=== PATIENT | male | born 1985 | race Caucasian/White ===

== ENCOUNTER 2016-04-27 14:27 | Emergency (ER) | payer OTHER ==
[~2016-04-27] VITALS: Ht 167.6 cm; Wt 75.7 kg
[2016-04-27 14:34] VITALS: Ht 167.6 cm; Wt 75.7 kg
[2016-04-27] MEDS ORDERED: OXYCODONE HCL IR 5 MG TAB (IMMEDIATE RELEASE) PO STA (16:20)
[2016-04-27] MEDS ORDERED: LISI-461 PO (16:21)
--- NOTE | 2016-04-27 16:23 | EMERGENCY ROOM VISIT NOTE ---
History Report prepared by Fareed: Kvng Menon Under the Supervision of: Dr. Lucian Zhao M.D. First contact with patient: 16:11 Chief Complaint: HAND PAIN/INJURY Stated Complaint: PAIN AND FEVER BLISTERS BOTH HANDS History of Present Illness The patient is a 30 year old male who presents to the Emergency Room with complaints of worsening hand pain for the past week. The patient additionally states that he has been having pain all over. 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 He states that is started out looking like a psoriasis, and now it is swollen. The patient states that he has not injured them or worked with any chemicals recently. He additionally denies being a diabetic. The patient states that he has some blisters on his lips, leg pain, back pain, and generalized pain. The patient states that he has been taking Tylenol to treat the pain. He denies abdominal pain or vomiting Source of History: patient, family Onset: week ago Position: hand (bilateral) Quality: other (swelling) Timing: worsening Associated Symptoms: + back pain, No cough, No rash, No sorethroat, No urinary symptoms Note: Associated symptoms: Leg pain, blisters on his lips Review of Systems See HPI for pertinent positives & negatives. A total of 10 systems reviewed and were otherwise negative. Past Medical & Surgical Medical Problems: (1) Chronic back pain (2) History of - hypertension (3) Lumbar MRI revealing L5 abnormality Old medical records were reviewed. Nurse's notes were reviewed and I agree with. Family History Hypertension Social History Smoking Status: Current Every Day Smoker Alcohol Use: occasionally Occupation Status: employed, unemployed Current/Historical Medications Scheduled Lisinopril (Lisinopril), 10 MG PO DAILY Scheduled PRN Oxycodone Ir (Roxicodone Ir), 1-2 TAB PO Q4H PRN for Severe Pain Allergies Coded Allergies: No Known Allergies (Unverified , 04/27/16) Physical Exam Vital Signs Date Time Temp Pulse Resp B/P Pulse Ox O2 Delivery O2 Flow Rate FiO2 04/27/16 18:38 37.1 101 18 138/91 98 04/27/16 18:28 101 18 138/91 98 Room Air 04/27/16 17:30 101 18 141/92 98 Room Air 04/27/16 14:34 37.1 101 18 152/98 99 Room Air Physical Exam General: Non-ill appearing young male in no acute distress. HEENT: Normal cephalic atraumatic. Pupils are equal round and reactive to light. Extraocular movements are intact. Oropharynx is pink with moist mucous membranes. No swelling of the mouth lips or tongue. Neck: Supple with a midline trachea. No meningeal signs or stiffness, no JVD or bruits. No Stridor. Chest: Clear to auscultation bilaterally. No wheezes or rhonchi. No increased work of breathing. Heart: regular rate and rhythm. Abdomen: Soft nontender, nondistended without rebound guarding or rigidity. Extremities: Pain along both hands more on the dorsal aspect. Minimal swelling. Has scaling on the palm on the right which appears to be healing. Full range of motion. Normal motor and sensation. No evidence of vascular compromise. Good pulses. Good capillary refill. No blisters. No evidence of cellulitis. No crepitus. No cyanosis clubbing or edema. No calf tenderness or assymetry Spine/Back. Non tender to palpation. No CVA tenderness Skin: Good turgor without rashes. Neurologic exam: Cranial nerves two through 12 are intact. Motor and sensation are intact and symmetrical throughout. Medical Decision & Procedures Laboratory Results 04/27/16 16:35 Red Blood Count 4.01, Mean Corpuscular Volume 89.0, Mean Corpuscular Hemoglobin 31.2, Mean Corpuscular Hemoglobin Concent 35.0, Mean Platelet Volume 10.0, Neutrophils (%) (Auto) 45.7, Lymphocytes (%) (Auto) 39.6, Monocytes (%) (Auto) 10.9, Eosinophils (%) (Auto) 2.8, Basophils (%) (Auto) 0.7, Neutrophils # (Auto ) 2.75, Lymphocytes # (Auto) 2.39, Monocytes # (Auto) 0.66, Eosinophils # (Auto ) 0.17, Basophils # (Auto) 0.04 04/27/16 16:35 Test 04/27/16 16:35 White Blood Count 6.03 K/uL (4.8-10.8) Red Blood Count 4.01 M/uL (4.7-6.1) Hemoglobin 12.5 g/dL (14.0-18.0) Hematocrit 35.7 % (42-52) Mean Corpuscular Volume 89.0 fL (80-100) Mean Corpuscular Hemoglobin 31.2 pg (25-34) Mean Corpuscular Hemoglobin Concent 35.0 g/dl (32-36) Platelet Count 218 K/uL (130-400) Mean Platelet Volume 10.0 fL (7.4-10.4) Neutrophils (%) (Auto) 45.7 % Lymphocytes (%) (Auto) 39.6 % Monocytes (%) (Auto) 10.9 % Eosinophils (%) (Auto) 2.8 % Basophils (%) (Auto) 0.7 % Neutrophils # (Auto) 2.75 K/uL (1.4-6.5) Lymphocytes # (Auto) 2.39 K/uL (1.2-3.4) Monocytes # (Auto) 0.66 K/uL (0.11-0.59) Eosinophils # (Auto) 0.17 K/uL (0-0.5) Basophils # (Auto) 0.04 K/uL (0-0.2) RDW Standard Deviation 43.7 fL (36.4-46.3) RDW Coefficient of Variation 13.4 % (11.5-14.5) Immature Granulocyte % (Auto) 0.3 % Immature Granulocyte # (Auto) 0.02 K/uL (0.00-0.02) Anion Gap 10.0 mmol/L (3-11) Est Creatinine Clear Calc Drug Dose 138.6 ml/min Estimated GFR () 145.6 Estimated GFR (Non- 125.6 BUN/Creatinine Ratio 28.6 (10-20) Uric Acid 4.0 mg/dl (2.6-7.2) Calcium Level 8.8 mg/dl (8.5-10.1) Total Bilirubin 0.4 mg/dl (0.2-1) Direct Bilirubin 0.1 mg/dl (0-0.2) Aspartate Amino Transf (AST/SGOT) 353 U/L (15-37) Alanine Aminotransferase (ALT/SGPT) 484 U/L (12-78) Alkaline Phosphatase 60 U/L (45-117) Total Protein 7.1 gm/dl (6.4-8.2) Albumin 3.6 gm/dl (3.4-5.0) Lipase 562 U/L (73-393) Las results as reviewed by me. Medications Administered Medications (Trade) Dose Ordered Sig/Bebe Route Start Time Stop Time Status Last Admin Dose Admin Oxycodone HCl (Roxicodone Immediate Rel Tab) 5 mg NOW STAT PO 04/27/16 16:20 04/27/16 16:21 DC 04/27/16 16:33 5 MG ED Course 161: Past medical records reviewed. The patient was evaluated in room B12, and a complete history and physical examination were performed. 162: Oxycodone HCl 5mg PO 6: Upon reevaluation, the patient is feeling better, though he is still having some hand pain. I discussed the results and treatment plan with him. He verbalized agreement of the treatment plan. The patient was discharged home. Medical Decision Differentials include, but are not limited to; infection, dry skin, toxicological issue, viral illness, gout, electrolyte or metabolic abnormalities This patient comes in with bilateral hand pain .on exam they are only minimally swelling. He has a small amount scaling on the palm which appears to be some sort of healing lesion. He does not appear to have anything suggest cellulitis. He has bounding pulses and good vascular flow and no evidence of neurovascular compromise. He has normal tendon function. He has no other discrete rashes and there is no blistering. He has had some blisters in his mouth and this could be a viral illness. I'm concerned it could be some sort of chemical or environmental exposure as it is bilateral. I talked to him at length there is nothing he can recall that he got on them or exposure. there is no sloughing of skin. i did blood work and he has no white count elevation. he has no significant electrolyte or metabolic maladies. His liver functions are moderately elevated and i had talked about this. He has had no abdominal pain or vomiting when i palpate his right upper quadrant it is not tender. his uric acid is normal and therefore unlikely gout. i did treat him with oxyir while he was here. I will encourage him to use ibuprofen for pain. For breakthrough pain, he can use OxyIR 5 mg, one or 2 pills every 4-6 hours as needed. He was warned that this can make him drowsy and do not take for drinking, driving, working. I encouraged him follow-up with his regular doctor for recheck and return to the ER if: increasing pain, redness or warmth , numbness weakness, any new problems or concerns. The patient and his family member anai happy with plan and he was discharged to home. Impression Primary Impression: Bilateral hand pain Scribe Attestation The scribe's documentation has been prepared under my direction and personally reviewed by me in its entirety. I confirm that the note above accurately reflects all work, treatment, procedures, and medical decision making performed by me. Departure Information Dispostion Home / Self-Care Prescriptions Oxycodone Ir (Roxicodone Ir) 5 Mg Tab 1-2 TAB PO Q4H Y for Severe Pain, #24 TAB Prov: Lucian Zhao M.D. 04/27/16 Referrals No Doctor, Assigned (PCP) Forms HOME CARE DOCUMENTATION FORM, IMPORTANT VISIT INFORMATION Patient Instructions My [facility] Additional Instructions Rest. Drink plenty of fluids. Use ibuprofen 400 mg every 6 hours as needed for pain. Take with food For more severe pain, use OxyIR 5 mg, one or 2 pills every 4-6 hours as needed OxyIR may make you drowsy and do not take before drinking, driving, working Follow-up with your doctor in 1-2 days for recheck. Your liver functions are mildly elevated and you need to have this rechecked. Return to the ER if: increasing pain, numbness or vweakness, fever or chills, abdominal pain, any new problems or concerns.
[2016-04-27 16:51] LABS: HEMATOCRIT 35.7 % (42-52); MEAN CORPUSCULAR HEMOGLOBIN 31.2 pg (25-34); PLATELET COUNT 218 K/uL (130-400); RED BLOOD COUNT 4.01 M/uL (4.7-6.1); WHITE BLOOD COUNT 6.03 K/uL (4.8-10.8)
[2016-04-27 17:13] LABS: BUN/CREATININE RATIO 28.6 (10-20); CALCIUM 8.8 mg/dl (8.5-10.1); CREATININE 0.69 mg/dl (0.60-1.40); POTASSIUM 3.8 mmol/L (3.5-5.1)
[2016-04-27 17:48] LABS: BASO % 0.7 %; BASO ABS # 0.04 K/uL (0-0.2); COMPLETE YES; EOS % 2.8 %; IG% 0.3 %; LYMPH % 39.6 %; LYMPH ABS # 2.39 K/uL (1.2-3.4); MONO % 10.9 %; NEUT % 45.7 %
[2016-04-27] MEDS ORDERED: OXYC1TAB3 PO (18:02)
[2016-04-27 18:38] VITALS: BP 138/91; PULSE 101; TEMP 37.1; O2SAT 98
== END 2016-04-27 18:41 | disposition home or self-care (01) ==
LOC: C.EDB 14:28
DX: M79.641 Pain in right hand (principal); M79.642 Pain in left hand; M54.9 Dorsalgia, unspecified; G89.29 Other chronic pain; I10 Essential (primary) hypertension; F17.210 Nicotine dependence, cigarettes, uncomplicated; Z79.899 Other long term (current) drug therapy

== ENCOUNTER → 2017-02-26 | Outpatient (CLI) | payer OTHER ==
[~2017-02-26] MED LIST: ACET-1256 PO; HYDR-5688 PO; IBUP-1050 PO
--- NOTE | 2017-02-26 11:33 | DIAGNOSTIC IMAGING REPORT ---
L HAND MIN 3 VIEWS ROUTINE HISTORY: 31 years-old Male HAND PAIN acute left hand pain status post punching injury COMPARISON: None available TECHNIQUE: 4 views of the left hand FINDINGS: There is an acute slightly impacted nondisplaced fracture involving the distal metaphyseal portion of the fourth metacarpal with mild apex dorsal angulation of 10 degrees. Mild associated dorsal hand soft tissue swelling. Fifth metacarpal appears intact. IMPRESSION: Acute slightly impacted and mildly angulated nondisplaced fracture of the fourth metacarpal. The above report was generated using voice recognition software. It may contain grammatical, syntax or spelling errors. Electronically signed by: Clay Marroquin M.D. 02/26/2017 11:32 AM Dictated Date/Time: 02/26/2017 11:30 AM
== END | disposition home or self-care (01) ==
LOC: C.RAD 10:51
PROVIDERS: ATTEND Family Medicine
DX: M79.642 Pain in left hand (principal); S62.395A Other fracture of fourth metacarpal bone, left hand, initial encounter for closed fracture; X58.XXXA Exposure to other specified factors, initial encounter

== ENCOUNTER 2017-05-15 14:47 | Emergency (ER) | payer OTHER ==
[~2017-05-15] VITALS: Ht 167.6 cm; Wt 79.0 kg
[2017-05-15 14:52] VITALS: TEMP 36.8; Ht 167.6 cm; Wt 79.0 kg
[2017-05-15] MEDS ORDERED: HYDR-5688 PO (16:14)
[2017-05-15] MEDS ORDERED: ERYTHROMYCIN OP OINT 5 MG/GM 3.5 GM TUBE OP ONE (16:15)
--- NOTE | 2017-05-15 16:15 | EMERGENCY ROOM VISIT NOTE ---
History First contact with patient: 15:10 Chief Complaint: EYE PAIN Stated Complaint: SWOLLEN EYE History of Present Illness The patient is a 31 year old male who presents to the Emergency Room via private vehicle with complaints of "swollen ankle. The patient states that 3 days ago he began with mild swelling on the superior right eyelid. He states that it is painful, and hurts with movements of the right eye. There is no pain of the eye itself, and no redness of the eye noted. He states that it is worsening as each day goes by. He denies any trauma or injury. 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 He states that it happened rather overnight. He notes a history of previous foreign body but notes this feels much different. He notes that the pain is worse with blinking. This is strictly on the right side. He denies any contact lens use or glasses. He states that at times it will make his vision blurry. He denies any fevers, or chills. He notes a minimal headache. He rates the overall pain as an 8/10. Review of Systems A complete 6-point Review of Systems was discussed with the patient, with pertinent positives and negatives listed in the History of Present Illness. All remaining Review of Systems questions can be considered negative unless otherwise specified. Past Medical/Surgical History Medical Problems: (1) Chronic back pain (2) History of - hypertension (3) Lumbar MRI revealing L5 abnormality Family History Hypertension Social History Smoking Status: Current Some Day Smoker Alcohol Use: occasionally Occupation Status: employed, unemployed Current/Historical Medications Scheduled PRN Hydrocodone/Acetaminophen 5MG/325MG ([place] 5MG/325MG), 1-2 TABLET PO Q6 PRN for Pain Physical Exam Vital Signs Date Time Temp Pulse Resp B/P (MAP) Pulse Ox O2 Delivery O2 Flow Rate FiO2 05/15/17 16:27 93 18 146/86 96 Room Air 05/15/17 14:52 36.8 111 16 145/91 94 Right Eye Acuity: 20/50 Left Eye Acuity: 20/25 Physical Exam VITAL SIGNS - Vital signs and nursing notes were reviewed. Stable. Afebrile. GENERAL -31-year-old male appearing his stated age. Communicates well with provider and answers questions appropriately. HEAD - Normocephalic, Atraumatic. No Montelongo's Sign or Raccoon's Eyes. No depressed skull fractures palpable. EYES - PERRL with EOMI bilaterally. Sclera without noticeable foreign body or excoriations. No injection noted in the right eye. Without subconjunctival hemorrhage. Palpebral conjunctiva pink and moist with no injection or discharge noted. The superior right eyelid does reveal a erythematous and slightly raised region. No drainage. No foreign body appreciated. The right eyeball itself is unremarkable. The abnormality is localized to that of the right upper central eyelid. EARS - No deformities of external structures noted on gross examination bilaterally. Handle of malleus, umbo, cone of light, pars tensa/flaccid all easily visualized. NOSE - Midline and without cyanosis. Without discharge. MOUTH/OROPHARYNX - Without perioral cyanosis. Tongue midline with equal elevation of palate bilaterally. No tonsillar hypertrophy, erythema, or exudates noted. fair dentition noted. NECK - FROM assessed. No cervical lymphadenopathy noted. Medical Decision & Procedures Medications Administered Medications (Trade) Dose Ordered Sig/Bebe Route Start Time Stop Time Status Last Admin Dose Admin Erythromycin (Erythromycin Oph Oint) 1 appln NOW ONCE OP 05/15/17 16:15 05/15/17 16:16 DC 05/15/17 16:27 1 APPLN Medical Decision Patient was seen and evaluated as above in room D5. Review was performed of nursing notes and vital signs. After obtaining a thorough history and physical examination it was evident he was experiencing a stye/hordeolum. At this time I do not believe that oral antibiotics are indicated. There is no evidence of periorbital or orbital cellulitis. This is localized to the superior right eyelid. Minimal pain with EOMs which does not elicit pain at the eyeball rather it is all localized to the eyelid itself. I will provide him with erythromycin ointment to help lubricate the eye as he notes it feels dry. He is also to utilize warm compresses. He will be given a short prescription for [place] secondary to his pain. He notes that he is using [id number] medicine with minimal relief. No red flags in the [employer] drug monitoring system. The erythromycin is also to help with any potential small infection. He is to follow with the family doctor for reevaluation or return with worsening. The patient was educated upon management, had questions answered prior to discharge, was educated upon worrisome symptoms in which to return, and was discharged home in good condition. In the evaluation and treatment of this patient, the following differential diagnoses were considered: Corneal Abrasion, Conjunctivitis, Eye Contusion, Globe Injury, Orbital Floor Injury (Blowout Fracture), Corneal Ulcer, Keratitis , Herpes Zoster Opthalmic, Blepharitis, Orbital Cellulitis, Iritis, Scleritis/ Episcleritis, Uveitis, Temporal Arteritis, Subconjunctival Hemorrhage. Impression Primary Impression: Hordeolum internum of right upper eyelid Departure Information Dispostion Home / Self-Care Condition GOOD Prescriptions Hydrocodone/Acetaminophen 5MG/325MG ([place] 5MG/325MG) Tab 1-2 TABLET PO Q6 Y for Pain, #15 TAB For Initial Treatment Prov: Satya Staples PA-C 05/15/17 Referrals Jose Chowdhury M.D. (PCP) Patient Instructions My [facility] Additional Instructions You have been treated in the Emergency Department for a sty on your right upper eyelid. You have been prescribed NORCO to be used for pain control. This is a narcotic medication. You cannot drive or consume alcohol while on this medicine. This medicine should only be used for pain that cannot be controlled with over-the- counter pain medicines. Please no Tylenol with this. You were prescribed erythromycin to be used every 6 hours. This is an antibiotic. Stop this medication and contact a medical provider if you were to develop any significant adverse side effects including: wheezing, shortness of breath, passing out, vomiting, or a diffuse rash. Always take antibiotics as directed and COMPLETE the ENTIRE course regardless of the improvement of your symptoms. For pain control, you can use the following [id number]-[id number] medicines (if >12 yo): - Regular strength (325mg/tab) Tylenol (acetaminophen) 2 tabs every 4-6 hours as needed. Do not exceed 12 tablets in a 24 hour period. Avoid taking more than 3 grams (3000 mg) of Tylenol per day. This includes any other sources of acetaminophen you may take on a regular basis. Please do not take this with [place]. - Regular strength (200 mg/tab) Advil (ibuprofen) 1-2 tabs every 4-6 hours as needed. Do not exceed a dose of 3200 mg per day. Avoid rubbing your eyes for the next few days as this can cause irritation. Wear sunglasses when outside to help minimize your pain. You should relax in a quiet, dark room to help minimize your symptoms. Please call your family doctor to schedule follow-up. Return to the emergency department if you develop the following symptoms despite treatment course outlined above: blurry vision, loss of vision, fever, intractable pain, increased redness, swelling, or purulent discharge.
[2017-05-15 16:27] VITALS: BP 146/86; PULSE 93; O2SAT 96
== END 2017-05-15 16:36 | disposition home or self-care (01) ==
LOC: C.EDB 14:49 → C.EDD 16:36
DX: H00.021 Hordeolum internum right upper eyelid (principal); M54.9 Dorsalgia, unspecified; G89.29 Other chronic pain; Z86.79 Personal history of other diseases of the circulatory system; Z82.49 Family history of ischemic heart disease and other diseases of the circulatory system; F17.210 Nicotine dependence, cigarettes, uncomplicated

== ENCOUNTER 2022-06-14 12:01 | Inpatient (IN) ==
[2022-06-14] MEDS ORDERED: ONDANSETRON INJ 2 MG/ML 2 ML VIAL IV STA (12:50)
[2022-06-14] MEDS ORDERED: PIPERACILLIN/TAZOBACTAM 4.5 GM/120 ML BAG IV ONE (12:50)
[2022-06-14] MEDS ORDERED: DAPTOmycin 375 MG in SYRINGE 0 ML IV SCH (13:00)
[2022-06-14] MEDS: HYDROmorphone INJ 0.5 MG/0.5 ML SYR IV PRN ×4 (13:01→19:45)
--- NOTE | 2022-06-14 13:13 | Emergency Department Note ---
Impression & Plan Cellulitis and abscess of left lower extremity ED Provider Note INFORMANT: Patient ED PROVIDER(S): Jose Kincaid MD CHIEF COMPLAINT: Left ankle infection PLAN: Disposition: Admitted Condition: Good Outpatient prescription management: none Referral: None MEDICAL DECISION MAKING: Patient presented because of concerns for left lower leg infection. Physical examination was concerning for cellulitis and abscess given the purulent drainage. There was fluctuance present as well. He had an IV established. Blood work was obtained. Wound drainage was cultured. Blood cultures performed. Patient was treated with IV Dilaudid and Zofran for symptom control. He was started empirically on IV Zosyn and daptomycin. Patient had an elevated white blood cell count and inflammatory markers concerning for infection. He underwent CT imaging of the left ankle and this was concerning for abscess and developing osteomyelitis/tenosynovitis. I did discuss the case with Dr. Nava butt of orthopedics. He noted he does not specialize in the foot and ankle. I did discuss the case with Dr. Bautista of podiatry. He evaluated the patient in the ER for consultation and will help manage the patient. I did consult the [facility]. The patient will be admitted by internal medicine for further treatment and consultation. Discussed with the telehealth case manager. After review of the information above and other included data, I feel the patient requires admission. Triage Nursing notes reviewed and agree them. Vital Signs: reviewed and remarkable for no significant abnormalities Prior /Outside records reviewed: none Differential diagnosis: Cellulitis, abscess, MRSA infection, DVT, necrotizing fasciitis, dermatitis, drug eruption, allergic reaction, as well as other pathologies. Diagnostics, as interpreted by me: ECG: none Cardiac Monitoring: Cardiac monitoring ordered by me: The patient was placed on continuous cardiac monitoring and observed. It revealed a normal sinus rhythm at 82 beats per minute without ectopy or evidence of dysrhythmia. Medical decision rules: None Imaging studies: CT imaging as above. I refer you to the EMR for further details. HPI: The patient is a 36year old male who presents to the Emergency Room with complaints of left leg infection. This started about 2 weeks ago and is worsening. The patient also notes the following associated symptoms, swelling, leg redness, drainage from the lateral aspect of the left ankle. The patient has found no relieving factors. Current pain is rated as 10/10. Patient states that his ankle was swollen and uncomfortable. 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 Patient was seen at the [facility] and started on prednisone for suspected gout. Patient was seen again today and was referred to the ER due to concerns for infection. Pt denies LOC, headache, fevers, chills, diaphoresis, visual changes, neck pain, chest pain, breathing difficulties, nausea, vomiting, abdominal pain, back pain, melena, hematochezia, urinary symptoms, numbness, weakness, lymphadenopathy, rash, or other complaints. PAST MEDICAL HISTORY: See Below, tests nonalcoholic cirrhosis PAST SURGICAL HISTORY: See Below, SOCIAL HISTORY: See Below, employed, smoker HOME MEDICATIONS: See Below ALLERGIES: See Below VITALS: See Below PHYSICAL EXAMINATION: GENERAL: Awake, alert, very uncomfortable-appearing, in no distress HENT: Normocephalic, atraumatic. Oropharynx unremarkable. EYES: Normal conjunctiva. Sclera non-icteric. NECK: Inspection normal. Non-tender. Supple. No nuchal rigidity. FROM. No ma sses. RESPIRATORY: Clear to auscultation. No wheezes. No rales. Normal respiratory effort. CARDIAC: Normal rate. Normal rhythm. No murmurs. No rubs. Extremities warm and well perfused. Pulses equal. No JVD. GI: Soft, non-distended. No tenderness to palpation. No rebound or guarding. No masses. RECTAL: Deferred. MUSCULOSKELETAL: Atraumatic. Chest examination reveals no tenderness. The back is symmetrical on inspection without obvious abnormality. There is no CVA tenderness to palpation. No joint edema. LOWER EXTREMITIES: The left lower leg is larger than the right. There is tenderness distally and around the ankle joint and foot. Surrounding cellulitis present. There is an open wound actively draining purulent material laterally over the malleolus. No obvious crepitus. NEURO: Normal sensorium. No sensory or motor deficits noted. SKIN: No rash or jaundice noted. Past Med/Surg History Medical History Hepatitis C Mood disorder No pertinent past medical history Surgical History H/O hand surgery Family History Other Diabetes Social History (Updated 06/14/22 @ 15:51 by Dorcas Desouza PA-C) Smoking Status: Current every day smoker Tobacco Type: E-cigarettes / Vaping Hx Alcohol Use: Yes (h/o heavy remote use. does not drink now ) Hx Substance Use: Yes (remove IVDU but has not used in 10 years) Preferred Language: Thai Feels Safe at Home: Yes Allergies Allergies Allergy/AdvReac Type Severity Reaction Status Date / Time No Known Allergies Allergy Mild Unverified 10/03/21 16:11 Home Meds Home Medications Medication Instructions Recorded Confirmed buspirone 10 mg tablet 10 mg PO BID 06/14/22 06/14/22 indomethacin 50 mg capsule 50 mg PO TID PRN gout flares 06/14/22 06/14/22 prednisone 10 mg tablet 10 mg PO UD 06/14/22 06/14/22 Results & Data (ED) Vital Signs Vital Signs - 24 hr 06/14/22 12:04 06/14/22 14:30 06/14/22 13:00 Temperature 36.8 C Temperature Source Temporal Artery Scan Pulse Rate 85 Pulse Rate [Finger] 78 83 Respiratory Rate 20 18 16 Respiratory Effort / Characteristics Non-Labored Spontaneous Non-Labored Spontaneous Non-Labored Spontaneous Respiratory Depth Normal Normal Normal Respiratory Pattern Regular Regular Blood Pressure 135/80 Blood Pressure [Right Arm] 130/76 122/75 Blood Pressure Mean 98 Blood Pressure Mean [Right Arm] 94 90 Blood Pressure Position [Right Arm] Sitting Sitting Pulse Oximetry 98 96 98 Oxygen Delivery Method Room Air Room Air Room Air Sepsis New/Unexplained Change in Mental Status N/A Sepsis Action Taken by Nursing No Action Required 06/14/22 13:30 06/14/22 16:03 Temperature Temperature Source Pulse Rate Pulse Rate [Finger] 82 82 Respiratory Rate 18 20 Respiratory Effort / Characteristics Non-Labored Spontaneous Non-Labored Respiratory Depth Normal Normal Respiratory Pattern Regular Blood Pressure Blood Pressure [Right Arm] 128/82 130/84 Blood Pressure Mean Blood Pressure Mean [Right Arm] 97 99 Blood Pressure Position [Right Arm] Sitting Pulse Oximetry 97 97 Oxygen Delivery Method Room Air Room Air Sepsis New/Unexplained Change in Mental Status Sepsis Action Taken by Nursing Laboratory Data 06/14/22 12:46 06/14/22 12:46 Lab Results 06/14/22 06/14/22 06/14/22 Range/Units 12:46 12:46 12:46 WBC 11.54 H (4.8-10.8) K/ul RBC 3.93 L (4.70-6.10) M/uL Hgb 12.6 L (14.0-18.0) g/dl Hct 35.6 L (42.0-52.0) % MCV 90.6 (80.0-100.0) fL MCH 32.1 (25.0-34.0) pg MCHC 35.4 (32.0-36.0) g/dL RDW Std Deviation 52.7 H (36.4-46.3) fL RDW Coeff of Tim 15.9 H (11.5-14.5) % Plt Count 92 L (130-400) K/uL MPV 11.1 (9.4-12.4) fL Immature Gran % (Auto) 0.4 % Neut % (Auto) 92.8 % Lymph % (Auto) 3.2 % Dukes % (Auto) 3.0 % Eos % (Auto) 0.3 % Baso % (Auto) 0.3 % Neut # (Auto) 10.71 H (1.40-6.50) K/uL Lymph # (Auto) 0.37 L (1.2-3.4) K/uL Dukes # (Auto) 0.35 (0.11-0.59) K/uL Eos # (Auto) 0.03 (0-0.50) K/uL Baso # (Auto) 0.03 (0-0.2) K/uL Immature Gran # (Auto) 0.05 (0.01-0.20) K/uL ESR 65 H (0-15) mm/hr Sodium 133 L (136-145) mmol/L Potassium 4.5 (3.5-5.1) mmol/L Chloride 101 (98-107) mmol/L Carbon Dioxide 25 (21-32) mmol/L Anion Gap 7 (3-11) BUN 27 H (6-23) mg/dl Creatinine 0.66 (0.6-1.4) mg/dl Est Cr Clr Drug Dosing 156.3 ml/min Est GFR ( Amer) 142.1 ml/min Est GFR (Non-Af Amer) 122.6 ml/min BUN/Creatinine Ratio 40.9 H (10-20) Glucose 166 H (70-99(Fasting)) mg/dl Lactate (0.4-2.0) mmol/L Uric Acid 3.2 (2.6-7.2) mg/dl Calcium 8.3 L (8.6-10.3) mg/dl C-Reactive Protein 12.85 H (0-0.5) mg/dl 06/14/22 Range/Units 12:56 WBC (4.8-10.8) K/ul RBC (4.70-6.10) M/uL Hgb (14.0-18.0) g/dl Hct (42.0-52.0) % MCV (80.0-100.0) fL MCH (25.0-34.0) pg MCHC (32.0-36.0) g/dL RDW Std Deviation (36.4-46.3) fL RDW Coeff of Tim (11.5-14.5) % Plt Count (130-400) K/uL MPV (9.4-12.4) fL Immature Gran % (Auto) % Neut % (Auto) % Lymph % (Auto) % Dukes % (Auto) % Eos % (Auto) % Baso % (Auto) % Neut # (Auto) (1.40-6.50) K/uL Lymph # (Auto) (1.2-3.4) K/uL Dukes # (Auto) (0.11-0.59) K/uL Eos # (Auto) (0-0.50) K/uL Baso # (Auto) (0-0.2) K/uL Immature Gran # (Auto) (0.01-0.20) K/uL ESR (0-15) mm/hr Sodium (136-145) mmol/L Potassium (3.5-5.1) mmol/L Chloride (98-107) mmol/L Carbon Dioxide (21-32) mmol/L Anion Gap (3-11) BUN (6-23) mg/dl Creatinine (0.6-1.4) mg/dl Est Cr Clr Drug Dosing ml/min Est GFR ( Amer) ml/min Est GFR (Non-Af Amer) ml/min BUN/Creatinine Ratio (10-20) Glucose (70-99(Fasting)) mg/dl Lactate 2.0 (0.4-2.0) mmol/L Uric Acid (2.6-7.2) mg/dl Calcium (8.6-10.3) mg/dl C-Reactive Protein (0-0.5) mg/dl Administered Medications Hydromorphone HCl (Hydromorphone Inj 0.5 Mg/0.5 Ml Syr) 0.5 mg IV Q15M PRN PRN Reason: Pain Stop: 06/28/22 12:49 Last Admin: 06/14/22 15:22 Dose: 0.5 mg Documented By: Admin: 06/14/22 14:39 Dose: 0.5 mg Documented By: Admin: 06/14/22 13:01 Dose: 0.5 mg Documented By: ELIZ Daptomycin 375 mg/ Syringe 7.5 mls @ 3.75 mls/min IV Q24H [facility]; Protocol Stop: 06/16/22 12:59 Last Admin: 06/14/22 14:39 Dose: 3.75 mls/min Documented By: ELIZ Discontinued Medications Piperacillin Sod/Tazobactam Sod (Zosyn) 4.5 gm in 120 mls @ 240 mls/hr IV NOW ONE Stop: 06/14/22 13:19 Last Infusion: 06/14/22 13:29 Dose: 0 mls/hr Documented By: Admin: 06/14/22 13:01 Dose: 240 mls/hr Documented By: ELIZ Ioversol (Optiray 320 100ml) 95 ml IV ONCE ONE Stop: 06/14/22 14:17 Last Admin: 06/14/22 14:17 Dose: 95 ml Documented By: MARTHA Ondansetron HCl (Ondansetron Inj 2 Mg/Ml 2 Ml Vial) 4 mg IV NOW STA Stop: 06/14/22 12:51 Last Admin: 06/14/22 13:01 Dose: 4 mg Documented By: ELIZ Imaging Data Radiologist's Impression: Ankle CT 06/14/22 12:[address] ankle LT w con CT DOSE: 154.69 mGy.cm CLINICAL HISTORY: eval abscess, laterally . Left ankle swelling. TECHNIQUE: Multiaxial CT images of the left ankle were performed following the intravenous administration of 95 cc of Optiray 320 and reformatted in the sagittal and coronal plane. A dose lowering technique was utilized adhering to the principles of ALARA. COMPARISON STUDY: None. FINDINGS: There is extensive subcutaneous trace edema seen throughout the left ankle most pronounced laterally. There is associated skin thickening and mild enhancement along the lateral side of the ankle/hindfoot. Consistent with a cellulitis. There is a peripherally enhancing subcutaneous fluid collection seen within the left lateral ankle/hindfoot which measures approximately 4.3 x 3.2 x 1.4 cm. This consistent with a subcutaneous abscess. This abuts the distal fibula. Small focal area of cortical erosion within the distal fibula posteriorly consistent with a site of osteomyelitis. This is best seen on axial image 143. There is also fluid and peripheral enhancement within the tendon sheaths of the left peroneal tendons. This also abuts the subcutaneous abscess. Therefore, this favors an infectious tenosynovitis. This is best seen on axial image 171 and coronal image 59. There is an additional subcutaneous fluid collection within the left lateral hindfoot/midfoot on image 212 which measures 2.3 x 1.4 cm. This consistent with an additional abscess. This likely contacts to the dominant subcutaneous trace fluid collection within the left lateral ankle. No fracture or dislocation within the left ankle. No radiopaque foreign bodies. IMPRESSION: 1. Left lateral ankle/hindfoot subcutaneous abscesses as described above. 2. There is also fluid and peripheral enhancement surrounding the left peroneal tendons consistent with an infectious tenosynovitis. 3. Small focal cortical erosion at the distal fibula posteriorly consistent with a site of osteomyelitis. ACT 112: Negative or not required by law. Electronically signed by: Chiki Mercado M.D. 06/14/2022 2:35 PM Discharge Plan Visit Data Chief Complaint: Infection Stated Complaint: LEFT FOOT INFECTION, REFERRED HAS XRAY ON DISC ED Provider: Jose Kincaid Discharge Problem: Cellulitis and abscess of left lower extremity Forms Stand Alone Forms: [employer] Prescriptions Prescriptions: No Action prednisone 10 mg tablet 10 mg PO UD Rx Instructions: take 50 mg for 2 days,then 40 mg for 2 days,30 mg for 2 days,20 mg for 2 days and 10 mg for 2 days...ordered 06/11/22 indomethacin 50 mg capsule 50 mg PO TID PRN (Reason: gout flares) buspirone 10 mg tablet 10 mg PO BID Referrals Referrals: Jose Chowdhury MD [Primary Care Provider] -
[2022-06-14 13:34] LABS: Hematocrit (blood only) 35.6 % (42.0-52.0); Hemoglobin 12.6 g/dl (14.0-18.0); Mean Corpuscular Hemoglobin 32.1 pg (25.0-34.0); Mean Corpuscular Hgb Conc 35.4 g/dL (32.0-36.0); Mean Corpuscular Volume 90.6 fL (80.0-100.0); Mean Platelet Volume 11.1 fL (9.4-12.4); Platelet Count 92 K/uL (130-400); RDW Coefficient of Variation 15.9 % (11.5-14.5); RDW Standard Deviation 52.7 fL (36.4-46.3); Red Blood Count 3.93 M/uL (4.70-6.10); White Blood Count 11.54 K/ul (4.8-10.8)
[2022-06-14 13:43] LABS: BUN Creatinine Ratio 40.9 (10-20); C Reactive Protein 12.85 mg/dl (0-0.5); Calcium 8.3 mg/dl (8.6-10.3); Creatinine Clr Calc Pharmacy 156.3 ml/min; Est GFR (African American) 142.1 ml/min; Est GFR (Non-African American) 122.6 ml/min; Potassium 4.5 mmol/L (3.5-5.1); Uric Acid 3.2 mg/dl (2.6-7.2)
[2022-06-14 13:48] LABS: Basophils # (auto) 0.03 K/uL (0-0.2); Basophils % (auto) 0.3 %; Eosinophils # (auto) 0.03 K/uL (0-0.50); Eosinophils % (auto) 0.3 %; Immature Granulocytes # (auto) 0.05 K/uL (0.01-0.20); Immature Granulocytes % (auto) 0.4 %; Lymphocytes # (auto) 0.37 K/uL (1.2-3.4); Lymphocytes % (auto) 3.2 %; Monocytes # (auto) 0.35 K/uL (0.11-0.59); Neutrophils # (auto) 10.71 K/uL (1.40-6.50); Neutrophils % (auto) 92.8 %
[2022-06-14] MEDS ORDERED: OPTIRAY 320 100ml IV ONE (14:16)
--- NOTE | 2022-06-14 14:38 | CT Scan Report ---
CT CT ankle LT w con CT DOSE: 154.69 mGy.cm CLINICAL HISTORY: eval abscess, laterally . Left ankle swelling. TECHNIQUE: Multiaxial CT images of the left ankle were performed following the intravenous administra tion of 95 cc of Optiray 320 and reformatted in the sagittal and coronal plane. A dose lowering tech nique was utilized adhering to the principles of ALARA. COMPARISON STUDY: None. FINDINGS: There is extensive subcutaneous trace edema seen throughout the left ankle most pronounced laterally. There is associated skin thickening and mild enhancement along the lateral side of the ank le/hindfoot. Consistent with a cellulitis. There is a peripherally enhancing subcutaneous fluid colle ction seen within the left lateral ankle/hindfoot which measures approximately 4.3 x 3.2 x 1.4 cm. Th is consistent with a subcutaneous abscess. This abuts the distal fibula. Small focal area of cortical erosion within the distal fibula posteriorly consistent with a site of osteomyelitis. This is best s een on axial image 143. There is also fluid and peripheral enhancement within the tendon sheaths of t he left peroneal tendons. This also abuts the subcutaneous abscess. Therefore, this favors an infecti ous tenosynovitis. This is best seen on axial image 171 and coronal image 59. There is an additional subcutaneous fluid collection within the left lateral hindfoot/midfoot on image 212 which measures 2. 3 x 1.4 cm. This consistent with an additional abscess. This likely contacts to the dominant subcutan eous trace fluid collection within the left lateral ankle. No fracture or dislocation within the left ankle. No radiopaque foreign bodies. IMPRESSION: 1. Left lateral ankle/hindfoot subcutaneous abscesses as described above. 2. There is also fluid and peripheral enhancement surrounding the left peroneal tendons consistent wi th an infectious tenosynovitis. 3. Small focal cortical erosion at the distal fibula posteriorly consistent with a site of osteomyeli tis. ACT 112: Negative or not required by law. Electronically signed by: Chiki Mercado M.D. 06/14/2022 2:35 PM
--- NOTE | 2022-06-14 15:34 | History & Physical Report ---
Date of Service June 14, 2022 Assessment & Plan (1) Cellulitis and abscess of left lower extremity: Plan: This is a 36yo M with a PMH of hepatitic C, cirrhosis with history of esophageal varices, mood disorder and other medical problems who presents with worsening wo und on left ankle and was found to have cellulitis and abscess of left lateral ankle. Worsening x two weeks and initially diagnosed as gout and treated with a prednisone course Pain and swelling continued to worsen and lateral aspect of ankle burst open with pus and drainage, sent today from urgent care Afebrile, WBC 11.54k, CRP 12.85, ESR [address] with left lateral ankle/hindfoot subcutaneous abscesses as well as findings consistent with an infectious tenosynovitis and small focal erosion at distal fibula posteriorly consistent with a site of osteomyelitis ED provider discussed case with ortho and podiatry. Dr Bautista will evaluate patient in ED Continue IV Dapto, Zosyn, follow cultures Keep NPO, pain control (2) Hepatitis C: (3) Cirrhosis of liver: Plan: Follows with [id number], recent MELD score low at 9. Seeing hematology to proceed with HCV therapy Platelets at baseline ~90, INR pending (4) Mood disorder: Plan: Continue Buspar BID DVT Ppx: SCDs for now, planning for procedure Code status: FULL PCP: Luciana Dispo: Admit to med/surg Patient seen in collaboration with Dr. Villa. Please see addendum. I spent a total of 75 minutes coordinating, documenting, and providing care for this patient excluding time spent in the performance of separately billed services. History of Present Illness Chief Complaint: lower leg infection Primary Care Provider: Jose Chowdhury MD This is a 36yo M with a PMH of hepatitic C, cirrhosis with history of esophageal varices, mood disorder and other medical problems who presents with worsening wound on left ankle. Has been ongoing for past two weeks and was initially diagnosed with gout by PCP and treated with a prednisone course. Pain and swelling continued to worsen and lateral aspect of ankle burst open with pus and drainage. Went to urgent care and was directed to come to ED for further evaluation. Denies any fever or chills. No lightheadedness, CP, SOB, nausea, vomiting, abdominal pain, dysuria, diarrhea constipation. Denies any recent bleeding of gums or in stool. Remote history of IV drug use but has not used for 10 years. Also remote alcohol history but has not used in years. Vapes/uses e-cigarettes. Allergies Allergy/AdvReac Type Severity Reaction Status Date / Time No Known Allergies Allergy Mild Unverified 10/03/21 16:11 Home Medications Medication Instructions Recorded Confirmed Type buspirone 10 mg tablet 10 mg PO BID 06/14/22 06/14/22 History indomethacin 50 mg capsule 50 mg PO TID PRN gout flares 06/14/22 06/14/22 History prednisone 10 mg tablet 10 mg PO UD 06/14/22 06/14/22 History Past Med/Surg History Medical History (Updated 06/14/22 @ 16:43 by Dorcas Desouza PA-C) Chronic back pain Cirrhosis of liver Hepatitis C Mood disorder Surgical History H/O hand surgery Family History Other Diabetes Social History Smoking Status: Current every day smoker Tobacco Type: E-cigarettes / Vaping Hx Alcohol Use: Yes (h/o heavy remote use. does not drink now ) Hx Substance Use: Yes (remove IVDU but has not used in 10 years) Preferred Language: Mosotho Feels Safe at Home: Yes Review of Systems Review of Systems: At least ten systems reviewed and negative except as noted in the HPI. Physical Exam Physical Exam: Please see Dr. Villa's addendum for physical exam. Results & Data Results & Data Vital Signs (Past 12 Hours) Vital Signs Temp Pulse Pulse Resp BP BP Pulse Ox 06/14/22 13:30 82 18 128/82 97 06/14/22 13:00 83 16 122/75 98 06/14/22 14:30 78 18 130/76 96 06/14/22 12:04 36.8 C 85 20 135/80 98 O2 Del Method 06/14/22 13:30 Room Air 06/14/22 13:00 Room Air 06/14/22 14:30 Room Air 06/14/22 12:04 Room Air Laboratory Results Short CBC 06/14/22 Range/Units 12:46 WBC 11.54 H (4.8-10.8) K/ul Hgb 12.6 L (14.0-18.0) g/dl Hct 35.6 L (42.0-52.0) % Plt Count 92 L (130-400) K/uL BMP 06/14/22 12:46 Sodium 133 L Potassium 4.5 Chloride 101 Carbon Dioxide 25 BUN 27 H Creatinine 0.66 Glucose 166 H Calcium 8.3 L Diagnostic Findings Ankle CT 06/14/22 12:[address] ankle LT w con CT DOSE: 154.69 mGy.cm CLINICAL HISTORY: eval abscess, laterally . Left ankle swelling. TECHNIQUE: Multiaxial CT images of the left ankle were performed following the intravenous administration of 95 cc of Optiray 320 and reformatted in the sagittal and coronal plane. A dose lowering technique was utilized adhering to the principles of ALARA. COMPARISON STUDY: None. FINDINGS: There is extensive subcutaneous trace edema seen throughout the left ankle most pronounced laterally. There is associated skin thickening and mild enhancement along the lateral side of the ankle/hindfoot. Consistent with a cellulitis. There is a peripherally enhancing subcutaneous fluid collection seen within the left lateral ankle/hindfoot which measures approximately 4.3 x 3.2 x 1.4 cm. This consistent with a subcutaneous abscess. This abuts the distal fibula. Small focal area of cortical erosion within the distal fibula posteriorly consistent with a site of osteomyelitis. This is best seen on axial image 143. There is also fluid and peripheral enhancement within the tendon sheaths of the left peroneal tendons. This also abuts the subcutaneous abscess. Therefore, this favors an infectious tenosynovitis. This is best seen on axial image 171 and coronal image 59. There is an additional subcutaneous fluid collection within the left lateral hindfoot/midfoot on image 212 which measures 2.3 x 1.4 cm. This consistent with an additional abscess. This likely contacts to the dominant subcutaneous trace fluid collection within the left lateral ankle. No fracture or dislocation within the left ankle. No radiopaque foreign bodies. IMPRESSION: 1. Left lateral ankle/hindfoot subcutaneous abscesses as described above. 2. There is also fluid and peripheral enhancement surrounding the left peroneal tendons consistent with an infectious tenosynovitis. 3. Small focal cortical erosion at the distal fibula posteriorly consistent with a site of osteomyelitis. ACT 112: Negative or not required by law. Electronically signed by: Chiki Mercado M.D. 06/14/2022 2:35 PM Supervising Physician Co-Signing Physician Notes Pt is a 36 y/o M with hx of IVDU (sober for 10 years), Alcohol abuse (sober for few years), Hep C (untreated), Liver cirrhosis, chronic thrombocytopenia (bl: 70-90) admitted for L ankle abscess with distal fibular osteo. PE: NAD, well developed Appeared mildly jaundice (but per pt its chronic) Lungs: CTA, no wheezing or crackles Cardiac: Normal S1/S2, no murmur Abd: ND, soft, NT MSK: L leg swelling with L lateral ankle open wound with serosanginous drainage Psych: AAOX3, normal affect A/P: L ankle abscess with distal fibula osteo: -surgery is consulted -VSS -per pt he has tolerated gen anesthesia in the past --- EKG: NSR --- no hx of [place] or CVA - pts plt stable and other chronic conditions are stable -pt is acceptable risk for surgery -will get an A1C -will continue dapto with zosyn (for anaerobes coverage) -will keep pt NPO -will get LLE doppler Liver cirrhosis with thrombocytopenia: -will continue to monitor cbc and CMP -currently symptoms and conditions are stable Agree with A/P by Dorcas Desouza PA-C
[2022-06-14] MEDS ORDERED: XYLOCAINE 1%/SOD BICARB 20 ML VIAL INFIL ONE (16:36)
[2022-06-14] MEDS ORDERED: KETOROLAC TROMETHAMINE 15 MG/ML VIAL IV ONE (16:50)
[2022-06-14] MEDS ORDERED: LIDOCAINE 1%/EPINEPHRINE 1:100,000 20 ML VIAL ONE ×2 (17:03→17:16)
--- NOTE | 2022-06-14 17:34 | Surgery Consultation ---
Date of Consultation June 14, 2022 Assessment & Plan (1) Cellulitis and abscess of left lower extremity: Patient seen, evaluated and treated. Reviewed CT and physical exam with abscess needing immediate release. Wound cultures obtained. Patient has recently eaten a full meal for lunch. It was determined he would be best served with bedside incision and drainage. Verbal consent obtained. Abscess released with out incident. Patient tolerated procedure and anesthesia well. See procedure noted below. Patient will be admitted to floor. Reviewed case with hospitalist. Patient may benifit from MRI or further exploration of wound in OR if symptoms fail to decrease. Incision and Drainage: Date: 06/14/22 Time: 17:35 Anatomic location: Left foot and ankle Indications for the procedure as well as its risks and benefits were explained to the patient who provided informed consent to proceed. Patient, procedure, and site were verified immediately before the procedure. The left ankle was prepped and draped for sterile technique. Local anesthesia provided with lidocaine infiltration with epinephrine. Abscess was incised with #15 blade at level of both the distal fibula and slightly distal to the sinus tarsi. Approximately 15 cc of purulent material was expressed. The cavities were explored for loculations. 500ml of normal saline were used to irrigate the wounds under low flow. The cavities were packed with 1/2 inch packing and covered with a dressing. Patient tolerated the procedure w ell and there were no complications. History of Present Illness History of Present Illness Patient is a 36 year old Male seen at [facility] emergency depart for left ankle abscess. Patient has a past medical history of hepatitic C, cirrhosis with history of esophageal varices, mood disorder and other medical problems. Patient presented by private vehicle with worsening wound on left ankle and was found to have cellulitis and abscess of left lateral ankle. Patient notes symptoms started two weeks ago. He was seen at PCP office who initially diagnosed as gout and treated with a prednisone course. Pain and swelling continued to worsen and lateral aspect of ankle burst open with pus and drainage, sent today from urgent care Afebrile, WBC 11.54k, CRP 12.85, ESR [address] with left lateral ankle/hindfoot subcutaneous abscesses as well as findings consistent with an infectious tenosynovitis and small focal erosion at distal fibula posteriorly consistent with a site of osteomyelitis. Patient last ate at 4pm. Allergies Allergy/AdvReac Type Severity Reaction Status Date / Time No Known Allergies Allergy Mild Unverified 10/03/21 16:11 Home Medications Medication Instructions Recorded Confirmed Type buspirone 10 mg tablet 10 mg PO BID 06/14/22 06/14/22 History indomethacin 50 mg capsule 50 mg PO TID PRN gout flares 06/14/22 06/14/22 History prednisone 10 mg tablet 10 mg PO UD 06/14/22 06/14/22 History Patient History Medical History Chronic back pain Cirrhosis of liver Hepatitis C Mood disorder Surgical History H/O hand surgery Family History Other Diabetes Social History Smoking Status: Current every day smoker Tobacco Type: E-cigarettes / Vaping Second Hand Exposure: Yes; Do You Dip or Chew Tobacco: Yes; Hx Alcohol Use: No Hx Substance Use: Yes Last Used Substance: Unknown Preferred Language: Croatian Communication Ability: Effective Electric Cell Tender Required: No Beliefs That Will Affect Care: None Current Living Situation: Parent Feels Safe at Home: Yes Review of Systems Review of Systems: All systems reviewed & are unremarkable except as noted in HPI & below Physical Exam Constitutional: cooperative and comfortable Neck: normal visual inspection and trachea midline Respiratory: normal respiratory effort Cardiovascular: Rate/Rhythm: regular rate (Pedal pulses palpable) and regular rhythm Musculoskeletal: Extremities: + joint enlargement (Edematous left ankle) Skin: + induration and + wound (purulence erupting from left ankle) Neurologic: moves all extremities Psychiatric: Orientation: alert and oriented x 3 Results & Data Vital Signs (Past 12 Hours) Vital Signs Temp Pulse Pulse Resp BP BP Pulse Ox 06/14/22 16:03 82 20 130/84 97 06/14/22 13:30 82 18 128/82 97 06/14/22 13:00 83 16 122/75 98 06/14/22 14:30 78 18 130/76 96 06/14/22 12:04 36.8 C 85 20 135/80 98 O2 Del Method 06/14/22 16:03 Room Air 06/14/22 13:30 Room Air 06/14/22 13:00 Room Air 06/14/22 14:30 Room Air 06/14/22 12:04 Room Air Diagnostic Findings CT CT ankle LT w con CT DOSE: 154.69 mGy.cm CLINICAL HISTORY: eval abscess, laterally . Left ankle swelling. TECHNIQUE: Multiaxial CT images of the left ankle were performed following the intravenous administration of 95 cc of Optiray 320 and reformatted in the sagittal and coronal plane. A dose lowering technique was utilized adhering to the principles of ALARA. COMPARISON STUDY: None. FINDINGS: There is extensive subcutaneous trace edema seen throughout the left ankle most pronounced laterally. There is associated skin thickening and mild enhancement along the lateral side of the ankle/hindfoot. Consistent with a cellulitis. There is a peripherally enhancing subcutaneous fluid collection seen within the left lateral ankle/hindfoot which measures approximately 4.3 x 3.2 x 1.4 cm. This consistent with a subcutaneous abscess. This abuts the distal fibula. Small focal area of cortical erosion within the distal fibula posteriorly consistent with a site of osteomyelitis. This is best seen on axial image 143. There is also fluid and peripheral enhancement within the tendon sheaths of the left peroneal tendons. This also abuts the subcutaneous abscess. Therefore, this favors an infectious tenosynovitis. This is best seen on axial image 171 and coronal image 59. There is an additional subcutaneous fluid col lection within the left lateral hindfoot/midfoot on image 212 which measures 2.3 x 1.4 cm. This consistent with an additional abscess. This likely contacts to the dominant subcutaneous trace fluid collection within the left lateral ankle. No fracture or dislocation within the left ankle. No radiopaque foreign bodies. IMPRESSION: 1. Left lateral ankle/hindfoot subcutaneous abscesses as described above. 2. There is also fluid and peripheral enhancement surrounding the left peroneal tendons consistent with an infectious tenosynovitis. 3. Small focal cortical erosion at the distal fibula posteriorly consistent with a site of osteomyelitis. ACT 112: Negative or not required by law. Electronically signed by: Chiki Mercado M.D. 06/14/2022 2:35 PM
--- NOTE | 2022-06-14 18:02 | XRay Report ---
XR foot LT min 3V routine CLINICAL HISTORY: Left foot infection with swelling. COMPARISON STUDY: Left first toe radiograph 08/21/2021. FINDINGS: There is diffuse soft tissue swelling within the left foot. No areas of cortical destructio n to suggest an osteomyelitis. No radiopaque foreign bodies. No soft tissue gas identified. No fractu re or dislocation within the left foot. The Lisfranc joint is intact. IMPRESSION: Diffuse soft tissue swelling within the left foot. No evidence for osteomyelitis. ACT 112: Negative or not required by law. Electronically signed by: Chiki Mercado M.D. 06/14/2022 6:00 PM
--- NOTE | 2022-06-14 19:05 | Ultrasound Report ---
LEFT LOWER EXTREMITY VENOUS DOPPLER HISTORY: Left leg swollen, painful LLE COMPARISON STUDY: None. FINDINGS: There is normal compressibility, flow, and augmentation within the left lower extremity beatriz p venous system. IMPRESSION: No DVT within the left lower extremity. ACT 112: Negative or not required by law. Electronically signed by: Chiki Mercado M.D. 06/14/2022 7:04 PM
[2022-06-14] MEDS ORDERED: ONDANSETRON INJ 2 MG/ML 2 ML VIAL IV PRN (19:21)
[2022-06-14] MEDS ORDERED: ACETAMINOPHEN 325 MG TAB PO PRN (19:21)
[2022-06-14] MEDS ORDERED: POLYETHYLENE (MIRALAX) 17 GM PACK PO PRN (19:21)
[2022-06-14] MEDS: busPIRone 5 MG TAB PO SCH (21:00)
[2022-06-14] MEDS: PIPERACILLIN/TAZOBACTAM 4.5 GM in DEXTROSE 5% 100 ML IV SCH (21:00)
[2022-06-15] MEDS: HYDROmorphone INJ 0.5 MG/0.5 ML SYR IV PRN ×4 (00:42→20:01)
[2022-06-15 01:53] LABS: A calco-baum cmplx NotReported Not Detected (NotDetected); Bact fragilis Not Reported Not Detected (NotDetected); C auris Not Reported Not Detected (NotDetected); Calbicans Not Reported Not Detected (NotDetected); Candida glabrata Not Reported Not Detected (NotDetected); Candida krusei Not Reported Not Detected (NotDetected); Cneoformans/gatti Not Reported Not Detected (NotDetected); Cparapsilosis Not Reported Not Detected (NotDetected); Ctropicalis Not Reported Not Detected (NotDetected); E cloacae compx Not Reported Not Detected (NotDetected); Efaecalis Not Reported Not Detected (NotDetected); Efaecium Not Reported Not Detected (NotDetected); Enterobacterales Not Reported Not Detected (NotDetected); Escherichia coli Not Reported Not Detected (NotDetected); H influenzae Not Reported Not Detected (NotDetected); K aerogenes Not Reported Not Detected (NotDetected); Koxytoca Not Reported Not Detected (NotDetected); Kpneumoniae grp Not Reported Not Detected (NotDetected); Lmonocyt Not Reported Not Detected (NotDetected); N meningitidis Not Reported Not Detected (NotDetected); P aeruginosa Not Reported Not Detected (NotDetected); Proteus spp Not Reported Not Detected (NotDetected); Salmonella spp Not Reported Not Detected (NotDetected); Smarcescens Not Reported Not Detected (NotDetected); Staph lugdunensis Not Reported Not Detected (NotDetected); Staph spp. Not Reported DETECTED (NotDetected); Staphaureus Not Reported DETECTED (NotDetected); Staphepi Not Reported Not Detected (NotDetected); Stenmaltophilia Not Reported Not Detected (NotDetected); Strep agal(GrpB) Not Reported Not Detected (NotDetected); Strep pneum Not Reported Not Detected (NotDetected); Strep pyog (GrpA) Not Reported Not Detected (NotDetected); Strep spp Not Reported Not Detected (NotDetected); mecAC+MREJ Resistant Gene MRSA Not Detected (NotDetected)
[2022-06-15 01:56] LABS: Staphylococcus spp. DETECTED (NotDetected)
[2022-06-15] MEDS: PIPERACILLIN/TAZOBACTAM 4.5 GM in DEXTROSE 5% 100 ML IV SCH ×2 (04:05→12:52)
[2022-06-15] MEDS: oxyCODONE HCL IR 5 MG TAB (IMMEDIATE RELEASE) PO PRN ×3 (05:32→18:03)
[2022-06-15] MEDS ORDERED: HYDROmorphone INJ 1 MG/ML SYRINGE IV STA (06:25)
[2022-06-15] MEDS ORDERED: HYDROmorphone INJ 1 MG/ML SYRINGE IV PRN ×2 (06:25→12:50)
[2022-06-15] MEDS: busPIRone 5 MG TAB PO SCH ×2 (08:06→20:02)
[2022-06-15 08:15] LABS: Hematocrit (blood only) 30.4 % (42.0-52.0); Hemoglobin 10.9 g/dl (14.0-18.0); Mean Corpuscular Hemoglobin 31.2 pg (25.0-34.0); Mean Corpuscular Hgb Conc 35.9 g/dL (32.0-36.0); Mean Corpuscular Volume 87.1 fL (80.0-100.0); Mean Platelet Volume 10.2 fL (9.4-12.4); Platelet Count 82 K/uL (130-400); RDW Standard Deviation 50.6 fL (36.4-46.3); Red Blood Count 3.49 M/uL (4.70-6.10); White Blood Count 11.24 K/ul (4.8-10.8)
[2022-06-15 08:27] LABS: Alanine Aminotransferase 173 U/L (7-52); Albumin Globulin Ratio 0.7 (0.9-2); Albumin Level 2.6 gm/dl (3.4-5.0); Alkaline Phosphatase 223 U/L (34-104); Anion Gap 4 (3-11); Aspartate Aminotransferase 187 U/L (13-39); Bilirubin,Total 1.6 mg/dl (0.2-1.0); Blood Urea Nitrogen 18 mg/dl (6-23); Calcium 7.7 mg/dl (8.6-10.3); Carbon Dioxide 27 mmol/L (21-32); Chloride 106 mmol/L (98-107); Creatinine Clr Calc Pharmacy 206.2 ml/min; Est GFR (African American) > 150.0 ml/min; Est GFR (Non-African American) 137.5 ml/min; Globulin 3.5 gm/dl (2.5-4.0); Glucose 95 mg/dl (70-99(Fasting)); Potassium 4.2 mmol/L (3.5-5.1); Sodium 137 mmol/L (136-145); Total Protein 6.1 gm/dl (6.0-8.3)
--- NOTE | 2022-06-15 09:42 | Hospitalist Progress Note ---
Date of Service June 15, 2022 Assessment & Plan (1) Cellulitis and abscess of left lower extremity: Plan: Worsening x two weeks and initially diagnosed as gout and treated with a prednisone course Pain and swelling continued to worsen and lateral aspect of ankle burst open with pus and drainage, sent today from urgent care inflammatory markers elevated. Ankle CT with left lateral ankle/hindfoot subcutaneous abscesses as well as findings consistent with an infectious tenosynovitis and small focal erosion at distal fibula posteriorly consistent with a site of osteomyelitis I&D performed by Dr. Bautista on 06/14 Continue IV Dapto, Zosyn changed to cefepime to treat nausea, follow cultures cont pain control efforts as he heals may need to consider additional imaging with MRI but would defer to Dr. Bautista (2) Hepatitis C: (3) Cirrhosis of liver: Plan: Follows with Anju MOCTEZUMA, recent MELD score low at 9. Seeing hematology to proceed with HCV therapy Platelets at baseline ~90, INR pending (4) Thrombocytopenia: Plan: No bleeding, platelets are stable and low 2/2 cirrhosis. Will give Lovenox in setting of increased risk for VTE given cirrhosis and infection. (5) Mood disorder: Plan: Continue Buspar BID DVT Ppx: Lovenox Code status: FULL PCP: Luciana Dispo: Admit to med/surg DO Anju Garcia Hospitalist Admission and Anticipated Discharge Date Admission Date: June 14, 2022 Subjective 36 yo M presented with left lower extremity infection He reports taking prednisone for presumed gout Shortly after this he saw redness escalating up his leg and states the lateral ankle opened up and drained He underwent a bedside I&D yesterday with Dr. Bautista Purulent fluid was expressed Ankle CT reviewed and concerning for infectious tenosynovitis along with a small focal erosion of distal fibula that is possibly a site os osteomyelitis Today his pain is moderate to severe. He reports severe pain in his back and can't get comfortable He was given oxycodone He then reported the antibiotic was making him nauseous Nausea was treated and the Zosyn was switched to cefepime. Review of Systems Review of Systems: All systems were reviewed and negative except as indicated above. Physical Exam Physical Exam: CONSTITUTIONAL: WNWD, vitals as above, generally well-appearing, NAD EYES: normal conjunctivae, no scleral icterus ENT: external ear and nose normal, MMM NECK: trachea midline RESPIRATORY: clear to auscultation bilaterally, no crackles, rales or wheezes, normal respiratory effort CARDIOVASCULAR: regular rate and rhythm, S1 and 2 heard without murmurs, gallops or rubs, no JVD, no peripheral edema CHEST: inspection of chest was normal GASTROINTESTINAL: soft, nontender, ND, no guarding MUSCULOSKELETAL: strength 5/5 throughout, head is normocephalic and atraumatic SKIN: warm and dry, left ankle was not assessed as this was painful to touch and there was a surgical dressing in place. Left leg was in a pant and he was too sensitive to touch to allow any visualization of skin under this pant at the moment. NEUROLOGIC: CN 2-12 grossly intact, no sensory deficit, normal cognition, normal speech, no tremor PSYCHIATRIC: alert cooperative and oriented to person, place and time. Results & Data Results & Data Vital Signs (Past 12 Hours) Vital Signs Temp Pulse Resp BP Pulse Ox O2 Del Method 06/15/22 07:10 37.1 C 88 16 133/80 96 Room Air Laboratory Results Short CBC 06/14/22 06/15/22 Range/Units 12:46 07:42 WBC 11.54 H 11.24 H (4.8-10.8) K/ul Hgb 12.6 L 10.9 L (14.0-18.0) g/dl Hct 35.6 L 30.4 L (42.0-52.0) % Plt Count 92 L 82 L (130-400) K/uL BMP 06/14/22 06/15/22 12:46 07:42 Sodium 133 L 137 Potassium 4.5 4.2 Chloride 101 106 Carbon Dioxide 25 27 BUN 27 H 18 Creatinine 0.66 0.50 L Glucose 166 H 95 Calcium 8.3 L 7.7 L Liver Function 06/15/22 Range/Units 07:42 Total Bilirubin 1.6 H (0.2-1.0) mg/dl AST 187 H (13-39) U/L ALT 173 H (7-52) U/L Alkaline Phosphatase 223 H (34-104) U/L Albumin 2.6 L (3.4-5.0) gm/dl Medications Administered Current Inpatient Medications Acetaminophen (Acetaminophen 325 Mg Tab) 650 mg PO Q8H PRN PRN Reason: pain or fever Stop: 07/14/22 19:20 Buspirone HCl (Buspirone 5 Mg Tab) 10 mg PO BID TRENA Stop: 07/14/22 20:59 Last Admin: 06/15/22 08:06 Dose: 10 mg Hydromorphone HCl (Hydromorphone Inj 1 Mg/Ml Syringe) 1 mg IV Q4H PRN PRN Reason: Severe Pain (Scale 7, 8, 9,10) Stop: 06/28/22 19:20 Daptomycin 300 mg/ Syringe 6 mls @ 3 mls/min IV Q24H TRENA; Protocol Stop: 06/22/22 13:59 Piperacillin Sod/Tazobactam (Sod 4.5 gm/ Dextrose) 120 mls @ 30 mls/hr IV Q8H TRENA; Protocol Stop: 06/21/22 19:59 Last Infusion: 06/15/22 08:06 Dose: Infused Ondansetron HCl (Ondansetron Inj 2 Mg/Ml 2 Ml Vial) 4 mg IV Q6H PRN PRN Reason: Nausea Stop: 07/14/22 19:20 Last Admin: 06/15/22 06:35 Dose: 4 mg Oxycodone HCl (Oxycodone Hcl Ir 5 Mg Tab (Immediate Release)) 5 - 10 mg PO QID PRN PRN Reason: Pain Stop: 06/29/22 04:12 Last Admin: 06/15/22 05:32 Dose: 10 mg Polyethylene Glycol (Polyethylene (Miralax) 17 Gm Pack) 17 gm PO DAILY PRN PRN Reason: Constipation Stop: 07/14/22 19:20
[2022-06-15] MEDS ORDERED: ONDANSETRON INJ 2 MG/ML 2 ML VIAL IV STA (12:50)
[2022-06-15] MEDS: CEFEPIME 2,000 MG in SYRINGE 0 ML IV SCH ×2 (13:47→20:02)
[2022-06-15 14:53] LABS: INR 1.4 (0.9-1.1); Prothrombin Time 14.6 Seconds (9.0-12.0)
[2022-06-15] MEDS: DAPTOmycin 300 MG in SYRINGE 0 ML IV SCH (15:59)
[2022-06-15] MEDS: ENOXAPARIN INJ 40 MG/0.4 ML SYR SQ SCH (16:00)
[2022-06-15] MEDS ORDERED: DAKIN'S SOLN 0.125% QUARTER STRENGTH 473 ML BTL EXT SCH (18:00)
--- NOTE | 2022-06-15 18:24 | Orthopedic Progress Note ---
Date of Service June 15, 2022 Assessment & Plan (1) Cellulitis and abscess of left lower extremity: Plan: Patient seen, evaluated and treated. Wound was examined and dressing changed. There is some demarcation of nonviable tissue. At this time Patient would benefit from wound debridement and application of wound vac. We discussed completing in OR. Patient is appreciative of this and remains anxious and reluctant towards bedside procedures. Patient scheduled for 06/16/22 after 3pm, wound debridement and application of Wound Vac. Admission and Anticipated Discharge Date Admission Date: June 14, 2022 Subjective Patient seen at bedside resting. He does note that his wound is painful and has difficulty getting comfortable. Patient was seen in ED yesterday where and I&D was performed under local anesthesia. He is sensate and is anxious when I entered to examine wound. Review of Systems Review of Systems: All systems reviewed & are unremarkable except as noted in Subjective Physical Exam Constitutional: cooperative and comfortable Neck: normal visual inspection and trachea midline Respiratory: normal respiratory effort Cardiovascular: Rate/Rhythm: regular rate (Pedal pulses palpable) and regular rhythm Musculoskeletal: Extremities: + joint enlargement (Edematous left ankle) Skin: + wound (wound bed shows necrosis) Neurologic: moves all extremities Psychiatric: Orientation: alert and oriented x 3 Results & Data Vital Signs (Past 12 Hours) Vital Signs Temp Pulse Resp BP BP Pulse Ox O2 Del Method 06/15/22 14:57 37.0 C 77 18 150/82 H 99 Room Air 06/15/22 07:10 37.1 C 88 16 133/80 96 Room Air
[2022-06-16] MEDS: HYDROmorphone INJ 0.5 MG/0.5 ML SYR IV PRN ×3 (04:09→14:10)
[2022-06-16] MEDS: CEFEPIME 2,000 MG in SYRINGE 0 ML IV SCH ×3 (04:09→21:43)
--- NOTE | 2022-06-16 08:08 | Anesthesiology Consultation ---
Date of Service June 16, 2022 Assessment & Plan (1) Encounter for pre-operative examination: Chart Review Chart Review: Acceptable Risk for Surgery History Surgery Operation Date: 06/16/22 11:20 Proposed Procedures p Left Abi Incision and Drainage with Wound Vac Placement - Jose Bautista, RADHA, MS Height/Weight Height: 5 ft 6 in Weight: 86.2 kg Allergies Allergy/AdvReac Type Severity Reaction Status Date / Time No Known Allergies Allergy Mild Unverified 10/03/21 16:11 Medications Home Medications Medication Instructions Recorded Confirmed Last Taken buspirone 10 mg tablet 10 mg PO BID 06/14/22 06/14/22 Unknown indomethacin 50 mg capsule 50 mg PO TID PRN gout flares 06/14/22 06/14/22 Unknown prednisone 10 mg tablet 10 mg PO UD 06/14/22 06/14/22 Unknown Active Medications Generic Name Dose Route Start Last Admin Trade Name Freq PRN Reason Stop Dose Admin Acetaminophen 650 mg 06/14/22 19:21 06/15/22 18:04 Acetaminophen 325 Mg Tab PO 07/14/22 19:20 650 mg Q8H PRN Administration pain or fever Buspirone HCl 10 mg 06/14/22 21:00 06/15/22 20:02 Buspirone 5 Mg Tab PO 07/14/22 20:59 10 mg BID TRENA Administration Enoxaparin Sodium 40 mg 06/15/22 14:00 06/15/22 16:00 Enoxaparin Inj 40 Mg/0.4 Ml Syr SQ 07/15/22 13:59 40 mg QAM TRENA Administration Hydromorphone HCl 0.5 mg 06/15/22 15:54 06/16/22 04:09 Hydromorphone Inj 0.5 Mg/0.5 Ml Syr IV 06/29/22 15:53 0.5 mg Q4H PRN Administration Severe Pain (Scale 7, 8, 9,10) Daptomycin 300 mg/ Syringe 6 mls @ 3 mls/min 06/15/22 14:00 06/15/22 15:59 IV 07/27/22 13:59 3 mls/min Q24H TRENA Administration Cefepime HCl 2,000 mg/ Syringe 20 mls @ 5 mls/min 06/15/22 13:00 06/16/22 04:09 IV 07/27/22 12:59 5 mls/min Q8H TRENA Administration Protocol Ondansetron HCl 4 mg 06/14/22 19:21 06/15/22 06:35 Ondansetron Inj 2 Mg/Ml 2 Ml Vial IV 07/14/22 19:20 4 mg Q6H PRN Administration Nausea Oxycodone HCl 5 - 10 mg 06/15/22 04:13 06/15/22 18:03 Oxycodone Hcl Ir 5 Mg Tab (Immediate Release) PO 06/29/22 04:12 10 mg QID PRN Administration Pain Past Medical History Medical History (Updated 06/16/22 @ 08:08 by Jordan Win MD) Anemia Chronic back pain Cirrhosis of liver Esophageal varices Hepatitis C Mood disorder Thrombocytopenia Past Family History Family History Other Diabetes Past Surgical History Surgical History H/O hand surgery Social History Smoking Status: Current every day smoker tobacco type: smokeless tobacco Do You Dip or Chew Tobacco: Yes Hx Alcohol Use: No Hx Substance Use: Yes substance use type: former substance user Last Used Substance: Unknown Physical Exam Vital Signs Last Vital Signs Temp 36.7 C 06/16/22 07:40 Pulse 84 06/16/22 07:40 Resp 16 06/16/22 07:40 BP 126/73 06/16/22 07:40 Pulse Ox 96 06/16/22 07:40 O2 Del Method Room Air 06/16/22 07:40 Testing Laboratory Results 06/15/22 07:42 06/15/22 07:42 PT 14.6 Seconds (9.0-12.0) H 06/15/22 14:13 INR 1.4 (0.9-1.1) H 06/15/22 14:13 06/14/22 12:40 Gram Stain - Final Ankle Aerobic and Anaerobic Culture - Preliminary Staphylococcus aureus 06/15/22 07:42 Aerobic Blood Culture - Preliminary Blood Gram positive cocci clusters 06/15/22 07:53 Aerobic Blood Culture - Preliminary Blood Gram positive cocci clusters 06/14/22 12:46 Aerobic Blood Culture - Preliminary Blood Staphylococcus species Anaerobic Blood Culture - Preliminary Staphylococcus species 06/14/22 12:50 Aerobic Blood Culture - Preliminary Blood Staphylococcus species Anaerobic Blood Culture - Preliminary Staphylococcus species Electrocardiogram Date: 10/03/21 Findings: + ST @ (106) Echocardiogram Date: 06/15/22 EF: 60% Valvular Disease: + no significant valvular disease
[2022-06-16 08:26] LABS: Basophils # (auto) 0.02 K/uL (0-0.2); Basophils % (auto) 0.2 %; Eosinophils # (auto) 0.07 K/uL (0-0.50); Eosinophils % (auto) 0.6 %; Hematocrit (blood only) 30.9 % (42.0-52.0); Hemoglobin 10.9 g/dl (14.0-18.0); Immature Granulocytes # (auto) 0.04 K/uL (0.01-0.20); Immature Granulocytes % (auto) 0.4 %; Lymphocytes # (auto) 0.92 K/uL (1.2-3.4); Lymphocytes % (auto) 8.1 %; Mean Corpuscular Hemoglobin 31.5 pg (25.0-34.0); Mean Corpuscular Hgb Conc 35.3 g/dL (32.0-36.0); Mean Corpuscular Volume 89.3 fL (80.0-100.0); Mean Platelet Volume 9.6 fL (9.4-12.4); Monocytes # (auto) 1.14 K/uL (0.11-0.59); Neutrophils % (auto) 80.7 %; Platelet Count 82 K/uL (130-400); RDW Coefficient of Variation 15.9 % (11.5-14.5); RDW Standard Deviation 51.8 fL (36.4-46.3); Red Blood Count 3.46 M/uL (4.70-6.10); White Blood Count 11.39 K/ul (4.8-10.8)
[2022-06-16] MEDS: oxyCODONE HCL IR 5 MG TAB (IMMEDIATE RELEASE) PO PRN ×2 (08:26→16:17)
[2022-06-16] MEDS: busPIRone 5 MG TAB PO SCH ×2 (08:27→21:36)
[2022-06-16] MEDS: ENOXAPARIN INJ 40 MG/0.4 ML SYR SQ SCH (08:27)
[2022-06-16 08:34] LABS: Alanine Aminotransferase 153 U/L (7-52); Albumin Globulin Ratio 0.7 (0.9-2); Albumin Level 2.5 gm/dl (3.4-5.0); Alkaline Phosphatase 229 U/L (34-104); Anion Gap 4 (3-11); Aspartate Aminotransferase 157 U/L (13-39); Bilirubin,Total 2.2 mg/dl (0.2-1.0); Blood Urea Nitrogen 16 mg/dl (6-23); Calcium 7.7 mg/dl (8.6-10.3); Carbon Dioxide 26 mmol/L (21-32); Chloride 105 mmol/L (98-107); Creatinine Clr Calc Pharmacy 219.3 ml/min; Est GFR (African American) > 150.0 ml/min; Globulin 3.6 gm/dl (2.5-4.0); Glucose 93 mg/dl (70-99(Fasting)); Potassium 4.1 mmol/L (3.5-5.1); Sodium 135 mmol/L (136-145); Total Protein 6.1 gm/dl (6.0-8.3)
[2022-06-16] MEDS: DAPTOmycin 300 MG in SYRINGE 0 ML IV SCH (13:18)
--- NOTE | 2022-06-16 14:36 | Hospitalist Progress Note ---
Date of Service June 16, 2022 Assessment & Plan (1) Cellulitis and abscess of left lower extremity: Plan: Worsening x two weeks and initially diagnosed as gout and treated with a prednisone course Pain and swelling continued to worsen and lateral aspect of ankle burst open with pus and drainage, sent today from urgent care inflammatory markers elevated. Ankle CT with left lateral ankle/hindfoot subcutaneous abscesses as well as findings consistent with an infectious tenosynovitis and small focal erosion at distal fibula posteriorly consistent with a site of osteomyelitis I&D performed by Dr. Bautista on 06/14 Further I&D with wound vac placement on 06/16 Continue IV Dapto, Zosyn changed to cefepime, follow cultures cont pain control efforts as he heals may need to consider additional imaging with MRI but would defer to Dr. Bautista (2) Bacteremia: Plan: Gram positive cocci in clusters Positive 06/14, 06/15 and 06/16, repeat blood cultures drawn this am. infectious disease consulted, await their input continue IV dapto and cefepime echo completed 06/15 EF 60-65%, no visualized vegetation noted on imaging Pt had 2nd I and D yesterday with vac placement so hoping for optimal source control (3) Hepatitis C: (4) Cirrhosis of liver: Plan: Follows with Anju MOCTEZUMA, recent MELD score low at 9. Seeing hematology to proceed with HCV therapy Platelets at baseline ~90, INR 1.4 LFTS bili 2.2, ast 157, alt 153, alp phos 229 no abd pain (5) Thrombocytopenia: Plan: No bleeding, platelets are stable and low 2/2 cirrhosis. Will give Lovenox in setting of increased risk for VTE given cirrhosis and infection (6) Mood disorder: Plan: Continue Buspar BID DVT Ppx: Lovenox, monitor plt level Code status: FULL PCP: Luciana Dispo: Admit to med/surg Pt was seen and collaborated with Dr. Vasquez, please see addenum A total of 40 was spent coordinating, documenting, and providing care for this patient excluding time spent in the performance of separately billed services. This included personally viewing all current laboratories and imaging studies, medication reconciliation, outpatient chart review, and discussion with specialists. Admission and Anticipated Discharge Date Admission Date: June 14, 2022 Supervising Physician Co-Signing Physician Notes I have seen and examined the patient and have discussed the case with the provider above. I agree with the assessment and plan as stated. Pain is present preoperatively. Gave more oxy, cnanot visualize wound very well with surgical dressing in place. Physical otherwise unremakable but patient appears uncomfortable. Reviewed meds, labs and other data on chart. cont with plan as outlined above. DO Tank Vasquez Patient was seen and evaluated in room 381-1. Follow-up left foot wound. He continues to complain of pain, currently 8 out of 10. Recently took analgesia. Currently he is n.p.o. and is to undergo surgical debridement today with wound VAC placement. Denies fever, chills, sweats, lightheadedness, dizziness, chest pain, shortness breath, nausea, vomiting, abdominal pain. Review of Systems Review of Systems: All systems reviewed & are unremarkable except as noted in HPI & below Physical Exam Physical Exam: Gen: WD/WN, NAD, A&O x3 HEENT: Normocephalic, atraumatic, conjunctivae moist, sclerae anicteric, mucous membranes moist. Lung: Clear to Auscultation bilaterally, no wheezes/rales/rhonchi Heart: Regular rate, regular rhythm, no murmurs, rubs, or gallops Abdomen: Soft, NT, ND +BS x 4 Extremities: L leg in dressing, nvi distally, + significant pain with touch Skin: Warm, no rash, negative turgor. Results & Data Results & Data Vital Signs (Past 12 Hours) Vital Signs Temp Pulse Resp BP Pulse Ox O2 Del Method 06/16/22 07:40 36.7 C 84 16 126/73 96 Room Air Medications Administered Current Inpatient Medications Acetaminophen (Acetaminophen 325 Mg Tab) 650 mg PO Q8H PRN PRN Reason: pain or fever Stop: 07/14/22 19:20 Last Admin: 06/15/22 18:04 Dose: 650 mg Buspirone HCl (Buspirone 5 Mg Tab) 10 mg PO BID [facility] Stop: 07/14/22 20:59 Last Admin: 06/16/22 08:27 Dose: 10 mg Enoxaparin Sodium (Enoxaparin Inj 40 Mg/0.4 Ml Syr) 40 mg SQ QAM [facility] Stop: 07/15/22 13:59 Last Admin: 06/16/22 08:27 Dose: 40 mg Hydromorphone HCl (Hydromorphone Inj 0.5 Mg/0.5 Ml Syr) 0.5 mg IV Q4H PRN PRN Reason: Severe Pain (Scale 7, 8, 9,10) Stop: 06/29/22 15:53 Last Admin: 06/16/22 14:10 Dose: 0.5 mg Daptomycin 300 mg/ Syringe 6 mls @ 3 mls/min IV Q24H TRENA Stop: 07/27/22 13:59 Last Admin: 06/16/22 13:18 Dose: 3 mls/min Cefepime HCl 2,000 mg/ Syringe 20 mls @ 5 mls/min IV Q8H TRENA; Protocol Stop: 07/27/22 12:59 Last Admin: 06/16/22 13:18 Dose: 5 mls/min Ondansetron HCl (Ondansetron Inj 2 Mg/Ml 2 Ml Vial) 4 mg IV Q6H PRN PRN Reason: Nausea Stop: 07/14/22 19:20 Last Admin: 06/15/22 06:35 Dose: 4 mg Oxycodone HCl (Oxycodone Hcl Ir 5 Mg Tab (Immediate Release)) 5 - 10 mg PO QID PRN PRN Reason: Pain Stop: 06/29/22 04:12 Last Admin: 06/16/22 08:26 Dose: 10 mg Polyethylene Glycol (Polyethylene (Miralax) 17 Gm Pack) 17 gm PO DAILY PRN PRN Reason: Constipation Stop: 07/14/22 19:20
[2022-06-16] MEDS ORDERED: MIDAZOLAM HCL 1 MG/ML 2ML VIAL ONE (16:28)
[2022-06-16] MEDS ORDERED: fentaNYL citrate PF 100 MCG/2 ML VIAL ONE (16:28)
[2022-06-16] MEDS ORDERED: PROPOFOL IV EMULSION 10 MG/ML 20 ML VIAL IV ONE (16:28)
[2022-06-16] MEDS ORDERED: LIDOCAINE 2% 2 ML VIAL/AMP(20MG/ML) INFIL ONE (16:28)
[2022-06-16] MEDS ORDERED: ONDANSETRON INJ 2 MG/ML 2 ML VIAL ONE (16:28)
[2022-06-16] MEDS ORDERED: DEXAMETHASONE SOD INJ 4 MG/ML VIAL ONE (16:28)
[2022-06-16] MEDS ORDERED: PROMETHAZINE HCL 6.25 MG in SODIUM CHLORIDE 0.9% 50 ML IV PRN (16:57)
[2022-06-16] MEDS ORDERED: ePHEDrine sulfate 50 MG/ML AMP IV PRN (16:57)
[2022-06-16] MEDS ORDERED: ATROPINE SULFATE 0.1 MG/ML 10ML SYR IV PRN (16:57)
[2022-06-16] MEDS ORDERED: ONDANSETRON INJ 2 MG/ML 2 ML VIAL IV PRN (16:57)
--- NOTE | 2022-06-16 17:29 | History & Physical Bridge Note ---
Date of Service June 16, 2022 History & Physical Bridge Note I have examined the patient, reviewed the History & Physical and in the interval since the performance of the History & Physical I have noted the following changes of clinical significance: no changes noted
[2022-06-16] MEDS ORDERED: BUPIVACAINE 0.5 % 5 MG/1 ML MPF 30ML VIAL ONE (18:16)
[2022-06-16] MEDS ORDERED: HYDROmorphone INJ 1 MG/ML SYRINGE ONE (19:41)
--- NOTE | 2022-06-16 20:10 | Post Operative Brief Note ---
Immediate Post Op Note v1 Date of Surgery June 16, 2022 Pre & Post Diagnosis Operation Date: 06/16/22 11:20 Pre-Op Diagnosis: Cellulitis and abscess of left lower extremity Post-Op Diagnosis: Cellulitis and abscess of left lower extremity I identified the patient and participated in the time-out.: Yes Procedure Operation Date: 06/16/22 11:20 Actual Procedures p Left Ankle Incision and Drainage with Wound Vac Placement(Left) - Jose Bautista DPM, MS Surgeon Jose Bautista DPM, MS Learning And Development Director [employer] Estimated Blood Loss 5 Findings Consistent with Post-Op Diagnosis None
[2022-06-16] MEDS ORDERED: LORazepam 2 MG/1 ML VIAL IV STA ×2 (20:22)
[2022-06-16] MEDS: fentaNYL citrate PF 100 MCG/2 ML VIAL IV PRN ×4 (20:25→20:40)
--- NOTE | 2022-06-16 20:28 | Anesthesiology Progress Note ---
Date of Service June 16, 2022 Anesthesia Post Procedure Vital Signs Vital Signs: Temp Pulse Resp BP Pulse Ox O2 Del Method 06/16/22 17:10 37.7 C H 94 H 18 137/81 97 Room Air 06/16/22 15:12 37.6 C H 70 16 124/73 95 Room Air 06/16/22 07:40 36.7 C 84 16 126/73 96 Room Air Pain Intensity Left Foot: Pain Intensity: 9 Transfer of Care Handoff Completed per policy Notes Mental Status: alert / awake / arousable and participated in evaluation Patient Amnestic to Procedure: Yes Nausea / Vomiting: adequately controlled Pain: improving with treatment Airway Patency, RR, SpO2: stable & adequate BP & HR: stable & adequate Hydration State: stable & adequate Anesthetic Complications: no major complications apparent and Pt Satisfied with anesthetic care
[2022-06-16] MEDS: HYDROmorphone INJ 1 MG/ML SYRINGE IV PRN ×4 (20:45→21:00)
--- NOTE | 2022-06-16 21:43 | Operative Report ---
Post Operative Report Pre & Post Diagnosis Operation Date: 06/16/22 11:20 Pre-Op Diagnosis: Cellulitis and abscess of left lower extremity Post-Op Diagnosis: Cellulitis and abscess of left lower extremity I identified the patient and participated in the time-out.: Yes Procedure Operation Date: 06/16/22 11:20 Actual Procedures p Left Ankle Incision and Drainage with Wound Vac Placement(Left) - Jose Bautista DPM, MS Surgeon Jose Bautista DPM, MS Cargo Station Worker [employer] Estimated Blood Loss 5 Findings Consistent with Post-Op Diagnosis none Specimens none Description of Procedure History of present illness: Patient is a 36 year old male who is seen for treatment of left ankle wound. Patient notes wound present for two weeks prior to being seen at [facility] on 06/14/22 when he underwent a bedside I&D. We reviewed wound debridement and exploration followed by application of wound vac. All questions answered. Discussed procedure in detail and postoperative recovery. All potential risks, benefits, complications, alternatives, rehab, potential for incomplete relief of symptoms, need for further surgery, DVT, PE, , persistent pain, swelling, scarring, weakness, neurovascular, wound complications and potential for amputations were discussed with patient. Unwanted outcomes such as, but not limited to were reviewed including under correction, overcorrection, return of deformity, infection. All questions were answered. Patient has decided to proceed with procedure as indicated. Preoperative diagnosis: 1.) Left ankle infection 2.) Left ankle wound Postoperative diagnosis: same Name of operation: 1.) Left ankle wound exploration 2.) Left ankle wound debridement 3.) Application of wound vac left ankle Surgeon Dr. Bautista Cargo Station Worker: None Anesthesia: local with monitored anesthesia care Hemostasis: pneumatic calf tourniquet Estimated blood loss: minimal Procedure in detail: Under mild sedation the patient was brought in the operating room placed on the operating table in supine position. A pneumatic calf tourniquet was then placed about the patient's left ankle. The foot and ankle were then prepped scrubbed and draped in usual aseptic manner. An Esmarch bandage was utilized to exsanguinate the patient's left foot and the pneumatic ankle tourniquet was then inflated. Attention was then directed to a large ulcer on the lateral left ankle. Wound measures approximately 5 x 5 x 4 cm. Utilizing a sharp, sterile, #15 blade the wound bed is debrided of nonviable tissue. A large portion of the both the Peroneal tendons are absent at the wound base upon visualized. A large portion of the peroneal sheath is absent. The base of the wound invades the tibiotalar joint capsule. The wound was sharply debrided with out incident down to muscle and tendon. A versajet was also utilized. 1 L of lactated Ringer was then used to irrigate with low flow into the wounds.At this time negative pressure therapy was applied with wound vac to wound. The vac was placed on 125mmHg continuous. The wounds were dressed with dressing consisting of 4 x 4's Levon, Kerlix, ABD, and Tuan. The pneumatic calf tourniquet was deflated and a prompt hyperemic response was noted to digits of the left foot. The Patient tolerated the procedure and anesthesia well. He was transferred to recovery room vital signs stable. Following a period of postoperative monitoring the patient will be readmitted to floor with the continuation of all preoperative orders. I attest to the content of the Intraoperative Record and any orders documented therein. Any exceptions are noted below.
[2022-06-17] MEDS: oxyCODONE HCL IR 5 MG TAB (IMMEDIATE RELEASE) PO PRN ×3 (03:38→18:00)
[2022-06-17] MEDS: CEFEPIME 2,000 MG in SYRINGE 0 ML IV SCH ×3 (05:39→21:55)
[2022-06-17] MEDS: busPIRone 5 MG TAB PO SCH ×2 (08:04→20:06)
[2022-06-17] MEDS: KETOROLAC TROMETHAMINE 15 MG/ML VIAL IV PRN ×2 (08:04→14:19)
[2022-06-17] MEDS: ENOXAPARIN INJ 40 MG/0.4 ML SYR SQ SCH (08:04)
[2022-06-17] MEDS: DAPTOmycin 300 MG in SYRINGE 0 ML IV SCH (13:23)
--- NOTE | 2022-06-17 13:52 | Hospitalist Progress Note ---
Date of Service June 17, 2022 Assessment & Plan (1) Cellulitis and abscess of left lower extremity: Plan: Worsening x two weeks and initially diagnosed as gout and treated with a prednisone course Pain and swelling continued to worsen and lateral aspect of ankle burst open with pus and drainage, sent today from urgent care inflammatory markers elevated. Ankle CT with left lateral ankle/hindfoot subcutaneous abscesses as well as findings consistent with an infectious tenosynovitis and small focal erosion at distal fibula posteriorly consistent with a site of osteomyelitis I&D performed by Dr. Bautista on 06/14 Further I&D with wound vac placement on 06/16 Continue IV Dapto, Zosyn changed to cefepime, follow cultures cont pain control efforts as he heals may need to consider additional imaging with MRI but would defer to Dr. Bautista (2) Bacteremia: Plan: Gram positive cocci in clusters Positive 06/14, 06/15 and 06/16, repeat blood cultures drawn this am. infectious disease consulted, await their input continue IV dapto and cefepime echo completed 06/15 EF 60-65%, no visualized vegetation noted on imaging Pt had 2nd I and D yesterday with vac placement so hoping for optimal source control (3) Hepatitis C: (4) Cirrhosis of liver: Plan: Follows with Anju MOCTEZUMA, recent MELD score low at 9. Seeing hematology to proceed with HCV therapy Platelets at baseline ~90, INR 1.4 LFTS bili 2.2, ast 157, alt 153, alp phos 229 no abd pain (5) Thrombocytopenia: Plan: No bleeding, platelets are stable and low 2/2 cirrhosis. Will give Lovenox in setting of increased risk for VTE given cirrhosis and infection (6) Mood disorder: Plan: Continue Buspar BID DVT Ppx: Lovenox, monitor plt level Code status: FULL PCP: Luciana Dispo: Admit to med/surg Pt was seen and collaborated with Dr. Vasquez, please see addenum A total of 40 was spent coordinating, documenting, and providing care for this patient excluding time spent in the performance of separately billed services. This included personally viewing all current laboratories and imaging studies, medication reconciliation, outpatient chart review, and discussion with specialists. Admission and Anticipated Discharge Date Admission Date: June 14, 2022 Supervising Physician Co-Signing Physician Notes I have seen and examined the patient and have discussed the case with the provider above. I agree with the assessment and plan as stated. 36 yo M s/p wound debridement overnight. Although his blood culture from yesterday was persistently positive, I don't think we had adequate source control until the debridement yesterday. His infection is extensive and is causing him significant pain. He reports pain is sharp and with a burning quality. Started Dilaudid IV , gabapentin and scheduled Toradol and APAP. Physical otherwise unremarkable but he does look uncomfortable. Tolerating PO. Feels less nauseous today. Cont broad spectrum IV abx pending ID recommendations. DO Tank Vasquez Patient was seen and evaluated in room 381-1. Follow-up left foot wound. Continues to complain of left foot pain. Currently has wound VAC in place. Appetite slightly improved for breakfast this morning. Denies fever, chills, sweats, chest pain, shortness of breath, nausea, vomiting or abdominal pain. Denies any history of IV drug use or drug use in the past. Feels toradol doesn't help. Review of Systems Review of Systems: All systems reviewed & are unremarkable except as noted in HPI & below Physical Exam Physical Exam: Gen: WD/WN, NAD, A&O x3 HEENT: Normocephalic, atraumatic, conjunctivae moist, sclerae anicteric, mucous membranes moist. Lung: Clear to Auscultation bilaterally, no wheezes/rales/rhonchi Heart: Regular rate, regular rhythm, no murmurs, rubs, or gallops Abdomen: Soft, NT, ND +BS x 4 Extremities: Left lower extremity wound VAC in place Skin: Warm, no rash, negative turgor., Results & Data Results & Data Vital Signs (Past 12 Hours) Vital Signs Temp Pulse Resp BP Pulse Ox O2 Del Method 06/17/22 08:07 37.0 C 81 16 133/77 95 Room Air 06/17/22 03:43 37.1 C 83 16 128/82 96 Room Air Medications Administered Current Inpatient Medications Acetaminophen (Acetaminophen 325 Mg Tab) 650 mg PO Q8H PRN PRN Reason: pain or fever Stop: 07/14/22 19:20 Last Admin: 06/15/22 18:04 Dose: 650 mg Buspirone HCl (Buspirone 5 Mg Tab) 10 mg PO BID TRENA Stop: 07/14/22 20:59 Last Admin: 06/17/22 08:04 Dose: 10 mg Enoxaparin Sodium (Enoxaparin Inj 40 Mg/0.4 Ml Syr) 40 mg SQ QAM TRENA Stop: 07/15/22 13:59 Last Admin: 06/17/22 08:04 Dose: 40 mg Daptomycin 300 mg/ Syringe 6 mls @ 3 mls/min IV Q24H TRENA Stop: 07/27/22 13:59 Last Admin: 06/17/22 13:23 Dose: 3 mls/min Cefepime HCl 2,000 mg/ Syringe 20 mls @ 5 mls/min IV Q8H TRENA; Protocol Stop: 07/27/22 12:59 Last Admin: 06/17/22 13:23 Dose: 5 mls/min Ketorolac Tromethamine (Ketorolac Tromethamine 15 Mg/Ml Vial) 15 mg IV Q6H PRN PRN Reason: Pain Stop: 06/22/22 07:30 Last Admin: 06/17/22 08:04 Dose: 15 mg Ondansetron HCl (Ondansetron Inj 2 Mg/Ml 2 Ml Vial) 4 mg IV Q6H PRN PRN Reason: Nausea Stop: 07/14/22 19:20 Last Admin: 06/15/22 06:35 Dose: 4 mg Oxycodone HCl (Oxycodone Hcl Ir 5 Mg Tab (Immediate Release)) 5 - 10 mg PO QID PRN PRN Reason: Pain Stop: 06/29/22 04:12 Last Admin: 06/17/22 11:51 Dose: 10 mg Polyethylene Glycol (Polyethylene (Miralax) 17 Gm Pack) 17 gm PO DAILY PRN PRN Reason: Constipation Stop: 07/14/22 19:20
[2022-06-17] MEDS ORDERED: HYDROmorphone INJ 0.5 MG/0.5 ML SYR IV STA (15:23)
[2022-06-17] MEDS ORDERED: GABAPENTIN 300 MG CAP PO STA (15:25)
[2022-06-17] MEDS: GABAPENTIN 300 MG CAP PO SCH (20:06)
[2022-06-17] MEDS: HYDROmorphone INJ 0.5 MG/0.5 ML SYR IV PRN (20:07)
[2022-06-17] MEDS: KETOROLAC TROMETHAMINE 15 MG/ML VIAL IV SCH (21:59)
[2022-06-18] MEDS: oxyCODONE HCL IR 5 MG TAB (IMMEDIATE RELEASE) PO PRN ×4 (02:13→20:34)
[2022-06-18] MEDS: HYDROmorphone INJ 0.5 MG/0.5 ML SYR IV PRN ×4 (03:14→19:54)
[2022-06-18] MEDS: KETOROLAC TROMETHAMINE 15 MG/ML VIAL IV SCH ×3 (05:43→22:39)
[2022-06-18] MEDS: CEFEPIME 2,000 MG in SYRINGE 0 ML IV SCH ×3 (05:43→21:18)
[2022-06-18] MEDS: ENOXAPARIN INJ 40 MG/0.4 ML SYR SQ SCH (08:26)
[2022-06-18 08:27] LABS: Basophils # (auto) 0.04 K/uL (0-0.2); Basophils % (auto) 0.2 %; Eosinophils # (auto) 0.05 K/uL (0-0.50); Eosinophils % (auto) 0.3 %; Hematocrit (blood only) 32.4 % (42.0-52.0); Hemoglobin 11.2 g/dl (14.0-18.0); Immature Granulocytes # (auto) 0.45 K/uL (0.01-0.20); Immature Granulocytes % (auto) 2.8 %; Lymphocytes # (auto) 1.48 K/uL (1.2-3.4); Lymphocytes % (auto) 9.2 %; Mean Corpuscular Hemoglobin 31.2 pg (25.0-34.0); Mean Corpuscular Hgb Conc 34.6 g/dL (32.0-36.0); Mean Corpuscular Volume 90.3 fL (80.0-100.0); Mean Platelet Volume 9.9 fL (9.4-12.4); Monocytes # (auto) 0.89 K/uL (0.11-0.59); Monocytes % (auto) 5.6 %; Neutrophils # (auto) 13.12 K/uL (1.40-6.50); Neutrophils % (auto) 81.9 %; Platelet Count 132 K/uL (130-400); RDW Coefficient of Variation 15.7 % (11.5-14.5); RDW Standard Deviation 51.6 fL (36.4-46.3); Red Blood Count 3.59 M/uL (4.70-6.10); White Blood Count 16.03 K/ul (4.8-10.8)
[2022-06-18] MEDS: GABAPENTIN 300 MG CAP PO SCH ×3 (08:27→20:36)
[2022-06-18] MEDS: busPIRone 5 MG TAB PO SCH ×2 (08:27→20:35)
[2022-06-18 08:40] LABS: Albumin Globulin Ratio 0.6 (0.9-2); Albumin Level 2.6 gm/dl (3.4-5.0); BUN Creatinine Ratio 37.7 (10-20); Bilirubin,Total 1.5 mg/dl (0.2-1.0); Calcium 7.7 mg/dl (8.6-10.3); Est GFR (African American) 146.8 ml/min; Est GFR (Non-African American) 126.7 ml/min; Globulin 4.1 gm/dl (2.5-4.0); Magnesium 1.8 mg/dl (1.7-2.4); Total Protein 6.7 gm/dl (6.0-8.3)
[2022-06-18] MEDS: ACETAMINOPHEN 500 MG TAB PO PRN (13:10)
[2022-06-18] MEDS: DAPTOmycin 300 MG in SYRINGE 0 ML IV SCH (13:11)
--- NOTE | 2022-06-18 13:54 | Hospitalist Progress Note ---
Date of Service June 18, 2022 Assessment & Plan (1) Osteomyelitis: (2) Cellulitis and abscess of left lower extremity: Plan: Osteomyelitis of Left ankle LLE ankle wound Worsening x two weeks and initially diagnosed as gout and treated with a prednisone course Pain and swelling continued to worsen and lateral aspect of ankle burst open with pus and drainage, sent today from urgent care inflammatory markers elevated. Ankle CT with left lateral ankle/hindfoot subcutaneous abscesses as well as findings consistent with an infectious tenosynovitis and small focal erosion at distal fibula posteriorly consistent with a site of osteomyelitis I&D performed by Dr. Bautista on 06/14 Further I&D with wound vac placement on 06/16 Continue IV Dapto, Zosyn changed to cefepime, follow cultures cont pain control efforts as he heals will consult pain management as pt still in great deal of pain despite efforts to control wound vac per Dr. Bautista and wound team (3) Bacteremia: Plan: Gram positive cocci in clusters Positive 06/14, 06/15 and 06/16 Currently 06/17 shows NGTD, likely optimal source control obtained with I&D on 06/16 infectious disease consulted, await their input continue IV dapto and cefepime echo completed 06/15 EF 60-65%, no visualized vegetation noted on imaging Pt had 2nd I and D 06/16 with vac placement ID to see patient today (4) Hepatitis C: (5) Cirrhosis of liver: Plan: Follows with Anju MOCTEZUMA, Seeing hematology to proceed with HCV therapy Platelets at baseline ~90, INR 1.4 LFTS bili 1.5, ast 168, alt 160, alp phos 241 no abd pain (6) Thrombocytopenia: Plan: No bleeding, platelets are stable and low 2/2 cirrhosis. Will give Lovenox in setting of increased risk for VTE given cirrhosis and infection (7) Mood disorder: Plan: Continue Buspar BID DVT Ppx: Lovenox, monitor plt level Code status: FULL PCP: Luciana Dispo: Admit to med/surg Pt was seen and collaborated with Dr. Aguirre, please see addendum A total of 40 was spent coordinating, documenting, and providing care for this patient excluding time spent in the performance of separately billed services. This included personally viewing all current laboratories and imaging studies, medication reconciliation, outpatient chart review, and discussion with specialists. Admission and Anticipated Discharge Date Admission Date: June 14, 2022 Supervising Physician Co-Signing Physician Notes Patient seen and examined pharmacy scheduler changing wound dressing Patient reports severe pain with wound dressing. Denied other complaints Reviewed labs MSSA bacteremia with positive serial blood cultures up to one on 06/16/22. Blood culture from 06/17/22 remain negative so far S/p I & D on06/14/22 and 06/16/22 Leukocytosis of 16K TTE did not show any visualized vegetations. Ankle CT on admission noted left lateral ankle/hindfoot subcut abscessess, infectious tenosynovitis and small focal cortical erosion at distal fibula consistent with site of Osteomyelitis Will continue IV Daptomycin Awaiting ID evaluation and recs Monitor serial BCx until clearance Will follow up surgeon. May require more procedure if persistent bacteremia Other plans as detailed by Denice Lomas PA-C Subjective Patient was seen and evaluated in room 381-1. Follow-up left foot wound. Continues to have pain despite regimen. Wound vac in place. Denies f/c/s, chest pain, sob, n/v/d, abd pain. Overall starting to feel better. Review of Systems Review of Systems: All systems reviewed & are unremarkable except as noted in HPI & below Physical Exam Physical Exam: Gen: WD/WN, NAD, A&O x3 HEENT: Normocephalic, atraumatic, conjunctivae moist, sclerae anicteric, mucous membranes moist. Lung: Clear to Auscultation bilaterally, no wheezes/rales/rhonchi Heart: Regular rate, regular rhythm, no murmurs, rubs, or gallops Abdomen: Soft, NT, ND +BS x 4 Extremities: Left lower extremity wound VAC in place Skin: Warm, no rash, negative turgor., Results & Data Results & Data Vital Signs (Past 12 Hours) Vital Signs Temp Pulse Resp BP Pulse Ox O2 Del Method 06/18/22 07:36 36.6 C 88 16 142/92 H 95 Room Air Laboratory Results Short CBC 06/18/22 Range/Units 07:55 WBC 16.03 H (4.8-10.8) K/ul Hgb 11.2 L (14.0-18.0) g/dl Hct 32.4 L (42.0-52.0) % Plt Count 132 (130-400) K/uL BMP 06/18/22 07:55 Sodium 134 L Potassium 4.0 Chloride 105 Carbon Dioxide 24 BUN 23 Creatinine 0.61 Glucose 108 H Calcium 7.7 L Liver Function 06/18/22 Range/Units 07:55 Total Bilirubin 1.5 H (0.2-1.0) mg/dl AST 168 H (13-39) U/L ALT 160 H (7-52) U/L Alkaline Phosphatase 241 H (34-104) U/L Albumin 2.6 L (3.4-5.0) gm/dl Medications Administered Current Inpatient Medications Acetaminophen (Acetaminophen 500 Mg Tab) 1,000 mg PO Q8H PRN PRN Reason: pain or fever Stop: 07/14/22 19:20 Last Admin: 06/18/22 13:10 Dose: 1,000 mg Buspirone HCl (Buspirone 5 Mg Tab) 10 mg PO BID [facility] Stop: 07/14/22 20:59 Last Admin: 06/18/22 08:27 Dose: 10 mg Enoxaparin Sodium (Enoxaparin Inj 40 Mg/0.4 Ml Syr) 40 mg SQ QAM [facility] Stop: 07/15/22 13:59 Last Admin: 06/18/22 08:26 Dose: 40 mg Gabapentin (Gabapentin 300 Mg Cap) 300 mg PO TID TRENA Stop: 07/17/22 20:59 Last Admin: 06/18/22 08:27 Dose: 300 mg Hydromorphone HCl (Hydromorphone Inj 0.5 Mg/0.5 Ml Syr) 0.5 mg IV Q4H PRN PRN Reason: Pain Stop: 07/01/22 15:22 Last Admin: 06/18/22 09:43 Dose: 0.5 mg Daptomycin 300 mg/ Syringe 6 mls @ 3 mls/min IV Q24H [facility] Stop: 07/27/22 13:59 Last Admin: 06/18/22 13:11 Dose: 3 mls/min Cefepime HCl 2,000 mg/ Syringe 20 mls @ 5 mls/min IV Q8H [facility]; Protocol Stop: 07/27/22 12:59 Last Admin: 06/18/22 13:11 Dose: 5 mls/min Ketorolac Tromethamine (Ketorolac Tromethamine 15 Mg/Ml Vial) 15 mg IV Q8H [facility] Stop: 06/22/22 21:59 Last Admin: 06/18/22 05:43 Dose: 15 mg Ondansetron HCl (Ondansetron Inj 2 Mg/Ml 2 Ml Vial) 4 mg IV Q6H PRN PRN Reason: Nausea Stop: 07/14/22 19:20 Last Admin: 06/15/22 06:35 Dose: 4 mg Oxycodone HCl (Oxycodone Hcl Ir 5 Mg Tab (Immediate Release)) 5 - 10 mg PO QID PRN PRN Reason: Pain Stop: 06/29/22 04:12 Last Admin: 06/18/22 07:53 Dose: 10 mg Polyethylene Glycol (Polyethylene (Miralax) 17 Gm Pack) 17 gm PO DAILY PRN PRN Reason: Constipation Stop: 07/14/22 19:20
[2022-06-19] MEDS: KETOROLAC TROMETHAMINE 15 MG/ML VIAL IV SCH ×3 (06:11→23:10)
[2022-06-19] MEDS: CEFEPIME 2,000 MG in SYRINGE 0 ML IV SCH (06:11)
[2022-06-19] MEDS: oxyCODONE HCL IR 5 MG TAB (IMMEDIATE RELEASE) PO PRN (06:30)
[2022-06-19 07:50] LABS: Basophils # (auto) 0.03 K/uL (0-0.2); Basophils % (auto) 0.3 %; Eosinophils # (auto) 0.22 K/uL (0-0.50); Eosinophils % (auto) 2.1 %; Hematocrit (blood only) 27.7 % (42.0-52.0); Hemoglobin 9.5 g/dl (14.0-18.0); Immature Granulocytes % (auto) 3.7 %; Lymphocytes # (auto) 1.91 K/uL (1.2-3.4); Lymphocytes % (auto) 17.9 %; Mean Corpuscular Hemoglobin 30.5 pg (25.0-34.0); Mean Corpuscular Hgb Conc 34.3 g/dL (32.0-36.0); Mean Corpuscular Volume 89.1 fL (80.0-100.0); Mean Platelet Volume 9.6 fL (9.4-12.4); Monocytes % (auto) 9.4 %; Neutrophils # (auto) 7.11 K/uL (1.40-6.50); Neutrophils % (auto) 66.6 %; Platelet Count 114 K/uL (130-400); RDW Coefficient of Variation 16.1 % (11.5-14.5); RDW Standard Deviation 51.9 fL (36.4-46.3); Red Blood Count 3.11 M/uL (4.70-6.10); White Blood Count 10.67 K/ul (4.8-10.8)
--- NOTE | 2022-06-19 08:09 | Orthopedic Progress Note ---
Date of Service June 19, 2022 Assessment & Plan (1) Cellulitis and abscess of left lower extremity: Plan: Patient seen, evaluated and treated. Wound vac intact and running 125mmHg as directed. Continue to change M, W, F. Elevated WBC noted and MRI rx'd rule out septic joint/remaining abscess. Will continue to follow while in house. Admission and Anticipated Discharge Date Admission Date: June 14, 2022 Subjective Patient was seen resting comfortably Patient is status post I&D, debridement and negative pressure application.. He notes Wound Vac was changed as directed yesterday. He has no complaints. Review of Systems Review of Systems: All systems reviewed & are unremarkable except as noted in HPI & below Physical Exam Constitutional: cooperative and comfortable Neck: normal visual inspection and trachea midline Respiratory: normal respiratory effort Cardiovascular: Rate/Rhythm: regular rate (Pedal pulses palpable) and regular rhythm Musculoskeletal: Extremities: + joint enlargement (Edematous left ankle) Skin: + wound Neurologic: moves all extremities Psychiatric: Orientation: alert and oriented x 3 Results & Data Vital Signs (Past 12 Hours) Vital Signs Temp Pulse Resp BP BP Pulse Ox O2 Del Method 06/19/22 07:20 37.0 C 79 16 111/71 95 Room Air 06/18/22 20:45 36.9 C 79 16 121/74 99 Room Air
[2022-06-19] MEDS: HYDROmorphone INJ 0.5 MG/0.5 ML SYR IV PRN ×4 (08:13→21:13)
[2022-06-19 08:14] LABS: Albumin Level 2.2 gm/dl (3.4-5.0); Bilirubin,Total 1.2 mg/dl (0.2-1.0); Calcium 7.5 mg/dl (8.6-10.3); Potassium 4.1 mmol/L (3.5-5.1)
[2022-06-19] MEDS: busPIRone 5 MG TAB PO SCH ×2 (08:14→21:04)
[2022-06-19] MEDS: GABAPENTIN 300 MG CAP PO SCH ×3 (08:14→21:04)
[2022-06-19] MEDS: ENOXAPARIN INJ 40 MG/0.4 ML SYR SQ SCH (08:15)
[2022-06-19 08:21] LABS: Albumin Globulin Ratio 0.6 (0.9-2); BUN Creatinine Ratio 42.6 (10-20); Est GFR (African American) 146.8 ml/min; Est GFR (Non-African American) 126.7 ml/min; Globulin 3.6 gm/dl (2.5-4.0); Total Protein 5.8 gm/dl (6.0-8.3)
--- NOTE | 2022-06-19 08:48 | Pain Management Consultation ---
Date of Consultation June 19, 2022 Assessment & Plan (1) Osteomyelitis: (2) Bacteremia: (3) Cellulitis and abscess of left lower extremity: Plan 1. As Oxycodone is not providing any pain relief I will switch the medication to Nucynta 50mg x 4 hours for pain. 2. Continue Gabapentin 300mg three times daily. May need titrated further. 3. IV Toradol and Dilaudid remain ordered. 4. If Nucynta is not effective or not covered by insurance then could consider switching to Hydrocodone 10/325mg x 4 hours or Tramadol 100mg x 6 hours. 5. Will follow up on the patient tomorrow. History of Present Illness Attending Physician: Lilia Aguirre MD History of Present Illness Mr. Ulloa is a 36 year old male with a significant history of hepatitis C, cirrhosis of the liver, and mood disorder that has been admitted to [facility] for osteomyelitis of the left lower extremity that is required I&D by Dr. Bautista with wound vac placement. He is reporting 9/10 pain in the left ankle/foot and described as a constant aching pain. He is currently receiving gabapentin 300 mg 3 times daily, Toradol 15 mg 3 times daily, oxycodone 10 mg 4 times daily, and IV Dilaudid 0.5 mg IV if needed for breakthrough pain. He states that the current medication regimen is not providing any significant pain relief. He denies any side effects to the medication including constipation, dizziness, drowsiness. Case discussed with Dr. Ese Franz Allergies Allergy/AdvReac Type Severity Reaction Status Date / Time No Known Allergies Allergy Mild Unverified 10/03/21 16:11 Home Medications Medication Instructions Recorded Confirmed Type buspirone 10 mg tablet 10 mg PO BID 06/14/22 06/14/22 History indomethacin 50 mg capsule 50 mg PO TID PRN gout flares 06/14/22 06/14/22 History prednisone 10 mg tablet 10 mg PO UD 06/14/22 06/14/22 History Patient History Medical History Anemia Chronic back pain Cirrhosis of liver Esophageal varices Hepatitis C Mood disorder Thrombocytopenia Surgical History (Updated 06/19/22 @ 08:54 by Allie Bartlett PA-C) H/O hand surgery History of ankle surgery I&D for osteomyelitis Family History Other Diabetes Social History Smoking Status: Current every day smoker Tobacco Type: E-cigarettes / Vaping Second Hand Exposure: Yes; Do You Dip or Chew Tobacco: Yes; Tobacco Cessation Education Requested by Patient: No Hx Alcohol Use: No Hx Substance Use: Yes Last Used Substance: Unknown Preferred Language: Vietnamese Communication Ability: Effective Demo Coordinator Required: No Beliefs That Will Affect Care: None Current Living Situation: Parent Other Information That Helps Us Care for You: No Feels Safe at Home: Yes Safety Concerns: Feels Safe At This Time Assistive Devices: Crutches Physical Exam Physical Exam: GENERAL: This is a 36 year old male that appears in mild pain sitting in the hospital bed with wound vac on the left lateral ankle. HEAD/FACE: Normocephalic and atraumatic. EYES: No drainage or conjunctival injection. ENT: Nose without bleeding or discharge. Oral mucosa moist. NECK: Full ROM without apparent pain. No swelling or masses noted. RESPIRATORY: Patient with unlabored breathing. No signs of respiratory distress. CHEST/AXILLA: Chest movement symmetrical. No deformities noted. ABDOMEN/GI: No distension SKIN: [place], warm and dry. No rash noted. MS/EXTREMITY: No swelling, no deformities. + wound vac on the left lateral ankle. Distal pulses intact. NEURO: Alert and appears oriented. Speech is fluent. Cranial Nerves are grossly intact. PSYCH: Alert, pleasant, affect is calm Results (Pain Clinic) Diagnostic Review CT Findings: CT CT ankle LT w con 06/14/22 CT DOSE: 154.69 mGy.cm CLINICAL HISTORY: eval abscess, laterally . Left ankle swelling. TECHNIQUE: Multiaxial CT images of the left ankle were performed following the intravenous administration of 95 cc of Optiray 320 and reformatted in the sagitt al and coronal plane. A dose lowering technique was utilized adhering to the principles of ALARA. COMPARISON STUDY: None. FINDINGS: There is extensive subcutaneous trace edema seen throughout the left ankle most pronounced laterally. There is associated skin thickening and mild enhancement along the lateral side of the ankle/hindfoot. Consistent with a cellulitis. There is a peripherally enhancing subcutaneous fluid collection seen within the left lateral ankle/hindfoot which measures approximately 4.3 x 3.2 x 1.4 cm. This consistent with a subcutaneous abscess. This abuts the distal fibul a. Small focal area of cortical erosion within the distal fibula posteriorly consistent with a site of osteomyelitis. This is best seen on axial image 143. There is also fluid and peripheral enhancement within the tendon sheaths of the left peroneal tendons. This also abuts the subcutaneous abscess. Therefore, this favors an infectious tenosynovitis. This is best seen on axial image 171 and coronal image 59. There is an additional subcutaneous fluid collection within the left lateral hindfoot/midfoot on image 212 which measures 2.3 x 1.4 cm. This consistent with an additional abscess. This likely contacts to the dominant subcutaneous trace fluid collection within the left lateral ankle. No fracture or dislocation within the left ankle. No radiopaque foreign bodies. IMPRESSION: 1. Left lateral ankle/hindfoot subcutaneous abscesses as described above. 2. There is also fluid and peripheral enhancement surrounding the left peroneal tendons consistent with an infectious tenosynovitis. 3. Small focal cortical erosion at the distal fibula posteriorly consistent with a site of osteomyelitis. Radiology Findings: XR foot LT min 3V routine 06/14/22 CLINICAL HISTORY: Left foot infection with swelling. COMPARISON STUDY: Left first toe radiograph 08/21/2021. FINDINGS: There is diffuse soft tissue swelling within the left foot. No areas of cortical destruction to suggest an osteomyelitis. No radiopaque foreign bodies. No soft tissue gas identified. No fracture or dislocation within the left foot. The Lisfranc joint is intact. IMPRESSION: Diffuse soft tissue swelling within the left foot. No evidence for osteomyelitis.
[2022-06-19] MEDS: TAPENTADOL HCL 50 MG TAB PO PRN ×3 (11:50→20:58)
--- NOTE | 2022-06-19 12:41 | Hospitalist Progress Note ---
Date of Service June 19, 2022 Assessment & Plan (1) Osteomyelitis: (2) Bacteremia: (3) Cellulitis and abscess of left lower extremity: Plan: Osteomyelitis of Left ankle LLE ankle wound Worsening over two weeks and initially diagnosed as gout and treated with a pr ednisone course Pain and swelling continued to worsen and lateral aspect of ankle burst open with pus and drainage Inflammatory markers elevated. Ankle CT with left lateral ankle/hindfoot subcutaneous abscesses as well as findings consistent with an infectious tenosynovitis and small focal erosion at distal fibula posteriorly consistent with a site of osteomyelitis Serial blood cultures from 06/14/22 positive for MSSA. Blood culture from 06/17/22 still negative so far I&D performed by Dr. Bautista on 06/14 Further I&D with wound vac placement on 06/16 Pain control Pain mgt changed oxycodone to nucynta. Monitor ID recs noted. ID recommend ANA CRISTINA. TTE does not suggest endocarditis. Discussed with Content Development Manager. Considering h/o esophageal varices, ANA CRISTINA is contraindicated Will need 6 weeks of IV antibiotics Changed antibiotics from dapto + cefepime to IV ancef per ID recs Surgeon eval noted. MRI ordered for further eval (4) Hepatitis C: (5) Cirrhosis of liver: Plan: Follows with [facility], Seeing hematology to proceed with HCV therapy Ordered HCV ab and viral load per ID (6) Thrombocytopenia: Plan: No bleeding, platelets are stable and low 2/2 cirrhosis. W (7) Mood disorder: Plan: Continue Buspar BID DVT Ppx: Lovenox, monitor plt level Code status: FULL PCP: Luciana I spent a total of 40 minutes coordinating, documenting and providing care for this patient excluding time spent in performance of separately billed services Admission and Anticipated Discharge Date Admission Date: June 14, 2022 Subjective Patient seen and examined Reports moderate left foot pain Denied any other complaints on ROS Physical Exam Constitutional: + well hydrated; no acute distress Eyes: PERRL, conjunctivae normal, anicteric sclerae ENMT: external ear and nose normal, oropharynx normal Respiratory: normal respiratory effort, lungs clear to auscultation Cardiovascular: Rate/Rhythm: regular rate and regular rhythm S1 S2 Gastrointestinal (Abdomen): normal bowel sounds, soft, nontender, no hepatosplenomegaly Musculoskeletal: Wound vac over left ankle wound Neurologic: PERRL, EOMI, accommodation nl, no face palsy, no dysarthria Psychiatric: A+Ox3, euthymic affect Results & Data Results & Data Vital Signs (Past 12 Hours) Vital Signs Temp Pulse Resp BP Pulse Ox O2 Del Method 06/19/22 07:20 37.0 C 79 16 111/71 95 Room Air Laboratory Results Abnormal lab results 06/19/22 06/19/22 Range/Units 07:03 07:03 RBC 3.11 L (4.70-6.10) M/uL Hgb 9.5 L (14.0-18.0) g/dl Hct 27.7 L (42.0-52.0) % RDW Std Deviation 51.9 H (36.4-46.3) fL RDW Coeff of Tim 16.1 H (11.5-14.5) % Plt Count 114 L (130-400) K/uL Neut # (Auto) 7.11 H (1.40-6.50) K/uL [place] # (Auto) 1.00 H (0.11-0.59) K/uL Immature Gran # (Auto) 0.40 H (0.01-0.20) K/uL Sodium 134 L (136-145) mmol/L BUN 26 H (6-23) mg/dl BUN/Creatinine Ratio 42.6 H (10-20) Glucose 104 H (70-99(Fasting)) mg/dl Calcium 7.5 L (8.6-10.3) mg/dl Total Bilirubin 1.2 H (0.2-1.0) mg/dl AST 153 H (13-39) U/L ALT 138 H (7-52) U/L Alkaline Phosphatase 196 H (34-104) U/L Total Creatine Kinase 22 L (30-223) U/L Total Protein 5.8 L (6.0-8.3) gm/dl Albumin 2.2 L (3.4-5.0) gm/dl Albumin/Globulin Ratio 0.6 L (0.9-2)
[2022-06-19] MEDS: ceFAZolin 2000MG 2,000 MG/15 ML SYR IV SCH ×2 (13:50→21:07)
--- NOTE | 2022-06-19 16:41 | XRay Report ---
XR orbits for MRI HISTORY: 36 years-old Male Screening for foreign body for MRI COMPARISON: Head CT 01/02/2013 TECHNIQUE: 3 views of the orbits FINDINGS: No opaque foreign body of the orbits identified. No acute facial bone fracture. Rightward bowing and spurring of the nasal septum again noted. IMPRESSION: No opaque foreign body of the orbits identified. ACT 112: Negative or not required by law. The above report was generated using voice recognition software. It may contain grammatical, syntax o r spelling errors. Electronically signed by: Vernon Marroquin M.D. 06/19/2022 4:40 PM
[2022-06-19] MEDS ORDERED: GADOBUTROL 65ML VIAL IV ONE (18:36)
[2022-06-19] MEDS: ACETAMINOPHEN 500 MG TAB PO PRN (19:00)
--- NOTE | 2022-06-19 19:23 | Magnetic Resonance Report ---
MR ankle LT wo/w con CLINICAL HISTORY: infection TECHNIQUE: Multisequence, multiplanar MR images of the left ankle were obtained without contrast COMPARISON: None available at the time of this dictation. FINDINGS: There is a soft tissue ulcer in the lateral ankle with associated soft tissue swelling. There is leslie a in the posterolateral distal tibia. No drainable fluid collections are seen. IMPRESSION: Findings are compatible with osteomyelitis of the distal tibia likely due to cellulitis with a latera l ankle ulcer. No drainable fluid collections are seen. ACT 112: Negative or not required by law. Electronically signed by: Angel Duarte M.D. 06/19/2022 7:21 PM
[2022-06-19] MEDS ORDERED: KETOROLAC TROMETHAMINE 15 MG/ML VIAL IV ONE (20:21)
[2022-06-19] MEDS ORDERED: HYDROmorphone HCL 2 MG TAB PO STA (22:51)
[2022-06-20] MEDS: TAPENTADOL HCL 50 MG TAB PO PRN ×6 (01:51→22:11)
[2022-06-20] MEDS: HYDROmorphone INJ 0.5 MG/0.5 ML SYR IV PRN ×5 (01:51→20:54)
--- NOTE | 2022-06-20 01:54 | CT Scan Report ---
Exam(s): CT ABDOMEN + PELVIS Without Contrast EXAM: CT Abdomen and Pelvis Without Intravenous Contrast CLINICAL HISTORY: Reason for exam: flank pain. TECHNIQUE: Axial computed tomography images of the abdomen and pelvis without intravenous contrast. CTDI is 20.53 mGy and DLP is 1104.41 mGy-cm. Automated exposure control was utilized for the study. A dose lowering technique was utilized adhering to the principles of ALARA. COMPARISON: CT Abdomen Pelvis dated 10/03/2021 FINDINGS: Lung bases: Unremarkable. No mass. No consolidation. ABDOMEN: Liver: Cirrhotic nodular liver, similar to the prior. Gallbladder and bile ducts: Gallstones in the fundus of the distended gallbladder, similar to the prior. No gallbladder wall thickening. No ductal dilation. Pancreas: Mild fluid/fat stranding in the right abdomen and around the pancreas. No ductal dilation. Spleen: Stable splenomegaly. Adrenals: Unremarkable. No mass. Kidneys and ureters: Unremarkable. No obstructing stones. No hydronephrosis. Stomach and bowel: Some dilated small bowel loops with air-fluid levels in the left abdomen. Collapsed distal loops. Possible bowel obstruction although discrete transition point not visualized. No mucosal thickening. PELVIS: Appendix: Normal appendix. Bladder: Unremarkable. No stones. Reproductive: Unremarkable as visualized. ABDOMEN and PELVIS: Intraperitoneal space: Small amount of free fluid in the pelvis. No free air. Bones/joints: No acute fracture. No dislocation. Soft tissues: Mild body wall edema. Vasculature: Varices better depicted on the prior postcontrast study. No abdominal aortic aneurysm. Lymph nodes: Multiple small periportal and retroperitoneal nodes similar to the prior. IMPRESSION: 1. Cirrhosis and portal hypertension. 2. Mild fluid/fat stranding in the right abdomen and around the pancreas. May relate to cirrhosis and/or pancreatitis. 3. Some dilated small bowel loops with air-fluid levels in the left abdomen. Collapsed distal loops. Possible bowel obstruction although discrete transition point not visualized. Also consider enteritis. 4. Gallstones in the fundus of the distended gallbladder, similar to the prior. No gallbladder wall thickening. 5. Small amount of free fluid in the pelvis. Electronically signed by: Jeremy Cruz M.D. 06/20/22 01:53 AM
[2022-06-20] MEDS: ACETAMINOPHEN 500 MG TAB PO PRN ×2 (05:39→23:54)
[2022-06-20] MEDS: KETOROLAC TROMETHAMINE 15 MG/ML VIAL IV SCH ×3 (05:40→21:03)
[2022-06-20] MEDS: ceFAZolin 2000MG 2,000 MG/15 ML SYR IV SCH ×3 (05:40→20:53)
[2022-06-20] MEDS: GABAPENTIN 300 MG CAP PO SCH ×3 (08:06→20:52)
[2022-06-20] MEDS: busPIRone 5 MG TAB PO SCH ×2 (08:06→20:50)
[2022-06-20 08:58] LABS: Basophils # (auto) 0.05 K/uL (0-0.2); Basophils % (auto) 0.4 %; Eosinophils # (auto) 0.21 K/uL (0-0.50); Eosinophils % (auto) 1.7 %; Hematocrit (blood only) 27.9 % (42.0-52.0); Hemoglobin 9.8 g/dl (14.0-18.0); Immature Granulocytes % (auto) 4.8 %; Lymphocytes # (auto) 1.79 K/uL (1.2-3.4); Lymphocytes % (auto) 14.4 %; Mean Corpuscular Hemoglobin 31.1 pg (25.0-34.0); Mean Corpuscular Hgb Conc 35.1 g/dL (32.0-36.0); Mean Corpuscular Volume 88.6 fL (80.0-100.0); Monocytes # (auto) 1.05 K/uL (0.11-0.59); Monocytes % (auto) 8.4 %; Neutrophils # (auto) 8.73 K/uL (1.40-6.50); Neutrophils % (auto) 70.3 %; Platelet Count 120 K/uL (130-400); RDW Coefficient of Variation 15.9 % (11.5-14.5); RDW Standard Deviation 50.8 fL (36.4-46.3); Red Blood Count 3.15 M/uL (4.70-6.10); White Blood Count 12.43 K/ul (4.8-10.8)
[2022-06-20 09:12] LABS: Alanine Aminotransferase 130 U/L (7-52); Albumin Globulin Ratio 0.6 (0.9-2); Albumin Level 2.4 gm/dl (3.4-5.0); Alkaline Phosphatase 205 U/L (34-104); Anion Gap 4 (3-11); Aspartate Aminotransferase 147 U/L (13-39); BUN Creatinine Ratio 41.2 (10-20); Bilirubin,Total 1.7 mg/dl (0.2-1.0); Blood Urea Nitrogen 21 mg/dl (6-23); Calcium 7.8 mg/dl (8.6-10.3); Carbon Dioxide 24 mmol/L (21-32); Chloride 105 mmol/L (98-107); Creatinine Clr Calc Pharmacy 202.1 ml/min; Est GFR (African American) > 150.0 ml/min; Est GFR (Non-African American) 136.4 ml/min; Globulin 3.9 gm/dl (2.5-4.0); Glucose 86 mg/dl (70-99(Fasting)); Potassium 4.1 mmol/L (3.5-5.1); Sodium 133 mmol/L (136-145); Total Protein 6.3 gm/dl (6.0-8.3)
--- NOTE | 2022-06-20 13:22 | Pain Management Progress Note ---
Date of Service June 20, 2022 Assessment & Plan (1) Osteomyelitis: (2) Bacteremia: (3) Cellulitis and abscess of left lower extremity: Plan 1. Nucynta 50mg was increased to 75mg x 4 hours for pain. 2. Continue Gabapentin 300mg three times daily. May need titrated further. 3. IV Toradol and Dilaudid remain ordered. 4. If Nucynta is not effective or not covered by insurance then could consider switching to Hydrocodone 10/325mg x 4 hours or Tramadol 100mg x 6 hours. 5. Will sign off on the patient. Please contact with any questions or concerns. Admission and Anticipated Discharge Date Admission Date: June 14, 2022 Subjective s/p I&D of left ankle continues to report moderate to significant pain. He describes a constant deep aching bone pain. He has not noticed any significant pain relief from switching Oxycodone 10mg x 6 hours to Nucynta IR 50mg x 4 hours. He continues to report 8/10 pain. No side effects to the medication - constipation, drowsiness, dizziness. He has used IV Dilaudid 3mg over the past 24 hours which has not provided any relief. Case discussed with Dr. Ese Franz Physical Exam Physical Exam: GENERAL: This is a 36 year old male that appears in mild pain sitting in the hospital bed with wound vac on the left lateral ankle. HEAD/FACE: Normocephalic and atraumatic. EYES: No drainage or conjunctival injection. ENT: Nose without bleeding or discharge. Oral mucosa moist. NECK: Full ROM without apparent pain. No swelling or masses noted. RESPIRATORY: Patient with unlabored breathing. No signs of respiratory distress. CHEST/AXILLA: Chest movement symmetrical. No deformities noted. ABDOMEN/GI: No distension SKIN: [place], warm and dry. No rash noted. MS/EXTREMITY: No swelling, no deformities. + wound vac on the left lateral ankle. Distal pulses intact. NEURO: Alert and appears oriented. Speech is fluent. Cranial Nerves are grossly intact. PSYCH: Alert, pleasant, affect is calm
--- NOTE | 2022-06-20 15:30 | Hospitalist Progress Note ---
Date of Service June 20, 2022 Assessment & Plan (1) Osteomyelitis: (2) Bacteremia: (3) Cellulitis and abscess of left lower extremity: Plan: Osteomyelitis of Left ankle LLE ankle wound Worsening over two weeks and initially diagnosed as gout and treated with a pr ednisone course Pain and swelling continued to worsen and lateral aspect of ankle burst open with pus and drainage Inflammatory markers elevated. Ankle CT with left lateral ankle/hindfoot subcutaneous abscesses as well as findings consistent with an infectious tenosynovitis and small focal erosion at distal fibula posteriorly consistent with a site of osteomyelitis Serial blood cultures from 06/14/22 positive for MSSA. Blood culture from 06/17/22 still negative so far I&D performed by Dr. Bautista on 06/14 Further I&D with wound vac placement on 06/16 Pain control Continue current pain regimen ID recs noted. ID recommend ANA CRISTINA. TTE does not suggest endocarditis. Discussed with Benefit Authorizer. Considering h/o esophageal varices, ANA CRISTINA is contraindicated Notified ID Dr [email or web address] [email or web address] Will need 6 weeks of IV antibiotics MRI left ankle showed OM of distal tibia. No drainable fluid collection Abdominopelvic CT noted cirrhosis, mild fluid in abd and round pancreas. No acute fracture/dislocation Discussed with Dr Bautista. Recommends [facility] LLE, patient needs to be discharged on wound vac to follow up with them in the office Currently on IV cefazolin 2g q8h till 07/28/22 to complete 6 weeks from 1st negat miguel culture CM working on this Will defer PICC line placement to tomorrow or closer to dc to ensure blood cultures remain negative (4) Hepatitis C: (5) Cirrhosis of liver: Plan: Follows with [id number], Seeing hematology to proceed with HCV therapy HCV ab and viral load per ID still pending (6) Thrombocytopenia: Plan: No bleeding, platelets are stable and low 2/2 cirrhosis. (7) Mood disorder: Plan: Continue Buspar BID DVT Ppx: Lovenox, monitor plt level Code status: FULL PCP: Luciana Cline spent a total of 45 minutes coordinating, documenting and providing care for this patient excluding time spent in performance of separately billed services (8) MSSA bacteremia: Admission and Anticipated Discharge Date Admission Date: June 14, 2022 Subjective Patient seen and examined Reports foot pain is better controlled Reports left sided back pain which is improved today Denied any other complaints on ROS Physical Exam Constitutional: + well hydrated; no acute distress Eyes: PERRL, conjunctivae normal, anicteric sclerae ENMT: external ear and nose normal, oropharynx normal Respiratory: normal respiratory effort, lungs clear to auscultation Cardiovascular: Rate/Rhythm: regular rate and regular rhythm S1 S2 Gastrointestinal (Abdomen): normal bowel sounds, soft, nontender, no hepatosplenomegaly Musculoskeletal: No spine tenderness noted Left foot wound dressing with wound vac in place Neurologic: PERRL, EOMI, accommodation nl, no face palsy, no dysarthria Psychiatric: A+Ox3, euthymic affect Results & Data Results & Data Vital Signs (Past 12 Hours) Vital Signs Temp Pulse Pulse Resp BP BP Pulse Ox 06/20/22 15:15 36.6 C 74 18 98/57 L 97 06/20/22 08:06 06/20/22 07:05 36.6 C 76 76 18 121/76 98 O2 Del Method 06/20/22 15:15 Room Air 06/20/22 08:06 Room Air 06/20/22 07:05 Room Air Laboratory Results Abnormal lab results 06/20/22 06/20/22 Range/Units 07:59 07:59 WBC 12.43 H (4.8-10.8) K/ul RBC 3.15 L (4.70-6.10) M/uL Hgb 9.8 L (14.0-18.0) g/dl Hct 27.9 L (42.0-52.0) % RDW Std Deviation 50.8 H (36.4-46.3) fL RDW Coeff of Tim 15.9 H (11.5-14.5) % Plt Count 120 L (130-400) K/uL Neut # (Auto) 8.73 H (1.40-6.50) K/uL [place] # (Auto) 1.05 H (0.11-0.59) K/uL Immature Gran # (Auto) 0.60 H (0.01-0.20) K/uL Sodium 133 L (136-145) mmol/L Creatinine 0.51 L (0.6-1.4) mg/dl BUN/Creatinine Ratio 41.2 H (10-20) Calcium 7.8 L (8.6-10.3) mg/dl Total Bilirubin 1.7 H (0.2-1.0) mg/dl AST 147 H (13-39) U/L ALT 130 H (7-52) U/L Alkaline Phosphatase 205 H (34-104) U/L Albumin 2.4 L (3.4-5.0) gm/dl Albumin/Globulin Ratio 0.6 L (0.9-2)
[2022-06-21] MEDS: ceFAZolin 2000MG 2,000 MG/15 ML SYR IV SCH ×3 (05:17→20:31)
[2022-06-21] MEDS: KETOROLAC TROMETHAMINE 15 MG/ML VIAL IV SCH ×3 (05:24→22:46)
--- NOTE | 2022-06-21 05:38 | Communication Note ---
Date of Service: June 21, 2022 Patient noted to have sudden change in behavior as per RN. This morning, patient falling asleep during conversations, becoming very jumpy and twitchy. Vitals within normal limits as per RN. BSG 100s. AP Encephalopathy with possible myoclonic jerks possible opiate toxicity Hold narcotic medications for now.
[2022-06-21] MEDS ORDERED: SODIUM CHLORIDE 0.9% 1000ML 1,000 ML IV ONE (06:42)
[2022-06-21 07:49] LABS: Basophils # (auto) 0.04 K/uL (0-0.2); Basophils % (auto) 0.5 %; Eosinophils # (auto) 0.27 K/uL (0-0.50); Eosinophils % (auto) 3.2 %; Hematocrit (blood only) 27.4 % (42.0-52.0); Hemoglobin 9.2 g/dl (14.0-18.0); Immature Granulocytes # (auto) 0.24 K/uL (0.01-0.20); Immature Granulocytes % (auto) 2.9 %; Lymphocytes # (auto) 1.52 K/uL (1.2-3.4); Lymphocytes % (auto) 18.2 %; Mean Corpuscular Hemoglobin 31.2 pg (25.0-34.0); Mean Corpuscular Hgb Conc 33.6 g/dL (32.0-36.0); Mean Corpuscular Volume 92.9 fL (80.0-100.0); Mean Platelet Volume 10.6 fL (9.4-12.4); Monocytes # (auto) 0.85 K/uL (0.11-0.59); Monocytes % (auto) 10.2 %; Neutrophils # (auto) 5.41 K/uL (1.40-6.50); Platelet Count 102 K/uL (130-400); RDW Coefficient of Variation 16.3 % (11.5-14.5); RDW Standard Deviation 54.1 fL (36.4-46.3); Red Blood Count 2.95 M/uL (4.70-6.10); White Blood Count 8.33 K/ul (4.8-10.8)
[2022-06-21 07:51] LABS: Albumin Globulin Ratio 0.6 (0.9-2); Albumin Level 2.4 gm/dl (3.4-5.0); BUN Creatinine Ratio 32.3 (10-20); Calcium 8.1 mg/dl (8.6-10.3); Creatinine Clr Calc Pharmacy 166.3 ml/min; Est GFR (African American) 145.9 ml/min; Est GFR (Non-African American) 125.8 ml/min; Globulin 4.1 gm/dl (2.5-4.0); Magnesium 1.8 mg/dl (1.7-2.4); Potassium 4.3 mmol/L (3.5-5.1); Total Protein 6.5 gm/dl (6.0-8.3)
[2022-06-21] MEDS: GABAPENTIN 300 MG CAP PO SCH ×3 (07:51→20:32)
[2022-06-21] MEDS: busPIRone 5 MG TAB PO SCH ×2 (07:52→20:31)
--- NOTE | 2022-06-21 09:08 | XRay Report ---
XR chest 1V portable CLINICAL HISTORY: hyponatremia TECHNIQUE: Single frontal radiograph of the chest was obtained. Comparison: None available at the time of this dictation. FINDINGS: No lines and tubes are seen. The cardiomediastinal silhouette is normal. Lungs are underinflated but clear. No evidence of pleural effusion or pneumothorax. IMPRESSION: No acute chest disease. ACT 112: Negative or not required by law. Electronically signed by: Angel Duarte M.D. 06/21/2022 9:06 AM
[2022-06-21] MEDS ORDERED: HYDROcodone/ACETAMINOPHEN 10/325 TAB PO PRN ×2 (11:26→11:38)
[2022-06-21] MEDS ORDERED: ACETAMINOPHEN 325 MG TAB PO PRN (11:29)
[2022-06-21 12:06] LABS: Appearance Urine Clear (Clear); Bilirubin Urine Negative (Negative); Blood Urine Negative (Negative); Color Urine Dark Yellow; Glucose Urine UA Negative (Negative); Ketones Urine Negative (Negative); Leukocyte Esterase Urine Negative (Negative); Nitrite Urine Negative (Negative); Protein Urine Negative (Negative); Specific Gravity Urine 1.015 (1.000-1.030); Urobilinogen Urine Negative (Negative)
--- NOTE | 2022-06-21 12:14 | Hospitalist Progress Note ---
Date of Service June 21, 2022 Assessment & Plan (1) Osteomyelitis: (2) Bacteremia: (3) Cellulitis and abscess of left lower extremity: Plan: Osteomyelitis of Left ankle LLE ankle wound Worsening over two weeks and initially diagnosed as gout and treated with a pr ednisone course Pain and swelling continued to worsen and lateral aspect of ankle burst open with pus and drainage Inflammatory markers elevated. Ankle CT with left lateral ankle/hindfoot subcutaneous abscesses as well as findings consistent with an infectious tenosynovitis and small focal erosion at distal fibula posteriorly consistent with a site of osteomyelitis Serial blood cultures from 06/14/22 positive for MSSA. Blood culture from 06/17/22 still negative so far I&D performed by Dr. Bautista on 06/14 Further I&D with wound vac placement on 06/16 Lethargy noted overnight likely due to opioids Pain meds were held Nucynta stopped. Will manage pain with hydrocodone prn TID severe pain Stop iv opioids UDS showing opioids which is expected as well as marijuana. Will follow up the rest ID recs noted. ID recommend ANA CRISTINA. TTE does not suggest endocarditis. Discussed with Plant Taxonomy Teacher. Considering h/o esophageal varices, ANA CRISTINA is contraindicated Notified ID Dr myra [email or web address] Will need 6 weeks of IV antibiotics MRI left ankle showed OM of distal tibia. No drainable fluid collection Abdominopelvic CT noted cirrhosis, mild fluid in abd and round pancreas. No acute fracture/dislocation Dr Bautista recommends NWB LLE, patient needs to be discharged on wound vac to follow up with them in the office Currently on IV cefazolin 2g q8h till 07/28/22 to complete 6 weeks from 1st negative culture SHANIA working on this Awaiting PT/OT eval Patient has h/o IVDU many years ago. Reported he has not used drugs for many years (up to 8-10 per patient) Counselled patient that CM is working on infusion company and that his h/o IVDU may require special eval by infusion company Place PICC (4) Hepatitis C: (5) Cirrhosis of liver: Plan: Follows with [facility], Seeing hematology to proceed with HCV therapy HCV Ab and viral load noted (6) Thrombocytopenia: Plan: No bleeding, platelets are stable and low 2/2 cirrhosis. (7) Mood disorder: Plan: Continue Buspar BID DVT Ppx: Lovenox, monitor plt level Code status: FULL PCP: Luciana Cline spent a total of 40 minutes coordinating, documenting and providing care for this patient excluding time spent in performance of separately billed services (8) MSSA bacteremia: Admission and Anticipated Discharge Date Admission Date: June 14, 2022 Subjective Patient seen and examined Patient was reported to be altered overnight, very drowsy with possible myoclonic jerks He is currently awake, alert, oriented to person, place, time, situation Reports severe pain in left foot Denied no back pain today Denied any other complaints on ROS Physical Exam Constitutional: + well hydrated; no acute distress Eyes: PERRL, conjunctivae normal, anicteric sclerae ENMT: external ear and nose normal, oropharynx normal Respiratory: normal respiratory effort, lungs clear to auscultation Cardiovascular: Rate/Rhythm: regular rate and regular rhythm S1 S2 Gastrointestinal (Abdomen): normal bowel sounds, soft, nontender, no hepatosplenomegaly Musculoskeletal: Left wound dressing with wound vac in situ Neurologic: PERRL, EOMI, accommodation nl, no face palsy, no dysarthria Psychiatric: A+Ox3, euthymic affect Results & Data Results & Data Vital Signs (Past 12 Hours) Vital Signs Temp Pulse Resp BP Pulse Ox O2 Del Method 06/21/22 07:31 36.7 C 67 14 99/61 L 99 Room Air 06/21/22 03:32 36.5 C 72 16 95/58 L 96 Room Air Laboratory Results Abnormal lab results 06/21/22 06/21/22 06/21/22 Range/Units 05:42 07:14 07:14 RBC 2.95 L (4.70-6.10) M/uL Hgb 9.2 L (14.0-18.0) g/dl Hct 27.4 L (42.0-52.0) % RDW Std Deviation 54.1 H (36.4-46.3) fL RDW Coeff of Tim 16.3 H (11.5-14.5) % Plt Count 102 L (130-400) K/uL [place] # (Auto) 0.85 H (0.11-0.59) K/uL Immature Gran # (Auto) 0.24 H (0.01-0.20) K/uL Sodium 134 L (136-145) mmol/L BUN/Creatinine Ratio 32.3 H (10-20) POC Glucose 105 H (70-99) mg/dl Calcium 8.1 L (8.6-10.3) mg/dl AST 142 H (13-39) U/L ALT 104 H (7-52) U/L Alkaline Phosphatase 205 H (34-104) U/L Albumin 2.4 L (3.4-5.0) gm/dl Globulin 4.1 H (2.5-4.0) gm/dl Albumin/Globulin Ratio 0.6 L (0.9-2) Urine Opiates Screen (Neg) U Marijuana (THC) Screen (Neg) 06/21/22 Range/Units 11:44 RBC (4.70-6.10) M/uL Hgb (14.0-18.0) g/dl Hct (42.0-52.0) % RDW Std Deviation (36.4-46.3) fL RDW Coeff of Tim (11.5-14.5) % Plt Count (130-400) K/uL [place] # (Auto) (0.11-0.59) K/uL Immature Gran # (Auto) (0.01-0.20) K/uL Sodium (136-145) mmol/L BUN/Creatinine Ratio (10-20) POC Glucose (70-99) mg/dl Calcium (8.6-10.3) mg/dl AST (13-39) U/L ALT (7-52) U/L Alkaline Phosphatase (34-104) U/L Albumin (3.4-5.0) gm/dl Globulin (2.5-4.0) gm/dl Albumin/Globulin Ratio (0.9-2) Urine Opiates Screen Pos H (Neg) U Marijuana (THC) Screen Pos H (Neg)
[2022-06-21 13:07] LABS: Amphetamines+Metham, Urine Neg (Neg); Barbiturates, Urine Neg (Neg); Benzodiazepine, Urine Neg (Neg); Cocaine, Urine Neg (Neg); MDMA (Ecstacy), Urine Neg (Neg); Methadone, Urine Neg (Neg); Opiate, Urine Pos (Neg); Phencyclidine, Urine Neg (Neg)
--- NOTE | 2022-06-21 15:00 | XRay Report ---
XR chest 1V portable CLINICAL HISTORY: PICC Placement TECHNIQUE: Single frontal radiograph of the chest was obtained. Comparison: Comparison is made to chest radiograph 06/21/2022 FINDINGS: Right PICC terminates in the mid SVC. The cardiomediastinal silhouette is normal. The lungs are clear . No evidence of pleural effusion or pneumothorax. IMPRESSION: Satisfactory placement of right PICC. ACT 112: Negative or not required by law. Electronically signed by: Angel Duarte M.D. 06/21/2022 2:58 PM
[2022-06-21 15:57] LABS: Hepatitis C Vira RNA (Log) PCR 6.06 Log IU/mL (NOT DETECTED); Hepatitis C Viral RNA by PCR 1150000 IU/mL (NOT DETECTED)
[2022-06-21] MEDS: LIDOCAINE 5% 1 PATCH TD SCH (18:17)
[2022-06-21] MEDS: HYDROcodone/ACETAMINOPHEN 10/325 TAB PO PRN (19:40)
[2022-06-21] MEDS: LACTOBACILLUS ACIDOPHILUS 1 GM PACK PO SCH (22:46)
[2022-06-22] MEDS: HYDROcodone/ACETAMINOPHEN 10/325 TAB PO PRN ×3 (04:36→17:49)
[2022-06-22] MEDS: KETOROLAC TROMETHAMINE 15 MG/ML VIAL IV SCH ×2 (05:01→14:22)
[2022-06-22] MEDS: ceFAZolin 2000MG 2,000 MG/15 ML SYR IV SCH ×3 (05:02→19:42)
[2022-06-22 06:21] LABS: Hematocrit (blood only) 25.5 % (42.0-52.0); Hemoglobin 8.8 g/dl (14.0-18.0); Mean Corpuscular Hemoglobin 31.2 pg (25.0-34.0); Mean Corpuscular Hgb Conc 34.5 g/dL (32.0-36.0); Mean Corpuscular Volume 90.4 fL (80.0-100.0); Platelet Count 113 K/uL (130-400); RDW Coefficient of Variation 16.6 % (11.5-14.5); RDW Standard Deviation 53.9 fL (36.4-46.3); Red Blood Count 2.82 M/uL (4.70-6.10); White Blood Count 8.67 K/ul (4.8-10.8)
[2022-06-22 06:36] LABS: Anion Gap 3 (3-11); BUN Creatinine Ratio 34.7 (10-20); Blood Urea Nitrogen 17 mg/dl (6-23); Carbon Dioxide 25 mmol/L (21-32); Chloride 107 mmol/L (98-107); Creatinine Clr Calc Pharmacy 210.4 ml/min; Est GFR (African American) > 150.0 ml/min; Est GFR (Non-African American) 138.6 ml/min; Glucose 92 mg/dl (70-99(Fasting)); Potassium 4.2 mmol/L (3.5-5.1); Sodium 135 mmol/L (136-145)
[2022-06-22] MEDS: ENOXAPARIN INJ 40 MG/0.4 ML SYR SQ SCH (08:18)
[2022-06-22] MEDS: LIDOCAINE 5% 1 PATCH TD SCH (08:18)
[2022-06-22] MEDS: busPIRone 5 MG TAB PO SCH ×2 (08:19→19:42)
[2022-06-22] MEDS: LACTOBACILLUS ACIDOPHILUS 1 GM PACK PO SCH ×3 (08:19→16:52)
[2022-06-22] MEDS: GABAPENTIN 300 MG CAP PO SCH ×3 (08:19→19:42)
--- NOTE | 2022-06-22 12:23 | Hospitalist Progress Note ---
Date of Service June 22, 2022 Assessment & Plan (1) Osteomyelitis: (2) Bacteremia: (3) Cellulitis and abscess of left lower extremity: Plan: Osteomyelitis of Left ankle LLE ankle wound Worsening over two weeks and initially diagnosed as gout and treated with a pr ednisone course Pain and swelling continued to worsen and lateral aspect of ankle burst open with pus and drainage Inflammatory markers elevated. Ankle CT with left lateral ankle/hindfoot subcutaneous abscesses as well as findings consistent with an infectious tenosynovitis and small focal erosion at distal fibula posteriorly consistent with a site of osteomyelitis Serial blood cultures from 06/14/22 positive for MSSA. Blood culture from 06/17/22 still negative so far I&D performed by Dr. Bautista on 06/14 Further I&D with wound vac placement on 06/16 Continue po hydrocodone prn TID severe pain UDS showing opioids which is expected as well as marijuana. Reports he took some marijuana a few weeks ago ID recs noted. ID recommended ANA CRISTINA. TTE does not suggest endocarditis. Discussed with Grease And Tallow Pumper. Considering h/o esophageal varices, ANA CRISTINA is contraindicated MRI left ankle showed OM of distal tibia. No drainable fluid collection Abdominopelvic CT noted cirrhosis, mild fluid in abd and round pancreas. No acute fracture/dislocation Dr Bautista recommends NWB LLE, patient needs to be discharged on wound vac to follow up with them in the office Currently on IV cefazolin 2g q8h till 07/28/22 to complete 6 weeks from 1st negative culture CM working on this (4) Hepatitis C: (5) Cirrhosis of liver: Plan: Follows with [facility], Seeing hematology to proceed with HCV therapy HCV Ab and viral load noted (6) Thrombocytopenia: Plan: No bleeding, platelets are stable and low 2/2 cirrhosis. (7) Mood disorder: Plan: Continue Buspar BID DVT Ppx: Lovenox, monitor plt level Code status: FULL PCP: Luciana Cline spent a total of 35 minutes coordinating, documenting and providing care for this patient excluding time spent in performance of separately billed services (8) MSSA bacteremia: Admission and Anticipated Discharge Date Admission Date: June 14, 2022 Subjective Patient seen and examined Reports left foot pain is well controlled Reports mild back pain which he attributed to the bed Denied any other complaints on ROS Physical Exam Constitutional: + well hydrated; no acute distress Eyes: PERRL, conjunctivae normal, anicteric sclerae ENMT: external ear and nose normal, oropharynx normal Respiratory: normal respiratory effort, lungs clear to auscultation Cardiovascular: Rate/Rhythm: regular rate and regular rhythm S1 S2 Gastrointestinal (Abdomen): normal bowel sounds, soft, nontender, no hepatosplenomegaly Musculoskeletal: Left foot with wound dressing/wound vac Neurologic: PERRL, EOMI, accommodation nl, no face palsy, no dysarthria Psychiatric: A+Ox3, euthymic affect Results & Data Results & Data Vital Signs (Past 12 Hours) Vital Signs Temp Pulse Resp BP Pulse Ox O2 Del Method 06/22/22 07:40 36.8 C 88 18 142/82 H 97 Room Air Laboratory Results Abnormal lab results 06/19/22 06/22/22 06/22/22 Range/Units 09:15 05:39 05:39 RBC 2.82 L (4.70-6.10) M/uL Hgb 8.8 L (14.0-18.0) g/dl Hct 25.5 L (42.0-52.0) % RDW Std Deviation 53.9 H (36.4-46.3) fL RDW Coeff of Tim 16.6 H (11.5-14.5) % Plt Count 113 L (130-400) K/uL Sodium 135 L (136-145) mmol/L Creatinine 0.49 L (0.6-1.4) mg/dl BUN/Creatinine Ratio 34.7 H (10-20) Calcium 8.0 L (8.6-10.3) mg/dl Hepatitis C Ab (EIA) REACTIVE A (NON-REACTIVE) Hep C Ab Signal/Cutoff >11.00 H (<1.00) HCV RNA (PCR) IUs/ml [id number] H (NOT DETECTED) IU/mL HCV RNA PCR log IUs/ml 6.06 H (NOT DETECTED) Log IU/mL
[2022-06-23] MEDS: HYDROcodone/ACETAMINOPHEN 10/325 TAB PO PRN ×3 (02:38→19:15)
[2022-06-23] MEDS: ceFAZolin 2000MG 2,000 MG/15 ML SYR IV SCH ×3 (04:26→20:46)
[2022-06-23] MEDS: LACTOBACILLUS ACIDOPHILUS 1 GM PACK PO SCH ×3 (08:49→16:45)
[2022-06-23] MEDS: busPIRone 5 MG TAB PO SCH ×2 (08:49→20:04)
[2022-06-23] MEDS: ENOXAPARIN INJ 40 MG/0.4 ML SYR SQ SCH (08:50)
[2022-06-23] MEDS: GABAPENTIN 300 MG CAP PO SCH ×3 (08:50→20:04)
[2022-06-23] MEDS: LIDOCAINE 5% 1 PATCH TD SCH (08:50)
[2022-06-23] MEDS ORDERED: HYDROcodone/ACETAMINOPHEN 10/325 TAB PO ONE (11:24)
--- NOTE | 2022-06-23 14:42 | Hospitalist Progress Note ---
Date of Service June 23, 2022 Assessment & Plan (1) Osteomyelitis: (2) MSSA bacteremia: (3) Bacteremia: (4) Cellulitis and abscess of left lower extremity: Plan: Osteomyelitis of Left ankle LLE ankle wound Worsening over two weeks and initially diagnosed as gout and treated with a prednisone course Pain and swelling continued to worsen and lateral aspect of ankle burst open with pus and drainage Inflammatory markers elevated. Ankle CT with left lateral ankle/hindfoot subcutaneous abscesses as well as findings consistent with an infectious tenosynovitis and small focal erosion at distal fibula posteriorly consistent with a site of osteomyelitis Serial blood cultures from 06/14/22 positive for MSSA. Blood culture from 06/17/22 still negative so far I&D performed by Dr. Bautista on 06/14 Further I&D with wound vac placement on 06/16 Continue po hydrocodone prn pain UDS showed opioids which is expected as well as marijuana. Reports he took some marijuana a few weeks ago ID recs noted. ID recommended ANA CRISTINA. TTE does not suggest endocarditis. Discussed with C ardiologist. Considering h/o esophageal varices, ANA CRISTINA is contraindicated MRI left ankle showed OM of distal tibia. No drainable fluid collection Abdominopelvic CT noted cirrhosis, mild fluid in abd and round pancreas. No acute fracture/dislocation Dr Bautista recommends NWB LLE, patient needs to be discharged on wound vac to follow up with them in the office Currently on IV cefazolin 2g q8h till 07/28/22 to complete 6 weeks from 1st negative culture CM working on this (5) Hepatitis C: (6) Anemia: (7) Cirrhosis of liver: Plan: Follows with [facility], Seeing hematology to proceed with HCV therapy HCV Ab and viral load noted Patient's hemoglobin has been trending down From 12.8 on admission CBC this afternoon showed Hb of 7.5 With report of darker stool yesterday, petechiae, h/o cirrhosis with EV and Hb, will get GI c/s Lovenox stopped for now Anemia w/u labs ordered Recheck Hb tonight Transfuse prn to keep Hb>7 (8) Thrombocytopenia: Plan: No bleeding, platelets are stable and low 2/2 cirrhosis. (9) Mood disorder: Plan: Continue Buspar BID DVT Ppx: Ambulate Code status: FULL PCP: Luciana I spent a total of 50 minutes coordinating, documenting and providing care for this patient excluding time spent in performance of separately billed services Admission and Anticipated Discharge Date Admission Date: June 14, 2022 Subjective Patient seen and examined Reports left foot pain is well controlled Reports no back pain today Reports he had a large BM yesterday that was very dark brown, 'darker than usual' Denied any hemoptysis, hematemesis, hematuria Denied dizziness, SOB, HEMPHILL, cough Physical Exam Constitutional: + well hydrated; no acute distress Eyes: PERRL, conjunctivae normal, anicteric sclerae ENMT: external ear and nose normal, oropharynx normal Respiratory: normal respiratory effort, lungs clear to auscultation Cardiovascular: Rate/Rhythm: regular rate and regular rhythm S1 S2 Gastrointestinal (Abdomen): normal bowel sounds, soft, nontender, no hepatosplenomegaly Musculoskeletal: Left wound dressing with wound vac +petechiae in both legs Neurologic: PERRL, EOMI, accommodation nl, no face palsy, no dysarthria Psychiatric: A+Ox3, euthymic affect Results & Data Results & Data Vital Signs (Past 12 Hours) Vital Signs Temp Pulse Resp BP Pulse Ox O2 Del Method 06/23/22 08:01 37.0 C 93 H 18 105/57 L 94 Room Air Laboratory Results Abnormal lab results 06/23/22 Range/Units 14:14 RBC 2.40 L (4.70-6.10) M/uL Hgb 7.5 L (14.0-18.0) g/dl Hct 22.1 L (42.0-52.0) % RDW Std Deviation 55.8 H (36.4-46.3) fL RDW Coeff of Tim 16.7 H (11.5-14.5) % Plt Count 92 L (130-400) K/uL
[2022-06-23 15:13] LABS: Hematocrit (blood only) 22.1 % (42.0-52.0); Hemoglobin 7.5 g/dl (14.0-18.0); Mean Corpuscular Hemoglobin 31.3 pg (25.0-34.0); Mean Corpuscular Hgb Conc 33.9 g/dL (32.0-36.0); Mean Corpuscular Volume 92.1 fL (80.0-100.0); Mean Platelet Volume 10.7 fL (9.4-12.4); Platelet Count 92 K/uL (130-400); RDW Coefficient of Variation 16.7 % (11.5-14.5); RDW Standard Deviation 55.8 fL (36.4-46.3); White Blood Count 5.31 K/ul (4.8-10.8)
[2022-06-23 20:12] LABS: Hematocrit (blood only) 22.8 % (42.0-52.0); Hemoglobin 7.6 g/dl (14.0-18.0); Reticulocyte % 4.3 % (0.5-2.0); Reticulocytes # 0.1 10^6/uL (0.02-0.10)
[2022-06-23 20:49] LABS: Ferritin 245.2 ng/ml (8-388)
[2022-06-24] MEDS: HYDROcodone/ACETAMINOPHEN 10/325 TAB PO PRN ×3 (02:46→14:02)
[2022-06-24] MEDS: ceFAZolin 2000MG 2,000 MG/15 ML SYR IV SCH ×2 (05:40→13:00)
[2022-06-24] MEDS: LACTOBACILLUS ACIDOPHILUS 1 GM PACK PO SCH ×2 (07:28→11:22)
[2022-06-24] MEDS: busPIRone 5 MG TAB PO SCH (07:28)
[2022-06-24] MEDS: LIDOCAINE 5% 1 PATCH TD SCH (07:29)
[2022-06-24] MEDS: GABAPENTIN 300 MG CAP PO SCH ×2 (07:29→13:00)
[2022-06-24 08:37] LABS: Hematocrit (blood only) 23.9 % (42.0-52.0); Mean Corpuscular Hemoglobin 31.3 pg (25.0-34.0); Mean Corpuscular Hgb Conc 33.5 g/dL (32.0-36.0); Mean Corpuscular Volume 93.4 fL (80.0-100.0); Mean Platelet Volume 10.8 fL (9.4-12.4); Platelet Count 111 K/uL (130-400); RDW Coefficient of Variation 17.1 % (11.5-14.5); RDW Standard Deviation 57.3 fL (36.4-46.3); Red Blood Count 2.56 M/uL (4.70-6.10); White Blood Count 4.02 K/ul (4.8-10.8)
[2022-06-24 08:55] LABS: Alanine Aminotransferase 66 U/L (7-52); Albumin Globulin Ratio 0.6 (0.9-2); Albumin Level 2.1 gm/dl (3.4-5.0); Alkaline Phosphatase 212 U/L (34-104); Anion Gap 3 (3-11); Aspartate Aminotransferase 147 U/L (13-39); BUN Creatinine Ratio 19.6 (10-20); Bilirubin,Total 0.8 mg/dl (0.2-1.0); Blood Urea Nitrogen 11 mg/dl (6-23); Calcium 7.8 mg/dl (8.6-10.3); Carbon Dioxide 27 mmol/L (21-32); Chloride 106 mmol/L (98-107); Creatinine Clr Calc Pharmacy 184.1 ml/min; Est GFR (African American) > 150.0 ml/min; Est GFR (Non-African American) 131.2 ml/min; Globulin 3.8 gm/dl (2.5-4.0); Glucose 118 mg/dl (70-99(Fasting)); Sodium 136 mmol/L (136-145); Total Protein 5.9 gm/dl (6.0-8.3)
--- NOTE | 2022-06-24 09:37 | Gastrointestinal Consultation ---
Date of Consultation June 24, 2022 Assessment & Plan (1) Osteomyelitis: 36 year old male with cirrhosis on imaging, suspected HCV w/ HCV AB positive, Genotype 1A RNA + 2,680,000, tentative plan to treat after full evaluation by hematology (recent OP CT shows stability of lymph node and hematology notes "lymph node is reactive/congestive and at this point the best option is to continue to monitor the patient clinically") admitted with osteomyelitis - GI asked to evaluate for noromcytic anemia w/ normal iron and ferritin w/o evidence of GI bleeding Trend H&H Monitor and document GI output He reports dark brown stool Thursday with light brown stool this AM Transfuse per primary service PO PPI BID x 1 month then PO PPI 40 mg once daily Will need OP EGD w/ banding of varices Will need OP hepatology/ERIC appt for HCV treatment In the event he develops any black/bloody stools please update GI team MELD labs every 6 months ABD imaging w/ AFP every 6 months EGD every 1-2 years No ETOH No NSAIDs Avoid hepatotoxins Low NA diet, less than 2G daily Less than 2G acetaminophen containing products daily Needs Hep A/B series (2) MSSA bacteremia: (3) Anemia: Supervising Physician Co-Signing Physician Notes I personally saw and evaluated the patient on 06/24/2022 with VALDEZ Guerrero and agree with her findings and plan of care. He is a 36 y/o M with history of untreated HCV cirrhosis admitted with bacteremia and osteomyelitis s/p washout now on IV abx. GI was consulted for anemia. Hgb on admission was 12 and down to 7.6. He has been having brown stools without any melena, hematemesis, or hematochezia. He had an EGD with liver biopsy in 2021 with grade II EV that were not banded during that time. On physical exam patient AAOx3, sitting up in bed eating breakfast, abdomen soft and non-tender, LLE with foot wrapped in bandage. As patient has no overt signs of GI bleeding at this time I suspect his anemia is related to his acute infection/osteomyelitis. He does need outpatient endoscopy for variceal banding which we will arrange and will plan to discuss HCV treatment as outpatient in clinic as well. GI will sign off but please call us back with any questions or if patient develops any signs of overt GI bleeding. Margarita Rison, DO Gastroenterology and Hepatology History of Present Illness Reason for Consultation: anemia Requesting Physician: Judson Attending Physician: Lilia Aguirre MD History of Present Illness 36 year old male with cirrhosis on imaging, suspected HCV w/ HCV AB positive, Genotype 1A RNA + 2,680,000. Tentative plan to treat after full evaluation by hematology who was admitted through the ED with bactermia and osteomyelitis - GI was asked to evaluate for anemia. Pt was seen and chart was reviewed. Notes that from a GI standpoint he is feeling well. Suggest yesterday he moved his bowels, dark brown stool. This AM had a light brown stool. Has not had any report of black or bloody BMs. No abd pain. Tolerating PO. Hungry this AM. No nausea, vomiting. No CP, SOB. HGB 8 BUN 11 Screenings: MELD-Na score: 10 at 06/24/2022 HCC: due in Varices: due now Immunizations: need Hep A/B series CTAP 2022: Cirrhosis and portal hypertension. Mild fluid/fat stranding in the right abdomen and around the pancreas. May relate to cirrhosis and/or pancreatitis.Some dilated small bowel loops with air-fluid levels in the left abdomen. Collapsed distal loops. Possible bowel obstruction although discrete transition point not visualized. Also consider enteritis.Gallstones in the fundus of the distended gallbladder, similar to the prior. No gallbladder wall thickening. CT ChestABD/pelvis 2022: Mild prominence of periportal and cardiophrenic lymph nodes, unchanged, previously non FDG avid, an overall pattern commonly reactive to or congested by chronic liver disease, and in this case seemingly in proportion to the degree of advanced cirrhosis with portal hypertension. Accompanying esophageal varices, splenomegaly, and small volume ascites. Also suspect a component of congestive enteropathy. CTAP 2021:Cirrhotic liver with splenomegaly and multiple upper abdominal varices consistent with associated portal hypertension.Cholelithiasis. No gallbladder wall thickening.Mild periportal lymphadenopathy. This is nonspecific but likely due to the patient's cirrhosis.. Mild retroperitoneal fat stranding/infiltration. This is likely due to the patient's cirrhosis/edema. An acute pancreatitis is considered less likely given the normal enhancement of the pancreas. However, recommend correlate for pancreatic enzymes for confirmation. A 1.4 cm wedge-shaped hypodense focus within the left kidney. This may represent a cyst or old renal infarct. ABD US 2021:Cirrhosis liver.Cholelithiasis with small stone in gallbladder. No evidence of acute cholecystitis. Gallbladder distended. Small solid mass at head of pancreas measuring 2.0 x 1.9 x 1.2 cm and mildly enlarged lymph node favored. Mass in head of pancreas another possibility. Enhanced CT scan of abdomen recommended to further characterize it. Liver Bx 2021:Left liver lobe, needle core biopsy: Cirrhosis Chronic hepatitis Mild macrovesicular steatosis and rare ballooned hepatocytes EUS 2021:There was no sign of significant pathology in the ampulla. - There was no sign of significant pathology in the common bile duct. - Many stones were visualized endosonographically in the gallbladder. - There was abnormal echogenicity in the liver. Fine needle biopsy performed. - There was no sign of significant pathology in the entire pancreas. - Many enlarged lymph nodes were visualized in the peripancreatic region and dean hepatis region. Likely reactive due to liver disease. Fine needle aspiration performed. - Endosonographic images of the left adrenal gland were unremarkable. - The celiac trunk was endosonographically normal EGD 2021:Grade II esophageal varices. - Portal hypertensive gastropathy. - Normal duodenal bulb and second portion of the duodenum. Family history of GI malignancy:none Family history of liver disease:none Allergies Allergy/AdvReac Type Severity Reaction Status Date / Time No Known Allergies Allergy Mild Unverified 10/03/21 16:11 Home Medications Medication Instructions Recorded Confirmed Type buspirone 10 mg tablet 10 mg PO BID 06/14/22 06/14/22 History indomethacin 50 mg capsule 50 mg PO TID PRN gout flares 06/14/22 06/14/22 History prednisone 10 mg tablet 10 mg PO UD 06/14/22 06/14/22 History Patient History Medical History (Updated 06/20/22 @ 15:54 by Lilia Aguirre MD) Anemia Chronic back pain Cirrhosis of liver Esophageal varices Hepatitis C Mood disorder Thrombocytopenia Surgical History (Updated 06/19/22 @ 08:54 by Allie Bartlett PA-C) H/O hand surgery History of ankle surgery I&D for osteomyelitis Family History Other Diabetes Social History Smoking Status: Current every day smoker Tobacco Type: E-cigarettes / Vaping Second Hand Exposure: Yes; Do You Dip or Chew Tobacco: Yes; Tobacco Cessation Education Requested by Patient: No Hx Alcohol Use: No Hx Substance Use: Yes Last Used Substance: Unknown Preferred Language: Guyanese Communication Ability: Effective Flagsetter Required: No Beliefs That Will Affect Care: None Current Living Situation: Parent Other Information That Helps Us Care for You: No Feels Safe at Home: Yes Safety Concerns: Feels Safe At This Time Assistive Devices: Crutches Review of Systems Review of Systems: All systems reviewed & are unremarkable except as noted in HPI & below Physical Exam Constitutional: WD/WN, vitals as above Respiratory: normal respiratory effort, lungs clear to auscultation Cardiovascular: Rate/Rhythm: regular rate and regular rhythm Gastrointestinal (Abdomen): normal bowel sounds, soft, nontender, no hepatosplenomegaly Skin: no rashes, warm and dry Results & Data Vital Signs (Past 12 Hours) Vital Signs Temp Pulse Resp BP BP Pulse Ox O2 Del Method 06/24/22 07:23 36.8 C 80 16 95/57 L 96 Room Air 06/23/22 22:10 36.9 C 83 18 106/69 96 Room Air Laboratory Results 06/24/22 06/24/22 06/23/22 Range/Units 07:49 07:49 19:46 WBC 4.02 L (4.8-10.8) K/ul RBC 2.56 L (4.70-6.10) M/uL Hgb 8.0 L (14.0-18.0) g/dl Hct 23.9 L (42.0-52.0) % MCV 93.4 (80.0-100.0) fL MCH 31.3 (25.0-34.0) pg MCHC 33.5 (32.0-36.0) g/dL RDW Std Deviation 57.3 H (36.4-46.3) fL RDW Coeff of Tim 17.1 H (11.5-14.5) % Plt Count 111 L (130-400) K/uL MPV 10.8 (9.4-12.4) fL Reticulocyte % (Auto) (0.5-2.0) % Reticulocyte # (0.02-0.10) 10^6/uL Haptoglobin Sodium 136 (136-145) mmol/L Potassium 4.0 (3.5-5.1) mmol/L Chloride 106 (98-107) mmol/L Carbon Dioxide 27 (21-32) mmol/L Anion Gap 3 (3-11) BUN 11 (6-23) mg/dl Creatinine 0.56 L (0.6-1.4) mg/dl Est Cr Clr Drug Dosing 184.1 ml/min Est GFR ( Amer) > 150.0 ml/min Est GFR (Non-Af Amer) 131.2 ml/min BUN/Creatinine Ratio 19.6 (10-20) Glucose 118 H (70-99(Fasting)) mg/dl Calcium 7.8 L (8.6-10.3) mg/dl Iron (35-175) mcg/dl Unsaturated IBC (155-355) mcg/dl Transferrin (200-360) mg/dl Ferritin (8-388) ng/ml Total Bilirubin 0.8 (0.2-1.0) mg/dl AST 147 H (13-39) U/L ALT 66 H (7-52) U/L Alkaline Phosphatase 212 H (34-104) U/L Lactate Dehydrogenase (86-244) U/L Total Protein 5.9 L (6.0-8.3) gm/dl Albumin 2.1 L (3.4-5.0) gm/dl Globulin 3.8 (2.5-4.0) gm/dl Albumin/Globulin Ratio 0.6 L (0.9-2) Vitamin B12 (180-914) pg/ml Folate (>5.38) ng/ml Blood Type B Positive Antibody Screen NEGATIVE 06/23/22 06/23/22 06/23/22 Range/Units 19:46 19:46 19:46 WBC (4.8-10.8) K/ul RBC (4.70-6.10) M/uL Hgb (14.0-18.0) g/dl Hct (42.0-52.0) % MCV (80.0-100.0) fL MCH (25.0-34.0) pg MCHC (32.0-36.0) g/dL RDW Std Deviation (36.4-46.3) fL RDW Coeff of Tim (11.5-14.5) % Plt Count (130-400) K/uL MPV (9.4-12.4) fL Reticulocyte % (Auto) (0.5-2.0) % Reticulocyte # (0.02-0.10) 10^6/uL Haptoglobin Pending Sodium (136-145) mmol/L Potassium (3.5-5.1) mmol/L Chloride (98-107) mmol/L Carbon Dioxide (21-32) mmol/L Anion Gap (3-11) BUN (6-23) mg/dl Creatinine (0.6-1.4) mg/dl Est Cr Clr Drug Dosing ml/min Est GFR ( Amer) ml/min Est GFR (Non-Af Amer) ml/min BUN/Creatinine Ratio (10-20) Glucose (70-99(Fasting)) mg/dl Calcium (8.6-10.3) mg/dl Iron (35-175) mcg/dl Unsaturated IBC (155-355) mcg/dl Transferrin (200-360) mg/dl Ferritin (8-388) ng/ml Total Bilirubin (0.2-1.0) mg/dl AST (13-39) U/L ALT (7-52) U/L Alkaline Phosphatase (34-104) U/L Lactate Dehydrogenase 185 (86-244) U/L Total Protein (6.0-8.3) gm/dl Albumin (3.4-5.0) gm/dl Globulin (2.5-4.0) gm/dl Albumin/Globulin Ratio (0.9-2) Vitamin B12 1378 H (180-914) pg/ml Folate 12.34 (>5.38) ng/ml Blood Type Antibody Screen 06/23/22 06/23/22 06/23/22 Range/Units 19:46 19:46 14:14 WBC 5.31 (4.8-10.8) K/ul RBC 2.40 L (4.70-6.10) M/uL Hgb 7.6 L 7.5 L (14.0-18.0) g/dl Hct 22.8 L 22.1 L (42.0-52.0) % MCV 92.1 (80.0-100.0) fL MCH 31.3 (25.0-34.0) pg MCHC 33.9 (32.0-36.0) g/dL RDW Std Deviation 55.8 H (36.4-46.3) fL RDW Coeff of Tim 16.7 H (11.5-14.5) % Plt Count 92 L (130-400) K/uL MPV 10.7 (9.4-12.4) fL Reticulocyte % (Auto) 4.3 H (0.5-2.0) % Reticulocyte # 0.10 (0.02-0.10) 10^6/uL Haptoglobin Sodium (136-145) mmol/L Potassium (3.5-5.1) mmol/L Chloride (98-107) mmol/L Carbon Dioxide (21-32) mmol/L Anion Gap (3-11) BUN (6-23) mg/dl Creatinine (0.6-1.4) mg/dl Est Cr Clr Drug Dosing ml/min Est GFR ( Amer) ml/min Est GFR (Non-Af Amer) ml/min BUN/Creatinine Ratio (10-20) Glucose (70-99(Fasting)) mg/dl Calcium (8.6-10.3) mg/dl Iron 36 (35-175) mcg/dl Unsaturated IBC 140 L (155-355) mcg/dl Transferrin 136 L (200-360) mg/dl Ferritin 245.2 (8-388) ng/ml Total Bilirubin (0.2-1.0) mg/dl AST (13-39) U/L ALT (7-52) U/L Alkaline Phosphatase (34-104) U/L Lactate Dehydrogenase (86-244) U/L Total Protein (6.0-8.3) gm/dl Albumin (3.4-5.0) gm/dl Globulin (2.5-4.0) gm/dl Albumin/Globulin Ratio (0.9-2) Vitamin B12 (180-914) pg/ml Folate (>5.38) ng/ml Blood Type Antibody Screen
--- NOTE | 2022-06-24 15:02 | Discharge Summary ---
Discharge Summary Date of Service June 24, 2022 Notes For Next Care Provider Patient will require IV cefazolin 2 g every 8 hours until 07/28/2022. Recommend follow-up CBC, CMP, ESR and CRP as outpatient. Recommend weekly while on antibiotics. Patient elevated LFTs while in-house likely in setting of hepatitis C. Patient need to follow-up with Dr. Bautista in [address] Bautista will manage patient's wound. He also requires wound VAC change 3 times weekly which be managed by home health. He was seen and evaluated by gastroenterology on day of discharge due to anemia. Anemia panel was ordered which revealed anemia of chronic disease, no iron or vitamin deficiencies. Hemoglobin on day of discharge was 8.0. He does have history of esophageal varices and gastroenterology recommended follow-up EGD as an outpatient for variceal banding and this appointment has been arranged. He also needs to establish with hepatology clinic for hepatitis C treatment. Medication Changes From Visit Cefazolin 2g every 8 hours IV til 07/28/22. This will complete 6 weeks of antibiotics. * Gabapentin 300mg three times daily for pain. * Hydrocodone 10mg/Acetaminophen 325mg every 4 hours as needed for severe pain * Pantoprazole 40mg twice daily for 1 month; and then once daily thereafter for GI protection. * Recommend daily probiotic while on antibiotics. Admission HPI Per Admitting Provider This is a 36yo M with a PMH of hepatitic C, cirrhosis with history of esophageal varices, mood disorder and other medical problems who presents with worsening wound on left ankle. Has been ongoing for past two weeks and was initially diagnosed with gout by PCP and treated with a prednisone course. Pain and swelling continued to worsen and lateral aspect of ankle burst open with pus and drainage. Went to urgent care and was directed to come to ED for further evaluation. Denies any fever or chills. No lightheadedness, CP, SOB, nausea, vomiting, abdominal pain, dysuria, diarrhea constipation. Denies any recent bleeding of gums or in stool. Remote history of IV drug use but has not used for 10 years. Also remote alcohol history but has not used in years. Vapes/use s e-cigarettes. Admission Exam Per Admitting Provider PE: NAD, well developed Appeared mildly jaundice (but per pt its chronic) Lungs: CTA, no wheezing or crackles Cardiac: Normal S1/S2, no murmur Abd: ND, soft, NT MSK: L leg swelling with L lateral ankle open wound with serosanginous drainage Psych: AAOX3, normal affect Principal Dx & Hospital Course #1 = Principal Diagnosis (1) Osteomyelitis: (2) MSSA bacteremia: (3) Bacteremia: (4) Cellulitis and abscess of left lower extremity: Osteomyelitis of Left ankle LLE ankle wound Worsening over two weeks and initially diagnosed as gout and treated with a prednisone course Pain and swelling continued to worsen and lateral aspect of ankle burst open with pus and drainage Inflammatory markers elevated. Ankle CT with left lateral ankle/hindfoot subcutaneous abscesses as well as findings consistent with an infectious tenosynovitis and small focal erosion at distal fibula posteriorly consistent with a site of osteomyelitis Serial blood cultures from 06/14/22 positive for MSSA. Blood culture from 06/17/22 still negative so far I&D performed by Dr. Bautista on 06/14 Further I&D with wound vac placement on 06/16 Continue po hydrocodone prn pain UDS showed opioids which is expected as well as marijuana. Reports he took some marijuana a few weeks ago ID recs noted. ID recommended ANA CRISTINA. TTE does not suggest endocarditis. Discussed with Overnight Caregiver. Considering h/o esophageal varices, ANA CRISTINA is contraindicated MRI left ankle showed OM of distal tibia. No drainable fluid collection Abdominopelvic CT noted cirrhosis, mild fluid in abd and round pancreas. No acute fracture/dislocation Dr Bautista recommends NWB LLE, patient needs to be discharged on wound vac to follow up with them in the office in 1 week. Wound vac dressing change 3x/wk via HH Currently on IV cefazolin 2g q8h till 07/28/22 to complete 6 weeks from 1st negative culture (5) Hepatitis C: (6) Anemia: (7) Cirrhosis of liver: [facility] Seeing hepatology to proceed with HCV therapy HCV Ab and viral load noted Patient's hemoglobin has been trending down From 12.8 on admission CBC this afternoon showed Hb of 7.5 With report of darker stool yesterday, petechiae, h/o cirrhosis with EV and Hb, will get GI consult GI consult appreciated - recommend PPI BID x 1 month and then daily thereafter Anemia w/u labs ordered - no iron or vitamin def hgb stable at 8.0, no more reported melena will f/u with GI as OP for EGD with variceal banding and hep C treatment (8) Thrombocytopenia: No bleeding, platelets are stable and low 2/2 cirrhosis. (9) Mood disorder: Continue Buspar BID DVT Ppx: Ambulate Code status: FULL PCP: Luciana Pt seen and examined in collaboration with Dr. Aguirre, please see addendum Discharge Exam Gen: WD/WN, NAD, A&O x3 HEENT: Normocephalic, atraumatic, conjunctivae moist, sclerae anicteric, mucous membranes moist. Lung: Clear to Auscultation bilaterally, no wheezes/rales/rhonchi Heart: Regular rate, regular rhythm, no murmurs, rubs, or gallops Abdomen: Soft, NT, ND +BS x 4 Extremities: Left lower extremity wound VAC in place Skin: Warm, no rash, negative turgor., Updated Medication List Medication Instructions Recorded Confirmed Type buspirone 10 mg tablet 10 mg PO BID 06/14/22 06/14/22 History cefazolin 2 gram/100 mL in 0.9 % 100 ml IV Q8 #1,200 mL 06/24/22 Rx sodium chloride intravenous solution gabapentin 300 mg capsule 300 mg PO TID #30 caps 06/24/22 Rx hydrocodone 10 mg-acetaminophen 1 tab PO QID PRN pain #28 tabs 06/24/22 Rx 325 mg tablet pantoprazole 40 mg tablet,delayed 40 mg PO BID #60 tabs 06/24/22 Rx release Hospital Stay Data Consultations 06/14/22 15:21 Consult Podiatry Stat 06/14/22 15:24 ED Decision to Admit Stat 06/15/22 09:42 Consult Infectious Diseases Routine 06/18/22 09:38 Consult Pain Management Routine 06/23/22 16:24 Consult Gastroenterology Routine Procedures Performed Operation Date: 06/19/22 12:45 <No data on this case meets the specified criteria> Diagnostic Imagining Performed \ Ankle CT 06/14/22 12:[address] ankle LT w con CT DOSE: 154.69 mGy.cm CLINICAL HISTORY: eval abscess, laterally . Left ankle swelling. TECHNIQUE: Multiaxial CT images of the left ankle were performed following the intravenous administration of 95 cc of Optiray 320 and reformatted in the sagittal and coronal plane. A dose lowering technique was utilized adhering to the principles of ALARA. COMPARISON STUDY: None. FINDINGS: There is extensive subcutaneous trace edema seen throughout the left ankle most pronounced laterally. There is associated skin thickening and mild enhancement along the lateral side of the ankle/hindfoot. Consistent with a cellulitis. There is a peripherally enhancing subcutaneous fluid collection seen within the left lateral ankle/hindfoot which measures approximately 4.3 x 3.2 x 1.4 cm. This consistent with a subcutaneous abscess. This abuts the distal fibula. Small focal area of cortical erosion within the distal fibula posteriorly consistent with a site of osteomyelitis. This is best seen on axial image 143. There is also fluid and peripheral enhancement within the tendon sheaths of the left peroneal tendons. This also abuts the subcutaneous abscess. Therefore, this favors an infectious tenosynovitis. This is best seen on axial image 171 and coronal image 59. There is an additional subcutaneous fluid collection within the left lateral hindfoot/midfoot on image 212 which measures 2.3 x 1.4 cm. This consistent with an additional abscess. This likely contacts to the dominant subcutaneous trace fluid collection within the left lateral ankle. No fracture or dislocation within the left ankle. No radiopaque foreign bodies. IMPRESSION: 1. Left lateral ankle/hindfoot subcutaneous abscesses as described above. 2. There is also fluid and peripheral enhancement surrounding the left peroneal tendons consistent with an infectious tenosynovitis. 3. Small focal cortical erosion at the distal fibula posteriorly consistent with a site of osteomyelitis. ACT 112: Negative or not required by law. Electronically signed by: Chiki Mercado M.D. 06/14/2022 2:35 PM Venous Doppler Study 06/14/22 15:53 LEFT LOWER EXTREMITY VENOUS DOPPLER HISTORY: Left leg swollen, painful LLE COMPARISON STUDY: None. FINDINGS: There is normal compressibility, flow, and augmentation within the left lower extremity deep venous system. IMPRESSION: No DVT within the left lower extremity. ACT 112: Negative or not required by law. Electronically signed by: Chiki Mercado M.D. 06/14/2022 7:04 PM Foot X-Ray 06/14/22 17:09 XR foot LT min 3V routine CLINICAL HISTORY: Left foot infection with swelling. COMPARISON STUDY: Left first toe radiograph 08/21/2021. FINDINGS: There is diffuse soft tissue swelling within the left foot. No areas of cortical destruction to suggest an osteomyelitis. No radiopaque foreign bodies. No soft tissue gas identified. No fracture or dislocation within the left foot. The Lisfranc joint is intact. IMPRESSION: Diffuse soft tissue swelling within the left foot. No evidence for osteomyelitis. ACT 112: Negative or not required by law. Electronically signed by: Chiki Mercado M.D. 06/14/2022 6:00 PM Ankle MRI 06/19/22 08:02 MR ankle LT wo/w con CLINICAL HISTORY: infection TECHNIQUE: Multisequence, multiplanar MR images of the left ankle were obtained without contrast COMPARISON: None available at the time of this dictation. FINDINGS: There is a soft tissue ulcer in the lateral ankle with associated soft tissue swelling. There is edema in the posterolateral distal tibia. No drainable fluid collections are seen. IMPRESSION: Findings are compatible with osteomyelitis of the distal tibia likely due to cellulitis with a lateral ankle ulcer. No drainable fluid collections are seen. ACT 112: Negative or not required by law. Electronically signed by: Angel Duarte M.D. 06/19/2022 7:21 PM Orbit X-Ray 06/19/22 15:14 XR orbits for MRI HISTORY: 36 years-old Male Screening for foreign body for MRI COMPARISON: Head CT 01/02/2013 TECHNIQUE: 3 views of the orbits FINDINGS: No opaque foreign body of the orbits identified. No acute facial bone fracture. Rightward bowing and spurring of the nasal septum again noted. IMPRESSION: No opaque foreign body of the orbits identified. ACT 112: Negative or not required by law. The above report was generated using voice recognition software. It may contain grammatical, syntax or spelling errors. Electronically signed by: Vernon Marroquin M.D. 06/19/2022 4:40 PM Abdomen/Pelvis CT 06/19/22 20:20 Exam(s): CT ABDOMEN + PELVIS Without Contrast EXAM: CT Abdomen and Pelvis Without Intravenous Contrast CLINICAL HISTORY: Reason for exam: flank pain. TECHNIQUE: Axial computed tomography images of the abdomen and pelvis without intravenous contrast. CTDI is 20.53 mGy and DLP is 1104.41 mGy-cm. Automated exposure control was utilized for the study. A dose lowering technique was utilized adhering to the principles of ALARA. COMPARISON: CT Abdomen Pelvis dated 10/03/2021 FINDINGS: Lung bases: Unremarkable. No mass. No consolidation. ABDOMEN: Liver: Cirrhotic nodular liver, similar to the prior. Gallbladder and bile ducts: Gallstones in the fundus of the distended gallbladder, similar to the prior. No gallbladder wall thickening. No ductal dilation. Pancreas: Mild fluid/fat stranding in the right abdomen and around the pancreas. No ductal dilation. Spleen: Stable splenomegaly. Adrenals: Unremarkable. No mass. Kidneys and ureters: Unremarkable. No obstructing stones. No hydronephrosis. Stomach and bowel: Some dilated small bowel loops with air-fluid levels in the left abdomen. Collapsed distal loops. Possible bowel obstruction although discrete transition point not visualized. No mucosal thickening. PELVIS: Appendix: Normal appendix. Bladder: Unremarkable. No stones. Reproductive: Unremarkable as visualized. ABDOMEN and PELVIS: Intraperitoneal space: Small amount of free fluid in the pelvis. No free air. Bones/joints: No acute fracture. No dislocation. Soft tissues: Mild body wall edema. Vasculature: Varices better depicted on the prior postcontrast study. No abdominal aortic aneurysm. Lymph nodes: Multiple small periportal and retroperitoneal nodes similar to the prior. IMPRESSION: 1. Cirrhosis and portal hypertension. 2. Mild fluid/fat stranding in the right abdomen and around the pancreas. May relate to cirrhosis and/or pancreatitis. 3. Some dilated small bowel loops with air-fluid levels in the left abdomen. Collapsed distal loops. Possible bowel obstruction although discrete transition point not visualized. Also consider enteritis. 4. Gallstones in the fundus of the distended gallbladder, similar to the prior. No gallbladder wall thickening. 5. Small amount of free fluid in the pelvis. Electronically signed by: Jeremy Cruz M.D. 06/20/22 01:53 AM Chest X-Ray 06/21/22 05:35 XR chest 1V portable CLINICAL HISTORY: hyponatremia TECHNIQUE: Single frontal radiograph of the chest was obtained. Comparison: None available at the time of this dictation. FINDINGS: No lines and tubes are seen. The cardiomediastinal silhouette is normal. Lungs are underinflated but clear. No evidence of pleural effusion or pneumothorax. IMPRESSION: No acute chest disease. ACT 112: Negative or not required by law. Electronically signed by: Angel Duarte M.D. 06/21/2022 9:06 AM Chest X-Ray 06/21/22 14:29 XR chest 1V portable CLINICAL HISTORY: PICC Placement TECHNIQUE: Single frontal radiograph of the chest was obtained. Comparison: Comparison is made to chest radiograph 06/21/2022 FINDINGS: Right PICC terminates in the mid SVC. The cardiomediastinal silhouette is normal. The lungs are clear. No evidence of pleural effusion or pneumothorax. IMPRESSION: Satisfactory placement of right PICC. ACT 112: Negative or not required by law. Electronically signed by: Angel Duarte M.D. 06/21/2022 2:58 PM Pending Results Patient Have Any Pending Studies at Discharge: No Discharge Instructions Given to Patient (Per Discharging Provider) MEDICATION CHANGES: New Medications: * Cefazolin 2g every 8 hours IV til 07/28/22. This will complete 6 weeks of antibiotics. * Gabapentin 300mg three times daily for pain. * Hydrocodone 10mg/Acetaminophen 325mg every 4 hours as needed for severe pain * Pantoprazole 40mg twice daily for 1 month; and then once daily thereafter for GI protection. * Recommend daily probiotic while on antibiotics. STOP taking: Indomethacin and prednisone SUMMARY OF TEST RESULTS: You were admitted to hospital due to bacteria in your blood secondary to bone infection in your left ankle. You under went incision and drainage to your left ankle wound x 2 and this helped control the source of infection. You had significant amount of pain and were seen by Pain management to assist in controlling pain. You had a wound vac placed to left ankle. You had low blood counts, Anemia, throughout hospital stay which was felt secondary to infection, not acute bleeding. You were seen and evaluated by Gastroenterology due to Anemia who recommends outpatient follow up with EGD and variceal banding along with Hepatitis C treatment. PENDING TEST RESULTS: None RECOMMENDATIONS FOR FOLLOW-UP: Please follow-up with primary care provider as scheduled. Please complete IV antibiotics in their entirety to fully treat infection. Recommend repeat blood work at your Primary Care appointment with the follow labs: CBC, CMP, ESR, CRP You will need to follow-up with Dr. Bautista in 1 week. He will be managing your wound VAC. Your wound VAC will be changed Thursday and Thursday. Your VAC is set to - 125mmhg continuous mode. Home health will be changing your wound VAC 3 times a week. Please follow-up with gastroenterology as scheduled. They will be evaluating her esophageal varices for possible banding and you also need to follow-up with hepatology for hepatitis C treatment. Abstain from any alcohol or anti inflammatory medications (including aleve, motrin, advil, ibuprofen). Limit Tylenol use to 2,000mg per day. Be mindful that your prescription pain medications of Hydrocodone also contains 325mg of Tylenol. Recommend low sodium diet, sticking to less than 2,000mg of sodium a day. Nonweightbearing to left lower extremity. OTHER INSTRUCTIONS: Seek medical attention if you have: * temperature above 101 * chest pain or trouble breathing * abdominal pain, nausea, vomiting * diarrhea, dark stools or bloody stools * any unanswered questions or concerns Call 911 if symptoms are severe. Please take good care of yourself. It has been a pleasure taking care of you. Please take care of yourself. If you have any questions regarding your recent hospitalization please contact [facility] and request rodney Hemalathaist @ [phone]. Total Time Total Time Spent Total Time Spent (In Minutes): 50 minutes Supervising Physician Co-Signing Physician Notes Agree with findings and plan as detailed by Denice Lomas PA-C
[2022-06-24] MEDS ORDERED: PANTOprazole 40 MG TAB PO SCH (21:00)
[2022-06-25 10:03] LABS: Codeine Urine NEGATIVE ng/mL (<50); Hydrocodone Urine NEGATIVE ng/mL (<50); Hydromor Urine 236 ng/mL (<50); Marijuana Quant, GCMS Urine 35 ng/mL (<5); Morphine Urine NEGATIVE ng/mL (<50); Norhydrocodone Conf Ur NEGATIVE ng/mL (<50); Noroxycodone Urine 153 ng/mL (<50); Oxycodone Urine NEGATIVE ng/mL (<50); Oxymorph Urine 76 ng/mL (<50)
== END 2022-06-24 14:53 | disposition home health service (06) | DRG 501 ==
LOC: ED 12:01 → SUATTDRO 16:14 → 3N 16:14

== ENCOUNTER 2024-04-20 18:28 | Inpatient (IN) ==
--- NOTE | 2024-04-20 18:38 | Emergency Department Note ---
Impression & Plan Acute alteration in mental status, Cirrhosis of liver, Thrombocytopenia, Anemia, Acute hepatic encephalopathy, Acidosis, lactic ED Provider Note NAME: SHIVANI GRACE AGE: 38 SEX: M : 1985 ARRIVES VIA: Ambulance INFORMANT: Patient, EMS ED PROVIDER(S): Carloz Hermosillo DO CHIEF COMPLAINT: Altered mental status HPI: The patient is a 38-year-old male who presented to the emergency department by ambulance. The patient is unable to give any history. He was found in his garage. The patient is unable to give any history but continuously moans ouch. The patient was found by family who called 911. His last known well time was 6 PM yesterday. He has a history of cirrhosis of the liver with hepatitis C. The patient was seen at our facility yesterday reportedly for paracentesis. ROS: See above HPI for pertinent positives & negatives. A total of 10 systems reviewed and were otherwise negative. PAST MEDICAL HISTORY: See Below PAST SURGICAL HISTORY: See Below FAMILY HISTORY: See Below SOCIAL HISTORY: See Below HOME MEDICATIONS: See Below ALLERGIES: See Below VITALS: See Below PHYSICAL EXAMINATION: GENERAL: The patient is listless but awake. He does not follow commands. EYES: The conjunctivae are clear. The pupils are dilated and reactive to light bilaterally. EARS, NOSE, MOUTH AND THROAT: The nose is without any evidence of any deformity. Mucous membranes are dry. NECK: The neck is nontender and supple. RESPIRATORY: Normal respiratory effort is noted there is no evidence of wheezing rhonchi or rales CARDIOVASCULAR: Tach cardiac and regular heart sounds were noted to auscultation. There is no definite murmur. GASTROINTESTINAL: The abdomen was distended. There was no specific guarding or rigidity noted. BACK: There is no step-off. MUSCULOSKELETAL/EXTREMITIES: There significant muscle rigidity but no obvious deformity. SKIN: Is warm and dry. Pedal edema was noted bilaterally. NEUROLOGIC: Patient is awake to verbal commands. He does not answer questions or follow commands. I am unable to assess orientation at this time. Reflexes were 3+ bilaterally. Overall muscle rigidity was appreciated. MEDICAL DECISION MAKING: The patient is a 38-year-old male who presented to the emergency department for an evaluation of altered mental status. It was difficult to obtain history. He was very rigid from a neuromuscular standpoint. This could be from hepatic encephalopathy although because of the differential is very wide further laboratory and radiographic studies were obtained. I discussed the patient's laboratory and radiographic studies with the patient's family members. I discussed his condition with the on-call [facility]ist. Given his ongoing symptoms he is not a good candidate for outpatient management and will likely benefit from inpatient treatment. Triage Nursing notes reviewed. Prior medical records reviewed Vital Signs: reviewed and remarkable for tachycardia. Differential diagnosis: Infection, hypoglycemia, electrolyte abnormalities, overdose, toxicologic, cardiac sources, intracerebral event, neurologic, trauma, as well as other pathologies. ER treatment provided: See below Diagnostics interpreted by me: ECG: EKG was obtained in the emergency department. My interpretation is sinus tachycardia at 109 bpm. There is no ectopy. There is no acute ST segment abnormalities noted. This was compared to a tracing from April 12, 2024. No changes were noted. Cardiac Monitoring: An order was placed for continuous cardiac monitoring. The monitor shows a rate of 103 bpm with sinus tachycardia. Laboratory studies: As stated above and show below. Imaging studies: See below. Radiographic imaging was reviewed by myself Consultation(s): I discussed this case with Dr. Paris who is on-call for the [facility]ist group. ED COURSE: Procedures: none Critical Care: I have personally spent greater than 45 minutes of critical care time in the direct management of this patient. This includes bedside care, interpretation of diagnostic studies, and testing, discussion with consultants, patient, and family members, and other required patient management activities. This 45 minutes is in excess of all separately billable procedures. Past Med/Surg History Problem List (Updated 04/20/24 @ 21:46 by Carloz Hermosillo DO) Acidosis, lactic (Acute) Acute hepatic encephalopathy (Acute) Anemia (Acute) Acute alteration in mental status (Acute) Transaminitis (Acute) Hand swelling (Acute) Pain and swelling of right wrist (Acute) Acute hyponatremia (Acute) MSSA bacteremia Osteomyelitis Bacteremia Anemia Esophageal varices Thrombocytopenia (Acute) Cirrhosis of liver (Acute) Hepatitis C (Acute) Mood disorder Cellulitis and abscess of left lower extremity (Acute) Medical History Encounter for pre-operative examination Chronic back pain Surgical History History of ankle surgery I&D for osteomyelitis H/O hand surgery Family History Other Diabetes Social History Smoking Status: Unknown if ever smoked Tobacco Type: Cigarettes Second Hand Exposure: Yes; Do You Dip or Chew Tobacco: Yes; Hx Alcohol Use: No Hx Substance Use: Yes Last Used Substance: Unknown Preferred Language: Polish Communication Ability: Effective Lace Sewer Required: No Beliefs That Will Affect Care: None Current Living Situation: Parent Feels Safe at Home: Yes Assistive Devices: Crutches Allergies Allergies Allergy/AdvReac Type Severity Reaction Status Date / Time No Known Allergies Allergy Mild Verified 04/20/24 18:56 Home Meds Home Medications Medication Instructions Recorded Confirmed buspirone 15 mg tablet 15 mg PO AMHS 04/12/24 04/20/24 furosemide 40 mg tablet See Rx Instructions .Route .COMPLEX 04/12/24 04/20/24 hydroxyzine HCl 25 mg tablet 25 mg PO TID PRN Anxiety 04/12/24 04/20/24 omeprazole 20 mg capsule,delayed 20 mg PO QAM 04/12/24 04/20/24 release spironolactone 100 mg tablet 200 mg PO QAM 04/12/24 04/20/24 Results & Data (ED) Vital Signs Vital Signs - 24 hr 04/20/24 18:16 04/20/24 18:16 04/20/24 18:40 Temperature 36.8 C Temperature Source Axillary Pulse Rate 114 H 111 H Pulse Rate from SpO2 Sensor Respiratory Rate 25 H Blood Pressure 144/83 H Blood Pressure Mean 103 Pulse Oximetry 97 Oxygen Delivery Method Room Air Room Air Sepsis Recent Fever Within 48 Hours No Sepsis New/Unexplained Change in Mental Status Yes Sepsis Action Taken by Nursing No Action Required 04/20/24 19:09 04/20/24 19:33 04/20/24 19:45 Temperature Temperature Source Pulse Rate 112 H 102 H 102 H Pulse Rate from SpO2 Sensor 102 H 101 H Respiratory Rate 20 13 13 Blood Pressure 126/95 118/66 107/67 Blood Pressure Mean 105 83 80 Pulse Oximetry 99 100 100 Oxygen Delivery Method Room Air Room Air Room Air Sepsis Recent Fever Within 48 Hours Sepsis New/Unexplained Change in Mental Status Sepsis Action Taken by Nursing 04/20/24 20:00 04/20/24 20:30 04/20/24 21:03 Temperature Temperature Source Pulse Rate 101 H 101 H 103 H Pulse Rate from SpO2 Sensor 102 H Respiratory Rate 14 12 13 Blood Pressure 105/60 118/66 112/80 Blood Pressure Mean 72 80 90 Pulse Oximetry 100 100 100 Oxygen Delivery Method Room Air Room Air Room Air Sepsis Recent Fever Within 48 Hours Sepsis New/Unexplained Change in Mental Status Sepsis Action Taken by Snf Medications Current Medication List: was personally reviewed by me Laboratory Data Attestation: I reviewed the patient's lab results. 04/20/24 18:42 04/20/24 18:42 Lab Results 04/20/24 04/20/24 04/20/24 Range/Units 18:42 19:00 19:01 WBC 5.80 (4.8-10.8) K/ul RBC 2.69 L (4.70-6.10) M/uL Hgb 8.6 L (14.0-18.0) g/dl Hct 25.3 L (42.0-52.0) % MCV 94.1 (80.0-100.0) fL MCH 32.0 (25.0-34.0) pg MCHC 34.0 (32.0-36.0) g/dL RDW Std Deviation 57.5 H (36.4-46.3) fL RDW Coeff of Tim 17.0 H (11.5-14.5) % Plt Count 129 L (130-400) K/uL MPV 9.3 L (9.4-12.4) fL Immature Gran % (Auto) 0.2 % Neut % (Auto) 71.4 % Lymph % (Auto) 13.6 % [place] % (Auto) 14.0 % Eos % (Auto) 0.3 % Baso % (Auto) 0.5 % Neut # (Auto) 4.14 (1.40-6.50) K/uL Lymph # (Auto) 0.79 L (1.20-3.40) K/uL [place] # (Auto) 0.81 H (0.11-0.59) K/uL Eos # (Auto) 0.02 (0.00-0.50) K/uL Baso # (Auto) 0.03 (0.00-0.20) K/uL Immature Gran # (Auto) 0.01 (0.01-0.20) K/uL PT 19.9 H (9.0-12.0) Seconds INR 1.9 H (0.9-1.1) APTT 39 H (21-31) Seconds PTT Ratio 1.4 VBG pH 7.43 H (7.36-7.41) VBG pCO2 31 L (38-50) mmHg VBG pO2 39 mmHg VBG HCO3 21 mmol/L VBG O2 Saturation 61.0 % VBG Base Excess -2.7 mEq/L Carboxyhemoglobin 1.0 % THgb Sodium 132 L (136-145) mmol/L Potassium 4.7 (3.5-5.1) mmol/L Chloride 103 (98-107) mmol/L Carbon Dioxide 22 (21-32) mmol/L Anion Gap 7 (3-11) BUN 32 H (6-23) mg/dl Creatinine 0.99 (0.6-1.4) mg/dl Est Cr Clr Drug Dosing 93.4 ml/min eGFR 98.76 BUN/Creatinine Ratio 32.3 H (10-20) Glucose 164 H (70-99(Fasting)) mg/dl Osmolality 293 (280-300) mOsm/kg Lactate 5.3 H* (0.4-2.0) mmol/L Calcium 9.1 (8.6-10.3) mg/dl Magnesium 2.0 (1.7-2.4) mg/dl Total Bilirubin 4.8 H (0.2-1.0) mg/dl Direct Bilirubin 2.1 H (0-0.2) mg/dl AST 158 H (13-39) U/L ALT 81 H (7-52) U/L Alkaline Phosphatase 151 H (34-104) U/L Ammonia 81.0 H (18-72) umol/L Troponin I High Sens 11.1 (0-20) pg/ml Total Protein 6.7 (6.0-8.3) gm/dl Albumin 3.3 L (3.4-5.0) gm/dl Procalcitonin 0.98 H (0-0.5) ng/ml Urine Color Dark Yellow Urine Appearance Clear (Clear) Urine pH 6.0 (4.5-7.5) Ur Specific [place] 1.027 (1.000-1.030) Urine Protein Negative (Negative) Urine Glucose (UA) Negative (Negative) Urine Ketones Negative (Negative) Urine Blood Negative (Negative) Urine Nitrite Negative (Negative) Urine Bilirubin 1+ H (Negative) Urine Urobilinogen Negative (Negative) Ur Leukocyte Esterase Trace H (Negative) Urine WBC (Auto) 0-5 (0-5) /hpf Urine RBC (Auto) 0-2 (0-2) /hpf U Hyaline Cast (Auto) 0-2 (0-2) /lpf U Epithel Cells (Auto) 0-2 (0-2) /hpf Urine Bacteria (Auto) None Seen (None Seen) Urine Osmolality 684 (500-800) mOsm/kg Ur Random Sodium 18 mmol/L Urine Opiates Screen Neg (Neg) Ur Methadone, Qual Neg (Neg) Urine Fentanyl Screen Neg (Neg) Urine Barbiturates Neg (Neg) Ur Phencyclidine (PCP) Neg (Neg) U Amphetamin/Meth Scrn Pos H (Neg) MDMA (Ecstasy) Screen Pos H (Neg) U Benzodiazepines Scrn Neg (Neg) Ur Cocaine Metabolite Neg (Neg) U Marijuana (THC) Screen Pos H (Neg) Ethyl Alcohol mg/dL (<10.0) mg/dl Adenovirus (PCR) Not Detected (NotDetected) B. pertussis DNA (PCR) Not Detected (NotDetected) B.parapertussis DNA PCR Not Detected (NotDetected) C. pneumoniae DNA (PCR) Not Detected (NotDetected) Coronavirus OC43 (PCR) DETECTED A (NotDetected) Coronavirus HKU1 (PCR) Not Detected (NotDetected) Coronavirus 229E (PCR) Not Detected (NotDetected) SARS-CoV-2 (PCR) Not Detected (NotDetected) Coronavirus NL63 (PCR) Not Detected (NotDetected) Human Metapneumovir PCR Not Detected (NotDetected) Influenza Type A (PCR) Not Detected (NotDetected) Influenza Type B (PCR) Not Detected (NotDetected) M. pneumoniae (PCR) Not Detected (NotDetected) Parainfluenza 1 (PCR) Not Detected (NotDetected) Parainfluenza 2 (PCR) Not Detected (NotDetected) Parainfluenza 3 (PCR) Not Detected (NotDetected) Parainfluenza 4 (PCR) Not Detected (NotDetected) RSV (PCR) Not Detected (NotDetected) Entero/Rhino (PCR) Not Detected (NotDetected) 04/20/24 04/20/24 Range/Units 19:12 21:17 WBC (4.8-10.8) K/ul RBC (4.70-6.10) M/uL Hgb (14.0-18.0) g/dl Hct (42.0-52.0) % MCV (80.0-100.0) fL MCH (25.0-34.0) pg MCHC (32.0-36.0) g/dL RDW Std Deviation (36.4-46.3) fL RDW Coeff of Tim (11.5-14.5) % Plt Count (130-400) K/uL MPV (9.4-12.4) fL Immature Gran % (Auto) % Neut % (Auto) % Lymph % (Auto) % [place] % (Auto) % Eos % (Auto) % Baso % (Auto) % Neut # (Auto) (1.40-6.50) K/uL Lymph # (Auto) (1.20-3.40) K/uL [place] # (Auto) (0.11-0.59) K/uL Eos # (Auto) (0.00-0.50) K/uL Baso # (Auto) (0.00-0.20) K/uL Immature Gran # (Auto) (0.01-0.20) K/uL PT (9.0-12.0) Seconds INR (0.9-1.1) APTT (21-31) Seconds PTT Ratio VBG pH (7.36-7.41) VBG pCO2 (38-50) mmHg VBG pO2 mmHg VBG HCO3 mmol/L VBG O2 Saturation % VBG Base Excess mEq/L Carboxyhemoglobin % THgb Sodium (136-145) mmol/L Potassium (3.5-5.1) mmol/L Chloride (98-107) mmol/L Carbon Dioxide (21-32) mmol/L Anion Gap (3-11) BUN (6-23) mg/dl Creatinine (0.6-1.4) mg/dl Est Cr Clr Drug Dosing ml/min eGFR BUN/Creatinine Ratio (10-20) Glucose (70-99(Fasting)) mg/dl Osmolality (280-300) mOsm/kg Lactate 2.9 H* (0.4-2.0) mmol/L Calcium (8.6-10.3) mg/dl Magnesium (1.7-2.4) mg/dl Total Bilirubin (0.2-1.0) mg/dl Direct Bilirubin (0-0.2) mg/dl AST (13-39) U/L ALT (7-52) U/L Alkaline Phosphatase (34-104) U/L Ammonia (18-72) umol/L Troponin I High Sens (0-20) pg/ml Total Protein (6.0-8.3) gm/dl Albumin (3.4-5.0) gm/dl Procalcitonin (0-0.5) ng/ml Urine Color Urine Appearance (Clear) Urine pH (4.5-7.5) Ur Specific [place] (1.000-1.030) Urine Protein (Negative) Urine Glucose (UA) (Negative) Urine Ketones (Negative) Urine Blood (Negative) Urine Nitrite (Negative) Urine Bilirubin (Negative) Urine Urobilinogen (Negative) Ur Leukocyte Esterase (Negative) Urine WBC (Auto) (0-5) /hpf Urine RBC (Auto) (0-2) /hpf U Hyaline Cast (Auto) (0-2) /lpf U Epithel Cells (Auto) (0-2) /hpf Urine Bacteria (Auto) (None Seen) Urine Osmolality (500-800) mOsm/kg Ur Random Sodium mmol/L Urine Opiates Screen (Neg) Ur Methadone, Qual (Neg) Urine Fentanyl Screen (Neg) Urine Barbiturates (Neg) Ur Phencyclidine (PCP) (Neg) U Amphetamin/Meth Scrn (Neg) MDMA (Ecstasy) Screen (Neg) U Benzodiazepines Scrn (Neg) Ur Cocaine Metabolite (Neg) U Marijuana (THC) Screen (Neg) Ethyl Alcohol mg/dL < 10.0 (<10.0) mg/dl Adenovirus (PCR) (NotDetected) B. pertussis DNA (PCR) (NotDetected) B.parapertussis DNA PCR (NotDetected) C. pneumoniae DNA (PCR) (NotDetected) Coronavirus OC43 (PCR) (NotDetected) Coronavirus HKU1 (PCR) (NotDetected) Coronavirus 229E (PCR) (NotDetected) SARS-CoV-2 (PCR) (NotDetected) Coronavirus NL63 (PCR) (NotDetected) Human Metapneumovir PCR (NotDetected) Influenza Type A (PCR) (NotDetected) Influenza Type B (PCR) (NotDetected) M. pneumoniae (PCR) (NotDetected) Parainfluenza 1 (PCR) (NotDetected) Parainfluenza 2 (PCR) (NotDetected) Parainfluenza 3 (PCR) (NotDetected) Parainfluenza 4 (PCR) (NotDetected) RSV (PCR) (NotDetected) Entero/Rhino (PCR) (NotDetected) Administered Medications Vancomycin HCl 1,750 mg/ (Sodium Chloride) 535 mls @ 200 mls/hr IV NOW ONE Stop: 04/20/24 21:51 Last Admin: 04/20/24 20:15 Dose: 200 mls/hr Documented By: KAUSHAL Discontinued Medications Sodium Chloride (Nss) 1,000 mls @ 999 mls/hr IV .Q1H1M ONE Stop: 04/20/24 20:11 Last Infusion: 04/20/24 20:44 Dose: Infused Documented By: Admin: 04/20/24 19:34 Dose: 999 mls/hr Documented By: KAUSHAL Piperacillin Sod/Tazobactam Sod (Zosyn) 4.5 gm in 100 mls @ 200 mls/hr IV NOW ONE; Protocol Stop: 04/20/24 19:40 Last Infusion: 04/20/24 20:02 Dose: Infused Documented By: Admin: 04/20/24 19:34 Dose: 200 mls/hr Documented By: KAUSHAL Ioversol (Optiray 320 100ml) 90 ml IV ONCE ONE Stop: 04/20/24 18:54 Last Admin: 04/20/24 18:53 Dose: 90 ml Documented By: RADHA Midazolam HCl (Midazolam Hcl 1 Mg/Ml 2ml Vial) Confirm Administered Dose 2 mg .ROUTE .STK-MED ONE Stop: 04/20/24 18:37 Last Admin: 04/20/24 18:46 Dose: Not Given Documented By: ARIE Midazolam HCl (Midazolam Hcl 5 Mg/Ml 2ml Vial) 0.5 mg IV NOW STA Stop: 04/20/24 18:38 Last Admin: 04/20/24 18:46 Dose: 0.5 mg Documented By: ARIE Midazolam HCl (Midazolam Hcl 5 Mg/Ml 2ml Vial) 0.5 mg IV NOW STA Stop: 04/20/24 18:45 Last Admin: 04/20/24 18:46 Dose: 0.5 mg Documented By: ARIE Imaging Data Attestation: I personally reviewed and interpreted this imaging study as follows: My Impression: CT the brain was obtained in the emergency department. My interpretation is no intracranial hemorrhage or mass effect, final report below. CT of the abdomen and pelvis was obtained in the emergency department. My interpretation is no free air or definite bowel obstruction, final report below Radiologist's Impression: Abdomen/Pelvis CT 04/20/24 18:30 CT CHEST ABDOMEN and PELVIS WITH CONTRAST INDICATION: PAIN TECHNIQUE: CT of chest, abdomen and pelvis was obtained with intravenous contrast. IV CONTRAST: 100 mL of OMNIPAQUE 300 Enteric contrast: Not Given COMPARISON: None FINDINGS: LOWER NECK: Normal thyroid. LYMPH NODES: A few small nonenlarged lymph nodes in the mediastinum. No lymphadenopathy by size criteria. CARDIOVASCULAR: Cardiac size is mildly enlarged. Mild pulmonary vascular congestion. Coronary artery calcifications are noted. No aortic aneurysm. LUNGS: The trachea and central bronchi are widely patent. No focal confluent infiltrates are seen. There are no pulmonary nodules. PLEURA: There are no pleural effusions. There is no pneumothorax. LIVER: No focal lesion identified. Advanced cirrhosis GALLBLADDER/BILIARY: Cholelithiasis without CT evidence of cholecystitis. No abnormal biliary dilatation. Hypertension with extensive venous collateral formation in the upper abdomen including a gastric varices, splenorenal shunts and recanalized umbilical vein. SPLEEN: Splenomegaly with multiple transcortical hypodensities.. PANCREAS: Unremarkable. ADRENALS: Unremarkable. KIDNEYS: Cortical cysts. No stones or hydronephrosis identified. PERITONEUM/RETROPERITONEUM. No lymphadenopathy by size criteria. No aortic aneurysm. Very large volume abdominopelvic ascites. GASTROINTESTINAL: No obstruction. Normal appendix is identified. ABDOMINAL WALL: Umbilical hernia containing ascitic fluid. Small inguinal hernias also containing ascitic fluid. REPRODUCTIVE: Normal-sized prostate. BONES: No acute findings. Multiple chronic rib fractures bilaterally with associated pleural scarring. IMPRESSION: Advanced cirrhosis with portal hypertension with splenomegaly and extensive venous collaterals as above. Very large volume abdominopelvic ascites. Multiple transcortical hypoattenuation's of the kidney. While this could be due to heterogeneous contrast-enhancement of the red pulp and the white pulp of the spleen, infarcts are also considerations. Electronically signed by Francis Fermin 04-20-2024 7:[address] 04/20/24 18:30 CT CERVICAL SPINE WITHOUT CONTRAST: HISTORY: Altered mental status TECHNIQUE: Noncontrast CT examination of the cervical spine is performed. Coronal and sagittal reformats were created. COMPARISON: None FINDINGS: CERVICAL SPINE: There is no significant vertebral body height loss. No acute traumatic fracture identified. There is no significant spondylolisthesis. Multilevel degenerative changes characterized by disc osteophyte complex, bilateral facet and uncovertebral hypertrophy resulting and neural foraminal narrowing at multiple levels, worst at mid lower spine Visualized soft tissues of neck are unremarkable. IMPRESSION: No acute traumatic fracture of the cervical spine. Multilevel degenerative changes as above Electronically signed by Francis Fermin 04-20-2024 7:[address] 04/20/24 18:30 CT CHEST ABDOMEN and PELVIS WITH CONTRAST INDICATION: PAIN TECHNIQUE: CT of chest, abdomen and pelvis was obtained with intravenous contrast. IV CONTRAST: 100 mL of OMNIPAQUE 300 Enteric contrast: Not Given COMPARISON: None FINDINGS: LOWER NECK: Normal thyroid. LYMPH NODES: A few small nonenlarged lymph nodes in the mediastinum. No lymphadenopathy by size criteria. CARDIOVASCULAR: Cardiac size is mildly enlarged. Mild pulmonary vascular congestion. Coronary artery calcifications are noted. No aortic aneurysm. LUNGS: The trachea and central bronchi are widely patent. No focal confluent infiltrates are seen. There are no pulmonary nodules. PLEURA: There are no pleural effusions. There is no pneumothorax. LIVER: No focal lesion identified. Advanced cirrhosis GALLBLADDER/BILIARY: Cholelithiasis without CT evidence of cholecystitis. No abnormal biliary dilatation. Hypertension with extensive venous collateral formation in the upper abdomen including a gastric varices, splenorenal shunts and recanalized umbilical vein. SPLEEN: Splenomegaly with multiple transcortical hypodensities.. PANCREAS: Unremarkable. ADRENALS: Unremarkable. KIDNEYS: Cortical cysts. No stones or hydronephrosis identified. PERITONEUM/RETROPERITONEUM. No lymphadenopathy by size criteria. No aortic aneurysm. Very large volume abdominopelvic ascites. GASTROINTESTINAL: No obstruction. Normal appendix is identified. ABDOMINAL WALL: Umbilical hernia containing ascitic fluid. Small inguinal hernias also containing ascitic fluid. REPRODUCTIVE: Normal-sized prostate. BONES: No acute findings. Multiple chronic rib fractures bilaterally with associated pleural scarring. IMPRESSION: Advanced cirrhosis with portal hypertension with splenomegaly and extensive venous collaterals as above. Very large volume abdominopelvic ascites. Multiple transcortical hypoattenuation's of the kidney. While this could be due to heterogeneous contrast-enhancement of the red pulp and the white pulp of the spleen, infarcts are also considerations. Electronically signed by Francis Fermin 04-20-2024 7:44 PM Chest X-Ray 04/20/24 18:30 EXAM: Portable AP chest radiograph TECHNIQUE: AP portable radiograph of the chest was obtained. INDICATION: Shortness of breath Comparison: None FINDINGS: LINES and TUBES: None CARDIOVASCULAR: Cardiac silhouette is normal in size. LUNGS/PLEURA: No focal consolidation identified. No significant pleural fluid. No discernible pneumothorax. OSSEOUS/OTHER: No displaced acute osseous process identified. Bilateral chronic rib deformities. IMPRESSION: Mild congestive changes of the cardiovascular system.234 Electronically signed by Francis Fermin 04-20-2024 7:[address] 04/20/24 18:30 CT HEAD: HISTORY: Altered mental status. TECHNIQUE: Noncontrast CT examination of the head is performed. Coronal and sagittal reformats were created. COMPARISON: None FINDINGS: There is no evidence of intracranial hemorrhage, focal mass effect or midline shift. No fluid collection is identified. The ventricular system is midline and symmetric. No evidence of acute major vascular territory infarction. No calvarial fracture is identified. The mastoids are well aerated. Mild mucosal disease of the left maxillary sinus. IMPRESSION: No acute intracranial process identified. Electronically signed by Francis Fermin 04-20-2024 7:44 PM Discharge Plan Visit Data Chief Complaint: Unresponsive ED Provider: Carloz Hermosillo Discharge Problem: Acute alteration in mental status, Cirrhosis of liver, Thrombocytopenia, Anemia, Acute hepatic encephalopathy, Acidosis, lactic Patient Disposition: Being Evaluated by Hospitalist Forms Stand Alone Forms: [facility] Prescriptions Prescriptions: No Action furosemide 40 mg tablet See Rx Instructions .ROUTE .COMPLEX Rx Instructions: take 2 tablets orally in the morning and 1 tablet in the evening spironolactone 100 mg tablet 200 mg PO QAM omeprazole 20 mg capsule,delayed release(DR/EC) 20 mg PO QAM hydroxyzine HCl 25 mg tablet 25 mg PO TID PRN (Reason: Anxiety) buspirone 15 mg tablet 15 mg PO AMHS Referrals Referrals: Jose Chowdhury MD [Primary Care Provider] -
[2024-04-20] MEDS: MIDAZOLAM HCL 1 MG/ML 2ML VIAL ONE (18:46)
[2024-04-20] MEDS: MIDAZOLAM HCL 5 MG/ML 2ML VIAL IV STA ×2 (18:46)
[2024-04-20] MEDS: OPTIRAY 320 100ml IV ONE (18:53)
[2024-04-20 18:58] LABS: Base Excess VBG -2.7 mEq/L; HCO3 VBG 21 mmol/L; PCO2 VBG 31 mmHg (38-50); PO2 VBG 39 mmHg; pH VBG 7.43 (7.36-7.41)
[2024-04-20 19:01] LABS: Basophils # (auto) 0.03 K/uL (0.00-0.20); Basophils % (auto) 0.5 %; Eosinophils # (auto) 0.02 K/uL (0.00-0.50); Eosinophils % (auto) 0.3 %; Hematocrit (blood only) 25.3 % (42.0-52.0); Hemoglobin 8.6 g/dl (14.0-18.0); Immature Granulocytes # (auto) 0.01 K/uL (0.01-0.20); Immature Granulocytes % (auto) 0.2 %; Lymphocytes # (auto) 0.79 K/uL (1.20-3.40); Lymphocytes % (auto) 13.6 %; Mean Corpuscular Volume 94.1 fL (80.0-100.0); Mean Platelet Volume 9.3 fL (9.4-12.4); Monocytes # (auto) 0.81 K/uL (0.11-0.59); Neutrophils # (auto) 4.14 K/uL (1.40-6.50); Neutrophils % (auto) 71.4 %; Platelet Count 129 K/uL (130-400); RDW Standard Deviation 57.5 fL (36.4-46.3); Red Blood Count 2.69 M/uL (4.70-6.10)
[2024-04-20] MEDS ORDERED: VANCOMYCIN CONSULT ACTIVE PRN (19:11)
[2024-04-20 19:16] LABS: Albumin Level 3.3 gm/dl (3.4-5.0); BUN Creatinine Ratio 32.3 (10-20); Bilirubin Direct 2.1 mg/dl (0-0.2); Bilirubin,Total 4.8 mg/dl (0.2-1.0); Calcium 9.1 mg/dl (8.6-10.3); Creatinine Clr Calc Pharmacy 93.4 ml/min; Potassium 4.7 mmol/L (3.5-5.1); Total Protein 6.7 gm/dl (6.0-8.3)
[2024-04-20 19:23] LABS: Troponin I High Sensitivity 11.1 pg/ml (0-20)
[2024-04-20 19:27] LABS: INR 1.9 (0.9-1.1); Partial Thromboplastin Ratio 1.4; Partial Thromboplastin Time 39 Seconds (21-31); Prothrombin Time 19.9 Seconds (9.0-12.0)
[2024-04-20] MEDS: SODIUM CHLORIDE 0.9% 1,000 ML IV ONE (19:34)
[2024-04-20] MEDS: PIPERACILLIN/TAZOBACTAM 4.5 GM/100 ML BAG IV ONE (19:34)
[2024-04-20 19:42] LABS: Appearance Urine Clear (Clear); Bacteria Urine Automated None Seen (None Seen); Bilirubin Urine 1+ (Negative); Blood Urine Negative (Negative); Cast Urine Automated 0-2 /lpf (0-2); Color Urine Dark Yellow; Epithelial Cell Urine Auto 0-2 /hpf (0-2); Glucose Urine UA Negative (Negative); Ketones Urine Negative (Negative); Leukocyte Esterase Urine Trace (Negative); Nitrite Urine Negative (Negative); Protein Urine Negative (Negative); RBC Urine Automated 0-2 /hpf (0-2); Specific Gravity Urine 1.027 (1.000-1.030); Urobilinogen Urine Negative (Negative); WBC Urine Automated 0-5 /hpf (0-5)
--- NOTE | 2024-04-20 19:44 | XRay Report ---
EXAM: Portable AP chest radiograph TECHNIQUE: AP portable radiograph of the chest was obtained. INDICATION: Shortness of breath Comparison: None FINDINGS: LINES and TUBES: None CARDIOVASCULAR: Cardiac silhouette is normal in size. LUNGS/PLEURA: No focal consolidation identified. No significant pleural fluid. No discernible pneumothorax. OSSEOUS/OTHER: No displaced acute osseous process identified. Bilateral chronic rib deformities. IMPRESSION: Mild congestive changes of the cardiovascular system.234 Electronically signed by Francis Fermin 04-20-2024 7:44 PM
--- NOTE | 2024-04-20 19:45 | CT Scan Report ---
CT HEAD: HISTORY: Altered mental status. TECHNIQUE: Noncontrast CT examination of the head is performed. Coronal and sagittal reformats were created. COMPARISON: None FINDINGS: There is no evidence of intracranial hemorrhage, focal mass effect or midline shift. No fluid collection is identified. The ventricular system is midline and symmetric. No evidence of acute major vascular territory infarction. No calvarial fracture is identified. The mastoids are well aerated. Mild mucosal disease of the left maxillary sinus. IMPRESSION: No acute intracranial process identified. Electronically signed by Francis Fermin 04-20-2024 7:44 PM
--- NOTE | 2024-04-20 19:45 | CT Scan Report ---
CT CHEST ABDOMEN and PELVIS WITH CONTRAST INDICATION: PAIN TECHNIQUE: CT of chest, abdomen and pelvis was obtained with intravenous contrast. IV CONTRAST: 100 mL of OMNIPAQUE 300 Enteric contrast: Not Given COMPARISON: None FINDINGS: LOWER NECK: Normal thyroid. LYMPH NODES: A few small nonenlarged lymph nodes in the mediastinum. No lymphadenopathy by size criteria. CARDIOVASCULAR: Cardiac size is mildly enlarged. Mild pulmonary vascular congestion. Coronary artery calcifications are noted. No aortic aneurysm. LUNGS: The trachea and central bronchi are widely patent. No focal confluent infiltrates are seen. There are no pulmonary nodules. PLEURA: There are no pleural effusions. There is no pneumothorax. LIVER: No focal lesion identified. Advanced cirrhosis GALLBLADDER/BILIARY: Cholelithiasis without CT evidence of cholecystitis. No abnormal biliary dilatation. Hypertension with extensive venous collateral formation in the upper abdomen including a gastric varices, splenorenal shunts and recanalized umbilical vein. SPLEEN: Splenomegaly with multiple transcortical hypodensities.. PANCREAS: Unremarkable. ADRENALS: Unremarkable. KIDNEYS: Cortical cysts. No stones or hydronephrosis identified. PERITONEUM/RETROPERITONEUM. No lymphadenopathy by size criteria. No aortic aneurysm. Very large volume abdominopelvic ascites. GASTROINTESTINAL: No obstruction. Normal appendix is identified. ABDOMINAL WALL: Umbilical hernia containing ascitic fluid. Small inguinal hernias also containing ascitic fluid. REPRODUCTIVE: Normal-sized prostate. BONES: No acute findings. Multiple chronic rib fractures bilaterally with associated pleural scarring. IMPRESSION: Advanced cirrhosis with portal hypertension with splenomegaly and extensive venous collaterals as above. Very large volume abdominopelvic ascites. Multiple transcortical hypoattenuation's of the kidney. While this could be due to heterogeneous contrast-enhancement of the red pulp and the white pulp of the spleen, infarcts are also considerations. Electronically signed by Francis Fermin 04-20-2024 7:44 PM
--- NOTE | 2024-04-20 19:45 | CT Scan Report ---
CT CERVICAL SPINE WITHOUT CONTRAST: HISTORY: Altered mental status TECHNIQUE: Noncontrast CT examination of the cervical spine is performed. Coronal and sagittal reformats were created. COMPARISON: None FINDINGS: CERVICAL SPINE: There is no significant vertebral body height loss. No acute traumatic fracture identified. There is no significant spondylolisthesis. Multilevel degenerative changes characterized by disc osteophyte complex, bilateral facet and uncovertebral hypertrophy resulting and neural foraminal narrowing at multiple levels, worst at mid lower spine Visualized soft tissues of neck are unremarkable. IMPRESSION: No acute traumatic fracture of the cervical spine. Multilevel degenerative changes as above Electronically signed by Francis Fermin 04-20-2024 7:44 PM
[2024-04-20] MEDS: VANCOMYCIN HCL 1,750 MG in SODIUM CHLORIDE 0.9% 500 ML IV ONE (20:15)
[2024-04-20 20:23] LABS: Adenovirus PCR Not Detected (NotDetected); Bordetella parapertussis PCR Not Detected (NotDetected); Bordetella pertussis PCR Not Detected (NotDetected); Chlamydia pneumoniae PCR Not Detected (NotDetected); Coronavirus 229E PCR Not Detected (NotDetected); Coronavirus CoV-2 (COVID19)PCR Not Detected (NotDetected); Coronavirus HKU1 PCR Not Detected (NotDetected); Coronavirus NL63 PCR Not Detected (NotDetected); Coronavirus OC43PCR DETECTED (NotDetected); Human Metapneumovirus PCR Not Detected (NotDetected); Influenza A PCR Not Detected (NotDetected); Influenza B PCR Not Detected (NotDetected); Mycoplasma pneumoniae PCR Not Detected (NotDetected); Parainfluenza Virus 1 PCR Not Detected (NotDetected); Parainfluenza Virus 2 PCR Not Detected (NotDetected); Parainfluenza Virus 3 PCR Not Detected (NotDetected); Parainfluenza Virus 4 PCR Not Detected (NotDetected); Respiratory Syncytial VirusPCR Not Detected (NotDetected); Rhinovirus/Enterovirus PCR Not Detected (NotDetected)
[2024-04-20 21:18] LABS: Amphetamines+Metham, Urine Pos (Neg); Barbiturates, Urine Neg (Neg); Benzodiazepine, Urine Neg (Neg); Cocaine, Urine Neg (Neg); Fentanyl, Urine Neg (Neg); MDMA (Ecstacy), Urine Pos (Neg); Marijuana, Urine Pos (Neg); Methadone, Urine Neg (Neg); Opiate, Urine Neg (Neg); Phencyclidine, Urine Neg (Neg)
[2024-04-20] MEDS: LORazepam 2 MG/1 ML VIAL IV STA (22:28)
[2024-04-20] MEDS: LACTULOSE 200GM/700ML WTR ENEMA PR SCH (23:48)
[2024-04-20] MEDS: SODIUM CHLORIDE 0.9% 1,000 ML IV SCH (23:49)
--- NOTE | 2024-04-20 23:52 | CT Scan Report ---
Exam(s): CT EXTREMITY RIGHT UPPER With Contrast IV Amt: 90 ml optiray 320 EXAM: CT Right Upper Extremity With Intravenous Contrast CLINICAL HISTORY: Reason for exam: Foreign body in third finger?. TECHNIQUE: Axial computed tomography images of the right upper extremity with intravenous contrast. CTDI is 26.89 mGy and DLP is 1567.29 mGy-cm. Automated exposure control was utilized for the study. A dose lowering technique was utilized adhering to the principles of ALARA. CONTRAST: Patient received 90 ml optiray 320 of IV contrast COMPARISON: No relevant prior studies available. FINDINGS: Bones/joints: This is a structures are intact and normally aligned. No acute fracture or dislocation is seen. Soft tissues: Less than 1 mm diameter by 4 mm metallic foreign body in the soft tissues of the third digit and the lateral aspect of the middle phalanx. IMPRESSION: Less than 1 mm diameter by 4 mm metallic foreign body in the soft tissues of the third digit and the lateral aspect of the middle phalanx. Electronically signed by: Vincent Desouza MD 04/20/24 23:51 PM
[2024-04-21] MEDS: PIPERACILLIN/TAZOBACTAM 4.5 GM/100 ML BAG IV SCH (00:15)
--- NOTE | 2024-04-21 05:08 | History & Physical Report ---
Date of Service April 20, 2024 Assessment & Plan (1) Acute alteration in mental status: Plan: 38-year-old male with past medical history significant for chronic hepatitis C, cirrhosis of liver, pancytopenia, allergic rhinitis, attention deficit hyperactive disorder, anxiety, history of osteomyelitis, history of bipolar affective disorder who lives at home with his mother was brought in because of altered mental status. As per mother patient yesterday had 10 L of ascitic fluid taken out. He usually likes to hang out in the garage. Last time mother saw him in the garage about 6 PM yesterday. Mother went to work and came back home today around 5 PM and she found the patient in garage lying down there mostly unresponsive. In the ER patient was moaning but not answering any questions. Upper extremity seems to be rigid. Able to move his legs with p ainful stimuli. No obvious facial droop seen. No recent fevers as per mother. No nausea. Was eating okay. Was ambulating okay. No recent diarrhea as per mother. No recent cough. Could not get any history from the patient currently. Patient is afebrile. Blood pressure is okay. Saturating okay on room air. VBG was okay. Initial lactic acid is 5.3 and repeat is 2.9. Ammonia was 81. Procalcitonin 0.9. UA is unremarkable. MRSA screen positive. Urine drug screen Positive for amphetamines, MDMA and marijuana. Respiratory BioFire positive for coronavirus OC 43. CT head no acute findings. Patient was recently in the ER on 04/12/2024 with pain and swelling of the right wrist and procalcitonin was elevated but patient signed out AGAINST MEDICAL ADVICE. He was prescribed Keflex and doxycycline. As per mother patient completed the course of antibiotics. Altered mental status Last well-known was 6 PM yesterday Also seems to had a paracentesis yesterday CT head is okay CT cervical spine is okay CT abdomen pelvis shows advanced cirrhosis with portal hypertension with splenomegaly and extends to venous collaterals. Very large volume ascites. Multiple transcortical hypoattenuation of the kidneys question of infarct Ammonia level 81 Procalcitonin 0.9 Initial lactic acid 5.3 repeat is 2.9 Possible sepsis Possible hepatic encephalopathy Urine drug screen with positive for marijuana , amphetamines and MDMA screen Attempted to do MRI brain after giving a dose of Ativan but patient could not lay still Empirically started on IV Vanco and Zosyn IV fluids normal saline 75 mL/h Lactulose enema Follow repeat lactic acid levels and ammonia levels Follow repeat labs GI consult in a.m. If not improving will consult neurology Coronovirus OC 43 supportive care droplet precautions possibly contributing to AMS. History of hepatitis C Liver cirrhosis Esophageal varices Ascites Holding home diuretics for possible sepsis Monitor for volume overload Will plan for diagnostic and therapeutic paracentesis Anemia hemoglobin 8.6 Seems to around baseline Will follow Thrombocytopenia Platelets 129 Will monitor Anxiety Holding buspirone for now DVT prophylaxis Heparin subcu monitor platelets History of Present Illness Chief Complaint: Altered mental status Primary Care Provider: Jose Chowdhury MD 38-year-old male with past medical history significant for chronic hepatitis C, cirrhosis of liver, pancytopenia, allergic rhinitis, attention deficit hyperactive disorder, anxiety, history of osteomyelitis, history of bipolar affective disorder who lives at home with his mother was brought in because of altered mental status. As per mother patient yesterday had 10 L of ascitic fluid taken out. He usually likes to hang out in the garage. Last time mother saw him in the garage about 6 PM yesterday. Mother went to work and came back home today around 5 PM and she found the patient in garage lying down there mostly unresponsive. In the ER patient was moaning but not answering any questions. Upper extremities seems to be rigid. Able to move his legs with painful stimuli. No obvious facial droop seen. No recent fevers as per mother. No nausea. Was eating okay. Was ambulating okay. No recent diarrhea as per mother. No recent cough. Could not get any history from the patient currently. Patient is afebrile. Blood pressure is okay. Saturating okay on room air. VBG was okay. Initial lactic acid is 5.3 and repeat is 2.9. Ammonia was 81. Procalcitonin 0.9. UA is unremarkable. MRSA screen positive. Urine drug screen Positive for amphetamines, MDMA and marijuana. Respiratory BioFire positive for coronavirus OC 43. CT head no acute findings. Patient was recently in the ER on 04/12/2024 with pain and swelling of the right wrist and procalcitonin was elevated but patient signed out AGAINST MEDICAL ADVICE. He was prescribed Keflex and doxycycline. As per mother patient completed the course of antibiotics. Past medical history. As mentioned above Past surgical history. EGD. EGD with endoscopic ultrasound Social history. Chews tobacco 1 can per day per epic. Vapes some days as per epic. Currently no alcohol use. Drug use history of marijuana use. Family history. Father had hypertension. Allergies Allergy/AdvReac Type Severity Reaction Status Date / Time No Known Allergies Allergy Mild Verified 04/20/24 18:56 Home Medications Medication Instructions Recorded Confirmed Type buspirone 15 mg tablet 15 mg PO AMHS 04/12/24 04/20/24 History furosemide 40 mg tablet See Rx Instructions .Route .COMPLEX 04/12/24 04/20/24 History hydroxyzine HCl 25 mg tablet 25 mg PO TID PRN Anxiety 04/12/24 04/20/24 History omeprazole 20 mg capsule,delayed 20 mg PO QAM 04/12/24 04/20/24 History release spironolactone 100 mg tablet 200 mg PO QAM 04/12/24 04/20/24 History Past Med/Surg History Problem List (Updated 04/20/24 @ 21:46 by Carloz Hermosillo DO) Acidosis, lactic (Acute) Acute hepatic encephalopathy (Acute) Anemia (Acute) Acute alteration in mental status (Acute) Transaminitis (Acute) Hand swelling (Acute) Pain and swelling of right wrist (Acute) Acute hyponatremia (Acute) MSSA bacteremia Osteomyelitis Bacteremia Anemia Esophageal varices Thrombocytopenia (Acute) Cirrhosis of liver (Acute) Hepatitis C (Acute) Mood disorder Cellulitis and abscess of left lower extremity (Acute) Medical History Encounter for pre-operative examination Chronic back pain Surgical History History of ankle surgery I&D for osteomyelitis H/O hand surgery Family History Other Diabetes Social History Smoking Status: Unknown if ever smoked Tobacco Type: Cigarettes Second Hand Exposure: Yes; Do You Dip or Chew Tobacco: Yes; Hx Substance Use: Yes Last Used Substance: Unknown Preferred Language: Liberian Communication Ability: Effective Machine 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 Restless. Head- atraumatic Eyes- PERRL. Neck-no JVD. Lungs- clear to auscultation no wheezing or crackles Heart- regular rate and rhythm; no murmur, no gallop. Abdomen- sluggish bowel sounds, tense, distended Extremities- no pretibial edema, no erythema seen Neuro- Drowsy, Restless, moaning, Rigid upper extremities, no facial droop seen,; PERRL, moves lower extremities to painful stimuli. Results & Data Results & Data Vital Signs (Past 12 Hours) Vital Signs Temp Pulse Resp BP Pulse Ox O2 Del Method 04/20/24 21:03 103 H 13 112/80 100 Room Air 04/20/24 20:30 101 H 12 118/66 100 Room Air 04/20/24 20:00 101 H 14 105/60 100 Room Air 04/20/24 19:45 102 H 13 107/67 100 Room Air 04/20/24 19:33 102 H 13 118/66 100 Room Air 04/20/24 19:09 112 H 20 126/95 99 Room Air 04/20/24 18:40 111 H 04/20/24 18:16 Room Air 04/20/24 18:16 36.8 C 114 H 25 H 144/83 H 97 Room Air Diagnostic Findings Laboratory Results WBC 5.80 K/ul (4.8-10.8) 04/20/24 18:42 RBC 2.69 M/uL (4.70-6.10) L 04/20/24 18:42 Hgb 8.6 g/dl (14.0-18.0) L 04/20/24 18:42 Hct 25.3 % (42.0-52.0) L 04/20/24 18:42 MCV 94.1 fL (80.0-100.0) 04/20/24 18:42 MCH 32.0 pg (25.0-34.0) 04/20/24 18:42 MCHC 34.0 g/dL (32.0-36.0) 04/20/24 18:42 RDW Std Deviation 57.5 fL (36.4-46.3) H 04/20/24 18:42 RDW Coeff of Tim 17.0 % (11.5-14.5) H 04/20/24 18: Plt Count 129 K/uL (130-400) L 04/20/24 18:42 MPV 9.3 fL (9.4-12.4) L 04/20/24 18:42 Immature Gran % (Auto) 0.2 % 04/20/24 18:42 Neut % (Auto) 71.4 % 04/20/24 18:42 Lymph % (Auto) 13.6 % 04/20/24 18:42 Worth % (Auto) 14.0 % 04/20/24 18: Eos % (Auto) 0.3 % 04/20/24 18: Baso % (Auto) 0.5 % 04/20/24 18:42 Neut # (Auto) 4.14 K/uL (1.40-6.50) 04/20/24 18:42 Lymph # (Auto) 0.79 K/uL (1.20-3.40) L 04/20/24 18:42 Worth # (Auto) 0.81 K/uL (0.11-0.59) H 04/20/24 18:42 Eos # (Auto) 0.02 K/uL (0.00-0.50) 04/20/24 18:42 Baso # (Auto) 0.03 K/uL (0.00-0.20) 04/20/24 18: Immature Gran # (Auto) 0.01 K/uL (0.01-0.20) 04/20/24 18:42 PT 19.9 Seconds (9.0-12.0) H 04/20/24 18:42 INR 1.9 (0.9-1.1) H 04/20/24 18:42 APTT 39 Seconds (21-31) H 04/20/24 18:42 PTT Ratio 1.4 04/20/24 18:42 VBG pH 7.43 (7.36-7.41) H 04/20/24 18:42 VBG pCO2 31 mmHg (38-50) L 04/20/24 18:42 VBG pO2 39 mmHg 04/20/24 18:42 VBG HCO3 21 mmol/L 04/20/24 18:42 VBG O2 Saturation 61.0 % 04/20/24 18:42 VBG Base Excess -2.7 mEq/L 04/20/24 18:42 Carboxyhemoglobin 1.0 % THgb 04/20/24 18:42 Sodium 132 mmol/L (136-145) L 04/20/24 18:42 Potassium 4.7 mmol/L (3.5-5.1) 04/20/24 18:42 Chloride 103 mmol/L (98-107) 04/20/24 18:42 Carbon Dioxide 22 mmol/L (21-32) 04/20/24 18:42 Anion Gap 7 (3-11) 04/20/24 18:42 BUN 32 mg/dl (6-23) H 04/20/24 18:42 Creatinine 0.99 mg/dl (0.6-1.4) 04/20/24 18:42 Est Cr Clr Drug Dosing 93.4 ml/min 04/20/24 18:42 eGFR 98.76 04/20/24 18:42 BUN/Creatinine Ratio 32.3 (10-20) H 04/20/24 18:42 Glucose 164 mg/dl (70-99(Fasting)) H 04/20/24 18:42 POC Glucose 73 mg/dl (70-99) 04/20/24 23:35 Osmolality 293 mOsm/kg (280-300) 04/20/24 18:42 Lactate 2.9 mmol/L (0.4-2.0) H* 04/20/24 21:17 Calcium 9.1 mg/dl (8.6-10.3) 04/20/24 18:42 Magnesium 2.0 mg/dl (1.7-2.4) 04/20/24 18:42 Total Bilirubin 4.8 mg/dl (0.2-1.0) H 04/20/24 18:42 Direct Bilirubin 2.1 mg/dl (0-0.2) H 04/20/24 18:42 AST 158 U/L (13-39) H 04/20/24 18:42 ALT 81 U/L (7-52) H 04/20/24 18:42 Alkaline Phosphatase 151 U/L (34-104) H 04/20/24 18:42 Ammonia 81.0 umol/L (18-72) H 04/20/24 19:01 Troponin I High Sens 11.1 pg/ml (0-20) 04/20/24 18:42 Total Protein 6.7 gm/dl (6.0-8.3) 04/20/24 18:42 Albumin 3.3 gm/dl (3.4-5.0) L 04/20/24 18:42 Procalcitonin 0.98 ng/ml (0-0.5) H 04/20/24 18:42 Urine Color Dark Yellow 04/20/24 19:00 Urine Appearance Clear (Clear) 04/20/24 19: Urine pH 6.0 (4.5-7.5) 04/20/24 19:00 Ur Specific [place] 1.027 (1.000-1.030) 04/20/24 19:00 Urine Protein Negative (Negative) 04/20/24 19:00 Urine Glucose (UA) Negative (Negative) 04/20/24:00 Urine Ketones Negative (Negative) 04/20/24 19:00 Urine Blood Negative (Negative) 04/20/24 19: Urine Nitrite Negative (Negative) 04/20/24 19:00 Urine Bilirubin 1+ (Negative) H 04/20/24 19:00 Urine Urobilinogen Negative (Negative) 04/20/24 19:00 Ur Leukocyte Esterase Trace (Negative) H 04/20/24 19:00 Urine WBC (Auto) 0-5 /hpf (0-5) 04/20/24 19:00 Urine RBC (Auto) 0-2 /hpf (0-2) 04/20/24:00 U Hyaline Cast (Auto) 0-2 /lpf (0-2) 04/20/24 19:00 U Epithel Cells (Auto) 0-2 /hpf (0-2) 04/20/24 19:00 Urine Bacteria (Auto) None Seen (None Seen) 04/20/24 19:00 Urine Osmolality 684 mOsm/kg (500-800) 04/20/24 19:00 Ur Random Sodium 18 mmol/L 04/20/24 19:00 Nasal Screen MRSA (PCR) Positive (Negative) A 04/20/24 23:00 Urine Opiates Screen Neg (Neg) 04/20/24 19:00 Ur Methadone, Qual Neg (Neg) 04/20/24 19:00 Urine Fentanyl Screen Neg (Neg) 04/20/24 19:00 Urine Barbiturates Neg (Neg) 04/20/24 19:00 Ur Phencyclidine (PCP) Neg (Neg) 04/20/24 19:00 U Amphetamin/Meth Scrn Pos (Neg) H 04/20/24 19:00 MDMA (Ecstasy) Screen Pos (Neg) H 04/20/24 19:00 U Benzodiazepines Scrn Neg (Neg) 04/20/24 19:00 Ur Cocaine Metabolite Neg (Neg) 04/20/24 19:00 U Marijuana (THC) Screen Pos (Neg) H 04/20/24 19:00 Ethyl Alcohol mg/dL < 10.0 mg/dl (<10.0) 04/20/24 19:12 Adenovirus (PCR) Not Detected (NotDetected) 04/20/24 19:00 B. pertussis DNA (PCR) Not Detected (NotDetected) 04/20/24 19:00 B.parapertussis DNA PCR Not Detected (NotDetected) 04/20/24 19:00 C. pneumoniae DNA (PCR) Not Detected (NotDetected) 04/20/24 19:00 Coronavirus OC43 (PCR) DETECTED (NotDetected) A 04/20/24 19:00 Coronavirus HKU1 (PCR) Not Detected (NotDetected) 04/20/24 19:00 Coronavirus 229E (PCR) Not Detected (NotDetected) 04/20/24 19:00 SARS-CoV-2 (PCR) Not Detected (NotDetected) 04/20/24 19:00 Coronavirus NL63 (PCR) Not Detected (NotDetected) 04/20/24 19:00 Human Metapneumovir PCR Not Detected (NotDetected) 04/20/24 19:00 Influenza Type A (PCR) Not Detected (NotDetected) 04/20/24 19:00 Influenza Type B (PCR) Not Detected (NotDetected) 04/20/24 19:00 M. pneumoniae (PCR) Not Detected (NotDetected) 04/20/24 19:00 Parainfluenza 1 (PCR) Not Detected (NotDetected) 04/20/24 19:00 Parainfluenza 2 (PCR) Not Detected (NotDetected) 04/20/24 19:00 Parainfluenza 3 (PCR) Not Detected (NotDetected) 04/20/24 19:00 Parainfluenza 4 (PCR) Not Detected (NotDetected) 04/20/24 19:00 RSV (PCR) Not Detected (NotDetected) 04/20/24 19:00 Entero/Rhino (PCR) Not Detected (NotDetected) 04/20/24 19:00 Impressions Abdomen/Pelvis CT 04/20/24 18:30 CT CHEST ABDOMEN and PELVIS WITH CONTRAST INDICATION: PAIN TECHNIQUE: CT of chest, abdomen and pelvis was obtained with intravenous contrast. IV CONTRAST: 100 mL of OMNIPAQUE 300 Enteric contrast: Not Given COMPARISON: None FINDINGS: LOWER NECK: Normal thyroid. LYMPH NODES: A few small nonenlarged lymph nodes in the mediastinum. No lymphadenopathy by size criteria. CARDIOVASCULAR: Cardiac size is mildly enlarged. Mild pulmonary vascular congestion. Coronary artery calcifications are noted. No aortic aneurysm. LUNGS: The trachea and central bronchi are widely patent. No focal confluent infiltrates are seen. There are no pulmonary nodules. PLEURA: There are no pleural effusions. There is no pneumothorax. LIVER: No focal lesion identified. Advanced cirrhosis GALLBLADDER/BILIARY: Cholelithiasis without CT evidence of cholecystitis. No abnormal biliary dilatation. Hypertension with extensive venous collateral formation in the upper abdomen including a gastric varices, splenorenal shunts and recanalized umbilical vein. SPLEEN: Splenomegaly with multiple transcortical hypodensities.. PANCREAS: Unremarkable. ADRENALS: Unremarkable. KIDNEYS: Cortical cysts. No stones or hydronephrosis identified. PERITONEUM/RETROPERITONEUM. No lymphadenopathy by size criteria. No aortic aneurysm. Very large volume abdominopelvic ascites. GASTROINTESTINAL: No obstruction. Normal appendix is identified. ABDOMINAL WALL: Umbilical hernia containing ascitic fluid. Small inguinal hernias also containing ascitic fluid. REPRODUCTIVE: Normal-sized prostate. BONES: No acute findings. Multiple chronic rib fractures bilaterally with associated pleural scarring. IMPRESSION: Advanced cirrhosis with portal hypertension with splenomegaly and extensive venous collaterals as above. Very large volume abdominopelvic ascites. Multiple transcortical hypoattenuation's of the kidney. While this could be due to heterogeneous contrast-enhancement of the red pulp and the white pulp of the spleen, infarcts are also considerations. Electronically signed by Francis Fermin 04-20-2024 7:[address] 04/20/24 18:30 CT CERVICAL SPINE WITHOUT CONTRAST: HISTORY: Altered mental status TECHNIQUE: Noncontrast CT examination of the cervical spine is performed. Coronal and sagittal reformats were created. COMPARISON: None FINDINGS: CERVICAL SPINE: There is no significant vertebral body height loss. No acute traumatic fracture identified. There is no significant spondylolisthesis. Multilevel degenerative changes characterized by disc osteophyte complex, bilateral facet and uncovertebral hypertrophy resulting and neural foraminal narrowing at multiple levels, worst at mid lower spine Visualized soft tissues of neck are unremarkable. IMPRESSION: No acute traumatic fracture of the cervical spine. Multilevel degenerative changes as above Electronically signed by Francis Fermin 04-20-2024 7:[address] 04/20/24 18:30 CT CHEST ABDOMEN and PELVIS WITH CONTRAST INDICATION: PAIN TECHNIQUE: CT of chest, abdomen and pelvis was obtained with intravenous contrast. IV CONTRAST: 100 mL of OMNIPAQUE 300 Enteric contrast: Not Given COMPARISON: None FINDINGS: LOWER NECK: Normal thyroid. LYMPH NODES: A few small nonenlarged lymph nodes in the mediastinum. No lymphadenopathy by size criteria. CARDIOVASCULAR: Cardiac size is mildly enlarged. Mild pulmonary vascular congestion. Coronary artery calcifications are noted. No aortic aneurysm. LUNGS: The trachea and central bronchi are widely patent. No focal confluent infiltrates are seen. There are no pulmonary nodules. PLEURA: There are no pleural effusions. There is no pneumothorax. LIVER: No focal lesion identified. Advanced cirrhosis GALLBLADDER/BILIARY: Cholelithiasis without CT evidence of cholecystitis. No abnormal biliary dilatation. Hypertension with extensive venous collateral formation in the upper abdomen including a gastric varices, splenorenal shunts and recanalized umbilical vein. SPLEEN: Splenomegaly with multiple transcortical hypodensities.. PANCREAS: Unremarkable. ADRENALS: Unremarkable. KIDNEYS: Cortical cysts. No stones or hydronephrosis identified. PERITONEUM/RETROPERITONEUM. No lymphadenopathy by size criteria. No aortic aneurysm. Very large volume abdominopelvic ascites. GASTROINTESTINAL: No obstruction. Normal appendix is identified. ABDOMINAL WALL: Umbilical hernia containing ascitic fluid. Small inguinal hernias also containing ascitic fluid. REPRODUCTIVE: Normal-sized prostate. BONES: No acute findings. Multiple chronic rib fractures bilaterally with associated pleural scarring. IMPRESSION: Advanced cirrhosis with portal hypertension with splenomegaly and extensive venous collaterals as above. Very large volume abdominopelvic ascites. Multiple transcortical hypoattenuation's of the kidney. While this could be due to heterogeneous contrast-enhancement of the red pulp and the white pulp of the spleen, infarcts are also considerations. Electronically signed by Francis Fermin 04-20-2024 7:44 PM Chest X-Ray 04/20/24 18:30 EXAM: Portable AP chest radiograph TECHNIQUE: AP portable radiograph of the chest was obtained. INDICATION: Shortness of breath Comparison: None FINDINGS: LINES and TUBES: None CARDIOVASCULAR: Cardiac silhouette is normal in size. LUNGS/PLEURA: No focal consolidation identified. No significant pleural fluid. No discernible pneumothorax. OSSEOUS/OTHER: No displaced acute osseous process identified. Bilateral chronic rib deformities. IMPRESSION: Mild congestive changes of the cardiovascular system.234 Electronically signed by Francis Fermin 04-20-2024 7:[address] 04/20/24 18:30 CT HEAD: HISTORY: Altered mental status. TECHNIQUE: Noncontrast CT examination of the head is performed. Coronal and sagittal reformats were created. COMPARISON: None FINDINGS: There is no evidence of intracranial hemorrhage, focal mass effect or midline shift. No fluid collection is identified. The ventricular system is midline and symmetric. No evidence of acute major vascular territory infarction. No calvarial fracture is identified. The mastoids are well aerated. Mild mucosal disease of the left maxillary sinus. IMPRESSION: No acute intracranial process identified. Electronically signed by Francis Fermin 04-20-2024 7:[address] 04/20/24 21:14 Exam(s): CT EXTREMITY RIGHT UPPER With Contrast IV Amt: 90 ml optiray 320 EXAM: CT Right Upper Extremity With Intravenous Contrast CLINICAL HISTORY: Reason for exam: Foreign body in third finger?. TECHNIQUE: Axial computed tomography images of the right upper extremity with intravenous contrast. CTDI is 26.89 mGy and DLP is 1567.29 mGy-cm. Automated exposure control was utilized for the study. A dose lowering technique was utilized adhering to the principles of ALARA. CONTRAST: Patient received 90 ml optiray 320 of IV contrast COMPARISON: No relevant prior studies available. FINDINGS: Bones/joints: This is a structures are intact and normally aligned. No acute fracture or dislocation is seen. Soft tissues: Less than 1 mm diameter by 4 mm metallic foreign body in the soft tissues of the third digit and the lateral aspect of the middle phalanx. IMPRESSION: Less than 1 mm diameter by 4 mm metallic foreign body in the soft tissues of the third digit and the lateral aspect of the middle phalanx. Electronically signed by: Vincent Desouza MD 04/20/24 23:51 PM ECG Additional Comments: ECG. Sinus tachycardia rate of 109. Left axis deviation. No significant change was found. Code Status & VTE Plan VTE Prophylaxis Plan VTE Prophylaxis will be ordered: Yes
--- OUTSIDE RECORDS SUMMARY | 2024-04-21 05:08 | External Medical Summary | Summary of Care ---
Author Name Unknown Organization [facility] Address [address] [place] [address] Phone [phone] Care Team Providers Care [employer] Name Role Phone Jose Chowdhury MD Primary Care Provider [phone] Reason for Visit * Reason Onset Date Comments Appointment 04/20/2024 Encounter Details Date Type Department Care Team (Late st Contact Info) Description 04/20/2024 Telephone Hepatology, [facility] [address] [place] [id number] Margarita Merino DO [address] [place] [address] Appointment Allergies No known active allergiesdocumented as of this encounter (statuses as of 04/20/2024) Medications hydrOXYzine HCl 25 MG Oral Tablet Take 1 Tablet by mouth 3 times a day as needed for Anxiety. 40 Tablet 2 09/01/2023 Active Omeprazole 20 MG Oral Capsule Delayed Release (PriLOSEC) Take 1 Capsule by mouth in the morning. 90 Capsule 2 03/15/2024 Active busPIRone HCl 15 MG Oral Tablet (Buspar) Take 1 Tablet by mouth in the morning and 1 Tablet before bedtime. 180 Tablet 03/18/2024 3:03 PM EST 03/15/2024 Active Furosemide 40 MG Oral Tablet (Lasix)Indicati ons:Other ascites Takes 2 tablets (80 mg) in AM and 1 tablet (40 mg) in PM 270 Tablet 1 03/14/2024 Active Spironolactone 100 MG Oral Tablet (Aldactone)Nancy cations:Other ascites Take 2 Tablets by mouth in the morning. 180 Tablet 1 03/18/2024 3:03 PM EST 03/16/2024 Active Furosemide 40 MG Oral Tablet (Lasix) take two tablets by mouth in the morning and one tablet in the evening 270 Tablet 1 03/18/2024 3:03 PM EST 03/18/2024 Active Doxycycline Hyclate 100 MG Oral Tablet 1 Tablet. 04/12/2024 Active Cephalexin 500 MG Oral Capsule (Keflex) 04/12/2024 Active documented as of this encounter (statuses as of 04/20/2024) Active Problems Problem Noted Date Diagnosed Date Cirrhosis of liver with ascites 02/22/2024 History of osteomyelitis 09/01/2023 Bipolar affective disorder, currently depressed, moderate 09/01/2023 Chronic hepatitis C without hepatic coma 024 Other pancytopenia 07/03/2022 Thrombocytopenia 07/03/2022 Positive hepatitis C antibody test 11/05/2021 Anxiety 11/05/2021 Esophageal varices in cirrhosis 11/05/2021 ADHD (attention deficit hyperactivity disorder) 06/27/2013 Allergic rhinitis documented as of this encounter (statuses as of 04/20/2024) Resolved Problems Problem Noted Date Diagnosed Date Resolved Date Other acute osteomyelitis, l eft ankle and foot 07/03/2022 09/01/2023 Cirrhosis of liver without ascites 11/05/2021 02/22/2024 Lumbago 03/02/2015 11/05/2021 Bipolar disorder 06/27/2013 09/01/2023 Lumbago 01/12/2012 03/02/2015 Tinea corporis 12/29/2001 06/27/2013 PATELLO-FEMORAL PAIN SYNDROME 11/05/2001 06/27/2013 ACNE VULGARIS 06/22/2000 06/27/2013 Viral warts 06/22/2000 06/27/2013 Overview (11/10/2016): ICD-10 update of inactive term ROUTINE MEDICAL EXAM 06/22/2000 014 Varicella without complication 06/27/2013 documented as of this encounter (statuses as of 04/20/2024) Immunizations Name Administration Dates Next Due DTaP Dipth/Tet/Acell Pertussis (Infanrix), Peds 09/19/1988,05/09/1985,04/07/1984,1984,1983 Diptheria/Tetanus (Adult) 10/30/19982008 HEP A - Hepatitis A (Adult > 18 yrs) 04/24/2022,10/25/2021 Hepatitis B Vaccine 11/28/1998,10/30/19981999 Hepatitis B, 0-19 yrs 05/01/1999 Hepatitis B, 20+ yrs 04/24/2022,11/25/2021,10/25 MMR - Measles/Mumps/Rubella Vaccine 11/28/1998,1 03/24/1984 OPV - Polio Virus Vaccine (Oral) 989,05/09/1985,02/11/1984,1983 TDAP, Age 7 and older, IM (Adacel) 09/01/2023, documented as of this encounter Social History Tobacco Use Types Packs/Day Years Used Date Smoking Tobacco: Never Cigarettes 1 12 Passive Smoke Exposure: Past Smokeless Tobacco: Current Chew Comments:1 can per day Alcohol Use Standard Drinks/Week Comments No 0 (1 standard drink = 0.6 oz pur e alcohol) PHQ-2 Answer Date Recorded PHQ Adult Total Score 0 02/01/2024 Hunger Vital Sign Answer Date Recorded Within the past 12 months, y ou worried that your food would run out before you got the money to buy more. Never true 09/01/19 24 Within the past 12 months, t he food you bought just didn't last and you didn't have money to get more. Never true 09/01/2023 Childcare Answer Date Recorded Do you feel overwhelmed with taking care of a child, family member or friend? No 09/01/2023 Does your family need help f inding childcare? (Household - for ages 0-17 years) Not on file 09/01/2023 Clothing Answer Date Recorded Have you been unable to get clothing when it was really needed? No 09/01/2023 Is your family able to get c lothes or diapers when needed? (Household - for ages 0-17 years) Not on file 09/01/2023 Personal Safety Answer Date Recorded Do you feel unsafe or have concerns for your saf ety? No 09/01/2023 Do you have concerns for you r family's safety? (Household - for ages 0-17 years) Not on file 09/01/2023 Utilities Answer Date Recorded Do you have trouble paying y our heating, water, or electric bill? No 09/01/2023 Is your family able to pay t he heat, water, or electric bill? (Household - for ages 0-17 years) Not on file 09/01/2023 Does your family have access to good internet? (Household - for ages 0-17 years) Not on file 09/01/2023 Employment Status Answer Date Recorded Are you unemployed or without regular income? No 09/01/2023 Does the household have a re lar source of income? (Household - for ages 0-17 years) Not on file 09/01/2023 Social Connections Answer Date Recorded How often do you feel lonely or isolated from th ose around you? Never 09/01/2023 Financial Resource Strain Answer Date R ecorded Do you have any trouble payi ng for your medications, or do you think you might in the future? No 09/01/2023 Does your family have troubl e paying for medicine? (Household - for ages 0-17 years) Not on file 09/01/2023 Transportation Needs Answer Date Record ed Do you have trouble getting a ride to medical visits or work? (Adult - for ages 18 years and over) Not on file 09/01/2023 Does your family have a hard time getting a ride to doctors visits? (Household - for ages 0-17 years) Not on file 09/01/2023 Has lack of transportation k ept you from medical appointments, meetings, work, or from getting things needed for daily living? Check all that apply. No 09/01/2023 Do you (or your family) have trouble finding or paying for a ride (transportation)? (Household - for ages 0-17 years) Not on file 09/01/2023 Housing Stability Answer Date Recorded Do you currently live in a s helter or have no steady place to sleep at night? No 09/01/2023 Do you think you are at risk of becoming homeless? (Adult - for ages 18 years and over) Not on file 09/01/2023 Does your family worry about paying for your home or becoming homeless? (Household - for ages 0-17 years) Not on file 0 09/01/2023 Are you homeless or worried that you might be in the future? No 09/01/2023 Are you (or your family) nayana eless or worried that you might be in the future? (Household - for ages 0-17 years) Not on file Food Insecurity Answer Date Recorded Do you need food for this week? No 09/01/2023 Are you able to get enough f ood for your family? (Household - for ages 0-17 years) Not on file 09/01/2023 Does your family need food t his week? (Household - for ages 0-17 years) Not on file 09/01/2023 Do you always have enough fo od for your family? (Household - for ages 0-17 years) Not on file 09/01/2023 Food Insecurity Answer Date Recorded Within the past 12 months, y ou worried that your food would run out before you got the money to buy more. Never true 09/01/19 24 Within the past 12 months, t he food you bought just didn't last and you didn't have money to get more. Never true 09/01/2023 Do you need food for this week? No 09/01/2023 Sex and Gender Information Value Date Recorded Sex Assigned at Male 10/07/2021 8:14 AM EDT Legal Sex Male 7:10 AM EST Gender Identity Male 10/07/2021 8:14 AM EDT Sexual Orientation Straight 10/07/2021 8: 14 AM EDT documented as of this encounter Miscellaneous Notes * Telephone Encounter - Minoo Warner RN - 04/20/2024 10:39 AM EDT Attempted to contact pt. No answer. Left message requesting return call. * Telephone Encounter - Patricia Mckeon OSA - 04/20/2024 9:15 AM EDT PLEASE CALL PT TO SCHEDULE THE US * Telephone Encounter - Margarita Merino DO - 04/20/2024 8:49 AM EDT Please let patient know recent abdominal ultrasound reviewed. No liver lesions seen. He will need another ultrasound in 6 months for ongoing HCC screening. Nursing-there was some concern for ? Infection (SBP) of ascites fluid. When is he going again for another paracentesis? He had moderate asciteson this exam so I am suspecting he is going to be needing another paracentesis. I would like them to get cell count and diff, culture, total protein, and albumin from the next paracentesis fluid to rule out SBP. Scheduling please arrange another ultrasound 10/2024. Order is in. Margarita Merino DO documented in this encounter Plan of Treatment Upcoming Encounters Date Type Department Care Team (Late st Contact Info) Description 04/21/2024 7:00 AM EDT Pharmacy Hepatology, [facility] [address] [place] [address] [facility] Pharmacist Hepat[facility] [address] [place] [address] 08/16/2024 11:20 AM EDT Office Visit [facility]atology, [facility] [address] [facility] [place] [id number] Margarita Merino DO [address] [place] [address] Scheduled Orders Name Type Priority Associated Diagnoses Orde r Schedule US ABDOMEN LIMITED Medical Imaging Routine Cirrhosis of liver with ascites, unspecified hepatic cirrhosis type (HCC) Expected: 10/21/2024, Expires: 05/21/2025 Health Maintenance Due Date Last Done Comments Pneumococcal Vaccine: Pediatrics (0 to 5 Years) and At-Risk Patients (6 to 18 Years and 19+ Years) (1 of 2 - PCV) 09/29/2002 Lipid Panel 11/08/2018 11/08/2013 COVID-19 Vaccine ( season) 2023 Influenza Vaccine (FLU shot) (#1) 2023 Depression Monitoring 01/31/2025 02/01/2024 Diabetes Screening 03/14/2027 03/14/2024, 1 04/03/2023, 01/25/2024, Additional history exists DTap/Tdap Vaccines (8 - Td or Tdap) 08/31/2033 09/01/2023, 06/08/2009, 10/30/1998, Additional history exists Hepatitis B Vaccine Completed 04/24/2022, 11/25/2021, 10/25/2021, Additional history exists HPV (Gardasil) Vaccine Aged Out No lo nger eligible based on patient's age to complete this topic MENINGOCOCCAL (MENACTRA/MENVEO) Aged Out No longer eligible based on patient's age to complete this topic Meningitis B Vaccine (Bexsero/Trumemba) Aged Out No longer eligible based on patient's age to complete this topic documented as of this encounter Medical Devices Not on filedocumented as of this encounter Visit Diagnoses Diagnosis Cirrhosis of liver with ascites, unspecified hepatic cirrhosis type (HCC)- Primary documented in this encounter Care Teams Carpenter [employer] Relationship Specialty Start Date End Date Jose Chowdhury MD [address] [facility] [place] [id number] PCP - General 11/10/99 documented as of this encounter
--- OUTSIDE RECORDS SUMMARY | 2024-04-21 05:08 | External Medical Summary | Summary of Care ---
Author Name Unknown Organization [facility] Address [address] [place] [address] Phone [phone] Care Team Providers Care Commercial Loan Assistant Name Role Phone Jose Chowdhury MD Primary Care Provider +1- [phone] Reason for Visit * Reason Comments Dosage Adjustment Via Phone (anticoag Cl inic) Status Check Encounter Details Date Type Department Care Team (Late st Contact Info) Description 04/18/2024 7:00 AM EDT Pharmacy Hepatology, [place] [address] [place] [address] [place], Pharmacist Hepatology [address] [place] [address] Hyponatremia*; Cirrhosis of liver with ascites, unspecified hepatic cirrhosis type (HCC); Encounter for monitoring diuretic therapy Allergies No known active allergiesdocumented as of this encounter (statuses as of 04/19/2024) Medications hydrOXYzine HCl 25 MG Oral Tablet [...] 03/14/2024 Active Spironolactone 100 MG Oral Tablet (Aldactone)Anncy cations:Other ascites Take 2 Tablets by mouth [...] as of this encounter (statuses as of 04/19/2024) Active Problems Problem Noted Date Diagnosed Date [...] as of this encounter (statuses as of 04/19/2024) Resolved Problems Problem Noted Date Diagnosed Date [...] as of this encounter (statuses as of 04/19/2024) Immunizations Name Administration Dates Next Due HEP A - Hepatitis A (Adult > 18 yrs) 04/24/2022, 10/25/2021 Hepatitis B, 20+ yrs 04/24/2022,11/25/2021,10/25 TDAP, Age 7 and older, IM (Adacel) [...] 09/01/2023 Does the household have a re gular source of income? (Household - for ages [...] AM EDT documented as of this encounter Progress Notes * Denise Liang RPh - 04/18/2024 5:02 PM EDT Images from the original note were not included. Margarita Merino DO [place], Sara Lynn [facility] Lets have him follow a strict 1.5L fluid restriction. Sodium may be low due to hypervolemic hyponatremia so continued diuresis may help as he was very volume overloaded last time I saw him. I want him to repeat a BMP thu/ after following the fluid restriction and if sodium is still low I will have to decrease the lasix. Margarita ----- Message ----- From: Denise Liang RPh Sent: 04/15/2024 11:03 AM EDT To: Margarita Merino, I was able to speak with the patient's mother this morning. They gave him Keflex & Doxycycline and did not tell him to make any adjustments to his diuretics. She's not exactly certain of his dose, but she recalls he's taking what you advised him last with the BID Lasix and daily Aldactone. Please advise the plan and I will call her back. Thanks! Denise * Denise Liang [facility] - 04/18/2024 5:01 PM EDT [facility] Hepatitis C Management Patient Name: Armin Ulloa History of Current Illness: Armin is a 38 year old male with chronic Hepatitis C, genotype 1a, F4, last seen in the Gastroenterology clinic at [facility] on 03/14/2024. Per chart review, the patient's diuretic regimen was adjusted (increased Lasix from 80 mg daily to 80 mg qam and 40 mg qafternoon & Aldactone 100 mg daily) with repeat BMP. Per chart review, the patient was seen at [facility] on 04/12/2024 where he had labs and imaging, as well as a paracentesis where an unknown amount of fluid was drained. This is a follow-up phone call to relay Dr Merino's message. I called the home phone and spoke with the patient. I explained the goal to start a strict fluid restriction with repeat labs on Thursday/. He stated he drinks a lot of sprite and water throughout the day. I explained he should not drink more than 6 8oz glasses of liquid per day. I encouraged him to get a pitcher and measureout the 1500 mL (~6 x8 oz) in the morning and only drink that much liquid. He initially stated he can't have the labs drawn on Thursday or so I offered to have mobile phlebotomy come to hishouse. He stated he thinks he can go to [facility] on Thursday and we will call him once the re sult is available. He is aware to call if he cannot have the labs drawn on Thursday and we will work to get mobile phlebotomy [facility]. The patient regularly receives paracentesis through [facility] (03/29/2024 6200 mL, 03/15/2024 8200 mL, 03/08/2024 4800 mL, 03/02/2024 9100 mL, 02/23/2024 7900 mL, 02/07/2025 6800 mL, 01/27/2025 5000 mL removed) Provider initiating work-up: Margarita Merino DO Date of clinic appointment: 08/16/2024 @11:20 am Latest Reference Range & Units 10/15/21 14:13 11/19/21 08:39 05/14/22 14:05 11/06/22 15:07 05/11/23 10:23 03/14/24 11:04 04/12/24 14:59 * Sodium 135 - 146 mmol/L 138 140 140 135 128 (L) Potassium 3.5 - 5.1 mmol/L 4.0 4.2 4.1 4.3 4.3 Chloride 98 - 107 mmol/L 106 106 106 102 97 CO2 22 - 32 mmol/L 26 26 27 24 26 BUN 6 - 20 mg/dL 11 13 14 22 (H) 28 (H) Creatinine 0.6 - 1.2 mg/dL 0.6 0.7 0.7 0.9 0.87 Estimated Glomerular Filtration Rate >=60 mL/min >90 >90 >90 >90 111.87 Anion Gap 7 - 15 mmol/L 6 (L) 8 7 9 5 Glucose 70 - 120 mg/dL 125 (H) 104 85 67 (L) 133 (H) Calcium 8.4 - 10.2 mg/dL 9.1 8.7 9.0 9.0 8.8 Protein 6.0 - 8.3 g/dL 6.6 6.8 6.2 7.0 6.9 Alpha-Fetoprotein Tumor Marker 0.0 - 8.3 ng/mL 7.7 5.5 6.2 INR 0.8 - 1.2 1.3 (H) 1.3 (H) 1.6 (H) Prothrombin Time 11.6 - 15.2 sec 16.0 (H) 16.03 (H) 19.6 (H) WBC 4.00 - 10.80 K/uL 3.56 (L) 3.74 (L) 3.06 (L) 7.37 5.75 HGB 14.0 - 16.8 g/dL 12.0 (L) 10.04 (L) 10.0 (L) 10.0 (L) 8.1 (L) HCT 40.0 - 48.4 % 35.6 (L) 32.4 (L) 29.3 (L) 28.6 (L) 24.1 (L) MCV 82.0 - 99.5 fL 92.0 91.5 89.3 95.7 96.0 PLT 140 - 400 K/uL 73 (L) 84 (L) 59 (L) 137 (L) 130 (L) Hepatitis A Ab Total Negative Positive Hepatitis B Surface Ag Negative Hepatitis B Surface Ab Negative <3.5 Negative^ <3.5 Hepatitis B Core Ab Total Negative HCV Genotype 1a HEPATITIS C RNA QUANTITATIVE 2,680,000 1,520,000 1,050,000 HIV AG & AB Negative Albumin 3.8 - 5.0 g/dL 3.7 (L) 3.3 (L) 3.2 (L) 3.3 (L) 3.6 AST 10 - 50 U/L 173 (H) 144 (H) 109 (H) 127 (H) 119 (H) ALT 10 - 50 U/L 145 (H) 97 (H) 76 (H) 79 (H) 60 (H) Alkaline Phosphatase 35 - 130 U/L 153 (H) 213 (H) 138 (H) 170 (H) 128 (H) Bilirubin, Total <=1.2 mg/dL 0.9 1.1 0.9 3.0 (H) 3.8 (H) Bilirubin, Direct 1.5 (H) 1.7 (H) Ethanol, Medical Negative ^The patient completed the hepatitis A vaccination series (10/25/2021 & 04/24/2022). He also completed the hepatitis B vaccination series twice (10/30/1998, 11/28/1998, 05/01/1999 & 10/25/2021, 11/25/2021, 04/24/2022). The patient remains non-immune and after 2 full series is deemed a non-responder. No further vaccinations are warranted at this time. *See Care Everywhere Liver Biopsy 10/22/2021 Left liver lobe, needle core biopsy: Cirrhosis Chronic hepatitis Mild macrovesicular steatosis and rare ballooned hepatocytes Note: The sections of liver biopsy show dense fibrotic septa surrounding regenerative liver nodules, consistent with cirrhosis. The fibrotic septa have mild to focally moderate chronic inflammation (lymphocytes, plasma cells, rare eosinophils and neutrophils) and brisk ductular reaction. Occasionallymphoid aggregates are present. Mild interface activity is present (grade 2). There is no over representation of plasma cells. The lobules show mild inflammation. There is also mild macrovesicular steatosis, with large fat droplets involving <10% hepatocytes. Rare ballooned hepatocytes are present. There is no well- formed Mary Anne-Denk body identified. No overt necrosis or cholestasis is identified. The trichrome and reticulin stains confirm cirrhosis (stage IV). The PASD stain shows focal sonpi-7-jujnqaikpoc globules at periportal area. The iron stain is negative. The liver is cirrhotic. At this advanced stage of liver disease, it is difficult to ascertain an etiology with certainty. The findings of mild to moderate septa inflammation with interface activity and mild lobular inflammation are consistent with chronic hepatitis pattern. Differential diagnosis includes chronic viral hepatitis, medication effect and autoimmune hepatitis. Patient's positive hepatitis C antibody is noted. The findings may represent a chronic hepatitis C (grade 2). Given the presence of mild macrovesicular steatosis and rare ballooned hepatocytes, burned out nonalcoholic or alcoholic steatohepatitis (PRADO/MELI) can not be entirely ruled out. Clinical correlation is recommended. Last imagin10/19/2023 US Abdomen: Gallbladder: Not abnormally distended. There is again a relatively immobile posterior acoustic Diana shadowing echogenic focus likely relatively adherent calculus. This measures approximally 12 mm greatest diameter. There is no significant intraluminal sludge allowing for presumed technical artifact. Gallbladder wall is mildly thickened which is a nonspecific finding. Currently there is no other ultrasound evidence acute cholecystitis such as pericholecystic fluid. Technologist also reports a negative ultrasound Moreno sign. There is no intrahepatic biliary dilatation. Unfortunately common extrahepatic ducts obscured. Liver: Size length: Right lobe approximate 13.4 cm Visualized parenchyma diffusely heterogeneous and perhaps mildly increased in echotexture. Visualized surface contour is irregular and nodular. These findings are nonspecific but again compatible with patient's clinical diagnosis of cirrhosis. A discrete focal lesion is not identified. Spleen: Size length: 15.5 cm; enlarged In limited visualized parenchyma there is no discrete focal lesion. Ascites: There is moderate ascitic fluid throughout the abdomen. Pancreas: Unfortunately, pancreatic bed obscured by overlying bowel Right Kidney: Size length: 11.8 cm. No hydronephrosis or focal lesion. Cortex maintained in regardto thickness/echotexture. No demonstrable intrarenal calculus or perinephric abnormality. IMPRESSION: Cholelithiasis. Calculus felt relatively immobile. Nonspecific mild gallbladder wall thickening. Nonspecific hepatic findings compatible with patient's clinical diagnosis of cirrhosis. Splenomegaly Ascites present US Abdomen rescheduled for 04/18/2024 was cancelled MTM Plan: Will follow-up with the patient again later this week, once the result is available to review. Lab ordered: KHARI Liang PharmD, BCPS Clinical Pharmacist, Hepatology 04/18/2024 5:01 PM documented in this encounter Plan of Treatment Upcoming Encounters Date Type Department Care Team (Late st Contact Info) Description 04/21/2024 7:00 AM EDT Pharmacy Hepatology, [address] [address] [place], Pharmacist Hepatology [address] [place] [address] 08/16/2024 11:20 AM EDT Office Visit Hepatology, [facility] [address] [place] [address] Margarita Merino DO [address] [place] [address] Scheduled Orders Name Type Priority Associated Diagnoses Orde r Schedule BASIC METABOLIC PANEL Lab Routine Cirrhosis of liver with ascites, unspecified hepatic cirrhosis type (HCC) Encounter for monitoring diuretic therapy Hyponatremia Expected: 04/20/2024, Expires: 04/18/2025 Health Maintenance Due Date Last Done Comments Pneumococcal Vaccine: Pediatrics (0 to 5 Years) and At-Risk Patients (6 to 18 Years and 19+ Years) (1 of 2 - PCV) 09/29/2002 Lipid Panel 11/08/2018 11/08/2013 COVID-19 Vaccine ( - season) 2023 Influenza Vaccine (FLU shot) (#1) [...] as of this encounter Visit Diagnoses Diagnosis Hyponatremia- Primary Hyposmolality and/or hyponatremia Cirrhosis of liver with ascites, unspecified hepatic cirrhosis type (HCC) Encounter for monitoring diuretic therapy Encounter for therapeutic drug monitoring documented in this encounter Care Teams Commercial Loan Assistant Relationship Specialty Start Date End Date Jose Chowdhury MD [address] [facility] [place] [address] PCP - General 11/10/99 documented as of this encounter
--- OUTSIDE RECORDS SUMMARY | 2024-04-21 05:08 | External Medical Summary | Summary of Care ---
Author Name Unknown Organization [facility] Address [address] [place] [address] Phone [phone] Care Team Providers Care Chiropractic Neurologist Name Role Phone Jose Chowdhury MD Primary Care Provider +1- [phone] Reason for Visit * Reason Comments Dosage Adjustment Via Phone (anticoag Cl inic) Encounter Details Date Type Department Care Team (Late st Contact Info) Description 04/13/2024 7:00 AM [facility] Pharmacy Hepatology, [place] [address] [place], [place] [id number] [place], Pharmacist Hepatology [address] [place] [address] Chronic hepatitis C without hepatic coma (HCC)*; Cirrhosis of liver with ascites, unspecified hepatic cirrhosis type (HCC) Allergies No known active allergiesdocumented as of [...] Progress Notes * Denise Liang RPh - 04/14/2024 10:26 AM EST Images from the original note were not included. Margarita Merino, Denise Ramos judy Did they adjust his diuretics? If not we have to change them with the hyponatremia. I know he was drinking an excessive amount of fluid and I told him he had to follow a 1.5L fluid restriction beforebut I dont think he's been doing that. ----- Message ----- From: Denise Liang [facility] To: Margarita Merino, DO Dr Merino, This patient never had the repeat BMP drawn based on the diuretic dose adjustment, but I was able to see that he was in the ED at [facility] yesterday and labs were drawn. Notable for hyponatremia (128). He also had a para where he had 6.2 L drained. He also had some other abnormal labs, like CRP and procalcitonin. Chest Xray was negative. He had wrist imaging which noted swelling and a foreign body. I just called over to [facility] and they stated he's no longer in the ED and he wasn't admitted. He also cancelled and rescheduled the US Abdomen for 04/18. Please advise the plan and I will call. Thanks! Denise * Denise Liang [facility] - 04/13/2024 8:09 AM EST [facility] Hepatitis C Management Patient Name: Armin Ulloa History of Current Illness: Armin is a 38 year old male with chronic Hepatitis C, genotype 1a, F4, last seen in the Gastroenterology clinic at [facility] on 03/14/2024. Per chart review, the patient's diuretic regimen was adjusted (increased Lasix from 80 mg daily to 80 mg qam and 40 mg qafternoon & Aldactone 100 mg daily) with repeat BMP. Per chart review, the patient was seen at [facility] on 04/12/2024 where he had labs and imaging, as well as a paracentesis where an unknown amount of fluid was drained. This is a follow-up phone call to speak with the patient to determine the outcomes of his ED visit at [facility] and relay Dr Merino's message. I called the home phone, but no answer; I left a message to return the call. The patient regularly receives paracentesis through [facility] (03/29/2024 6200 mL, 03/15/2024 8200 mL, 03/08/2024 4800 mL, 03/02/2024 9100 mL, 02/23/2024 7900 mL, 02/07/2025 6800 mL, 01/27/2025 5000 mL removed) Provider initiating work-up: VALDEZ Guerrero/Margarita Merino, DO Date of clinic appointment: 08/16/2024 @11:20 [...] (stage IV). The PASD stain shows focal [id number] globules at periportal area. The iron stain [...] hydronephrosis or focal lesion. Cortex maintained in regard to thickness/echotexture. No demonstrable intrarenal calculus or perinephric abnormality. IMPRESSION: Cholelithiasis. Calculus felt relatively immobile. Nonspecific mild gallbladder wall thickening. Nonspecific hepatic findings compatible with patient's clinical diagnosis of cirrhosis. Splenomegaly Ascites present US Abdomen rescheduled for 04/18/2024 MT Plan: Will follow-up with the patient again tomorrow, unless a return call is received sooner. Denise Liang, PharmD, BCPS Clinical Pharmacist, Hepatology 04/14/2024 10:28 AM ADDENDUM: I called the home phone x2, but heard a recording that the call cannot be completed. I called the mobile phone and spoke with the patient's mother. She stated after his tap on Thursday he went to the ED. They prescribed Cephalexin & Doxycycline. They did not make any other medication adjustments, particularly asking about the diuretics. I informed Teal that I will notify Dr Merino and will call her back with the plan. Denise Liang, [place], [facility] Clinical Pharmacist, Hepatology 04/15/2024 10:56 AM documented in this encounter Plan of Treatment Upcoming Encounters Date Type Department Care Team (Late st Contact Info) Description 04/21/2024 7:00 AM EDT Pharmacy Hepatology, [place] [address] [place] [address] [place], Pharmacist Hepatology [facility] [place] [address] 08/16/2024 11:20 AM EDT Office Visit Hepatology, [facility] [address] [place] [address] Margarita Merino DO [address] [place] [address] Health Maintenance Due Date Last Done Comments [...] as of this encounter Visit Diagnoses Diagnosis Chronic hepatitis C without hepatic coma (HCC)- Primary Chronic hepatitis C without mention of hepatic coma Cirrhosis of liver with ascites, unspecified hepatic cirrhosis type (HCC) documented in this encounter Care Teams Chiropractic Neurologist Relationship Specialty Start Date End Date Jose Chowdhury MD [address] [place] [address] PCP - General 11/10/99 documented as of this encounter
--- OUTSIDE RECORDS SUMMARY | 2024-04-21 05:08 | External Medical Summary | Summary of Care ---
Author Name Unknown Organization [facility] Address [address] [place] [address] Phone [phone] Care Team Providers Care Calibration Laboratory Technician Name Role Phone Jose Chowdhury MD Primary Care Provider +1- [phone] Reason for Visit * Reason Onset Date Comments Appointment 04/20/2024 Encounter Details Date Type Department Care Team (Late st Contact Info) Description 04/20/2024 Telephone Hepatology, [facility] [address] [place] [address] Margarita Merino DO [address] [place] [address] Appointment Allergies No known active allergiesdocumented as [...] encounter Miscellaneous Notes * Telephone Encounter - Patricia Mckeon OSA [...] Description 04/21/2024 7:00 AM EDT Pharmacy Hepatology, [place] [address] [place] [address] [place], Pharmacist Hepatology [facility] [place] [address] 08/16/2024 11:20 AM EDT Office Visit Hepatology, [facility] [address] [place] [address] Margarita Merino DO [address] [place] [address] Scheduled Orders Name Type Priority Associated Diagnoses [...] 09/29/2002 Lipid Panel 11/08/2018 11/08/2013 COVID-19 Vaccine (1 - 2023- season) 2023 Influenza Vaccine (FLU shot) (#1) [...] Primary documented in this encounter Care Teams Calibration Laboratory Technician Relationship Specialty Start Date End Date Jose Chowdhury MD [address] [facility] [place] [address] PCP - General 11/10/99 documented as of this encounter
--- OUTSIDE RECORDS SUMMARY | 2024-04-21 05:08 | External Medical Summary | Summary of Care ---
Author Name Unknown Organization [facility] Address [address] [place] [address] Phone [phone] Care Team Providers Care Certified Prosthetist Vice President Name Role Phone Jose Chowdhury MD Primary Care Provider +1- [phone] Reason for Visit * Reason Onset Date Comments Appointment 04/20/2024 Encounter Details Date Type Department Care Team (Late st Contact Info) Description 04/20/2024 Telephone Hepatology, [facility] [address] [place] [address] Margarita Merino DO [address] [place] [address] Appointment Allergies No known active allergiesdocumented as [...] Description 04/21/2024 7:00 AM EDT Pharmacy Hepatology, [place] [address] [place] [address] [place], Pharmacist Hepatology [address] [place] [address] 08/16/2024 11:20 AM EDT Office Visit Hepatology, [facility] [place] [address] Margarita Merino DO [address] [place] [address] Scheduled Orders Name Type Priority Associated Diagnoses [...] Primary documented in this encounter Care Teams Certified Prosthetist Vice President Relationship Specialty Start Date End Date Jose Chowdhury MD [address] [facility] [place] [address] PCP - General 11/10/99 documented as of this encounter
--- OUTSIDE RECORDS SUMMARY | 2024-04-21 05:08 | External Medical Summary | Summary of Care ---
Author Name Unknown Organization [facility] Address [address] [place] [address] Phone [phone] Care Team Providers Care Senior Reactor Operator Name Role Phone Jose Chowdhury MD Primary Care Provider +1- [phone] Reason for Visit * Reason Onset Date Comments Appointment 04/20/2024 Encounter Details Date Type Department Care Team (Late st Contact Info) Description 04/20/2024 Telephone Hepatology, [facility] [address] [place] [address] Margarita Merino DO [address] [place] [address] Appointment Allergies No known active allergiesdocumented as [...] Description 04/21/2024 7:00 AM EDT Pharmacy Hepatology, [place] [address] [place] [address] [place], Pharmacist Hepatology [facility] [place] [address] 08/16/2024 11:20 AM EDT Office Visit Hepatology, [facility] [address] [place] [address] Margarita Merino DO [address] [place] [address] Scheduled Orders Name Type Priority Associated Diagnoses [...] Primary documented in this encounter Care Teams Senior Reactor Operator Relationship Specialty Start Date End Date Jose Chowdhury MD [address] [facility] [place] [address] PCP - General 11/10/99 documented as of this encounter
--- OUTSIDE RECORDS SUMMARY | 2024-04-21 05:09 | External Medical Summary | Summary of Care ---
Author Name Unknown Organization [facility] Address [address] [place] [address] Phone [phone] Care Team Providers Care Terry Cloth Cutter Hand Name Role Phone Jsoe Chowdhury MD Primary Care Provider +1- [phone] Reason for Visit * Reason Comments Dosage Adjustment Via Phone (anticoag Cl inic) Encounter Details Date Type Department Care Team (Late st Contact Info) Description 03/29/2024 7:00 AM [facility] Pharmacy Hepatology, [place] [address] [place], [place] [id number] [place], Pharmacist Hepatology [address] [place] [address] Chronic hepatitis C without hepatic coma (HCC)*; Cirrhosis of liver with ascites, unspecified hepatic cirrhosis type (HCC) Allergies No known active allergiesdocumented as of this encounter (statuses as of 03/30/2024) Medications hydrOXYzine HCl 25 MG Oral Tablet [...] 1 03/18/2024 3:03 PM EST 03/18/2024 Active documented as of this encounter (statuses as of 03/30/2024) Active Problems Problem Noted Date Diagnosed Date [...] as of this encounter (statuses as of 03/30/2024) Resolved Problems Problem Noted Date Diagnosed Date [...] as of this encounter (statuses as of 03/30/2024) Immunizations Name Administration Dates Next Due HEP [...] Progress Notes * Denise Liang RPh - 03/30/2024 10:35 AM EST [facility] Hepatology Follow-Up Patient Name: Armin Ulloa Lab reminder phone call Treatment Overview: Hepatology Provider: Margarita Merino DO Date of clinic appointment: 08/16/2024 @11:20 am This is a phone call to remind the patient they are due for repeat blood work. The patient cancelled the lab & radiology appointments for 03/28/2024 due to illness; . Labs Due: EJ Is the patient aware of the lab date:No. I called the home phone, but no answer; I left a message reminding the patient to have blood work drawn at his local [facility] lab at his earliest convenience. I left my callback number for any questions or to schedule a lab appointment. In my message I leftthe importance of having the blood work drawn as soon as he can. [facility] Plan: Will follow up once results are available to review. Denise Liang PharmD, [facility] Clinical Pharmacist, Hepatology 03/30/2024 10:35 AM documented in this encounter Plan of Treatment Upcoming Encounters Date Type Department Care Team (Late st Contact Info) Description 04/13/2024 7:00 AM EST Pharmacy Hepatology, [place] [address] [facility] [place] [address] [place], Pharmacist Hepatology [address] [facility] [place] [address] 04/18/2024 10:30 AM EDT Imaging Radiology, [address] [place] [phone] 08/16/2024 11:20 AM EDT Office Visit Hepatology, [facility] [address] [place] [address] Margarita Merino DO [address] [place] [address] Health Maintenance Due Date Last Done Comments [...] (HCC) documented in this encounter Care Teams Terry Cloth Cutter Hand Relationship Specialty Start Date End Date Jose Chowdhury MD [address] [place] [address] PCP - General 11/10/99 documented as of this encounter
--- OUTSIDE RECORDS SUMMARY | 2024-04-21 05:09 | External Medical Summary | Summary of Care ---
Author Name Unknown Organization [facility] Address [address] [place] [address] Phone [phone] Care Team Providers Care Broadband Installer Name Role Phone Jose Chowdhury MD Primary Care Provider +1- [phone] Reason for Visit * Reason Onset Date Comments Medication Question 03/15/2024 Encounter Details Date Type Department Care Team (Late st Contact Info) Description 03/15/2024 Telephone Hepatology, [facility] [address] [place] [address] Margarita Merino DO [address] [place] [address] Medication Question Allergies No known active allergiesdocumented as of this encounter (statuses as of 03/16/2024) Medications hydrOXYzine HCl 25 MG Oral Tablet Take 1 Tablet by mouth 3 times a day as needed for Anxiety. 40 Tablet 2 4 Active Omeprazole 20 MG Oral Capsule Delayed Release (PriLOSEC) Take 1 Capsule by mouth in the morning. 90 Capsule 2 5 Active Furosemide 40 MG Oral Tablet (Lasix)Indicati ons:Other ascites Takes 2 tablets (80 mg) in AM and 1 tablet (40 mg) in PM 270 Tablet 1 5 Active Spironolactone 100 MG Oral Tablet (Aldactone)Nancy cations:Other ascites Take 2 Tablets by mouth in the morning. 180 Tablet 1 5 Active Spironolactone 100 MG Oral Tablet (Aldactone)Nancy cations:Other ascites Take 2 Tablets by mouth in the morning. 90 Tablet 1 01/26/2024 2:28 PM EST 4 03/15/19 25 Discontinu ed(Refill) documented as of this encounter (statuses as of 03/16/2024) Active Problems Problem Noted Date Diagnosed Date [...] as of this encounter (statuses as of 03/16/2024) Resolved Problems Problem Noted Date Diagnosed Date [...] as of this encounter (statuses as of 03/16/2024) Immunizations Name Administration Dates Next Due DTaP [...] No 09/01/2023 Does the household have a presbyterian kas[facility] hospitallar source of income? (Household - for ages [...] encounter Miscellaneous Notes * Telephone Encounter - Nettie Tucker CMA - 03/16/2024 9:08 AM EST Pt notified of RX being sent. * Telephone Encounter - Yuridia Gama CPhT - 03/15/2024 2:27 PM EST pharmacy called to request a 90 day supply for spironolactone 100mg. If agreeable please send to . [email or web address] Thank you, Yuridia Gaam [facility] Bulking Machine Operator III [facility]) 03/15/24 documented in this encounter Plan of Treatment Upcoming Encounters Date Type Department Care Team (Late st Contact Info) Description 03/21/2024 7:00 AM EST Pharmacy Hepatology, [place] [address] [facility] [place] [address] [place], Pharmacist Hepatology [address] [place] [facility] [place] [facility] [place] [address] 04/18/2024 10:30 AM EDT Imaging Radiology, [address] [facility] [place] [phone] 08/16/2024 11:20 AM EDT Office Visit Hepatology, [facility] [address] [place] [address] Margarita Merino DO [address] [place] [address] Health Maintenance Due Date Last Done Comments Pneumococcal Vaccine: Pediatrics (0 to 5 Years) and At-Risk Patients (6 to 18 Years and 19+ Years) (1 of 2 - PCV) 09/29/2002 Lipid Panel 11/08/2018 11/08/2013 COVID-19 Vaccine (1 - season) 2023 Influenza Vaccine (FLU shot) [...] as of this encounter Visit Diagnoses Diagnosis Other ascites documented in this encounter Care Teams Broadband Installer Relationship Specialty Start Date End Date Jose Chowdhury MD PCP - General 11/10/99 documented as of this encounter
--- OUTSIDE RECORDS SUMMARY | 2024-04-21 05:09 | External Medical Summary | Summary of Care ---
Author Name Unknown Organization [facility] Address [address] [place] [address] Phone [phone] Care Team Providers Care Retail Sales Vitamin Consultant Name Role Phone Jose Chowdhury MD Primary Care Provider +1- [phone] Encounter Details Date Type Department Care Team (Late st Contact Info) Description 03/15/2024 Result Scan Unspecified Department Margarita Merino DO [address] [place] [address] <No scans attached> Allergies No known active allergiesdocumented as of [...] and 1 Tablet before bedtime. 180 Tablet 03/15/2024 Active Furosemide 40 MG Oral Tablet (Lasix)Indicati ons:Other ascites Takes 2 tablets (80 mg) in AM and 1 tablet (40 mg) in PM 270 Tablet 1 03/14/2024 Active Spironolactone 100 MG Oral Tablet (Aldactone)Nancy cations:Other ascites Take 2 Tablets by mouth in the morning. 180 Tablet 1 03/16/2024 Active documented as of this encounter (statuses [...] 03/16/2024) Immunizations Name Administration Dates Next Due HEP [...] AM EDT documented as of this encounter Plan of Treatment Upcoming Encounters Date Type Department Care Team (Late st Contact Info) Description 03/21/2024 7:00 AM EST Pharmacy Hepatology, [place] [address] [facility] [place] [address] [place], Pharmacist Hepatology [address] [place] [address] 04/18/2024 10:30 AM EDT Imaging Radiology [place] [address] [place] [phone] 08/16/2024 11:20 AM EDT Office Visit Hepatology, [facility] [address] [facility] [place] [address] Margarita Merino DO [address] [facility] [place] [address] Health Maintenance Due Date Last Done Comments [...] Not on filedocumented as of this encounter Procedures Procedure Name Priority Date/Time Associated Diagnosis Comments RADIOLOGY SCANNED RESULT 03/15/2024 documented in this encounter Results * RADIOLOGY SCANNED RESULT (03/15/2024) 03/15/2024 us Margarita Merino DO DIAGNOSTIC RADIOLOGY S ERVICES Final Result documented in this encounter Care Teams Retail Sales Vitamin Consultant Relationship Specialty Start Date End Date Jose Chowdhury MD PCP - General 11/10/99 documented as of this encounter
--- OUTSIDE RECORDS SUMMARY | 2024-04-21 05:09 | External Medical Summary | Summary of Care ---
Author Name Unknown Organization [facility] Address [address] [place] [address] Phone [phone] Care Team Providers Care Journeyman Pipe Welder Name Role Phone Jasvir Adamson MD Primary Care Provider +1- [phone] Reason for Visit * Reason Onset Date Comments Medication Refill 03/14/2024 Encounter Details Date Type Department Care Team (Late st Contact Info) Description 03/14/[address] [facility] [address] [facility] [place] [phone] Essence Drew MD [address] [facility] [place], [place] [phone] Allergies No known active allergiesdocumented as of this encounter (statuses as of 03/16/2024) Medications hydrOXYzine HCl 25 MG Oral Tablet Take 1 Tablet by mouth 3 times a day as needed for Anxiety. 40 Tablet 2 4 Active Spironolactone 100 MG Oral Tablet (Aldactone)Nancy cations:Other ascites Take 2 Tablets by mouth in the morning. 90 Tablet 1 01/26/2024 2:28 PM EST 4 Active busPIRone HCl 15 MG Oral Tablet (Buspar) Take 1 Tablet by mouth in the morning and 1 Tablet before bedtime. 180 Tablet 5 Active busPIRone HCl 15 MG Oral Tablet (Buspar) Take 1 Tablet by mouth in the morning and 1 Tablet before bedtime. 60 Tablet 3 4 03/14/19 25 Discontinu ed(Refill) documented as of this [...] ages 0-17 years) Not on file 09/01/2023 Sex and Gender Information Value Date Recorded Sex Assigned at Male 10/07/2021 8:14 AM EDT Legal Sex Male 7:10 AM EST Gender Identity Male 10/07/2021 8:14 AM EDT Sexual Orientation Straight 10/07/2021 8: 14 AM EDT documented as of this encounter Miscellaneous Notes * Telephone Encounter - Jasvir Adamson MD - 03/15/2024 5:43 PM ESTSigned Prescriptions: Disp Refills busPIRone HCl 15 MG Oral Tablet (Buspar) 180 Ta*0 Sig: Take 1 Tablet by mouth in the morning and 1 Tablet before bedtime.Authorizing Provider: JASVIR ADAMSON--- * Telephone Encounter - Vernon Castillo [facility] - 03/15/2024 9:52 AM EST Pending Prescriptions: Disp Refills busPIRone HCl 15 MG Oral Tablet (Buspar) 60 Tab*3 Sig: Take 1 Tablet by mouth in the morning and 1 Tablet before bedtime. * Telephone Encounter - Vernon Castillo [facility] - 03/15/2024 9:52 AM EST [facility] is currently not authorized to approve refills for the pended medication(s) per refill protocol. Please approve if appropriate. Pending Prescriptions: Disp Refills busPIRone HCl 15 MG Oral Tablet (Buspar) 60 Tab*3 Sig: Take 1 Tablet by mouth in the morning and 1 Tablet before bedtime. Last Visit: 02/01/2024 (in office), Visit date not found (telemedicine) Next Visit: Visit date not found If no future appointments scheduled, and last appointment is greater than a year ago, please schedule patient for a follow-up appointment Last date the medication was ordered: 09/01/2023 Pharmacy: [facility] Is this request for a controlled substance? No Urine Drug Screen: Results for orders placed or performed in visit on 12/22/11 TOX SCREEN, URINE, W/O CONFIRMATION Result Value Amphetamine NEGATIVE Barbiturates NEGATIVE Benzodiazepines NEGATIVE THC-COOH Confirmation, U POSITIVE (A) Cocaine Metabolite NEGATIVE Morphine / Codeine NEGATIVE OXYCODONE NEGATIVE METHADONE MEDICAL NEGATIVE NOTE: SEE COMMENT DETECTION LIMIT SEE COMMENT Patient Phone Numbers Labs: Lab Results Component Value Date/Time CREAT 0.9 03/14/2024 11:04 AM CREAT 0.65 07/08/2022 12:00 AM CREAT 0.9 03/02/2015 09:47 AM POTASSIUM 4.3 03/14/2024 11:04 AM POTASSIUM 3.5 (A) 07/08/2022 12:00 AM POTASSIUM 4.2 03/02/2015 09:47 AM TSH 2.06 11/06/2022 03:07 PM TSH 2.07 11/06/2022 03:07 PM LDL 77 11/08/2013 09:15 AM ALT 79 (H) 03/14/2024 11:04 AM ALT 51 (H) 03/02/2015 09:47 AM HGBA1C 5.2 11/06/2022 03:07 PM documented in this encounter Plan of Treatment Upcoming Encounters Date Type Department Care Team (Late st Contact Info) Description 03/21/2024 7:00 AM EST Pharmacy Hepatology, [place] [address] [place] [address] [place], Pharmacist Hepatology [address] [facility] [place] [address] 04/18/2024 10:30 AM EDT [address] [place] [phone] 08/16/2024 11:20 AM EDT Office Visit Hepatology, [facility] [address] [place] [address] Margarita Merino DO [address] [place] [address] Health Maintenance Due Date Last Done Comments [...] Not on filedocumented as of this encounter Care Teams Journeyman Pipe Welder Relationship Specialty Start Date End Date Jasvir Adamson MD PCP - General 11/10/99 documented as of this encounter
--- OUTSIDE RECORDS SUMMARY | 2024-04-21 05:09 | External Medical Summary | Summary of Care ---
Author Name Unknown Organization [facility] Address [address] [place] [address] Phone [phone] Care Team Providers Care Wildlife Management Professor Name Role Phone Jose Chowdhury MD Primary Care Provider +1- [phone] Encounter Details Date Type Department Care Team (Late st Contact Info) Description 03/29/2024 Result Scan Unspecified Department Margarita Merino DO [address] [place] [address] <No scans attached> Allergies No known active [...] Team (Late st Contact Info) Description 04/18/2024 10:30 AM EDT Imaging Radiology, [address] [place] [phone] 08/16/2024 11:20 AM EDT Office Visit Hepatology, [facility] [address] [place] [address] Margarita Merino DO [address] [place] [address] Health Maintenance Due Date Last Done Comments [...] Date/Time Associated Diagnosis Comments RADIOLOGY SCANNED RESULT 03/29/2024 documented in this encounter Results * RADIOLOGY SCANNED RESULT (03/29/2024) 03/29/2024 us Margarita Merino DO DIAGNOSTIC RADIOLOGY S ERVICES Final Result documented in this encounter Care Teams Wildlife Management Professor Relationship Specialty Start Date End Date Jose Chowdhury MD [address] [facility] [place] [address] PCP - General 11/10/99 documented as of this encounter
--- OUTSIDE RECORDS SUMMARY | 2024-04-21 05:09 | External Medical Summary | Summary of Care ---
Author Name Unknown Organization [facility] Address [address] [place] [address] Phone [phone] Care Team Providers Care Hair Blender Name Role Phone Jose Chowdhury MD Primary Care Provider +1- [phone] Reason for Visit * Reason Onset Date Comments Medication Question 03/15/2024 Encounter Details Date Type Department Care Team (Late st Contact Info) Description 03/15/2024 Telephone Hepatology, [facility] [address] [place] [address] Margarita Merino DO [address] [place] [address] Medication Question Allergies No known active allergiesdocumented [...] 09/01/2023 Does the household have a presbyterian hospitallar source of income? (Household - for [...] 100mg. If agreeable please send to . [facility] Thank you, Yuridia Gama CphT Inclusion Teacher III [facility]) 03/15/24 documented in this encounter Plan of Treatment Upcoming Encounters Date Type Department Care Team (Late st Contact Info) Description 03/21/2024 7:00 AM EST Pharmacy Hepatology, [place] [address] [place] [address] [place], Pharmacist Hepatology [address] [place] [address] 04/18/2024 10:30 AM EDT Imaging Radiology, [address] [place] [phone] 08/16/2024 11:20 AM EDT Office Visit Hepatology, [facility] [address] [place] [address] Margarita Merino DO [address] [place] [address] Health Maintenance Due Date Last Done Comments [...] ascites documented in this encounter Care Teams Hair Blender Relationship Specialty Start Date End Date Jose Chowdhury MD PCP - General 11/10/99 documented as of this encounter
--- OUTSIDE RECORDS SUMMARY | 2024-04-21 05:09 | External Medical Summary | Summary of Care ---
Author Name Unknown Organization [facility] Address [address] [place] [address] Phone [phone] Care Team Providers Care Transfer And Pumphouse Operator Chief Name Role Phone Jose Chowdhury MD Primary Care Provider +1- [phone] Reason for Visit * Reason Onset Date Comments Test Results 03/14/2024 Encounter Details Date Type Department Care Team (Late st Contact Info) Description 03/14/2024 Telephone Hepatology, [facility] [address] [place] [address] Margarita Merino DO [address] [place] [address] Test Results Allergies No known active allergiesdocumented as of this encounter (statuses as of 03/16/2024) Medications hydrOXYzine HCl 25 MG Oral Tablet Take 1 Tablet by mouth 3 times a day as needed for Anxiety. 40 Tablet 2 4 Active Furosemide 40 MG Oral Tablet (Lasix)Indicatio ns:Other ascites Takes 2 tablets (80 mg) in AM and 1 tablet (40 mg) in PM 270 Tablet 1 5 Active busPIRone HCl 15 MG Oral Tablet (Buspar) Take 1 Tablet by mouth in the morning and 1 Tablet before bedtime. 60 Tablet 3 4 03/14/19 25 Discontinu ed(Refill) Furosemide 40 MG Oral Tablet (Lasix)Indicatio ns:Other ascites Take 2 Tablets by mouth in the morning. 90 Tablet 1 01/26/2024 2:28 PM EST 4 03/14/19 25 Discontinu ed(Refill) Spironolactone 100 MG Oral Tablet (Aldactone)Indic ations:Other ascites Take 2 Tablets by mouth in the morning. 90 Tablet 1 01/26/2024 2:28 PM EST 4 03/15/19 25 Discontinu ed(Refill) Omeprazole 20 MG Oral Capsule Delayed Release (PriLOSEC)Indica tions:Cirrhosis of liver with ascites, unspecified hepatic cirrhosis type (HCC),Chronic hepatitis C without hepatic coma (HCC) Take 1 Capsule by mouth in the morning. 90 Capsule 3 03/14/2024 11:15 AM EST 5 03/15/19 25 Discontinu ed(Medicat ion List Clean Up) documented as of this encounter (statuses as [...] No 09/01/2023 Does the household have a [facility] hospital[facility] source of income? (Household - for ages [...] Miscellaneous Notes * Telephone Encounter - Nettie Tuckre CMA - 03/16/2024 9:12 AM EST Pt notified of results note and voiced understanding. * Telephone Encounter - Nettie Tucker CMA - 03/15/2024 10:53 AM EST LM for pt to call back RE: results note. * Telephone Encounter - Margarita Merino DO - 03/14/2024 3:58 PM EST Please let Armin know I reviewed his labs from today. MELD score is at 17. His sodium and kidney function look good so as we discussed I am planning to increase his lasix from 80 mg daily to 80 mg in the AM with an additional 40 mg in the afternoon. I have sent a script to the pharmacy ([facility] listed as pharmacy). Repeat BMP in 1 week after increase to make sure kidney function andelectrolytes remain stable. Continue 1.5L fluid restriction and be very diligent to read all food labs no more than 2 grams of salt per day. Continue aldactone at 200 mg daily. His bilirubin is up to 3. I am hoping he can get a urine sample soon for the utox so we can get hishepatitis C treated as I worry his liver function is getting worse. MELD 3.0: 17 at 03/14/2024 11:04 AM MELD-Na: 18 at 03/14/2024 11:04 AM Calculated from: Serum Creatinine: 0.9 mg/dL (Using min of 1 mg/dL) at 03/14/2024 11:04 AM Serum Sodium: 135 mmol/L at 03/14/2024 11:04 AM Total Bilirubin: 3 mg/dL at 03/14/2024 11:04 AM Serum Albumin: 3.3 g/dL at 03/14/2024 11:04 AM INR(ratio): 1.6 at 03/14/2024 11:04 AM Age at listing (hypothetical): 38 years Sex: Male at 03/14/2024 11:04 AM Margarita Merino DO documented in this encounter Plan of Treatment Upcoming Encounters Date Type Department Care Team (Late st Contact Info) Description 03/21/2024 7:00 AM EST Pharmacy Hepatology, [place] [address] [place] [facility] [address] [place], Pharmacist Hepatology [address] [facility] [place], [place] [address] 04/18/2024 10:30 AM EDT Imaging Radiology, [place] [address] [facility] [place] [phone] 08/16/2024 11:20 AM EDT Office Visit Hepatology, [facility] [address] [place] [address] Margarita Merino DO [address] [place] [address] Scheduled Orders Name Type Priority Associated Diagnoses Orde r Schedule BASIC METABOLIC PANEL Lab Routine Cirrhosis of liver with ascites, unspecified hepatic cirrhosis type (HCC) Expected: 03/21/2024, Expires: 03/14/2025 Health Maintenance Due Date Last Done Comments [...] ascites, unspecified hepatic cirrhosis type (HCC)- Primary Other ascites documented in this encounter Care Teams Transfer And Pumphouse Operator Chief Relationship Specialty Start Date End Date Jose Chowdhury MD PCP - General 11/10/99 documented as of this encounter
--- OUTSIDE RECORDS SUMMARY | 2024-04-21 05:09 | External Medical Summary | Summary of Care ---
Author Name Unknown Organization [facility] Address [address] [place] [address] Phone [phone] Care Team Providers Care Rand Butting Machine Operator Name Role Phone Jose Chowdhury MD Primary Care Provider +1- [phone] Encounter Details Date Type Department Care Team (Late st Contact Info) Description 04/12/2024 Result Scan Unspecified Department Margarita Merino DO [address] [place] [address] <No scans attached> Allergies No known active allergiesdocumented as of this encounter (statuses as of 04/13/2024) Medications hydrOXYzine HCl 25 MG Oral Tablet [...] as of this encounter (statuses as of 04/13/2024) Active Problems Problem Noted Date Diagnosed Date [...] as of this encounter (statuses as of 04/13/2024) Resolved Problems Problem Noted Date Diagnosed Date [...] as of this encounter (statuses as of 04/13/2024) Immunizations Name Administration Dates Next Due HEP [...] Imaging Radiology, [address] [place] [phone] 08/16/2024 11:20 AM EDT Office Visit Hepatology, [facility] [address] [place] [address] Margarita Merino DO [address] [place] [address] Health Maintenance Due Date Last Done Comments [...] Date/Time Associated Diagnosis Comments RADIOLOGY SCANNED RESULT 04/12/2024 documented in this encounter Results * RADIOLOGY SCANNED RESULT (04/12/2024) 04/12/2024 us Margarita Merino DO DIAGNOSTIC RADIOLOGY S ERVICES Final Result documented in this encounter Care Teams Rand Butting Machine Operator Relationship Specialty Start Date End Date Jose Chowdhury MD [address] [facility] [place] [address] PCP - General 11/10/99 documented as of this encounter
--- OUTSIDE RECORDS SUMMARY | 2024-04-21 05:09 | External Medical Summary | Summary of Care ---
Author Name Unknown Organization [facility] Address [address] [place] [address] Phone [phone] Care Team Providers Care Explosives Detonator Name Role Phone Jose Chowdhury MD Primary Care Provider +1- [phone] Reason for Visit * Reason Comments Dosage Adjustment Via Phone (anticoag Cl inic) Encounter Details Date Type Department Care Team (Late st Contact Info) Description 03/21/2024 7:00 AM [facility] Pharmacy Hepatology, [place] [address], [place] [id number] [place], Pharmacist Hepatology [address] [place] [address] Chronic hepatitis C without hepatic coma (HCC)* Allergies No known active allergiesdocumented as of this encounter (statuses as of 03/23/2024) Medications hydrOXYzine HCl 25 MG Oral Tablet [...] as of this encounter (statuses as of 03/23/2024) Active Problems Problem Noted Date Diagnosed Date [...] as of this encounter (statuses as of 03/23/2024) Resolved Problems Problem Noted Date Diagnosed Date [...] as of this encounter (statuses as of 03/23/2024) Immunizations Name Administration Dates Next Due HEP [...] of this encounter Progress Notes * Denise Liang, [facility] - 03/22/2024 9:03 AM EST [facility] Hepatitis C Management Patient Name: Armin Ulloa History of Current Illness: Armin is a 38 year old male with chronic Hepatitis C, genotype 1a, F4, last seen in the Gastroenterology clinic at [facility] on 03/14/2024. Per chart review, the patient's diuretic regimen was adjusted (increased Lasix from 80 mg daily to 80 mg qam and 40 mg qafternoon & Aldactone 100 mg daily) with repeat BMP due in 1 week. This is a follow-up phone call reminder to have labs drawn (BMP & Urine Toxicology). I called the home phone and spoke with the patient. He confirmed he increased the Lasix dose as advised at his clinic appointment. He reports the fluid accumulation has improved. He notes a change in weight of ~10 pounds from yesterday to today, which is also related to recent illness with a GI bug (he was in bed all day yesterday). He stated he forgot to have the repeat labs drawn, therefore the next time he can go will be on Thursday. I also encouraged him to have the required urine toxicology drawn then. He stated he will try. He requested my direct phone number, which I provided and encourage him to call with any issues or concerns. The patient regularly receives paracentesis through [facility] (03/15/2024 8200 mL, 03/08/2024 4800 mL, 03/02/2024 9100 mL, 02/23/2024 7900 mL, 02/07/2025 6800 mL, 01/27/2025 5000 mL removed) Provider initiating work-up: VALDEZ Guerrero/Margarita Merino DO Date of clinic appointment: 08/16/2024 @11:20 am Latest Reference Range & Units 10/15/21 14:13 11/19/21 08:39 05/14/22 14:05 11/06/22 15:07 05/11/23 10:23 03/14/24 11:04 Sodium 135 - 146 mmol/L 138 140 140 135 Potassium 3.5 - 5.1 mmol/L 4.0 4.2 4.1 4.3 Chloride 98 - 107 mmol/L 106 106 106 102 CO2 22 - 32 mmol/L 26 26 27 24 BUN 6 - 20 mg/dL 11 13 14 22 (H) Creatinine 0.6 - 1.2 mg/dL 0.6 0.7 0.7 0.9 Estimated Glomerular Filtration Rate >=60 mL/min >90 >90 >90 >90 Anion Gap 7 - 15 mmol/L 6 (L) 8 7 9 Glucose 70 - 120 mg/dL 125 (H) 104 85 67 (L) Calcium 8.4 - 10.2 mg/dL 9.1 8.7 9.0 9.0 Protein 6.0 - 8.3 g/dL 6.6 6.8 6.2 7.0 Alpha-Fetoprotein Tumor Marker 0.0 - 8.3 ng/mL 7.7 5.5 6.2 INR 0.8 - 1.2 1.3 (H) 1.3 (H) 1.6 (H) Prothrombin Time 11.6 - 15.2 sec 16.0 (H) 16.03 (H) 19.6 (H) WBC 4.00 - 10.80 K/uL 3.56 (L) 3.74 (L) 3.06 (L) 7.37 HGB 14.0 - 16.8 g/dL 12.0 (L) 10.04 (L) 10.0 (L) 10.0 (L) HCT 40.0 - 48.4 % 35.6 (L) 32.4 (L) 29.3 (L) 28.6 (L) MCV 82.0 - 99.5 fL 92.0 91.5 89.3 95.7 PLT 140 - 400 K/uL 73 (L) 84 (L) 59 (L) 137 (L) Hepatitis A Ab Total Negative Positive Hepatitis B Surface Ag Negative Hepatitis B Surface Ab Negative <3.5 Negative^ <3.5 Hepatitis B Core Ab Total Negative HCV Genotype 1a HEPATITIS C RNA QUANTITATIVE 2,680,000 1,520,000 1,050,000 HIV AG & AB Negative Albumin 3.8 - 5.0 g/dL 3.7 (L) 3.3 (L) 3.2 (L) 3.3 (L) AST 10 - 50 U/L 173 (H) 144 (H) 109 (H) 127 (H) ALT 10 - 50 U/L 145 (H) 97 (H) 76 (H) 79 (H) Alkaline Phosphatase 35 - 130 U/L 153 (H) 213 (H) 138 (H) 170 (H) Bilirubin, Total <=1.2 mg/dL 0.9 1.1 0.9 3.0 (H) Bilirubin, Direct 1.5 (H) Ethanol, Medical Negative ^The patient completed the hepatitis A vaccination series (10/25/2021 & 04/24/2022). He also completed the hepatitis B vaccination series twice (10/30/1998, 11/28/1998, 05/01/1999 & 10/25/2021, 11/25/2021, 04/24/2022). The patient remains non-immune and after 2 full series is deemed a non-responder. No further vaccinations are warranted at this time. Liver Biopsy 10/22/2021 Left liver lobe, needle [...] (stage IV). The PASD stain shows focal [id number] globules at periportal area. The iron stain [...] of cirrhosis. Splenomegaly Ascites present US Abdomen scheduled for 03/28/2024 MTM Plan: Will follow-up with the patient once the repeat labs are available to review. Lab ordered: Urine Toxicology Denise Liang PharmD, [facility] Clinical Pharmacist, Hepatology 03/23/2024 12:23 PM documented in this encounter Plan of Treatment Upcoming Encounters Date Type Department Care Team (Late st Contact Info) Description 03/28/2024 12:30 PM EST Imaging Radiology, [facility] [address] [place] [phone] 03/29/2024 7:00 AM EST Pharmacy Hepatology, [place] [address] [place] [address] [place], Pharmacist Hepatology [address] [place] [address] 08/16/2024 11:20 AM EDT Office Visit Hepatology, [facility] [address] [facility] [place] [address] Margarita Merino DO [address] [facility] [place] [address] Scheduled Orders Name Type Priority Associated Diagnoses Orde r Schedule TOXICOLOGY, URINESCREEN W/ CONFIRMATION Lab Routine Chronic hepatitis C without hepatic coma (HCC) Expected: 03/23/2024, Expires: 03/23/2025 Health Maintenance Due Date Last Done Comments [...] hepatitis C without mention of hepatic coma documented in this encounter Care Teams Explosives Detonator Relationship Specialty Start Date End Date Jose Chowdhury MD [address] [place] [address] PCP - General 11/10/99 documented as of this encounter
--- OUTSIDE RECORDS SUMMARY | 2024-04-21 05:09 | External Medical Summary | Summary of Care ---
Author Name Unknown Organization [facility] Address [address] [place] [address] Phone [phone] Care Team Providers Care Cellular Tower Climber Name Role Phone Jose Chowdhury MD Primary Care Provider +1- [phone] Encounter Details Date Type Department Care Team (Late st Contact Info) Description 03/17/2024 Orders Only PATIENT PORTAL DO NOT DELETE THIS DEPT USED BY [place] [id number] Allergies No known active allergiesdocumented as of this encounter (statuses as of 03/17/2024) Medications hydrOXYzine HCl 25 MG Oral Tablet [...] as of this encounter (statuses as of 03/17/2024) Active Problems Problem Noted Date Diagnosed Date [...] as of this encounter (statuses as of 03/17/2024) Resolved Problems Problem Noted Date Diagnosed Date [...] as of this encounter (statuses as of 03/17/2024) Immunizations Name Administration Dates Next Due HEP [...] Description 03/21/2024 7:00 AM EST Pharmacy [facility], [place] [address] [facility] [place] [address] [place], Pharmacist Hepatology [address] [place] [address] 04/18/2024 10:30 AM EDT [facility] [place] [facility] [address] [place] [phone] 08/16/2024 11:20 AM EDT Office Visit Hepatology, [facility] [address] [facility] [place] [address] Margarita Merino DO [address] [place] [address] Health Maintenance Due Date Last Done Comments [...] filedocumented as of this encounter Care Teams Cellular Tower Climber Relationship Specialty Start Date End Date Jose Chowdhury MD PCP - General 11/10/99 documented as of this encounter
--- OUTSIDE RECORDS SUMMARY | 2024-04-21 05:10 | External Medical Summary | Summary of Care ---
Author Name Unknown Organization [facility] Address [address] [place] [address] Phone [phone] Care Team Providers Care Veterinary Assistant Name Role Phone Jose Chowdhury MD Primary Care Provider +1- [phone] Reason for Visit * Reason Onset Date Comments Medication Refill 03/14/2024 Encounter Details Date Type Department Care Team (Late st Contact Info) Description 03/14/2024 Refill Hepatology, [facility] [address] [place] [address] Margarita Mendoza DO [address] [place] [address] Allergies No known active allergiesdocumented as of this encounter (statuses as of 03/15/2024) Medications busPIRone HCl 15 MG Oral Tablet (Buspar) Take 1 Tablet by mouth in the morning and 1 Tablet before bedtime. 60 Tablet 3 4 Active Additional Information Patient taking differently:15 mg OralHS, Reported on 03/14/2024 hydrOXYzine HCl 25 MG Oral Tablet Take 1 Tablet by mouth 3 times a day as needed for Anxiety. 40 Tablet 2 4 Active Spironolactone 100 MG Oral Tablet (Aldactone)Nancy cations:Other ascites Take 2 Tablets by mouth in the morning. 90 Tablet 1 01/26/2024 2:28 PM EST 4 Active Omeprazole 20 MG Oral Capsule Delayed Release (PriLOSEC) Take 1 Capsule by mouth in the morning. 90 Capsule 2 5 Active Omeprazole 20 MG Oral Capsule Delayed Release (PriLOSEC)Indic ations:Cirrhosi s of liver with ascites, unspecified hepatic cirrhosis type (HCC),Chronic hepatitis C without hepatic coma (HCC) Take 1 Capsule by mouth in the morning. 90 Capsule 3 03/14/2024 11:15 AM EST 5 025 Discontin ued(Medic ation List Clean Up) documented as of this encounter (statuses as of 03/15/2024) Active Problems Problem Noted Date Diagnosed Date [...] as of this encounter (statuses as of 03/15/2024) Resolved Problems Problem Noted Date Diagnosed Date [...] as of this encounter (statuses as of 03/15/2024) Immunizations Name Administration Dates Next Due HEP [...] encounter Miscellaneous Notes * Telephone Encounter - Vernon Wayne [facility] - 03/15/2024 9:51 AM ESTSigned Prescriptions: Disp Refills Omeprazole 20 MG Oral Capsule Delayed Rele*90 Cap*2 Sig: Take 1Capsule by mouth in the morning.Authorizing Provider: MARGARITA MENDOZA User: VERNON WAYNE * Telephone Encounter - Vernon Wayne [facility] - 03/15/2024 9:50 AM EST Rerouted remaining refills to new pharmacy as requested. Thank you, Vernon Wayne, PharmD Clinical Pharmacist [facility] 03/15/24 9:50 AM [phone] documented in this encounter Plan of Treatment Upcoming Encounters Date Type Department Care Team (Late st Contact Info) Description 03/21/2024 7:00 AM EST Pharmacy Hepatology, [place] [address] [place] [address] [place], Pharmacist Hepatology [facility] [place] [address] 04/18/2024 10:30 AM EDT Imaging Radiology, [address] [place] [phone] 08/16/2024 11:20 AM EDT Office Visit Hepatology, [facility] [address] [place] [address] Margarita Mendoza, [address] [place] [address] Health Maintenance Due Date Last Done Comments [...] filedocumented as of this encounter Care Teams Veterinary Assistant Relationship Specialty Start Date End Date Jose Chowdhury MD PCP - General 11/10/99 documented as of this encounter
--- OUTSIDE RECORDS SUMMARY | 2024-04-21 05:10 | External Medical Summary | Summary of Care ---
Author Name Unknown Organization [facility] Address [address] [place] [address] Phone [phone] Care Team Providers Care Ultrasound Technician Name Role Phone Jose Chowdhury MD Primary Care Provider +1- [phone] Encounter Details Date Type Department Care Team (Late st Contact Info) Description 03/14/2024 Telephone Hepatology, [facility] [address] [place] [address] Margarita Merino DO [address] [place] [address] Allergies No known active allergiesdocumented as of [...] Capsule 3 03/14/2024 11:15 AM EST 5 Active Furosemide 40 MG Oral Tablet (Lasix)Indicati ons:Other ascites Takes 2 tablets (80 mg) in AM and 1 tablet (40 mg) in PM 270 Tablet 1 5 Active Furosemide 40 MG Oral Tablet (Lasix)Indicati ons:Other ascites Take 2 Tablets by mouth in the morning. 90 Tablet 1 01/26/2024 2:28 PM EST 4 025 Discontin ued(Refil l) documented as of this encounter (statuses as [...] encounter Miscellaneous Notes * Telephone Encounter - Margarita Merino, - 03/14/2024 3:58 PM EST Please let [...] a script to the pharmacy ([facility] in [facility] listed as pharmacy). Repeat BMP in 1 [...] Description 03/21/2024 7:00 AM EST Pharmacy Hepatology, [place] [address] [facility] [place] [address] [place], Pharmacist [facility]atology [address] [facility] [address] 04/18/2024 10:30 AM EDT [facility] [place] [facility] [place] [phone] 08/16/2024 11:20 AM EDT Office Visit Hepatology, [facility] 132 [facility] [place] [address] Margarita Merino DO [address] [facility] [place] [address] Scheduled Orders Name Type Priority Associated Diagnoses [...] ascites documented in this encounter Care Teams Ultrasound Technician Relationship Specialty Start Date End Date Jose Chowdhury MD PCP - General 11/10/99 documented as of this encounter
--- OUTSIDE RECORDS SUMMARY | 2024-04-21 05:10 | External Medical Summary | Summary of Care ---
Author Name Unknown Organization [facility] Address [address] [place] [address] Phone [phone] Care Team Providers Care Speech Language Pathology Assistant Name Role Phone Jose Chowdhury MD Primary Care Provider +1- [phone] Reason for Visit * Reason Onset Date Comments Test Results 03/14/2024 Encounter Details Date Type Department Care Team (Late st Contact Info) Description 03/14/2024 Telephone Hepatology, [facility] [address] [place] [address] Margarita Merino DO [address] [place] [address] Test Results Allergies No known active allergiesdocumented as of this encounter (statuses as of 03/15/2024) Medications hydrOXYzine HCl 25 MG Oral Tablet Take 1 Tablet by mouth 3 times a day as needed for Anxiety. 40 Tablet 2 4 Active Spironolactone 100 MG Oral Tablet (Aldactone)Indic ations:Other ascites Take 2 Tablets by mouth in the morning. 90 Tablet 1 01/26/2024 2:28 PM EST 4 Active Furosemide 40 MG Oral Tablet [...] PM EST 4 03/14/19 25 Discontinu ed(Refill) Omeprazole 20 MG Oral [...] 03/15/2024) Immunizations Name Administration Dates Next Due DTaP [...] No 09/01/2023 Does the household have a [facility] source of income? (Household - for [...] a script to the pharmacy ([facility] in [facility] listed as pharmacy). Repeat BMP in 1 [...] Pharmacy Hepatology, [place] [address] [place] [address] [place], Pharmacist Hepatology [address] [facility] [place] [address] 04/18/2024 10:30 AM EDT Imaging [place], [place] [address] [place] [phone] 08/16/2024 11:20 AM EDT Office Visit Hepatology, [facility] [address] [place] [address] Margarita Merino DO [address] [place] [address] Scheduled Orders Name Type Priority Associated Diagnoses [...] ascites documented in this encounter Care Teams Speech Language Pathology Assistant Relationship Specialty Start Date End Date Jose Chowdhury MD PCP - General 11/10/99 documented as of this encounter
--- OUTSIDE RECORDS SUMMARY | 2024-04-21 05:10 | External Medical Summary | Summary of Care ---
Author Name Unknown Organization [facility] Address [address] [place] [address] Phone [phone] Care Team Providers Care Cutting Table Operator First Name Role Phone Jose Chowdhury MD Primary Care Provider +1- [phone] Encounter Details Date Type Department Care Team (Late st Contact Info) Description 02/23/2024 Result Scan Unspecified Department Margarita Merino DO [address] [place] [address] <No scans attached> Allergies No known active allergiesdocumented as of this encounter (statuses as of 02/24/2024) Medications Tylenol 325 MG Oral Capsule (Acetaminophen) Start: 07/22/21 15:17:00 EDT, PO, bid 2 Active Diclofenac Sodium 1 % External Gel (Voltaren) Apply 1 g topically to affected area in the morning and 1 g before bedtime. 100 g 3 3 Active Additional Information Patient not taking.Reported on 02/01/2024 busPIRone HCl 15 MG Oral Tablet (Buspar) Take 1 Tablet by mouth in the morning and 1 Tablet before bedtime. 60 Tablet 3 4 Active Additional Information Patient taking differently:15 mg OralHS, Reported on 02/01/2024 hydrOXYzine HCl 25 MG Oral Tablet Take 1 Tablet by mouth 3 times a day as needed for Anxiety. 40 Tablet 2 4 Active Omeprazole 20 MG Oral Capsule Delayed Release (PriLOSEC) Take 1 Capsule by mouth in the morning. 30 Capsule 1 4 Active Furosemide 40 MG Oral Tablet (Lasix)Indicati ons:Other ascites Take 2 Tablets by mouth in the morning. 90 Tablet 1 01/26/2024 2:28 PM EST 4 Active Spironolactone 100 MG Oral Tablet (Aldactone)Nancy cations:Other ascites Take 2 Tablets by mouth in the morning. 90 Tablet 1 01/26/2024 2:28 PM EST 4 Active documented as of this encounter (statuses as of 02/24/2024) Active Problems Problem Noted Date Diagnosed Date [...] as of this encounter (statuses as of 02/24/2024) Resolved Problems Problem Noted Date Diagnosed Date [...] as of this encounter (statuses as of 02/24/2024) Immunizations Name Administration Dates Next Due HEP [...] Team (Late st Contact Info) Description 03/14/2024 10:40 AM EST Office Visit Hepatology, [facility] [address] [place] [address] Margarita Merino DO [address] [place] [address] 03/21/2024 7:00 AM EST Pharmacy Hepatology, [place] [address] [place] [facility] [address] [place], Pharmacist Hepatology [address] [place] [address] 04/18/2024 10:30 AM EDT Imaging Radiology, [place] [facility] [address] [place] [phone] Health Maintenance Due Date Last Done Comments Pneumococcal Vaccine: Pediatrics (0 to 5 Years) and At-Risk Patients (6 to 18 Years and 19+ Years) (1 of 2 - PCV) 09/29/2002 Lipid Panel 11/08/2018 11/08/2013 COVID-19 Vaccine ( - season) 2023 Influenza Vaccine (FLU shot) (#1) 2023 Depression Monitoring 01/31/2025 02/01/2024 Diabetes Screening 01/31/2027 02/01/2024, 1 03/27/2023, 05/11/2023, Additional history exists DTap/Tdap Vaccines (8 - [...] Date/Time Associated Diagnosis Comments RADIOLOGY SCANNED RESULT 02/23/2024 documented in this encounter Results * RADIOLOGY SCANNED RESULT (02/23/2024) 02/23/2024 us Margarita Merino DO DIAGNOSTIC RADIOLOGY S [facility] Final Result documented in this encounter Care Teams Cutting Table Operator First Relationship Specialty Start Date End Date Jose Chowdhury MD PCP - General 11/10/99 documented as of this encounter
--- OUTSIDE RECORDS SUMMARY | 2024-04-21 05:10 | External Medical Summary ---
Author Name Unknown Address Unknown Organization [facility] [place] [address] [place] [address] Laboratory Report Ordering Provider Test Date Status EKLLY MISHRA 03/14/2024 11:04:59 Final Observation Date Value Abnormality Reference (Units ) Status BUN 03/14/2024 11:04:59 22 Above high normal 6-20 (mg/dL) Final Creatinine 03/14/2024 11:04:59 0.9 0.6-1.2 (mg/dL) Final Glomerular filtration rate/1.73 sq M.predicted [Volume Rate/Area] in Serum, Plasma or Blood by Creatinine-based formula (CKD-EPI) 03/14/2024 11:04:59 >90 >=60 (mL/min) Final eGFR is calculated based on the CKD-EPI 2020 equation. Sodium 03/14/2024 11:04:59 135 135-146 (m mol/L) Final Potassium 03/14/2024 11:04:59 4.3 3.5-5.1 (m mol/L) Final Cl 03/14/2024 11:04:59 102 98-107 (mm ol/L) Final CO2 03/14/2024 11:04:59 24 22-32 (mmo l/L) Final Anion gap 03/14/2024 11:04:59 9 7-15 (mmol /L) Final Glucose 03/14/2024 11:04:59 67 Below low normal 70- 120 (mg/dL) Final Calcium 03/14/2024 11:04:59 9.0 8.4-10.2 ( mg/dL) Final Performing Location [facility] [address] [place] [address]
--- OUTSIDE RECORDS SUMMARY | 2024-04-21 05:10 | External Medical Summary ---
Author Name Unknown Address Unknown Organization [facility] [place] [address] [place] [address] Laboratory Report Ordering Provider Test Date Status KELLY MISHRA 03/14/2024 11:04:59 Final Observation Date Value Abnormality Reference (Units ) Status SYNC LEUKOCYTES IN BLOOD BY AUTOMATED COUNT 03/14/2024 11:04:59 7.37 4.00-10.80 (K/uL) Final Segs 03/14/2024 11:04:59 51.4 40.0-75.0 (%) Final Lymphs % 03/14/2024 11:04:59 25.1 18.0-42.0 (%) Final Monos 03/14/2024 11:04:59 19.4 Above high normal 1.0-11.0 (%) Final Eosinophils 03/14/2024 11:04:59 3.3 0.0-6.0 (%) Final Basos 03/14/2024 11:04:59 0.8 0.0-2.0 (%) Final Absolute Segs 03/14/2024 11:04:59 3.79 1.80-7.70 (K/uL) Final Lymphs, absolute 03/14/2024 11:04:59 1.85 1.00-4.80 (K/ul) Final Monos, Abs 03/14/2024 11:04:59 1.43 Above high normal 0.00-1.10 (K/uL) Final Eos, Abs 03/14/2024 11:04:59 0.24 0.00-0.70 (K/uL) Final Basos, Abs 03/14/2024 11:04:59 0.06 0.00-0.20 (K/uL) Final Performing Location [facility] [place] [address] [place] [address]
--- OUTSIDE RECORDS SUMMARY | 2024-04-21 05:10 | External Medical Summary ---
Author Name Unknown Address Unknown Organization [facility] [place] [address] - [address] [place] [address] Laboratory Report Ordering Provider Test Date Status KELLY MISHRA 03/14/2024 11:04:59 Final Warfarin Therapy
INR: 2 .0-3.0 conventional anticoagulation
INR: 2.5- 3.5 high intensity anticoagulation Observation Date Value Abnormality Reference (Units ) Status PT 03/14/2024 11:04:59 19.6 Above high normal 11 .6-15.2 (seconds) Final INR 03/14/2024 11:04:59 1.6 Above high normal 0. 8-1.2 Final Performing Location [facility] [place] [address] [place] [address]
--- OUTSIDE RECORDS SUMMARY | 2024-04-21 05:10 | External Medical Summary ---
Author Name Unknown Address Unknown Organization [facility] [place] [facility] [address] - [address] [place] [address] Laboratory Report Ordering Provider Test Date Status KELLY MISHRA 03/14/2024 11:04:59 Final Observation Date Value Abnormality Reference (Units ) Status Nucleated erythrocytes/100 leukocytes [Ratio] in Blood by Automated count 03/14/2024 11:04:59 Final Performing Location [facility] [place] [facility] [address] [place] [address]
--- OUTSIDE RECORDS SUMMARY | 2024-04-21 05:10 | External Medical Summary | Summary of Care ---
Author Name Unknown Organization [facility] Address [address] [place] [address] Phone [phone] Care Team Providers Care Data Management Name Role Phone Jose Chowdhury MD Primary Care Provider +1- [phone] Encounter Details Date Type Department Care Team (Late st Contact Info) Description 02/29/2024 Population Health External Data Unspecified Department Allergies No known active allergiesdocumented as of this encounter (statuses as of 02/29/2024) Medications Tylenol 325 MG Oral Capsule (Acetaminophen) [...] as of this encounter (statuses as of 02/29/2024) Active Problems Problem Noted Date Diagnosed Date [...] as of this encounter (statuses as of 02/29/2024) Resolved Problems Problem Noted Date Diagnosed Date [...] as of this encounter (statuses as of 02/29/2024) Immunizations Name Administration Dates Next Due HEP [...] 03/14/2024 10:40 AM EST Office Visit Hepatology, [facility] [address] [place] [address] Margarita Merino DO [address] [place] [address] 03/21/2024 7:00 AM EST Pharmacy Hepatology, [place] [address] [place] [address] [place], Pharmacist Hepatology [address] [place] [address] 04/18/2024 10:30 AM EDT Imaging Radiology, [facility] [address] [place] [phone] Health Maintenance Due Date Last Done Comments [...] filedocumented as of this encounter Care Teams Data Management Relationship Specialty Start Date End Date Jose Chowdhury MD PCP - General 11/10/99 documented as of this encounter
--- OUTSIDE RECORDS SUMMARY | 2024-04-21 05:10 | External Medical Summary | Summary of Care ---
Author Name Unknown Organization [facility] Address [address] [place] [address] Phone [phone] Care Team Providers Care Justice Court Judge Name Role Phone Jose Chowdhury MD Primary Care Provider [phone]- [phone] Reason for Visit * Reason Onset Date Comments Med Request 02/11/2024 Encounter Details Date Type Department Care Team (Late st Contact Info) Description 02/11/2024 Telephone [facility] [address] [facility] [place] [address] Jose Chowdhury MD [address] [place] [address] Med Request Allergies No known active allergiesdocumented as of this encounter (statuses as of 03/11/2024) Medications Tylenol 325 MG Oral Capsule (Acetaminophen) [...] as of this encounter (statuses as of 03/11/2024) Active Problems Problem Noted Date Diagnosed Date [...] as of this encounter (statuses as of 03/11/2024) Resolved Problems Problem Noted Date Diagnosed Date [...] as of this encounter (statuses as of 03/11/2024) Immunizations Name Administration Dates Next Due HEP [...] encounter Miscellaneous Notes * Telephone Encounter - Katie Flynn OSA - 02/11/2024 6:38 PM EST Patient calling again to speak to a Nurse. Explained previous message and advised patient there is a 48 hour window . "Someone in background saying what if this was an emergency. I stated to patient if he was in pain or an emergency that he should go to ER. * Telephone Encounter - Ayde Tello OSA - 02/11/2024 6:20 PM EST Patient calling in to check on the status of previous message. Patient Called within 48 hour timeframe. Reminded patient of 48 hour turn-around time. * Telephone Encounter - Alana Ramos LPN - 02/11/2024 2:51 PM EST Additional Comment(s) Additional Comments: Pt stated he has not felt good for about 2 days , asking if he can have an antibiotic prescribed Patient Request Patient Requesting: Medication Prescribed Please advise. * Telephone Encounter - Mabel Garcia, roofer metal - 02/11/2024 2:23 PM EST Pt calling with complaints of not feeling well and is requesting a medication be prescribed. Pt didnot want to schedule an appointment at this time. Call details was completed, please refer to this for further information. Thank you, Mabel Garciatest and turn up technician [facility] 02/11/2024, 2:25 PM documented in this encounter Plan of Treatment Upcoming Encounters Date Type Department Care Team (Late st Contact Info) Description 03/14/2024 10:40 AM EST Office Visit Hepatology, [facility] [address] [facility] [place] [address] Margarita Merino DO [address] [facility] [place] [address] 03/21/2024 7:00 AM EST Pharmacy Hepatology, [place] [address] [place] [address] [place], Pharmacist Hepatology [address] [place] [address] 04/18/2024 10:30 AM EDT Imaging Radiology, [facility] [address] [place] [phone] Health Maintenance Due Date Last Done Comments [...] filedocumented as of this encounter Care Teams Justice Court Judge Relationship Specialty Start Date End Date Jose Chowdhury MD PCP - General 11/10/99 documented as of this encounter
--- OUTSIDE RECORDS SUMMARY | 2024-04-21 05:10 | External Medical Summary | Summary of Care ---
Author Name Unknown Organization [facility] Address [address] [place] [address] Phone [phone] Care Team Providers Care President/[employer] Name Role Phone Jose Chowdhury MD Primary Care Provider [phone]- [phone] Encounter Details Date Type Department Care Team (Late st Contact Info) Description 03/02/2024 Result Scan Unspecified Department Margarita Merino DO [address] [place] [address] <No scans attached> Allergies No known active allergiesdocumented as of this encounter (statuses as of 03/03/2024) Medications Tylenol 325 MG Oral Capsule (Acetaminophen) [...] as of this encounter (statuses as of 03/03/2024) Active Problems Problem Noted Date Diagnosed Date [...] as of this encounter (statuses as of 03/03/2024) Resolved Problems Problem Noted Date Diagnosed Date [...] as of this encounter (statuses as of 03/03/2024) Immunizations Name Administration Dates Next Due HEP [...] 03/14/2024 10:40 AM EST Office Visit Hepatology, [facility] [address] [place] [address] Margarita Merino DO [address] [place] [address] 03/21/2024 7:00 AM EST Pharmacy Hepatology, [place] [address] [place] [facility] [place] [address] [place], Pharmacist Hepatology [address] [place] [address] 04/18/2024 10:30 AM EDT Imaging Rad[facility], [place] [facility] [address] [place] [phone] Health Maintenance Due Date Last Done Comments [...] Date/Time Associated Diagnosis Comments RADIOLOGY SCANNED RESULT 03/02/2024 documented in this encounter Results * RADIOLOGY SCANNED RESULT (03/02/2024) 03/02/2024 us Margarita Merino DO DIAGNOSTIC RADIOLOGY [facility] Final Result documented in this encounter Care Teams President/[employer] Relationship Specialty Start Date End Date Jose Chowdhury MD PCP - General 11/10/99 documented as of this encounter
--- OUTSIDE RECORDS SUMMARY | 2024-04-21 05:10 | External Medical Summary | Summary of Care ---
Author Name Unknown Organization [facility] Address [address] [place] [address] Phone [phone] Care Team Providers Care Service Counter Cashier Name Role Phone Jose Chowdhury MD Primary Care Provider [phone]- [phone] Reason for Visit * Reason Comments Outpatient Testing Encounter Details Date Type Department Care Team (Late st Contact Info) Description 03/14/2024 11:10 AM EST Laboratory Laboratory, [facility] [address] [facility] [address] [place] [address] Cirrhosis of liver with ascites, unspecified hepatic cirrhosis type (HCC); Chronic hepatitis C without hepatic coma (HCC) Allergies No known active allergiesdocumented as of this encounter (statuses as of 03/14/2024) Medications busPIRone HCl 15 MG Oral Tablet [...] as of this encounter (statuses as of 03/14/2024) Active Problems Problem Noted Date Diagnosed Date [...] as of this encounter (statuses as of 03/14/2024) Resolved Problems Problem Noted Date Diagnosed Date [...] as of this encounter (statuses as of 03/14/2024) Immunizations Name Administration Dates Next Due HEP [...] Description 03/21/2024 7:00 AM EST Pharmacy Hepatology, [place] [address] [place] [facility] [place] [address] [place], Pharmacist Hepatology [address] [place] [address] 04/18/2024 10:30 AM EDT [facility], [place] [facility] [address] [facility] [place] [phone] 08/16/2024 11:20 AM EDT Office Visit Hepatology, [facility] [address] [facility] [place] [address] Margarita Merino DO [address] [facility] [place] [address] Health Maintenance Due Date Last Done Comments Pneumococcal Vaccine: Pediatrics (0 to 5 Years) and At-Risk Patients (6 to 18 Years and 19+ Years) (1 of 2 - PCV) 09/29/2002 Lipid Panel 11/08/2018 11/08/2013 COVID-19 Vaccine ( - 2023- season) 2023 Influenza Vaccine (FLU [...] Procedure Name Priority Date/Time Associated Diagnosis Comments DIFFERENTIAL, AUTOMATED Routine 03/14/2024 11:04 AM EST Cirrhosis of liver with ascites, unspecified hepatic cirrhosis type (HCC) Chronic hepatitis C without hepatic coma (HCC) HEPATIC FUNCTION PANEL Routine 03/14/2024 11:04 AM EST Cirrhosis of liver with ascites, unspecified hepatic cirrhosis type (HCC) Chronic hepatitis C without hepatic coma (HCC) BASIC METABOLIC PANEL Routine 03/14/2024 11:04 AM EST Cirrhosis of liver with ascites, unspecified hepatic cirrhosis type (HCC) Chronic hepatitis C without hepatic coma (HCC) CBC Routine 03/14/2024 11:04 AM EST Cirrhosis of liver with ascites, unspecified hepatic cirrhosis type (HCC) Chronic hepatitis C without hepatic coma (HCC) PT INR Routine 03/14/2024 11:04 AM EST Cirrhosis of liver with ascites, unspecified hepatic cirrhosis type (HCC) Chronic hepatitis C without hepatic coma (HCC) CBC Routine 03/14/2024 11:04 AM EST Cirrhosis of liver with ascites, unspecified hepatic cirrhosis type (HCC) Chronic hepatitis C without hepatic coma (HCC) DIFFERENTIAL, TECHNOLOGIST REVIEW Routine 03/14/2024 11:04 AM EST Cirrhosis of liver with ascites, unspecified hepatic cirrhosis type (HCC) Chronic hepatitis C without hepatic coma (HCC) documented in this encounter Results * DIFFERENTIAL, TECHNOLOGIST REVIEW (03/14/2024 11:04 AM EST) nRBCs 03/14/2024 12:42 PM EST [facility] Blood Venous blood specimen / Unknown Venipuncture / Unknown 03/14/2024 11:04 AM EST 03/14/2024 11:05 AM EST us Margarita Merino DO LAB BLOOD ORDERABLES F inal Result [facility] [address] [place] [address] * (ABNORMAL) DIFFERENTIAL, AUTOMATED (03/14/2024 11:04 AM EST) Pathologist [facility] WBC 7.37 4.00 - 10.80 K/uL 03/14/2024 12:42 PM EST [facility] Neutrophils % 51.4 40.0 - 75.0 % 03/14/2024 12:42 PM EST [facility] Lymphocytes % 25.1 18.0 - 42.0 % 03/14/2024 12:42 PM EST [facility] Monocytes % 19.4(H) 1.0 - 11.0 % 03/14/2024 12:42 PM EST [facility] Eosinophils % 3.3 0.0 - 6.0 % 03/14/2024 12:42 PM EST [facility] Basophils % 0.8 0.0 - 2.0 % 03/14/2024 12:42 PM EST [facility] Absolute Neutrophils 3.79 1.80 - 7.70 K/uL 03/14/2024 12:42 PM EST [facility] Absolute Lymphocytes 1.85 1.00 - 4.80 K/ul 03/14/2024 12:42 PM EST [facility] Absolute Monocytes 1.43(H) 0.00 - 1.10 K/uL 03/14/2024 12:42 PM EST [facility] Absolute Eosinophils 0.24 0.00 - 0.70 K/uL 03/14/2024 12:42 PM EST [facility]10 Absolute Basophils 0.06 0.00 - 0.20 K/uL 03/14/2024 12:42 PM EST [facility] Blood Venous blood specimen / Unknown Venipuncture / Unknown 03/14/2024 11:04 AM EST 03/14/2024 11:05 AM EST us Margarita Merino DO LAB BLOOD ORDERABLES F inal Result [facility] [address] [place] [address] * (ABNORMAL) CBC (03/14/2024 11:04 AM EST) WBC 7.37 4.00 - 10.80 K/uL 03/14/2024 12:42 PM EST [facility] RBC 2.99 4.50 - 5.25 M/uL 03/14/2024 12:42 PM EST [facility] HGB 10.0(L) 14.0 - 16.8 g/dL 03/14/2024 12:42 PM EST [facility] HCT 28.6(L) 40.0 - 48.4 % 03/14/2024 12:42 PM EST [facility] MCV 95.7 82.0 - 99.5 fL 03/14/2024 12:42 PM EST [facility] MCH 33.4 27.0 - 34.0 pg 03/14/2024 12:42 PM EST [facility] MCHC 35.0 32.0 - 36.0 g/dL 03/14/2024 12:42 PM EST [facility] RDW 18.4 11.5 - 15.5 % 03/14/2024 12:42 PM EST [facility] PLT 137(L) 140 - 400 K/uL 03/14/2024 12:42 PM EST [facility] MPV 9.4 6.6 - 11.1 fL 03/14/2024 12:42 PM EST [facility] Blood Venous blood specimen / Unknown Venipuncture / Unknown 03/14/2024 11:04 AM EST 03/14/2024 11:05 AM EST us Margarita Li [place] DO LAB BLOOD ORDERABLES F inal Result [facility] [place] [address] * (ABNORMAL) BASIC METABOLIC PANEL (03/14/2024 11:04 AM EST) BUN 22(H) 6 - 20 mg/dL 03/14/2024 12:11 PM EST [facility] CREATININE 0.9 0.6 - 1.2 mg/dL 03/14/2024 12:11 PM EST [facility] EGFR >90 >=60 mL/min 03/14/2024 12:11 PM EST [facility] Comment:eGFR is calculated b ased on the CKD-EPI 2020 equation. SODIUM 135 135 - 146 mmol/L 03/14/2024 12:11 PM EST [facility] POTASSIUM 4.3 3.5 - 5.1 mmol/L 03/14/2024 12:11 PM EST [facility] CHLORIDE 102 98 - 107 mmol/L 03/14/2024 12:11 PM EST [facility] CO2 24 22 - 32 mmol/L 03/14/2024 12:11 PM EST [facility] ANION GAP 9 7 - 15 mmol/L 03/14/2024 12:11 PM EST [facility] GLUCOSE 67(L) 70 - 120 mg/dL 03/14/2024 12:11 PM EST [facility] CALCIUM 9.0 8.4 - 10.2 mg/dL 03/14/2024 12:11 PM EST [facility] Blood Venous blood specimen / Unknown Venipuncture / Unknown 03/14/2024 11:04 AM EST 03/14/2024 11:05 AM EST Margarita Merino DO LAB BLOOD ORDERABLES F inal Result Performing Organization Address [facility]/ZIP Co de Phone Number [facility] [place] [address] * (ABNORMAL) PT INR (03/14/2024 11:04 AM EST) Prothrombin Time 19.6(H) 11.6 - 15.2 seconds 03/14/2024 11:50 AM EST [facility] INR 1.6(H) 0.8 - 1.2 03/14/2024 11:50 AM EST [facility] Blood Venous blood specimen / Unknown Venipuncture / Unknown 03/14/2024 11:04 AM EST 03/14/2024 11:05 AM EST Narrative [facility] - 03/14/2024 11:50 AM EST Warfarin Therapy INR: 2.0-3.0 conventional anticoagulation INR: 2.5-3.5 high intensity anticoagulation Margarita Merino DO LAB BLOOD ORDERABLES F inal Result Performing Organization Address [facility] Co de Phone Number [facility] [place] [address] * (ABNORMAL) HEPATIC FUNCTION PANEL (03/14/2024 11:04 AM EST) Albumin 3.3(L) 3.8 - 5.0 g/dL 03/14/2024 12:11 PM EST [facility] AST 127(H) 10 - 50 U/L 03/14/2024 12:11 PM EST [facility] Alkaline Phosphatase 170(H) 35 - 130 U/L 03/14/2024 12:11 PM EST [facility] ALT 79(H) 10 - 50 U/L 03/14/2024 12:11 PM EST [facility] Bilirubin, Total 3.0(H) <=1.2 mg/dL 03/14/2024 12:11 PM EST [facility] Bilirubin, Direct 1.5(H) 0.0 - 0.3 mg/dL 03/14/2024 12:11 PM EST [facility] Protein 7.0 6.0 - 8.3 g/dL 03/14/2024 12:11 PM EST [facility] Blood Venous blood specimen / Unknown Venipuncture / Unknown 03/14/2024 11:04 AM EST 03/14/2024 11:05 AM EST Margarita Merino DO LAB BLOOD ORDERABLES F inal Result [facility] [address] [facility] [place] [address] documented in this encounter Visit Diagnoses Diagnosis Cirrhosis of liver with ascites, unspecified hepatic cirrhosis type (HCC) Chronic hepatitis C without hepatic coma (HCC) Chronic hepatitis C without mention of hepatic coma documented in this encounter Care Teams Service Counter Cashier Relationship Specialty Start Date End Date Jose Chowdhury MD PCP - General 11/10/99 documented as of this encounter
--- OUTSIDE RECORDS SUMMARY | 2024-04-21 05:10 | External Medical Summary | Summary of Care ---
Author Name Unknown Organization [facility] Address [address] [place] [address] Phone [phone] Care Team Providers Care Seed Cleaner Name Role Phone Jose Chowdhury MD Primary Care Provider [phone] Reason for Visit * Reason Comments Liver Disease Encounter Details Date Type Department Care Team (Late st Contact Info) Description 03/14/2024 10:40 AM EST Office Visit Hepatology, [facility] [address] [place] [address] Margarita Merino DO [address] [place] [address] Cirrhosis of liver with ascites, unspecified hepatic cirrhosis type (HCC)*; Chronic hepatitis C without hepatic coma (HCC) Allergies No known active allergiesdocumented as of this encounter (statuses as of 03/14/2024) Medications busPIRone HCl 15 MG Oral Tablet (Buspar) Take 1 Tablet by mouth in the morning and 1 Tablet before bedtime. 60 Tablet 3 09/01/19 24 Active Additional Information Patient taking differently:15 mg OralHS, Reported on 03/14/2024 hydrOXYzine HCl 25 MG Oral Tablet Take 1 Tablet by mouth 3 times a day as needed for Anxiety. 40 Tablet 2 09/01/19 24 Active Spironolactone 100 MG Oral Tablet (Aldactone)Ind ications:Other ascites Take 2 Tablets by mouth in the morning. 90 Tablet 1 4 2:28 PM EST 01/26/20 24 Active Omeprazole 20 MG Oral Capsule Delayed Release (PriLOSEC)Nancy cations:Cirrho sis of liver with ascites, unspecified hepatic cirrhosis type (HCC),Chronic hepatitis C without hepatic coma (HCC) Take 1 Capsule by mouth in the morning. 90 Capsule 3 5 11:15 AM EST 03/14/19 25 Active Tylenol 325 MG Oral Capsule (Acetaminophen ) Start: 07/22/21 15:17:00 EDT, PO, bid 07/23/19 22 025 Discontinued Diclofenac Sodium 1 % External Gel (Voltaren) Apply 1 g topically to affected area in the morning and 1 g before bedtime. 100 g 3 11/07/19 23 025 Discontinued Omeprazole 20 MG Oral Capsule Delayed Release (PriLOSEC) Take 1 Capsule by mouth in the morning. 30 Capsule 1 12/07/19 24 025 Discontinued(R efill) Furosemide 40 MG Oral Tablet (Lasix)Indicat ions:Other ascites Take 2 Tablets by mouth in the morning. 90 Tablet 1 4 2:28 PM EST 01/26/20 24 025 Discontinued(R efill) documented as of this encounter (statuses as [...] No 09/01/2023 Does the household have a [facility]? (Household - for [...] AM EDT documented as of this encounter Last Filed Vital Signs Vital Sign Reading Time Taken Comments Blood Pressure 141/87 03/14/2024 10:31 AM EST Pulse 101 03/14/2024 10:31 AM EST Temperature 36.6 C (97.9 F) 03/14/2024 10:[address] Respiratory Rate - - Oxygen Saturation - - Inhaled Oxygen Concentration - - Weight 84.5 kg (186 lb 4.8 oz) 03/14/2024 10:31 AM EST Height - - Body Mass Index 30.07 02/01/2024 12:20 PM EST documented in this encounter Progress Notes * Margarita Merino, DO - 03/14/2024 10:34 AM EST CC: follow up History of Present Illness: Armin Ulloa is a 38 year old M with history of 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 He has been extremely non-compliant. Has failed to get the required labs needed for HCV treatment. Fails to get the labs or get the urine tox done. Not agreeable to complete the utox. The diagnosis of hepatitis C was made a couple years ago per his report. The patient has history of the following risk of kalie Hepatitis C: No report of ETOH use at all No report of IV/IN drug use Has two tattoo's, done at a camp by some people No piercing's No report of blood transfusion or organ transplants Hepatitis C Treatment History: Treatment [facility] Co-Infections: None HCV Genotype: 1a Fibrosis Staging: biopsy proven cirrhosis Last Viral Load : 1, 520, 000 At last visit his lasix was increased to 80 mg daily and aldactone 200 mg daily from 40/100. He admits he is not fully compliant following a low salt diet. He states he is not reading all his food labels. The week he required 9L removed he states he was eating a lot of buffalo sauce and dip and that was very high in sodium. He is trying to be better now to read his food labels but he states this week he ate a lot of pork and schmidt and now his ascites got bad again this week. He is still requiring a weekly paracentesis. 4.8L removed last week and the week prior to that was 9L. He was 209 lbs at last visit 01/25 and is 186 lbs today. His lower extremity swelling is what he feels has improved the most but still has large ascites. Decompensations: Varices: yes Ascites: yes SBP: no HRS: no HE: no HCC: no Screening: EGD: 09/2022- grade II EV. Banded. 11/2023- grade I varices Liver imagin10/2023- no liver lesions but noted to have ascites Review of systems: Positives in HPI. Negative for: Denies headache, lightheadedness, chest pain, cough, SOB, fever, chills, nausea, vomiting, heart burn, bloating, decreased appetite, early satiety, abdominal pain, diarrhea, fecal incontinence, constipation, rectal bleeding, weight loss, dysuria, frequency, incontinence, joint pain, back pain, weakness, fatigue, anxiety, depressed mood, difficulty sleeping. The remaining ROS reviewed and are negative. Past Medical History: Diagnosis Date Allergic rhinitis Cirrhosis (HCC) Varicella without complication about age 3 Past Surgical History: Procedure Laterality Date EGD, FLEXIBLE, DIAGNOSTIC 10/22/2021 portal hypertensive gastropathy, eso varices, repeat 6 mo / ESOPHAGOGASTRODUODENOSCOPY (EGD), FLEXIBLE, TRANSORAL, DIAGNOSTIC performed by Mari Gordon MD at [facility] EGD, FLEXIBLE, DIAGNOSTIC 2022 esophageal varices, portal hypertensive gastropathy, repeat 8 wks / ESOPHAGOGASTRODUODENOSCOPY (EGD), FLEXIBLE, TRANSORAL, DIAGNOSTIC performed by Margarita Merino DO at [facility] EGD, FLEXIBLE, DIAGNOSTIC 12/07/2023 grade I esophageal varices/portal hypertensive gastropathy/mild bulbar inflammation/ESOPHAGOGASTRODUODENOSCOPY (EGD), FLEXIBLE, TRANSORAL, DIAGNOSTIC performed by Hanna Tejeda MD at [facility] EGD, W/ENDOSCOPIC US 10/22/2021 Cirrhosis, Chronic hepatitis with mild macrovesicular steatosis, lymph node bx - small lymphoid population with atypia / ESOPHAGOGASTRODUODENOSCOPY (EGD), FLEXIBLE, TRANSORAL, ENDOSCOPIC ULTRASOUND performed by Mari Gordon MD at [facility] Family History Problem Relation Name Age of Onset Hypertension Father Cancer Other MGGM- breast, MGGF-skin Diabetes Other Heart Disorder Other Stroke Other Current Outpatient Medications Medication Sig Dispense Refill busPIRone HCl 15 MG Oral Tablet (Buspar) Take 1 Tablet by mouth in the morning and 1 Tablet before bedtime. (Patient taking differently: Take 1 Tablet by mouth at bedtime.) 60 Tablet 3 hydrOXYzine HCl 25 MG Oral Tablet Take 1 Tablet by mouth 3 times a day as needed for Anxiety. 40 Tablet 2 Furosemide 40 MG Oral Tablet (Lasix) Take 2 Tablets by mouth in the morning. 90 Tablet 1 Spironolactone 100 MG Oral Tablet (Aldactone) Take 2 Tablets by mouth in the morning. 90 Tablet 1 Omeprazole 20 MG Oral Capsule Delayed Release (PriLOSEC) Take 1 Capsule by mouth in the morning. (Patient not taking: Reported on 03/14/2024) 30 Capsule 1 No current facility-administered medications for this visit. Review of patient's allergies indicates: No Known Allergies Physical Exam: vitals: BP 141/87 | Pulse 101 | Temp 36.6 C (97.9 F) | Wt 84.5 kg (186 lb 4.8 oz) | BMI 30.07 kg/m | BSA 1.98 m Notable sarcopenia and temporal muscle wasting Eyes: Conjunctivae and sclerae are clear and non-icteric. CV: Heart is regular without murmur, rub or sadiq. Pulm: Diminished at the bases bilaterally GI: Abdomen is distended with large ascites, tense, non-tender, + fluid wave, notable umbilical hernia Psychiatric: The patient is alert and oriented in all four spheres. Mood is euthymic. Affect is appropriate for the situation. Skin: No rashes were noted. Extremities: 2+ lower extremity swelling improved from prior Musculoskeletal: Gait is normal. Patient is able to transfer from sitting position to exam table without assistance. Recent Labs: Reviewed MELD 3.0: 16 at 01/25/2024 9:20 AM Calculated from: Serum Creatinine: 0.7 mg/dL (Using min of 1 mg/dL) at 01/25/2024 9:20 AM Serum Sodium: 133 mmol/L at 01/25/2024 9:20 AM Total Bilirubin: 1.7 mg/dL at 01/25/2024 9:20 AM Serum Albumin: 2.8 g/dL at 01/25/2024 9:20 AM INR(ratio): 1.5 at 01/25/2024 9:20 AM Age at listing (hypothetical): 38 years Sex: Male at 01/25/2024 9:20 AM Recent Imaging Studies: Reviewed Abdominal US 10/19/2023: IMPRESSION: Cholelithiasis. Calculus felt relatively immobile. Nonspecific mild gallbladder wall thickening. Nonspecific hepatic findings compatible with patient's clinical diagnosis of cirrhosis. Splenomegaly Ascites present Abdominal US 04/22/2023: IMPRESSION: Cholelithiasis. Nonspecific ultrasound findings again compatible with patient's clinical diagnosis of cirrhosis. Last imagin05/19/2022 CT Chest/Abdomen: LIVER: Diffusely nodular in contour compatible with history of cirrhosis. Hepatic vasculature is patent. No focal liver lesions on this single phase examination. SPLEEN: Homogeneously enlarged in keeping with portal hypertension. LYMPH NODES: A few mildly prominent periportal and gastrohepatic lymph nodes, the largest measuringup to 23 x 21 mm (series 15, image 278), previously non FDG avid, unchanged in size, in proportion to the other findings of chronic liver disease and portal congestion. VASCULATURE: Patent portal and hepatic veins. Spontaneous splenorenal shunt as well as numerous other upper abdominal varices in keeping with portal hypertension.. PERITONEUM/RETROPERITONEUM: Suggestion of retroperitoneal and central mesenteric edema also trivialbelow portal hypertension. Small volume simple appearing ascites in the dependent pelvis. IMPRESSION: 1. Mild prominence of periportal and cardiophrenic lymph nodes, unchanged, previously non FDG avid,an overall pattern commonly reactive to or congested by chronic liver disease, and in this case seemingly in proportion to the degree of advanced cirrhosis with portal hypertension. Accompanying esophageal varices, splenomegaly, and small volume ascites. Also suspect a component of congestive enteropathy. Pet scan 12/2021: IMPRESSION 1. Abnormal appearance of the mediastinum and the upper abdomen as described without significant hypermetabolic abnormality. Findings are compatible with the peripancreatic fine needle aspiration karen biopsy as well as with the history of cirrhosis. 2. Cirrhotic liver with splenomegaly and varices 3. Other CT changes as noted. Recent Endoscopic Procedures: Reviewed EGD 12/07/2023: Normal esophagus. - Grade I esophageal varices. - Z-line regular, 39 cm from the incisors. - Portal hypertensive gastropathy. - Mild bulbar inflammation in the duodenal bulb and second portion of the duodenum. EGD 2022: Impression: - Z-line regular, 39 cm from the incisors. - Grade II esophageal varices with no bleeding and no stigmata of recent bleeding. Completely eradicated. Banded. - Portal hypertensive gastropathy. - Normal duodenal bulb and second portion of the duodenum. - No specimens collected. Assessment and plan: Armin Ulloa is a 38 year old M with history of decompensated chronic HCV cirrhosis c/b large EVrequiring EVL and ascites requiring weekly paracentesis here today for follow up. He has been extremely non-compliant. Has failed to get the required labs needed for HCV treatment. Fails to get the labs or get the urine tox done. -Liver disease severity. Pt.'s last MELD was 16. -Variceal screening: EGD 09/2022 with grade II EV banded. Repeat EGD 12/07/2023 with grade I EV. Repeat again in 1 year or sooner in event of decompensation. -Fluid status: on exam today he has 2+ lower extremity swelling (significantly improved from last visit in October when he had 4+) but large and tense ascites. Currently on lasix 80 mg daily and aldactone 200 mg daily. Still requiring weekly paracentesis but he does admit he has not been following a low salt diet as he should eating pork, schmidt, and buffalo sauce with dip. He has been going every Thursday for paracentesis for the past month. He does feel overall the ascites is better. We discussed importance of needing to read every food label and limit to no more than 2000 mg and also follow a 1.5L fluid restriction. He is going to get labs today as he did not get them after I increased diuretics at last visit. If electrolytes and kidney function look good will plan to increase lasix to80 mg in AM and 40 mg in afternoon along with aldactone. He will continue to monitor his weights. -Hepatic encephalopathy: based on today's examination, the pt. does not have asterixis. No history of HE. -Renal function: pt.'s most recent SCr was 0.6. We will get another BMP and monitor his renal function periodically. -HCC screening. Pt.'s last liver imaging study was done 10/2023. Pt will need HCC screening every 6 months with imaging in conjunction with an AFP. Due again 04/2024 which was ordered and he has this scheduled 04/18. -Avoid liver toxins including over the counter herbal supplements. May take Acetaminophen up to 2 grams a day. Avoid NSAIDS due to increased risk of GI bleeding and fluid retention. Avoid all alcohol. Patient encouraged to avoid benzodiazepines and opiate pain medications due to risk of precipitating HE. -Transplant evaluation: Pt.'s current MELD does not warrant a transplant evaluation. Hence, will defer the pt. From a transplant evaluation. -He has been non-compliant returning phone calls and getting pre treatment labs. Has been seen by hepatology in the past. I explained to him that we can not plan to treat unless he is getting lab work and contacting Denise Liang or our department back when we call him. Failure to respond with us or getting necessary blood work will result in not being treated through our center. He will not complete his urine tox every time that he is asked. He can not be treated until he shows compliance and completes a utox. He asked previously to take a utox home to collect which I explained he can not do. He states he can not give a urine sample because he only pees at 4 am and "random times throughout the day" and wont be able to provide a sample. So he understands without this he is not a treatment candidate as I have concern for drug abuse. -Follow up in 3 months Margarita Merino DO Gastroenterology and Hepatology I spent a total of 25 minutes on the date of service in review of patient's record, and previously obtained information in person and appropriate medical visit, discussion and education of plan, withpatient and/or caregiver, placing orders for tests/referral/procedures as medically necessary and documentation of pertinent clinical information in patient's medical records for their visit today. documented in this encounter Nursing Notes * Minoo Warner, RN - 03/14/2024 10:33 AM EST Pt here for f/u cirrhosis. +ascites. Has weekly paracentesis. Had 6 L removed last week. No alcoholuse. Needs new rx for omeprazole. documented in this encounter Plan of Treatment Upcoming Encounters Date Type Department Care Team (Late st Contact Info) Description 03/21/2024 7:00 AM EST Pharmacy Hepatology, [facility] [address] [place] [address] [facility], Pharmacist Hepatology [address] [place] [address] 04/18/2024 10:30 AM EDT [facility] [place] [facility] [address] [id number] 08/16/2024 11:20 AM EDT Office Visit Hepatology, [facility] [address] [address] Margarita Merino DO [address] [address] Health Maintenance Due Date Last Done Comments [...] Not on filedocumented as of this encounter Results * (ABNORMAL) BASIC METABOLIC PANEL (03/14/2024 11:04 AM EST) BUN 22(H) 6 - 20 mg/dL 03/14/2024 12:11 PM EST [facility] CREATININE 0.9 0.6 - 1.2 mg/dL 03/14/2024 12:11 PM EST [facility] EGFR >90 >=60 mL/min 03/14/2024 12:11 PM EST [facility] Comment:eGFR is calculated b ased on the CKD-EPI 2020 equation. SODIUM 135 135 - 146 mmol/L 03/14/2024 12:11 PM EST [facility] POTASSIUM 4.3 3.5 - 5.1 mmol/L 03/14/2024 12:11 PM EST [facility] CHLORIDE 102 98 - 107 mmol/L 03/14/2024 12:11 PM EST [facility] CO2 24 22 - 32 mmol/L 03/14/2024 12:11 PM EST [facility] ANION GAP 9 7 - 15 mmol/L 03/14/2024 12:11 PM EST [facility] GLUCOSE 67(L) 70 - 120 mg/dL 03/14/2024 12:11 PM EST [facility] CALCIUM 9.0 8.4 - 10.2 mg/dL 03/14/2024 12:11 PM EST [facility] Blood Venous blood specimen / Unknown Venipuncture / Unknown 03/14/2024 11:04 AM EST 03/14/2024 11:05 AM EST Margarita Merino DO LAB BLOOD ORDERABLES F inal Result [facility] [address] [place] [address] * (ABNORMAL) PT INR (03/14/2024 11:04 AM EST) Prothrombin Time 19.6(H) 11.6 - 15.2 seconds 03/14/2024 11:50 AM EST [facility] INR 1.6(H) 0.8 - 1.2 03/14/2024 11:50 AM EST [facility] Blood Venous blood specimen / Unknown Venipuncture / Unknown 03/14/2024 11:04 AM EST 03/14/2024 11:05 AM EST Narrative [facility] - 03/14/2024 11:50 AM EST Warfarin Therapy INR: 2.0-3.0 conventional anticoagulation INR: 2.5-3.5 high intensity anticoagulation Margarita Merino DO LAB BLOOD ORDERABLES F inal Result [facility] [address] [place] [address] * (ABNORMAL) HEPATIC FUNCTION PANEL (03/14/2024 11:04 AM EST) Albumin 3.3(L) 3.8 - 5.0 g/dL 03/14/2024 12:11 PM EST [facility] AST 127(H) 10 - 50 U/L 03/14/2024 12:11 PM EST [facility] Alkaline Phosphatase 170(H) 35 - 130 U/L 03/14/2024 12:11 PM EST [facility] ALT 79(H) 10 - 50 U/L 03/14/2024 12:11 PM EST [facility] Bilirubin, Total 3.0(H) <=1.2 mg/dL 03/14/2024 12:11 PM EST [facility] Bilirubin, Direct 1.5(H) 0.0 - 0.3 mg/dL 03/14/2024 12:11 PM EST [facility] Protein 7.0 6.0 - 8.3 g/dL 03/14/2024 12:11 PM EST [facility] Blood Venous blood specimen / Unknown Venipuncture / Unknown 03/14/2024 11:04 AM EST 03/14/2024 11:05 AM EST us Margarita Merino DO LAB BLOOD ORDERABLES F inal Result [facility] [address] [place] [address] documented in this encounter Visit Diagnoses Diagnosis Cirrhosis of liver with ascites, unspecified hepatic cirrhosis type (HCC)- Primary Chronic hepatitis C without hepatic coma (HCC) Chronic hepatitis C without mention of hepatic coma documented in this encounter Care Teams Seed Cleaner Relationship Specialty Start Date End Date Jose Chowdhury MD PCP - General 11/10/99 documented as of this encounter
--- OUTSIDE RECORDS SUMMARY | 2024-04-21 05:10 | External Medical Summary | Summary of Care ---
Author Name Unknown Organization [facility] Address [address] [place] [address] Phone [phone] Care Team Providers Care Forensic Manager Name Role Phone Jose Chowdhury MD Primary Care Provider [phone] Reason for Visit * Reason Comments Physical-Exam Patient is here toda y for a physical exam. Patient has paperwork that was previously dropped off at the office that needs completed. Encounter Details Date Type Department Care Team (Late st Contact Info) Description 02/01/2024 1:00 PM EST Office Visit [facility] [address] [place] [address] Jose Chowdhury MD [address] [place] [address] Chronic hepatitis C without hepatic coma (HCC)*; Esophageal varices in cirrhosis (HCC); Cirrhosis of liver with ascites, unspecified hepatic cirrhosis type (HCC); Anxiety Allergies No known active allergiesdocumented as of this encounter (statuses as of 02/22/2024) Medications Tylenol 325 MG Oral Capsule (Acetaminophen) [...] 90 Tablet 1 01/26/2024 2:28 PM EST Active Spironolactone 100 MG Oral Tablet (Aldactone)Nancy cations:Other ascites Take 2 Tablets by mouth in the morning. 90 Tablet 1 01/26/2024 2:28 PM EST 4 Active documented as of this encounter (statuses as of 02/22/2024) Active Problems Problem Noted Date Diagnosed Date [...] as of this encounter (statuses as of 02/22/2024) Resolved Problems Problem Noted Date Diagnosed Date [...] as of this encounter (statuses as of 02/22/2024) Immunizations Name Administration Dates Next Due HEP [...] Sign Reading Time Taken Comments Blood Pressure 149/89 02/01/2024 12:20 PM EST Pulse 107 02/01/2024 12:20 PM EST Temperature 36.5 C (97.7 F) 02/01/2024 1 2:20 PM EST Respiratory Rate 16 02/01/2024 12:2 0 PM EST Oxygen Saturation 97% 02/01/2024 12: 20 PM EST Inhaled Oxygen Concentration - - Weight 91.5 kg (201 lb 11.2 oz) 024 12:20 PM EST Height 167.6 cm (5' 6") 02/01/2024 12:2 0 PM EST Body Mass Index 32.56 02/01/2024 12:20 PM EST documented in this encounter Progress Notes * Jose Chowdhury MD - 02/22/2024 9:06 PM EST Subjective: Armin Ulloa is a 38 year old male here today for Chief Complaint Patient presents with Physical-Exam Patient is here today for a physical exam. Patient has paperwork that was previously dropped off atthe office that needs completed. Pt presents for routine return. Has disability paperwork that needs completed. Increased issues related to cirrhosis and ascites. Reviewed notes from GI. There have been compliance issues. Next GI appt is in Mar. Past Medical History: Diagnosis Date Allergic rhinitis Cirrhosis (HCC) Varicella without complication about age 3 Past Surgical History: Procedure Laterality Date EGD, FLEXIBLE, DIAGNOSTIC 10/22/2021 portal hypertensive gastropathy, eso varices, repeat 6 mo / ESOPHAGOGASTRODUODENOSCOPY (EGD), FLEXIBLE, TRANSORAL, DIAGNOSTIC performed by Mari Gordon MD at [facility] EGD, FLEXIBLE, DIAGNOSTIC 2022 esophageal varices, portal hypertensive gastropathy, repeat 8 wks / ESOPHAGOGASTRODUODENOSCOPY (EGD), FLEXIBLE, TRANSORAL, DIAGNOSTIC performed by Margarita Merino DO at [facility] EGD, FLEXIBLE, DIAGNOSTIC 12/07/2023 grade I esophageal varices/portal hypertensive gastropathy/mild bulbar inflammation/ESOPHAGOGASTRODUODENOSCOPY (EGD), FLEXIBLE, TRANSORAL, DIAGNOSTIC performed by Hanna Tejeda MD at [facility] EGD, W/ENDOSCOPIC US 10/22/2021 Cirrhosis, Chronic hepatitis with mild macrovesicular steatosis, lymph node bx - small lymphoid population with atypia / ESOPHAGOGASTRODUODENOSCOPY (EGD), FLEXIBLE, TRANSORAL, ENDOSCOPIC ULTRASOUND performed by Mari Gordon MD at [facility] Review of patient's allergies indicates: No Known Allergies Current Outpatient Medications Medication Sig Dispense Refill busPIRone HCl 15 MG Oral Tablet (Buspar) Take 1 Tablet by mouth in the morning and 1 Tablet before bedtime. (Patient taking differently: Take 1 Tablet by mouth at bedtime.) 60 Tablet 3 hydrOXYzine HCl 25 MG Oral Tablet Take 1 Tablet by mouth 3 times a day as needed for Anxiety. 40 Tablet 2 Omeprazole 20 MG Oral Capsule Delayed Release (PriLOSEC) Take 1 Capsule by mouth in the morning. 30Capsule 1 Furosemide 40 MG Oral Tablet (Lasix) Take 2 Tablets by mouth in the morning. 90 Tablet 1 Spironolactone 100 MG Oral Tablet (Aldactone) Take 2 Tablets by mouth in the morning. 90 Tablet 1 Tylenol 325 MG Oral Capsule (Acetaminophen) Start: 07/22/21 15:17:00 EDT, PO, bid (Patient not taking: Reported on 02/01/2024) Diclofenac Sodium 1 % External Gel (Voltaren) Apply 1 g topically to affected area in the morning and 1 g before bedtime. (Patient not taking: Reported on 02/01/2024) 100 g 3 No current facility-administered medications for this visit. Objective: BP 149/89 | Pulse 107 | Temp 97.7 F (36.5 C) (Tympanic) | Resp 16 | Ht 5' 6" (1.676 m) | Wt 201 lb 11.2 oz (91.5 kg) | SpO2 97% | BMI 32.56 kg/m | BSA 2.06 m GEN: NAD CHEST: CTA B CV: RRR ABD: distended from ascites. No tenderness EXT: +edema Assessment and Plan: Chronic hepatitis C without hepatic coma (HCC) (Primary) Esophageal varices in cirrhosis (HCC) Cirrhosis of liver with ascites, unspecified hepatic cirrhosis type (HCC) -continue same meds and follow up with GI. Paperwork completed for disability form and returned to patient. Anxiety -continue same meds 30 min with pt, chart review, form completion Jose Chowdhury MD documented in this encounter Nursing Notes * Ese Adams MED ASSIST - 02/01/2024 12:23 PM EST The patient has been properly identified by confirmation of name and date of . Chief Complaint Patient presents with Physical-Exam Patient is here today for a physical exam. Patient has paperwork that was previously dropped off atthe office that needs completed. documented in this encounter Plan of Treatment Upcoming Encounters Date Type Department Care Team (Late st Contact Info) Description 03/14/2024 10:40 AM EST Office Visit Hepatology, [facility] [address] [facility] [place] [address] Margarita Merino DO [address] [place] [address] 03/21/2024 7:00 AM EST Pharmacy Hepatology[address] [place] [address] Koffi Pharmacist Hepatology [address] [facility] [place] [address] 04/18/2024 10:30 AM EDT Imaging Radiology, [address] [place] [address] Health Maintenance Due Date Last Done [...] hepatitis C without mention of hepatic coma Esophageal varices in cirrhosis (HCC) Cirrhosis of liver without mention of alcohol Cirrhosis of liver with ascites, unspecified hepatic cirrhosis type (HCC) Anxiety Anxiety state, unspecified documented in this encounter Care Teams Forensic Manager Relationship Specialty Start Date End Date Jose Chowdhury MD PCP - General 11/10/99 documented as of this encounter
[2024-04-21] MEDS: VANCOMYCIN HCL 1,250 MG in SODIUM CHLORIDE 0.9% 250 ML IV SCH (05:18)
[2024-04-21 06:15] LABS: Basophils # (auto) 0.05 K/uL (0.00-0.20); Basophils % (auto) 0.9 %; Eosinophils # (auto) 0.11 K/uL (0.00-0.50); Eosinophils % (auto) 1.9 %; Hematocrit (blood only) 22.4 % (42.0-52.0); Hemoglobin 7.9 g/dl (14.0-18.0); Immature Granulocytes # (auto) 0.02 K/uL (0.01-0.20); Immature Granulocytes % (auto) 0.4 %; Lymphocytes # (auto) 1.19 K/uL (1.20-3.40); Lymphocytes % (auto) 20.9 %; Mean Corpuscular Hemoglobin 32.8 pg (25.0-34.0); Mean Corpuscular Hgb Conc 35.3 g/dL (32.0-36.0); Mean Corpuscular Volume 92.9 fL (80.0-100.0); Mean Platelet Volume 9.5 fL (9.4-12.4); Monocytes # (auto) 0.97 K/uL (0.11-0.59); Neutrophils # (auto) 3.36 K/uL (1.40-6.50); Neutrophils % (auto) 58.9 %; Platelet Count 112 K/uL (130-400); RDW Coefficient of Variation 17.2 % (11.5-14.5); Red Blood Count 2.41 M/uL (4.70-6.10)
[2024-04-21 06:29] LABS: Albumin Level 2.8 gm/dl (3.4-5.0); BUN Creatinine Ratio 31.1 (10-20); Bilirubin Direct 2.3 mg/dl (0-0.2); Bilirubin,Total 5.4 mg/dl (0.2-1.0); Calcium 8.3 mg/dl (8.6-10.3); Creatinine Clr Calc Pharmacy 103.2 ml/min; Magnesium 1.7 mg/dl (1.7-2.4); Potassium 4.2 mmol/L (3.5-5.1); Total Protein 5.7 gm/dl (6.0-8.3)
[2024-04-21 06:31] LABS: Polychromasia 1+; Target Cells 2+
--- NOTE | 2024-04-21 07:55 | Hospitalist Progress Note ---
Date of Service April 21, 2024 Assessment & Plan (1) Acute alteration in mental status: Plan: Mr. Ulloa is a 38-year-old male with past medical history significant for chronic hepatitis C, cirrhosis of liver, pancytopenia, allergic rhinitis, attention deficit hyperactive disorder, anxiety, history of osteomyelitis, bipolar affective disorder who lives at home with his mother admitted for acute toxic metabolic encephalopathy. Patient was last known normal 04/20 s/p paracentesis with 10 L removal; however, that evening patient found down unresponsive. #Acute toxic metabolic encephalopathy, likely iso hepatic decompensation #Coronavirus OC 43 #possible sepsis iso elevated lactate, suspected viral infection high risk superimposed bacterial, elevated RR and HR #right hand cellulitis Ammonia 81 on admission UA without sign of infection Head CT WNL, MRI not tolerated at this time iso AMS Also noted to have +Utox, procal of 0.98 MRSA + Vanc and zosyn at this time Droplet precautions Noted pleural scarring on CT, encourage IS/flutter valve as mentation improves #Cirrhosis 2/2 HCV, decompensated #History of EV s/p EVL and ascites #HCV Follows Dr Merino, GI last visit 03/14/2024 HCV not undergone treatment, history of noncompliance - History of decompensation - MELD-Na: 20 EGD: 09/2022- grade II EV. Banded. 11/2023- grade I varices - HRS: Cr with mild elevation from baseline - PSE: active on exam, will continue with lactulose (titrated to 3-4BM / day) - Ascites: hold home Lasix:Toponas 80:200 - SBP: zosyn for now, s/p paracentesis OP on 04/21, large volume ascites - EV: No evidence of GIB presently, close monitoring - on omeprazole at home, PPI BID IV - con zosyn for now - Daily CMP + INR to calculate MELD; low Na diet with FR 1.5L when able - GI consult Patient declined paracentesis follow up cultures #Abnormal CT A/P with ?splenic and renal infarct Multiple transcortical hypoattenuation's of the kidney. While this could be due to heterogeneous contrast-enhancement of the red pulp and the white pulp of the spleen, infarcts are also considerations. US kidney ordered on admission, follow up #Acute on chronic anemia hemoglobin 8.6, down to 7.9 no reports of bleeding,likely iso acute illness History of EV Start PPI BID Trend Hgb q 12 #Chronic Thrombocytopenia iso severe cirrhosis Will monitor #Anxiety Holding buspirone for now DVT prophylaxis Heparin subcu monitor platelets Admission and Anticipated Discharge Date Admission Date: April 20, 2024 Subjective Admitted overnight Much improved mentation this am, AOx3 however does not recall much of the events of yesterday Endorses intermittent drug use, states last use was around 1 week prior--would not specify agent, but denies IVDU and reports smoking as predominate means States that he has a hard time with "all [his] pills" Reports right hand has been painful--he states he works with 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1 C 111 H 17 118/63 97 04/21/24 02:00 110 H 15 99/62 L 98 04/21/24 01:00 105 H 20 103/62 100 04/21/24 00:00 36 C L 105 H 22 141/74 H 100 04/21/24 00:00 04/20/24 23:00 103 H 17 143/88 H 95 04/20/24 22:30 108 H 24 99 04/20/24 21:30 108 H 14 132/64 100 04/20/24 21:03 103 H 13 112/80 100 04/20/24 20:30 101 H 12 118/66 100 04/20/24 20:00 101 H 14 105/60 100 Pulse Ox O2 Del Method O2 Del Method 04/21/24 04:00 Room Air 04/21/24 02:00 Room Air 04/21/24 01:00 Room Air 04/21/24 00:00 Room Air 04/21/24 00:00 98 Room Air 04/20/24 23:00 Room Air 04/20/24 22:30 Room Air 04/20/24 21:30 Room Air 04/20/24 21:03 Room Air 04/20/24 20:30 Room Air 04/20/24 20:00 Room Air Laboratory Results Short CBC 04/20/24 04/21/24 Range/Units 18:42 05:59 WBC 5.80 5.70 (4.8-10.8) K/ul Hgb 8.6 L 7.9 L (14.0-18.0) g/dl Hct 25.3 L 22.4 L (42.0-52.0) % Plt Count 129 L 112 L (130-400) K/uL BMP 04/20/24 04/21/24 18:42 05:59 Sodium 132 L 138 Potassium 4.7 4.2 Chloride 103 107 Carbon Dioxide 22 24 BUN 32 H 28 H Creatinine 0.99 0.90 Glucose 164 H 72 Calcium 9.1 8.3 L Liver Function 04/20/24 04/21/24 Range/Units 18:42 05:59 Total Bilirubin 4.8 H 5.4 H (0.2-1.0) mg/dl Direct Bilirubin 2.1 H 2.3 H (0-0.2) mg/dl AST 158 H 152 H (13-39) U/L ALT 81 H 70 H (7-52) U/L Alkaline Phosphatase 151 H 119 H (34-104) U/L Albumin 3.3 L 2.8 L (3.4-5.0) gm/dl Urine 04/20/24 Range/Units 19:00 Urine Color Dark Yellow Urine Appearance Clear (Clear) Urine pH 6.0 (4.5-7.5) Ur Specific [place] 1.027 (1.000-1.030) Urine Protein Negative (Negative) Urine Glucose (UA) Negative (Negative) Medications Administered Home Medications Medication Instructions Recorded Confirmed Last Taken buspirone 15 mg tablet 15 mg PO AMHS 04/12/24 04/20/24 Unknown furosemide 40 mg tablet See Rx Instructions .Route .COMPLEX 04/12/24 04/20/24 Unknown hydroxyzine HCl 25 mg tablet 25 mg PO TID PRN Anxiety 04/12/24 04/20/24 Unknown omeprazole 20 mg capsule,delayed 20 mg PO QAM 04/12/24 04/20/24 Unknown release spironolactone 100 mg tablet 200 mg PO QAM 04/12/24 04/20/24 Unknown Active Medications Generic Name Dose Route Start Last Admin Trade Name Oneil PRN Reason Stop Dose Admin Heparin Sodium (Porcine) 5,000 units 04/21/24 09:00 04/21/24 08:15 Heparin Sod 5,000 Unit/0.5 Ml Vial SQ 05/21/24 08:59 5,000 units Q12 TRENA Administration Piperacillin Sod/Tazobactam Sod 4.5 gm in 100 mls @ 25 mls/hr 04/21/24 00:00 04/21/24 08:16 Zosyn IV 05/01/24 00:00 25 mls/hr Q8H TRENA Administration Protocol Sodium Chloride 1,000 mls @ 75 mls/hr 04/20/24 23:07 04/20/24 23:49 Nss IV 04/21/24 23:06 75 mls/hr .[id number] TRENA Administration Vancomycin HCl 1,250 mg/ 275 mls @ 200 mls/hr 04/21/24 06:00 04/21/24 06:41 Sodium Chloride IV 05/01/24 05:59 Infused Q12H TRENA Infusion Lactulose 200 gm 04/21/24 00:00 04/21/24 08:16 Lactulose 200gm/700ml Wtr Enema PA 05/21/24 00:00 200 gm Q8H TRENA Administration
[2024-04-21] MEDS: HEPARIN SOD 5,000 UNIT/0.5 ML VIAL SQ SCH (08:15)
--- NOTE | 2024-04-21 09:03 | Pharmacy Report ---
Pharmacy PK ABX Note - Date of Service April 21, 2024 - Assessment and Plan Assessment 38 year old M receiving Vancomycin and Zosyn for treatment of possible GI infection and superimposed bacterial pneumonia. * Day #1 of antimicrobial therapy. PMHx of Hep C and cirrhosis. Presented to ED 04/12/24 with right wrist pain and swelling. Found to have elevated procal but signed out AMA and sent home on Keflex and Doxy which mother reports patient did complete. * Afebrile. No leukocytosis. Lactate elevated. Procal 0.98. SCr 0.9 mg/dL. * Blood cultures pending. MRSA swab positive. Tested positive for Coronavirus OC43. Plan Vancomycin * Loading dose: 1750 mg IV x 1 * Maintenance dose: 1250 mg IV every 12 hours * Regimen is predicted to achieve target AUC/JANET of 400-600 mg/L.hr * Random level ordered for: 04/22/24 Zosyn * 4.5 g IV every 8 hours Pharmacy will continue to follow and will adjust dose/frequency as necessary. Thank you. Pharmacy has transitioned to AUC monitoring for vancomycin. AUC/JANET is the preferred PK/PD target and is associated with decreased risk of nephrotoxicity compared to traditional trough targets.
[2024-04-21] MEDS: PANTOprazole 40 MG/10 ML SYR IV SCH (09:09)
[2024-04-21 09:13] LABS: Ferritin 92.8 ng/ml (8-388)
--- NOTE | 2024-04-21 09:22 | Ultrasound Report ---
RENAL ULTRASOUND HISTORY: renal infarcts? COMPARISON: CT of the abdomen and pelvis dated 04/20/2024 FINDINGS: There are no renal lesions suggestive of infarcts. There is no hydronephrosis. Right kidney measures approximately 9 cm. The lower pole is obscured. Left kidney measures 11 cm. There are no ureteral jets are identified within the urinary bladder which is nonspecific. There is a large amount of ascites. IMPRESSION: Somewhat limited exam. No evidence of hydronephrosis or renal infarct ACT 112: Negative or not required by law. Electronically signed by: Vandana Gotti M.D. 04/21/2024 9:20 AM
[2024-04-21 09:37] LABS: Folate (Folic Acid),Ser orPlas 15.29 ng/ml (>5.38)
[2024-04-21 09:38] LABS: Vitamin B12 > 1500 pg/ml (180-914)
--- NOTE | 2024-04-21 10:30 | Gastrointestinal Consultation ---
Date of Consultation April 21, 2024 Assessment & Plan (1) Acute hepatic encephalopathy: 38 year old male with history of decompensated chronic HCV cirrhosis w/ large EV requiring EVL and ascites, medical non-compliance, failure to get the required labs needed for HCV treatment, attention deficit hyperactive disorder, anxiety, history of osteomyelitis, history of bipolar affective disorder who lives at home with his mother admitted through the ED w/ AMS 1. AMS - Follow UTOX - Rule out infection - Blood cultures - Urine cultures - Chest XR - Please arrange diagnostic / therapeutic paracentesis - Cell count, culture, protein/albumin - Head CT - Oral lactulose titrated to 3-5 BMs daily - Agree w/ ABX coverage providing coverage for SBP given recent paracentesis - Agree w/ IV PPI while admitted 2. Cirrhosis management - Called to update his hepatology care team, awaiting return call - MELD labs every 6 months - ABD imaging w/ AFP every 6 months - EGD every 1-2 years - No ETOH - No NSAIDs - Avoid hepatotoxin - Low NA diet, less than 2G daily - Less than 2G acetaminophen containing products daily I spent a total of 60 minutes on the date of service in review of patient's record, and previously obtained information in person and appropriate medical visit, discussion and education of plan, with patient and/or caregiver, placing orders for tests/referral/procedures as medically necessary and documentation of pertinent clinical information in patient's medical records for their visit today. Supervising Physician Co-Signing Physician Notes I personally saw and examined the patient. I have reviewed the chart and agree with the documentation provided by the CHIEF WHEELAGE CLERK including discussion about the assessment, treatment and plan. Briefly, 38 year old male with history of decompensated chronic HCV cirrhosis w/ large EV requiring EVL and ascites, medical non-compliance, failure to get the required labs needed for HCV treatment, attention deficit hyperactive disorder, anxiety, history of osteomyelitis, history of bipolar affective disorder who lives at home with his mother admitted through the ED w/ AMS + Utox (marijuana, MDMA, amphetamines confirmation studies pending.) Source of hepatic encephalopathy is likely from positive toxin/drug use. However, infection cannot be ruled out. Would panculture and at this point keep on ceftriaxone. Repeat Paracentesis diagnostic/5 L when possible. Advance diet. He will need lactulose to titrate to 2-3 bowel movements. I explained to his mom and him that he really should get treated for the hepatitis C as this can improve his overall life quality and quantity. To do this he would absolutely needs to stop all drug use. History of Present Illness Reason for Consultation: hepatic encephalopathy? Requesting Physician: Alize Whitehead MD Attending Physician: Alize Whitehead MD History of Present Illness 38 year old male with history of decompensated chronic HCV cirrhosis w/ large EV requiring EVL and ascites, medical non-compliance, failure to get the required labs needed for HCV treatment, attention deficit hyperactive disorder, anxiety, history of osteomyelitis, history of bipolar affective disorder who lives at home with his mother admitted through the ED w/ AMS. GI was asked to evaluate. Pt was seen and evaluated, chart reviewed. At time of consultation he was awake, alert to person, place and year and recalled his liver care team providers by name. He does not recall events leading up to admission. He notes today he feels tired. Denies abd pain but is hungry. No nausea/vomiting. No GERD. No dysphagia. Moving stools. Brown, loose. No black or bloody stools. No fever, chills, CP, SOB. WBC 5 HGB 7.9 PLT 112 INR 1.9 BARREL BURNER 0.9 Tbili 5.4 AST 152 ALT 70 ALKP 119 Ammonia 79 + Utox (marijuana, MDMA, amphetamines confirmation studies pending) Diagnosis: HCV cirrhosis, treatment naive due to noncompliance, MELD 20 Decompensations Varices: yes Ascites: yes, lasix 80 mg daily and Aldactone 200 mg, weekly paracentesis SBP: no HRS:no HE: no HCC: no CTAP 04/20/24: Advanced cirrhosis with portal hypertension with splenomegaly and extensive venous collaterals as above. Very large volume abdominopelvic ascites. Multiple transcortical hypoattenuation's of the kidney. While this could be due to heterogeneous contrast-enhancement of the red pulp and the white pulp of the spleen, infarcts are also considerations. Paracentesis 04/19/24: Utilizing ultrasound guidance, a 5 Taj[place] catheter was introduced into the pocket and 10,000 ml of luisito-colored fluid drained and discarded. EGD 12/07/2023: Normal esophagus. Grade I esophageal varices.Z-line regular, 39 cm from the incisors. Portal hypertensive gastropathy. Mild bulbar inflammation in the duodenal bulb and second portion of the duodenum. Allergies Allergy/AdvReac Type Severity Reaction Status Date / Time No Known Allergies Allergy Mild Verified 04/20/24 18:56 Home Medications Medication Instructions Recorded Confirmed Type buspirone 15 mg tablet 15 mg PO AMHS 04/12/24 04/20/24 History furosemide 40 mg tablet See Rx Instructions .Route .COMPLEX 04/12/24 04/20/24 History hydroxyzine HCl 25 mg tablet 25 mg PO TID PRN Anxiety 04/12/24 04/20/24 History omeprazole 20 mg capsule,delayed 20 mg PO QAM 04/12/24 04/20/24 History release spironolactone 100 mg tablet 200 mg PO QAM 04/12/24 04/20/24 History Patient History Medical History Encounter for pre-operative examination Chronic back pain Surgical History History of ankle surgery I&D for osteomyelitis H/O hand surgery Family History Other Diabetes Social History Smoking Status: Unknown if ever smoked Tobacco Type: Cigarettes Second Hand Exposure: Yes; Do You Dip or Chew Tobacco: Yes; Hx Substance Use: Yes Last Used Substance: Unknown Preferred Language: Bulgarian Communication Ability: Effective Bsw Required: No Beliefs That Will Affect Care: None Current Living Situation: Parent Current Living Situation Comment: lives with mother Feels Safe at Home: Yes Assistive Devices: None Review of Systems Review of Systems: All other findings negative except as noted in HPI. Physical Exam Constitutional: WD/WN, vitals as above Respiratory: normal respiratory effort, lungs clear to auscultation Cardiovascular: Rate/Rhythm: regular rate Gastrointestinal (Abdomen): + ascites Skin: no rashes, warm and dry Results & Data Vital Signs (Past 12 Hours) Vital Signs Temp Pulse Pulse Resp BP Pulse Ox Pulse Ox 04/21/24 10:10 101 H 24 130/73 99 04/21/24 08:00 97.9 F 04/21/24 04:00 98.8 F 111 H 17 118/63 97 04/21/24 02:00 110 H 15 99/62 L 98 04/21/24 01:00 105 H 20 103/62 100 04/21/24 00:00 96.8 F L 105 H 22 141/74 H 100 04/21/24 00:00 98 04/20/24 23:00 103 H 17 143/88 H 95 04/20/24 22:30 108 H 24 99 O2 Del Method O2 Del Method 04/21/24 10:10 Room Air 04/21/24 08:00 04/21/24 04:00 Room Air 04/21/24 02:00 Room Air 04/21/24 01:00 Room Air 04/21/24 00:00 Room Air 04/21/24 00:00 Room Air 04/20/24 23:00 Room Air 04/20/24 22:30 Room Air Laboratory Results 04/21/24 04/21/24 04/20/24 Range/Units 05:59 05:33 23:35 WBC 5.70 (4.8-10.8) K/ul RBC 2.41 L (4.70-6.10) M/uL Hgb 7.9 L (14.0-18.0) g/dl Hct 22.4 L (42.0-52.0) % MCV 92.9 (80.0-100.0) fL MCH 32.8 (25.0-34.0) pg MCHC 35.3 (32.0-36.0) g/dL RDW Std Deviation 57.0 H (36.4-46.3) fL RDW Coeff of Tim 17.2 H (11.5-14.5) % Plt Count 112 L (130-400) K/uL MPV 9.5 (9.4-12.4) fL Immature Gran % (Auto) 0.4 % Neut % (Auto) 58.9 % Lymph % (Auto) 20.9 % [place] % (Auto) 17.0 % Eos % (Auto) 1.9 % Baso % (Auto) 0.9 % Neut # (Auto) 3.36 (1.40-6.50) K/uL Lymph # (Auto) 1.19 L (1.20-3.40) K/uL [place] # (Auto) 0.97 H (0.11-0.59) K/uL Eos # (Auto) 0.11 (0.00-0.50) K/uL Baso # (Auto) 0.05 (0.00-0.20) K/uL Immature Gran # (Auto) 0.02 (0.01-0.20) K/uL Polychromasia 1+ Target Cells 2+ PT (9.0-12.0) Seconds INR (0.9-1.1) APTT (21-31) Seconds PTT Ratio VBG pH (7.36-7.41) VBG pCO2 (38-50) mmHg VBG pO2 mmHg VBG HCO3 mmol/L VBG O2 Saturation % VBG Base Excess mEq/L Carboxyhemoglobin % THgb Sodium 138 (136-145) mmol/L Potassium 4.2 (3.5-5.1) mmol/L Chloride 107 (98-107) mmol/L Carbon Dioxide 24 (21-32) mmol/L Anion Gap 7 (3-11) BUN 28 H (6-23) mg/dl Creatinine 0.90 (0.6-1.4) mg/dl Est Cr Clr Drug Dosing 103.2 ml/min eGFR 110.73 BUN/Creatinine Ratio 31.1 H (10-20) Glucose 72 (70-99(Fasting)) mg/dl POC Glucose 88 73 (70-99) mg/dl Osmolality (280-300) mOsm/kg Lactate (0.4-2.0) mmol/L Calcium 8.3 L (8.6-10.3) mg/dl Magnesium 1.7 (1.7-2.4) mg/dl Iron 108 (35-175) mcg/dl TIBC 168 L (250-450) mcg/dl Transferrin 120 L (200-360) mg/dl Transferrin % Sat 64 H (20-50) % Ferritin 92.8 (8-388) ng/ml Total Bilirubin 5.4 H (0.2-1.0) mg/dl Direct Bilirubin 2.3 H (0-0.2) mg/dl AST 152 H (13-39) U/L ALT 70 H (7-52) U/L Alkaline Phosphatase 119 H (34-104) U/L Ammonia 79.0 H (18-72) umol/L Troponin I High Sens (0-20) pg/ml Total Protein 5.7 L (6.0-8.3) gm/dl Albumin 2.8 L (3.4-5.0) gm/dl Vitamin B12 > 1500 H (180-914) pg/ml Folate 15.29 (>5.38) ng/ml Procalcitonin (0-0.5) ng/ml Urine Color Urine Appearance (Clear) Urine pH (4.5-7.5) Ur Specific Preemption (1.000-1.030) Urine Protein (Negative) Urine Glucose (UA) (Negative) Urine Ketones (Negative) Urine Blood (Negative) Urine Nitrite (Negative) Urine Bilirubin (Negative) Urine Urobilinogen (Negative) Ur Leukocyte Esterase (Negative) Urine WBC (Auto) (0-5) /hpf Urine RBC (Auto) (0-2) /hpf U Hyaline Cast (Auto) (0-2) /lpf U Epithel Cells (Auto) (0-2) /hpf Urine Bacteria (Auto) (None Seen) Urine Osmolality (500-800) mOsm/kg Ur Random Sodium mmol/L Nasal Screen MRSA (PCR) (Negative) Urine Opiates Screen (Neg) Ur Methadone, Qual (Neg) Urine Fentanyl Screen (Neg) Urine Barbiturates (Neg) Ur Phencyclidine (PCP) (Neg) U Amphetamines Confirm U Amphetamin/Meth Scrn (Neg) U Methamphetamin Confrm Urine MDEA MDMA (Ecstasy) Screen (Neg) MDMA Urine MDMA U Benzodiazepines Scrn (Neg) Ur Cocaine Metabolite (Neg) U Marijuana (THC) Screen (Neg) U Marijuana THC Carboxy Drug Screen Comment Ethyl Alcohol mg/dL (<10.0) mg/dl Adenovirus (PCR) (NotDetected) B. pertussis DNA (PCR) (NotDetected) B.parapertussis DNA PCR (NotDetected) C. pneumoniae DNA (PCR) (NotDetected) Coronavirus OC43 (PCR) (NotDetected) Coronavirus HKU1 (PCR) (NotDetected) Coronavirus 229E (PCR) (NotDetected) SARS-CoV-2 (PCR) (NotDetected) Coronavirus NL63 (PCR) (NotDetected) Human Metapneumovir PCR (NotDetected) Influenza Type A (PCR) (NotDetected) Influenza Type B (PCR) (NotDetected) M. pneumoniae (PCR) (NotDetected) Parainfluenza 1 (PCR) (NotDetected) Parainfluenza 2 (PCR) (NotDetected) Parainfluenza 3 (PCR) (NotDetected) Parainfluenza 4 (PCR) (NotDetected) RSV (PCR) (NotDetected) Entero/Rhino (PCR) (NotDetected) 04/20/24 04/20/24 04/20/24 Range/Units 23:00 21:17 19:12 WBC (4.8-10.8) K/ul RBC (4.70-6.10) M/uL Hgb (14.0-18.0) g/dl Hct (42.0-52.0) % MCV (80.0-100.0) fL MCH (25.0-34.0) pg MCHC (32.0-36.0) g/dL RDW Std Deviation (36.4-46.3) fL RDW Coeff of Tim (11.5-14.5) % Plt Count (130-400) K/uL MPV (9.4-12.4) fL Immature Gran % (Auto) % Neut % (Auto) % Lymph % (Auto) % [place] % (Auto) % Eos % (Auto) % Baso % (Auto) % Neut # (Auto) (1.40-6.50) K/uL Lymph # (Auto) (1.20-3.40) K/uL [place] # (Auto) (0.11-0.59) K/uL Eos # (Auto) (0.00-0.50) K/uL Baso # (Auto) (0.00-0.20) K/uL Immature Gran # (Auto) (0.01-0.20) K/uL Polychromasia Target Cells PT (9.0-12.0) Seconds INR (0.9-1.1) APTT (21-31) Seconds PTT Ratio VBG pH (7.36-7.41) VBG pCO2 (38-50) mmHg VBG pO2 mmHg VBG HCO3 mmol/L VBG O2 Saturation % VBG Base Excess mEq/L Carboxyhemoglobin % THgb Sodium (136-145) mmol/L Potassium (3.5-5.1) mmol/L Chloride (98-107) mmol/L Carbon Dioxide (21-32) mmol/L Anion Gap (3-11) BUN (6-23) mg/dl Creatinine (0.6-1.4) mg/dl Est Cr Clr Drug Dosing ml/min eGFR BUN/Creatinine Ratio (10-20) Glucose (70-99(Fasting)) mg/dl POC Glucose (70-99) mg/dl Osmolality (280-300) mOsm/kg Lactate 2.9 H* (0.4-2.0) mmol/L Calcium (8.6-10.3) mg/dl Magnesium (1.7-2.4) mg/dl Iron (35-175) mcg/dl TIBC (250-450) mcg/dl Transferrin (200-360) mg/dl Transferrin % Sat (20-50) % Ferritin (8-388) ng/ml Total Bilirubin (0.2-1.0) mg/dl Direct Bilirubin (0-0.2) mg/dl AST (13-39) U/L ALT (7-52) U/L Alkaline Phosphatase (34-104) U/L Ammonia (18-72) umol/L Troponin I High Sens (0-20) pg/ml Total Protein (6.0-8.3) gm/dl Albumin (3.4-5.0) gm/dl Vitamin B12 (180-914) pg/ml Folate (>5.38) ng/ml Procalcitonin (0-0.5) ng/ml Urine Color Urine Appearance (Clear) Urine pH (4.5-7.5) Ur Specific Preemption (1.000-1.030) Urine Protein (Negative) Urine Glucose (UA) (Negative) Urine Ketones (Negative) Urine Blood (Negative) Urine Nitrite (Negative) Urine Bilirubin (Negative) Urine Urobilinogen (Negative) Ur Leukocyte Esterase (Negative) Urine WBC (Auto) (0-5) /hpf Urine RBC (Auto) (0-2) /hpf U Hyaline Cast (Auto) (0-2) /lpf U Epithel Cells (Auto) (0-2) /hpf Urine Bacteria (Auto) (None Seen) Urine Osmolality (500-800) mOsm/kg Ur Random Sodium mmol/L Nasal Screen MRSA (PCR) Positive A (Negative) Urine Opiates Screen (Neg) Ur Methadone, Qual (Neg) Urine Fentanyl Screen (Neg) Urine Barbiturates (Neg) Ur Phencyclidine (PCP) (Neg) U Amphetamines Confirm U Amphetamin/Meth Scrn (Neg) U Methamphetamin Confrm Urine MDEA MDMA (Ecstasy) Screen (Neg) MDMA Urine MDMA U Benzodiazepines Scrn (Neg) Ur Cocaine Metabolite (Neg) U Marijuana (THC) Screen (Neg) U Marijuana THC Carboxy Drug Screen Comment Ethyl Alcohol mg/dL < 10.0 (<10.0) mg/dl Adenovirus (PCR) (NotDetected) B. pertussis DNA (PCR) (NotDetected) B.parapertussis DNA PCR (NotDetected) C. pneumoniae DNA (PCR) (NotDetected) Coronavirus OC43 (PCR) (NotDetected) Coronavirus HKU1 (PCR) (NotDetected) Coronavirus 229E (PCR) (NotDetected) SARS-CoV-2 (PCR) (NotDetected) Coronavirus NL63 (PCR) (NotDetected) Human Metapneumovir PCR (NotDetected) Influenza Type A (PCR) (NotDetected) Influenza Type B (PCR) (NotDetected) M. pneumoniae (PCR) (NotDetected) Parainfluenza 1 (PCR) (NotDetected) Parainfluenza 2 (PCR) (NotDetected) Parainfluenza 3 (PCR) (NotDetected) Parainfluenza 4 (PCR) (NotDetected) RSV (PCR) (NotDetected) Entero/Rhino (PCR) (NotDetected) 04/20/24 04/20/24 04/20/24 Range/Units 19:01 19:00 18:42 WBC 5.80 (4.8-10.8) K/ul RBC 2.69 L (4.70-6.10) M/uL Hgb 8.6 L (14.0-18.0) g/dl Hct 25.3 L (42.0-52.0) % MCV 94.1 (80.0-100.0) fL MCH 32.0 (25.0-34.0) pg MCHC 34.0 (32.0-36.0) g/dL RDW Std Deviation 57.5 H (36.4-46.3) fL RDW Coeff of Tim 17.0 H (11.5-14.5) % Plt Count 129 L (130-400) K/uL MPV 9.3 L (9.4-12.4) fL Immature Gran % (Auto) 0.2 % Neut % (Auto) 71.4 % Lymph % (Auto) 13.6 % [place] % (Auto) 14.0 % Eos % (Auto) 0.3 % Baso % (Auto) 0.5 % Neut # (Auto) 4.14 (1.40-6.50) K/uL Lymph # (Auto) 0.79 L (1.20-3.40) K/uL [place] # (Auto) 0.81 H (0.11-0.59) K/uL Eos # (Auto) 0.02 (0.00-0.50) K/uL Baso # (Auto) 0.03 (0.00-0.20) K/uL Immature Gran # (Auto) 0.01 (0.01-0.20) K/uL Polychromasia Target Cells PT 19.9 H (9.0-12.0) Seconds INR 1.9 H (0.9-1.1) APTT 39 H (21-31) Seconds PTT Ratio 1.4 VBG pH 7.43 H (7.36-7.41) VBG pCO2 31 L (38-50) mmHg VBG pO2 39 mmHg VBG HCO3 21 mmol/L VBG O2 Saturation 61.0 % VBG Base Excess -2.7 mEq/L Carboxyhemoglobin 1.0 % THgb Sodium 132 L (136-145) mmol/L Potassium 4.7 (3.5-5.1) mmol/L Chloride 103 (98-107) mmol/L Carbon Dioxide 22 (21-32) mmol/L Anion Gap 7 (3-11) BUN 32 H (6-23) mg/dl Creatinine 0.99 (0.6-1.4) mg/dl Est Cr Clr Drug Dosing 93.4 ml/min eGFR 98.76 BUN/Creatinine Ratio 32.3 H (10-20) Glucose 164 H (70-99(Fasting)) mg/dl POC Glucose (70-99) mg/dl Osmolality 293 (280-300) mOsm/kg Lactate 5.3 H* (0.4-2.0) mmol/L Calcium 9.1 (8.6-10.3) mg/dl Magnesium 2.0 (1.7-2.4) mg/dl Iron (35-175) mcg/dl TIBC (250-450) mcg/dl Transferrin (200-360) mg/dl Transferrin % Sat (20-50) % Ferritin (8-388) ng/ml Total Bilirubin 4.8 H (0.2-1.0) mg/dl Direct Bilirubin 2.1 H (0-0.2) mg/dl AST 158 H (13-39) U/L ALT 81 H (7-52) U/L Alkaline Phosphatase 151 H (34-104) U/L Ammonia 81.0 H (18-72) umol/L Troponin I High Sens 11.1 (0-20) pg/ml Total Protein 6.7 (6.0-8.3) gm/dl Albumin 3.3 L (3.4-5.0) gm/dl Vitamin B12 (180-914) pg/ml Folate (>5.38) ng/ml Procalcitonin 0.98 H (0-0.5) ng/ml Urine Color Dark Yellow Urine Appearance Clear (Clear) Urine pH 6.0 (4.5-7.5) Ur Specific Preemption 1.027 (1.000-1.030) Urine Protein Negative (Negative) Urine Glucose (UA) Negative (Negative) Urine Ketones Negative (Negative) Urine Blood Negative (Negative) Urine Nitrite Negative (Negative) Urine Bilirubin 1+ H (Negative) Urine Urobilinogen Negative (Negative) Ur Leukocyte Esterase Trace H (Negative) Urine WBC (Auto) 0-5 (0-5) /hpf Urine RBC (Auto) 0-2 (0-2) /hpf U Hyaline Cast (Auto) 0-2 (0-2) /lpf U Epithel Cells (Auto) 0-2 (0-2) /hpf Urine Bacteria (Auto) None Seen (None Seen) Urine Osmolality 684 (500-800) mOsm/kg Ur Random Sodium 18 mmol/L Nasal Screen MRSA (PCR) (Negative) Urine Opiates Screen Neg (Neg) Ur Methadone, Qual Neg (Neg) Urine Fentanyl Screen Neg (Neg) Urine Barbiturates Neg (Neg) Ur Phencyclidine (PCP) Neg (Neg) U Amphetamines Confirm Pending U Amphetamin/Meth Scrn Pos H (Neg) U Methamphetamin Confrm Pending Urine MDEA Pending MDMA (Ecstasy) Screen Pos H (Neg) MDMA Pending Urine MDMA Pending U Benzodiazepines Scrn Neg (Neg) Ur Cocaine Metabolite Neg (Neg) U Marijuana (THC) Screen Pos H (Neg) U Marijuana THC Carboxy Pending Drug Screen Comment Pending Ethyl Alcohol mg/dL (<10.0) mg/dl Adenovirus (PCR) Not Detected (NotDetected) B. pertussis DNA (PCR) Not Detected (NotDetected) B.parapertussis DNA PCR Not Detected (NotDetected) C. pneumoniae DNA (PCR) Not Detected (NotDetected) Coronavirus OC43 (PCR) DETECTED A (NotDetected) Coronavirus HKU1 (PCR) Not Detected (NotDetected) Coronavirus 229E (PCR) Not Detected (NotDetected) SARS-CoV-2 (PCR) Not Detected (NotDetected) Coronavirus NL63 (PCR) Not Detected (NotDetected) Human Metapneumovir PCR Not Detected (NotDetected) Influenza Type A (PCR) Not Detected (NotDetected) Influenza Type B (PCR) Not Detected (NotDetected) M. pneumoniae (PCR) Not Detected (NotDetected) Parainfluenza 1 (PCR) Not Detected (NotDetected) Parainfluenza 2 (PCR) Not Detected (NotDetected) Parainfluenza 3 (PCR) Not Detected (NotDetected) Parainfluenza 4 (PCR) Not Detected (NotDetected) RSV (PCR) Not Detected (NotDetected) Entero/Rhino (PCR) Not Detected (NotDetected) PG Care Time/CCT Total # of Minutes Spent Total Time Spent with Patient: Total time spent is greater than 50% in coordination of care (as documented) at patient's floor/unit and/or counseling patient: Coding Level of Care Code 97807 IN/OBS CONSULT LVL 4,60M Diagnoses Acute hepatic encephalopathy K76.82
[2024-04-21] MEDS: FUROSEMIDE 40 MG/4 ML VIAL IV ONE (11:50)
[2024-04-21] MEDS: SPIRONOLACTONE 100 MG TAB PO SCH (12:11)
[2024-04-21] MEDS: LACTULOSE SYRUP 30 GM/45 ML UDP PO SCH (12:20)
[2024-04-21 16:22] LABS: Hematocrit (blood only) 23.2 % (42.0-52.0); Hemoglobin 8.2 g/dl (14.0-18.0)
[2024-04-21 18:21] LABS: A calco-baum cmplx NotReported Not Detected (NotDetected); Bact fragilis Not Reported Not Detected (NotDetected); Blood Culture Id Panel See PCR Comment (NotDetected); C auris Not Reported Not Detected (NotDetected); Calbicans Not Reported Not Detected (NotDetected); Candida glabrata Not Reported Not Detected (NotDetected); Candida krusei Not Reported Not Detected (NotDetected); Cneoformans/gatti Not Reported Not Detected (NotDetected); Cparapsilosis Not Reported Not Detected (NotDetected); E cloacae compx Not Reported Not Detected (NotDetected); Efaecalis Not Reported Not Detected (NotDetected); Efaecium Not Reported Not Detected (NotDetected); Enterobacterales Not Reported Not Detected (NotDetected); Escherichia coli Not Reported Not Detected (NotDetected); H influenzae Not Reported Not Detected (NotDetected); K aerogenes Not Reported Not Detected (NotDetected); Koxytoca Not Reported Not Detected (NotDetected); Kpneumoniae grp Not Reported Not Detected (NotDetected); Lmonocyt Not Reported Not Detected (NotDetected); N meningitidis Not Reported Not Detected (NotDetected); P aeruginosa Not Reported Not Detected (NotDetected); Proteus spp Not Reported Not Detected (NotDetected); Salmonella spp Not Reported Not Detected (NotDetected); Staph lugdunensis Not Reported Not Detected (NotDetected); Staph spp. Not Reported DETECTED (NotDetected); Staphaureus Not Reported Not Detected (NotDetected); Staphepi Not Reported DETECTED (NotDetected); Stenmaltophilia Not Reported Not Detected (NotDetected); Strep agal(GrpB) Not Reported Not Detected (NotDetected); Strep pneum Not Reported Not Detected (NotDetected); Strep pyog (GrpA) Not Reported Not Detected (NotDetected); Strep spp Not Reported Not Detected (NotDetected)
[2024-04-21 18:43] LABS: Staphylococcus spp. DETECTED (NotDetected); mecAC Resistant Gene DETECTED (NotDetected)
[2024-04-21 18:44] LABS: Staphylococcus epidermidis DETECTED (NotDetected)
[2024-04-21] MEDS ORDERED: TROLAMINE SALICYLATE 10% CRM 255 APPLN/85 GM TUBE EXT PRN (18:57)
[2024-04-21] MEDS: COUGH DROP (SUGAR FREE) LOZ 24 LOZ/1 BOX BUCCAL PRN (21:54)
--- NOTE | 2024-04-21 22:45 | Electrocardiogram Report ---
Test Reason : Blood Pressure : */* mmHG Vent. Rate : 109 BPM Atrial Rate : 109 BPM P-R Int : 138 ms QRS Dur : 82 ms QT Int : 344 ms P-R-T Axes : 64 -40 44 degrees QTcB Int : 464 ms Poor data quality, interpretation may be adversely affected Sinus tachycardia Left axis deviation Abnormal ECG When compared with ECG of 12-Apr-2024 16:16, No significant change was found Confirmed by Pernell Murphy ([id number]) on 04/21/2024 10:44:50 PM Referred By: REFERRED SELF Confirmed By: Pernell Murphy
[2024-04-22] MEDS: VANCOMYCIN LEVEL ONE (06:43)
[2024-04-22 07:03] LABS: Hematocrit (blood only) 21.9 % (42.0-52.0); Hemoglobin 7.6 g/dl (14.0-18.0); Mean Corpuscular Hemoglobin 32.2 pg (25.0-34.0); Mean Corpuscular Hgb Conc 34.7 g/dL (32.0-36.0); Mean Corpuscular Volume 92.8 fL (80.0-100.0); Mean Platelet Volume 9.5 fL (9.4-12.4); Platelet Count 116 K/uL (130-400); RDW Coefficient of Variation 17.5 % (11.5-14.5); RDW Standard Deviation 57.9 fL (36.4-46.3); Red Blood Count 2.36 M/uL (4.70-6.10)
[2024-04-22 07:32] LABS: Albumin Globulin Ratio 0.9 (0.9-2); Albumin Level 2.9 gm/dl (3.4-5.0); BUN Creatinine Ratio 21.1 (10-20); Bilirubin,Total 5.2 mg/dl (0.2-1.0); Calcium 8.3 mg/dl (8.6-10.3); Creatinine Clr Calc Pharmacy 77.4 ml/min; Globulin 3.1 gm/dl (2.5-4.0); Magnesium 1.8 mg/dl (1.7-2.4); Potassium 3.8 mmol/L (3.5-5.1)
[2024-04-22 07:34] LABS: Prothrombin Time 20.5 Seconds (9.0-12.0)
[2024-04-22] MEDS: FUROSEMIDE 80 MG TAB PO SCH (07:43)
[2024-04-22] MEDS ORDERED: VANCOMYCIN HCL 1,000 MG/270 ML BAG IV SCH (08:00)
--- NOTE | 2024-04-22 09:43 | Gastroenterology Progress Note ---
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 Recommend diagnostic/therapeutic paracentesis be arranged. 1. AMS - Follow UTOX - Rule out infection - Blood cultures - Urine cultures - Chest XR - Please arrange diagnostic / therapeutic paracentesis - Cell count, culture, protein/albumin - Head CT - Oral lactulose titrated to 3-5 BMs daily - Agree w/ ABX coverage providing coverage for SBP given recent paracentesis (rec ceftriaxone) - Agree w/ IV PPI while admitted 2. Cirrhosis management - Called to update his hepatology care team - MELD labs every 6 months - ABD imaging w/ AFP every 6 months - EGD every 1-2 years - No ETOH - No NSAIDs - Avoid hepatotoxin - Low NA diet, less than 2G daily - Less than 2G acetaminophen containing products daily I spent a total of 40 minutes on the date of service in review of patient's record, and previously obtained information in person and appropriate medical visit, discussion and education of plan, with patient and/or caregiver, placing orders for tests/referral/procedures as medically necessary and documentation of pertinent clinical information in patient's medical records for their visit today. Admission and Anticipated Discharge Date Admission Date: April 20, 2024 Supervising Physician Co-Signing Physician Notes I personally saw and examined the patient. I have reviewed the chart and agree with the documentation provided by the REGIONAL CONTROLLER including discussion about the assessment, treatment and plan. Briefly, overall clinical improvement. He is more awake. He will need a paracentesis prior to going home. So far cultures have been unrevealing. Supportive care and lactulose to titrate to 2-3 bowel movements per day. He really should stop all drugs and follow-up with GI so he can get treated for his hep C. This will need to be done on an outpatient basis. GI will sign off please call with any questions. Subjective Pt was seen and evaluated, chart reviewed. Awake, alert, oriented to person/place/time. Feels tired. Denies abd pain, nausea/vomiting. No report of black or bloody stools. Review of Systems Review of Systems: All other findings negative except as noted in HPI. Physical Exam Constitutional: Chronically ill appearing but in no acute distress Respiratory: normal respiratory effort Cardiovascular: Rate/Rhythm: regular rate Gastrointestinal (Abdomen): +ascites Skin: no rashes, warm and dry Results & Data Results & Data Vital Signs (Past 12 Hours) Vital Signs Temp Pulse Pulse Resp BP BP Pulse Ox 04/22/24 07:20 98.2 F 108 H 16 118/64 98 04/22/24 02:58 97.5 F L 106 H 18 144/82 H 97 04/22/24 00:00 04/22/24 00:00 105 H 04/21/24 22:46 99.5 F 108 H 18 128/81 96 Pulse Ox O2 Del Method O2 Del Method 04/22/24 07:20 Room Air 04/22/24 02:58 Room Air 04/22/24 00:00 96 Room Air 04/22/24 00:00 04/21/24 22:46 Room Air Laboratory Results 04/22/24 04/21/24 04/20/24 Range/Units 06:40 16:01 18:42 WBC 5.50 (4.8-10.8) K/ul RBC 2.36 L (4.70-6.10) M/uL Hgb 7.6 L 8.2 L (14.0-18.0) g/dl Hct 21.9 L 23.2 L (42.0-52.0) % MCV 92.8 (80.0-100.0) fL MCH 32.2 (25.0-34.0) pg MCHC 34.7 (32.0-36.0) g/dL RDW Std Deviation 57.9 H (36.4-46.3) fL RDW Coeff of Tim 17.5 H (11.5-14.5) % Plt Count 116 L (130-400) K/uL MPV 9.5 (9.4-12.4) fL PT 20.5 H (9.0-12.0) Seconds INR 2.0 H (0.9-1.1) Sodium 133 L (136-145) mmol/L Potassium 3.8 (3.5-5.1) mmol/L Chloride 104 (98-107) mmol/L Carbon Dioxide 25 (21-32) mmol/L Anion Gap 4 (3-11) BUN 26 H (6-23) mg/dl Creatinine 1.23 D (0.6-1.4) mg/dl Est Cr Clr Drug Dosing 77.4 ml/min eGFR 76.11 BUN/Creatinine Ratio 21.1 H (10-20) Glucose 124 H (70-99(Fasting)) mg/dl Calcium 8.3 L (8.6-10.3) mg/dl Phosphorus 2.0 L (2.5-4.9) mg/dl Magnesium 1.8 (1.7-2.4) mg/dl Total Bilirubin 5.2 H (0.2-1.0) mg/dl AST 178 H (13-39) U/L ALT 77 H (7-52) U/L Alkaline Phosphatase 128 H (34-104) U/L Total Protein 6.0 (6.0-8.3) gm/dl Albumin 2.9 L (3.4-5.0) gm/dl Globulin 3.1 (2.5-4.0) gm/dl Albumin/Globulin Ratio 0.9 (0.9-2) Random Vancomycin 14.3 (10-20) mcg/ml Staphylococcus sp PCR DETECTED A (NotDetected) mecA/C-Methicil Resis Gene DETECTED A (NotDetected) Staph epidermidis (PCR) DETECTED A (NotDetected) Bld Cult ID Panel PCR See PCR Comment (NotDetected) PG Care Time/CCT Total # of Minutes Spent Total Time Spent with Patient: Total time spent is greater than 50% in coordination of care (as documented) at patient's floor/unit and/or counseling patient: Coding Level of Care Code 17485 SUB INP/OBS CARE 2/35MIN Diagnoses Acute hepatic encephalopathy K76.82
--- NOTE | 2024-04-22 10:05 | Hospitalist Progress Note ---
Date of Service April 22, 2024 Assessment & Plan (1) Acute alteration in mental status: Plan: Mr. Ulloa is a 38-year-old male with past medical history significant for chronic hepatitis C, cirrhosis of liver, pancytopenia, allergic rhinitis, attention deficit hyperactive disorder, anxiety, history of osteomyelitis, bipolar affective disorder who lives at home with his mother admitted for acute toxic metabolic encephalopathy. Patient was last known normal 04/20 s/p paracentesis with 10 L removal; however, that evening patient found down unresponsive. Patient with improved mentation, AOX3, however, notably weak. Reports that he wishes to leave--discussed at length that if he were to leave against medical advice, he is very likely to return back to the hospital. Plan to continue abx, watch renal function, resume lasix as able, and encourage possible paracentesis. #TERESA Cr 0.5 to 1.23, likely iso starting lasix and spironolactone will hold and assess am bmp #Positive blood cultures 02/12 suspect contaminant repeat blood cutures staph epi in 02/12 CTM #Acute toxic metabolic encephalopathy, likely iso hepatic decompensation #Coronavirus OC 43 #possible sepsis iso elevated lactate, suspected viral infection high risk superimposed bacterial, elevated RR and HR #right hand cellulitis *improving Ammonia 81 on admission UA without sign of infection Head CT WNL, MRI not tolerated at this time iso AMS Also noted to have +Utox, procal of 0.98 MRSA +, however, will treat with mupirocin in nares continue zosyn at this time Droplet precautions Noted pleural scarring on CT, encourage IS/flutter valve as mentation improves Hand swelling improved--palpated 3rd digit, no tenderness of swelling noted to require ortho consult at this time #Cirrhosis 2/2 HCV, decompensated #History of EV s/p EVL and ascites #HCV Follows Dr Merino, GI last visit 03/14/2024 HCV not undergone treatment, history of noncompliance - History of decompensation - MELD-Na: 20-->24 EGD: 09/2022- grade II EV. Banded. 11/2023- grade I varices - HRS: Cr with mild elevation from baseline - PSE: active on exam, will continue with lactulose (titrated to 3-4BM / day) - Ascites: hold home Lasix:Jose L 80:200 - SBP: zosyn for now, s/p paracentesis OP on 04/21, large volume ascites - EV: No evidence of GIB presently, close monitoring - on omeprazole at home, PPI BID IV - con zosyn for now - Daily CMP + INR to calculate MELD; low Na diet with FR 1.5L - GI consult Patient declined paracentesis follow up cultures #Abnormal CT A/P with ?splenic and renal infarct Multiple transcortical hypoattenuation's of the kidney. While this could be due to heterogeneous contrast-enhancement of the red pulp and the white pulp of the spleen, infarcts are also considerations. US kidney without signs of infarct #Acute on chronic anemia stable hemoglobin 8.6, down to 7.9 no reports of bleeding,likely iso acute illness History of EV Start PPI BID Trend Hgb q 12 #Chronic Thrombocytopenia iso severe cirrhosis Will monitor #Anxiety Holding buspirone for now DVT prophylaxis Heparin subcu monitor platelets Admission and Anticipated Discharge Date Admission Date: April 20, 2024 Subjective NEAO Reports some mild subjective improvement since day prior, alert to time, self, place, and situation Reports continued bowel movements Denies any new symptoms out side of weakness, and requesting to leave AMA--patient agreed to stay at this time Physical Exam Constitutional: chronically ill appearing gentleman Respiratory: diminished in bases, Cardiovascular: CLARY++ 3+edema BLE Gastrointestinal (Abdomen): protuberant, firm, nontender, fluid shift + Skin: right hand erythema and swelling much improved from day prior--no tenderness in joints, ROM in tact, third digit inspected--no clear abscess/wound, 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 Results & Data Results & Data Vital Signs (Past 12 Hours) Vital Signs Temp Pulse Pulse Resp BP BP Pulse Ox 04/22/24 07:20 36.8 C 108 H 16 118/64 98 04/22/24 02:58 36.4 C L 106 H 18 144/82 H 97 04/22/24 00:00 04/22/24 00:00 105 H 04/21/24 22:46 37.5 C 108 H 18 128/81 96 Pulse Ox O2 Del Method O2 Del Method 04/22/24 07:20 Room Air 04/22/24 02:58 Room Air 04/22/24 00:00 96 Room Air 04/22/24 00:00 04/21/24 22:46 Room Air Laboratory Results Short CBC 04/21/24 04/22/24 Range/Units 16:01 06:40 WBC 5.50 (4.8-10.8) K/ul Hgb 8.2 L 7.6 L (14.0-18.0) g/dl Hct 23.2 L 21.9 L (42.0-52.0) % Plt Count 116 L (130-400) K/uL BMP 04/22/24 06:40 Sodium 133 L Potassium 3.8 Chloride 104 Carbon Dioxide 25 BUN 26 H Creatinine 1.23 D Glucose 124 H Calcium 8.3 L Liver Function 04/22/24 Range/Units 06:40 Total Bilirubin 5.2 H (0.2-1.0) mg/dl AST 178 H (13-39) U/L ALT 77 H (7-52) U/L Alkaline Phosphatase 128 H (34-104) U/L Albumin 2.9 L (3.4-5.0) gm/dl Medications Administered Home Medications Medication Instructions Recorded Confirmed Last Taken buspirone 15 mg tablet 15 mg PO AMHS 04/12/24 04/20/24 Unknown furosemide 40 mg tablet See Rx Instructions .Route .COMPLEX 04/12/24 04/20/24 Unknown hydroxyzine HCl 25 mg tablet 25 mg PO TID PRN Anxiety 04/12/24 04/20/24 Unknown omeprazole 20 mg capsule,delayed 20 mg PO QAM 04/12/24 04/20/24 Unknown release spironolactone 100 mg tablet 200 mg PO QAM 04/12/24 04/20/24 Unknown Active Medications Generic Name Dose Route Start Last Admin Trade Name Oneil PRN Reason Stop Dose Admin Furosemide 80 mg 04/22/24 09:00 04/22/24 07:43 Furosemide 80 Mg Tab PO 05/22/24 08:59 80 mg QAM TRENA Administration Heparin Sodium (Porcine) 5,000 units 04/21/24 09:00 04/22/24 07:58 Heparin Sod 5,000 Unit/0.5 Ml Vial SQ 05/21/24 08:59 5,000 units Q12 TRENA Administration Piperacillin Sod/Tazobactam Sod 4.5 gm in 100 mls @ 25 mls/hr 04/21/24 00:00 04/22/24 11:45 Zosyn IV 05/01/24 00:00 Infused Q8H TRENA Infusion Protocol Pantoprazole Sodium 40 mg in 10 mls @ 5 mls/min 04/21/24 09:00 04/22/24 11:10 Protonix IV 05/21/24 08:59 5 mls/min BID TRENA Administration Lactulose 30 gm 04/21/24 13:00 04/22/24 07:44 Lactulose Syrup 30 Gm/45 Ml Udp PO 05/21/24 12:59 30 gm QID TRENA Administration Menthol 1 celsa 04/21/24 21:32 04/22/24 11:22 Cough Drop (Sugar Free) Celsa 24 Celsa/1 Box BUCCAL 05/21/24 21:31 1 celsa QID PRN Administration Sore Throat Mupirocin 1 appln 04/22/24 09:00 04/22/24 11:10 Mupirocin 2% Oint 22 Gm Tube EXT 05/22/24 08:59 1 appln BID TRENA Administration Spironolactone 100 mg 04/21/24 11:30 04/22/24 07:44 Spironolactone 100 Mg Tab PO 05/21/24 11:29 100 mg QAM TRENA Administration
[2024-04-22] MEDS: MUPIROCIN 2% OINT 22 GM TUBE EXT SCH (11:10)
[2024-04-22 12:00] LABS: A calco-baum cmplx NotReported Not Detected (NotDetected); Bact fragilis Not Reported Not Detected (NotDetected); Blood Culture Id Panel PCR Panel Negative (NotDetected); C auris Not Reported Not Detected (NotDetected); Calbicans Not Reported Not Detected (NotDetected); Candida glabrata Not Reported Not Detected (NotDetected); Candida krusei Not Reported Not Detected (NotDetected); Cneoformans/gatti Not Reported Not Detected (NotDetected); Cparapsilosis Not Reported Not Detected (NotDetected); E cloacae compx Not Reported Not Detected (NotDetected); Efaecalis Not Reported Not Detected (NotDetected); Efaecium Not Reported Not Detected (NotDetected); Enterobacterales Not Reported Not Detected (NotDetected); Escherichia coli Not Reported Not Detected (NotDetected); H influenzae Not Reported Not Detected (NotDetected); K aerogenes Not Reported Not Detected (NotDetected); Koxytoca Not Reported Not Detected (NotDetected); Kpneumoniae grp Not Reported Not Detected (NotDetected); Lmonocyt Not Reported Not Detected (NotDetected); N meningitidis Not Reported Not Detected (NotDetected); P aeruginosa Not Reported Not Detected (NotDetected); Proteus spp Not Reported Not Detected (NotDetected); Salmonella spp Not Reported Not Detected (NotDetected); Staph lugdunensis Not Reported Not Detected (NotDetected); Staph spp. Not Reported Not Detected (NotDetected); Staphaureus Not Reported Not Detected (NotDetected); Staphepi Not Reported Not Detected (NotDetected); Stenmaltophilia Not Reported Not Detected (NotDetected); Strep agal(GrpB) Not Reported Not Detected (NotDetected); Strep pneum Not Reported Not Detected (NotDetected); Strep pyog (GrpA) Not Reported Not Detected (NotDetected); Strep spp Not Reported Not Detected (NotDetected)
[2024-04-22] MEDS: POT PHOSPHATE MONOBASIC W/ SOD TAB PO SCH (14:24)
[2024-04-23] MEDS: KETOROLAC TROMETHAMINE 15 MG/ML VIAL IV ONE (00:46)
[2024-04-23 07:29] LABS: Creatinine Clr Calc Pharmacy 72.8 ml/min
[2024-04-23 08:46] LABS: Albumin Globulin Ratio 0.9 (0.9-2); Albumin Level 2.9 gm/dl (3.4-5.0); BUN Creatinine Ratio 20.2 (10-20); Bilirubin,Total 5.7 mg/dl (0.2-1.0); Calcium 8.2 mg/dl (8.6-10.3); Creatinine Clr Calc Pharmacy 72.8 ml/min; Globulin 3.1 gm/dl (2.5-4.0); Potassium 3.5 mmol/L (3.5-5.1)
[2024-04-23 08:55] LABS: Hematocrit (blood only) 20.9 % (42.0-52.0); Hemoglobin 7.2 g/dl (14.0-18.0); Mean Corpuscular Hgb Conc 34.4 g/dL (32.0-36.0); Mean Corpuscular Volume 92.9 fL (80.0-100.0); Mean Platelet Volume 9.7 fL (9.4-12.4); Platelet Count 88 K/uL (130-400); RDW Coefficient of Variation 17.3 % (11.5-14.5); RDW Standard Deviation 58.2 fL (36.4-46.3); Red Blood Count 2.25 M/uL (4.70-6.10)
[2024-04-23 08:56] LABS: Prothrombin Time 20.1 Seconds (9.0-12.0)
[2024-04-23 10:55] VITALS: BP 133/70; PULSE 99; RESP 18; TEMP 97.9; O2SAT 99
--- NOTE | 2024-04-23 11:42 | Discharge Summary ---
Discharge Summary Date of Service April 23, 2024 Principal Dx & Hospital Course #1 = Principal Diagnosis (1) Acute alteration in mental status: Mr. Ulloa is a 38-year-old male with past medical history significant for chronic hepatitis C, cirrhosis of liver, pancytopenia, allergic rhinitis, attention deficit hyperactive disorder, anxiety, history of osteomyelitis, bipolar affective disorder who lives at home with his mother admitted for acute toxic metabolic encephalopathy. Patient was last known normal 04/20 s/p paracentesis with 10 L removal; however, that evening patient found down unresponsive. Patient with improved mentation, AOX3, however, notably weak. Reports that he wishes to leave--discussed at length that if he were to leave against medical advice, he is very likely to return back to the hospital. Ultimately, patient decided on 04/23 that he would like to leave AMA. Discussed continuing worsening of labs--hgb dropping, thrombocytopenia progressing, worsening MELD score of 26, renal function with cr from 0.5 to 1.29, dropping sodium Patient verbalized understanding and states that he will follow up with his hepatolgist. Still discussed that given the above labs discussed that there is not a point that in the next 1-2 days I would feel this patient is medically stable for discharge and will return likely with further decompensation of cirrhosis. Patient verbalized understanding. Further discussion about goals of care attempted--but patient did not wish to explore the details. Patient AOx3 and left against medical advice #TERESA Cr 0.5 to 1.29 Would recommend labs and follow up as concern for possible HRS #Positive blood cultures 02/12 suspect contaminant repeat blood cutures NGTD staph epi in 02/12 #Acute toxic metabolic encephalopathy, likely iso hepatic decompensation #Coronavirus OC 43 #possible sepsis iso elevated lactate, suspected viral infection high risk superimposed bacterial, elevated RR and HR #right hand cellulitis *improving Ammonia 81 on admission UA without sign of infection Head CT WNL, MRI not tolerated at this time iso AMS Also noted to have +Utox, procal of 0.98 MRSA +, however, will treat with mupirocin in nares continue zosyn at this time Droplet precautions Noted pleural scarring on CT, encourage IS/flutter valve as mentation improves Hand swelling improved--palpated 3rd digit, no tenderness of swelling noted to require ortho consult at this time Sent with doxy and augmentin #Cirrhosis 2/2 HCV, decompensated #History of EV s/p EVL and ascites #HCV Follows Dr Merino, GI last visit 03/14/2024 HCV not undergone treatment, history of noncompliance - History of decompensation - MELD-Na: 20-->24--> 26 EGD: 09/2022- grade II EV. Banded. 11/2023- grade I varices - HRS: increasing - PSE: active on exam, will continue with lactulose (titrated to 3-4BM / day) - Ascites: hold home Lasix:Jose L 80:200 - SBP: zosyn for now, s/p paracentesis OP on 04/21, large volume ascites - EV: No evidence of GIB presently, close monitoring - on omeprazole at home, PPI BID Patient declined paracentesis Needs follow up with diagnostic technologist Needs to undergo paracentesis, refused while admitted Discussed UTOX positivity would prevent any exploration of transplant eligibity and patient should abstain--verbalized understanding declined resources #Abnormal CT A/P with ?splenic and renal infarct Multiple transcortical hypoattenuation's of the kidney. While this could be due to heterogeneous contrast-enhancement of the red pulp and the white pulp of the spleen, infarcts are also considerations. US kidney without signs of infarct #Acute on chronic anemia stable hemoglobin 8.6, down to 7.9 no reports of bleeding,likely iso acute illness History of EV Start PPI BID Trend Hgb q 12 #Acute on Chronic Thrombocytopenia iso severe cirrhosis #Anxiety Holding buspirone for now Notes For Next Care Provider MELD 26 on discharge Refused paracentesis Concern for renal function and progressive bicyotpenia iso decompensated cirrhosis strongly consider palliative care Medication Changes From Visit Sent augmentin and doxy to complete course for cellulitis Lactulose for 3-4 bm a day ppi BID Admission HPI Per Admitting Provider 38-year-old male with past medical history significant for chronic hepatitis C, cirrhosis of liver, pancytopenia, allergic rhinitis, attention deficit hyperactive disorder, anxiety, history of osteomyelitis, history of bipolar affective disorder who lives at home with his mother was brought in because of altered mental status. As per mother patient yesterday had 10 L of ascitic fluid taken out. He usually likes to hang out in the garage. Last time mother saw him in the garage about 6 PM yesterday. Mother went to work and came back home today around 5 PM and she found the patient in garage lying down there mostly unresponsive. In the ER patient was moaning but not answering any questions. Upper extremities seems to be rigid. Able to move his legs with painful stimuli. No obvious facial droop seen. No recent fevers as per mother. No nausea. Was eating okay. Was ambulating okay. No recent diarrhea as per mother. No recent cough. Could not get any history from the patient currently. Patient is afebrile. Blood pressure is okay. Saturating okay on room air. VBG was okay. Initial lactic acid is 5.3 and repeat is 2.9. Ammonia was 81. Procalcitonin 0.9. UA is unremarkable. MRSA screen positive. Urine drug screen Positive for amphetamines, MDMA and marijuana. Respiratory BioFire positive for coronavirus OC 43. CT head no acute findings. Patient was recently in the ER on 04/12/2024 with pain and swelling of the right wrist and procalcitonin was elevated but patient signed out AGAINST MEDICAL ADVICE. He was prescribed Keflex and doxycycline. As per mother patient completed the course of antibiotics. Past medical history. As mentioned above Past surgical history. EGD. EGD with endoscopic ultrasound Social history. Chews tobacco 1 can per day per [employer]. Vapes some days as per [employer]. Currently no alcohol use. Drug use history of marijuana use. Family history. Father had hypertension. Admission Exam Per Admitting Provider General- Moaning, Drowsy. Restless. Head- atraumatic Eyes- PERRL. Neck-no JVD. Lungs- clear to auscultation no wheezing or crackles Heart- regular rate and rhythm; no murmur, no gallop. Abdomen- sluggish bowel sounds, tense, distended Extremities- no pretibial edema, no erythema seen Neuro- Drowsy, Restless, moaning, Rigid upper extremities, no facial droop seen,; PERRL, moves lower extremities to painful stimuli. Discharge Exam Constitutional chronically ill appearing gentleman Respiratory diminished in bases Cardiovascular CLARY++, 1+ pitting edema BLE Updated Medication List Medication Instructions Recorded Confirmed Type buspirone 15 mg tablet 15 mg PO AMHS 04/12/24 04/20/24 History furosemide 40 mg tablet See Rx Instructions .Route .COMPLEX 04/12/24 04/20/24 History hydroxyzine HCl 25 mg tablet 25 mg PO TID PRN Anxiety 04/12/24 04/20/24 History spironolactone 100 mg tablet 200 mg PO QAM 04/12/24 04/20/24 History amoxicillin 875 mg-potassium 1 tab PO Q12H #14 tabs 04/23/24 Rx clavulanate 125 mg tablet doxycycline hyclate 100 mg tablet 100 mg PO BID 7 days #14 tabs 04/23/24 Rx lactulose 10 gram/15 mL oral 30 g (45 mL) PO DAILY 30 days 04/23/24 Rx solution #1,350 mL pantoprazole 40 mg tablet,delayed 40 mg PO BID #60 tabs 04/23/24 Rx release Hospital Stay Data Consultations 04/20/24 20:16 ED Decision to Admit Stat 04/21/24 08:00 Consult Gastroenterology Routine Diagnostic Imagining Performed 04/20/24 18:30 CT abd pelvis IV con only Stat CT cervical spine wo con Stat CT chest diagnostic w con Stat CT head/brain wo con Stat 04/20/24 21:14 CT hand RT w con Urgent 04/21/24 06:01 US Renal Bladder [US renal/blad retro comp] Routine Pending Results Patient Have Any Pending Studies at Discharge: No Total Time Total Time Spent Total Time Spent (In Minutes): 45
[2024-04-24] MEDS ORDERED: LACTULOSE SYRUP 30 GM/45 ML UDP PO SCH (09:00)
[2024-04-24 15:27] LABS: Amphetamine Urine, Confirm 918 ng/mL (<250); MDA negative; MDEA negative; MDMA (Ecstasy) Urine, Confirm negative; Marijuana Quant, GCMS Urine 106 ng/mL (<5); Methamphetamine, Ur Confirm >15000 ng/mL (<250)
--- NOTE | 2024-04-26 08:31 | Coding Query ---
SEPSIS To promote full compliance with coding requirements relating to patient care, physician participation is requested in all cases of ski maker uncertainty. Please assist us with the question(s) below: In responding to this query, please exercise your independent professional judgement. The fact that a question is asked does not imply that any particular answer is desired or expected. We appreciate your clarification on this issue. Throughout the medical record, you have clearly documented a localized infection and your patient has clinical evidence of a generalized sepsis or severe sepsis. The term urosepsis is a nonspecific entity and is coded as an UTI. If the patient has sepsis, severe sepsis, from an urinary source or some other source, please clarify in your response below. The medical record reflects the following clinical findings: (With dates as appropriate) (Body temperature of >38.3 C(101 F) or <36 C(96.8F), pulse >90/minute, respirations >20/minute, WBC count >12,000 or <4,000, altered mental status, significant edema or positive fluid balance, hyperglycemia without diabetes, hypotension, metabolic acidosis (elev. lactate level, anion gap or reduced blood pH), shock, positive blood culture (enter organism) ____ ()Bacteremia (Nonspecific laboratory finding of bacteria in the blood) Specify Organism () Present on Admission () Not present on admission () Unable to clinically determine () Septicemia (Systemic disease associated with the presence of pathogenic microorganisms in the blood): Specify Organism () Present on Admission () Not present on admission () Unable to clinically determine (X) Sepsis Specify Organism Specify Associated Condition/Diagnosis (X) Present on Admission () Not present on admission () Unable to clinically determine () Severe Sepsis (Sepsis associated with acute organ dysfunction) Specify Organism Specify Associated Condition/Diagnosis () Present on Admission () Not present on admission () Unable to clinically determine () Septic Shock (Severe sepsis with acute circulatory failure, unexplained by other causes) () Present on Admission () Not present on admission () Unable to clinically determine () Other, patient has: MTDD
== END 2024-04-23 13:34 | disposition left against medical advice (07) | DRG 871 ==
LOC: ED 18:28 → 1E 21:12 → 2S 04-21 21:16

== ENCOUNTER 2024-04-30 12:22 | Inpatient (IN) ==
--- OUTSIDE RECORDS SUMMARY | 2024-04-30 12:29 | External Medical Summary | Summary of Care ---
Author Name Unknown Organization [facility] Address [address] [place] [address] Phone [phone] Care Team Providers Care Business Area Director Name Role Phone Jose Chowdhury MD Primary Care Provider +1- [phone] Reason for Visit * Reason Comments Dosage Adjustment Via Phone (anticoag Cl inic) Status Check Encounter Details Date Type Department Care Team (Late st Contact Info) Description 04/21/2024 7:00 AM EDT Pharmacy Hepatology, [facility] [address] [place] [address] [facility] [place], Pharmacist Hepatology [address] [place] [address] Chronic hepatitis C without hepatic coma (HCC)*; Cirrhosis of liver with ascites, unspecified hepatic cirrhosis type (HCC) Allergies No known active allergiesdocumented as of this encounter (statuses as of 04/23/2024) Medications hydrOXYzine HCl 25 MG Oral Tablet [...] as of this encounter (statuses as of 04/23/2024) Active Problems Problem Noted Date Diagnosed Date [...] as of this encounter (statuses as of 04/23/2024) Resolved Problems Problem Noted Date Diagnosed Date [...] as of this encounter (statuses as of 04/23/2024) Immunizations Name Administration Dates Next Due HEP [...] this encounter Progress Notes * Denise Liang, [facility] - 04/21/2024 2:01 PM EDT [facility] Hepatitis C Management Patient Name: Armin Ulloa History of Current Illness: Armin is a 38 year old male with chronic Hepatitis C, genotype 1a, F4, last seen in the Gastroenterology clinic at [facility] on 03/14/2024. The patient's mother called after visiting the patient who is currently admitted to [facility] as of yesterday, 04/20/2024. She reports they believe he has an infection. She also wanted it to be knownthat he currently has a "rectal catheter" in place and that he has constipation "all the time". I thanked her for sharing this information, which I assured her will be passed on to Dr Merino. The patient regularly receives paracentesis through [facility] every Thursday. Provider initiating work-up: Margarita Merino, Date of clinic appointment: 08/16/2024 @11:20 am US Abdomen rescheduled for 04/18/2024 was cancelled MTM Plan: Will follow-up with the patient after discharge. Denise Liang PharmD, [facility] Clinical Pharmacist, Hepatology 04/21/2024 2:02 PM documented in this encounter Plan of Treatment Upcoming Encounters Date Type Department Care Team (Late st Contact Info) Description 04/28/2024 2:00 PM EDT Office Visit [facility] Conrado Dominguez [address] [phone] Essence Drew MD [address] [facility] [place] [address] 04/29/2024 7:00 AM EDT Pharmacy Hepatology, [facility] [address] [place] [address] [place], Pharmacist Hepatology [address] [place] [address] 08/16/2024 11:20 AM EDT Office Visit Hepatology, [facility] [address] [place] [address] Margarita Merino DO [address] [place] [address] Health Maintenance Due Date Last Done Comments [...] (HCC) documented in this encounter Care Teams Business Area Director Relationship Specialty Start Date End Date Jose Chowdhury [facility] [address] [facility] [place] [address] PCP - General 11/10/99 documented as of this encounter
--- OUTSIDE RECORDS SUMMARY | 2024-04-30 12:29 | External Medical Summary | Summary of Care ---
Author Name Unknown Organization [facility] Address [address] [place] [address] Phone [phone] Care Team Providers Care Jboss Developer Name Role Phone Jose Chowdhury MD Primary Care Provider +1- [phone] Reason for Visit * Reason Onset Date Comments Appointment 04/20/2024 Encounter Details Date Type Department Care Team (Late st Contact Info) Description 04/20/2024 Telephone Hepatology, [facility] [address] [place] [address] Margarita Merino DO [address] [place] [address] Appointment Allergies No known active allergiesdocumented as of this encounter (statuses as of 04/26/2024) Medications hydrOXYzine HCl 25 MG Oral Tablet [...] as of this encounter (statuses as of 04/26/2024) Active Problems Problem Noted Date Diagnosed Date [...] as of this encounter (statuses as of 04/26/2024) Resolved Problems Problem Noted Date Diagnosed Date [...] as of this encounter (statuses as of 04/26/2024) Immunizations Name Administration Dates Next Due DTaP [...] encounter Miscellaneous Notes * Telephone Encounter - Antonia Fleming OSA - 04/25/2024 4:41 PM EDT 04/25/24 busy signal - sent myg * Addendum Note - Margot Proctor, RN - 04/21/2024 2:06 PM EDTAddended by: MARGOT PROCTOR on: 04/21/2024 02:06 PM Modules accepted: Orders * Telephone Encounter - Margot Proctor RN - 04/21/2024 2:[address] Merino, See My G regarding constipation Faxed orders to [facility] for lab orders on peritoneal fluid when pt has next para. Scheduled 04/26/24 Margy aware of orders. * Telephone Encounter - Margot Proctor RN - 04/21/2024 9:35 AM EDT Called pt mother as call was dropped on transfer when she called in. She had already talked to Marcelle Liang who told her the US results and the labs needed. Mother found pt on the floor non coherent yesterday and pt is currently at [facility]. Mother will ask them for labs on fluid if they do a para. She is currently on her way to [facility]. Told her I would send her the message by AlesiaG/ * Telephone Encounter - Denise Liang, [facility] - 04/21/2024 9:33 AM EDT The patient's mother called stating she found the patient on the floor yesterday and [facility]. She stated at the time he was incoherence and glazed over. She is on her way to the hospital now where she was informed by the nurses that he's awake. I relayed Dr Merino's message regarding the US and the concern for potential infection of the fluid in his belly. I asked her to find out from the staff at [facility] if they're going to draw morefluid off and if so, it needs to be tested for infection. She also stated he currently has a urinary catheter in place, so she questioned if they can do the urine testing we need. I explained that since he's at [facility], I'm not sure what their policy is.If they are able/willing to do the urine toxicology we can send an order if needed. I also advised that the staff at the hospital can call if needed. She stated she's on the way to see him now and she will call back with more information. She also confirmed he has a paracentesis at [facility] every Thursday. After his last tap he was "shaky." Denise Liang, PharmD, [facility] Clinical Pharmacist, Hepatology 04/21/2024 9:37 AM * Telephone Encounter - Minoo Warner RN [...] Care Team (Late st Contact Info) Description 04/29/2024 7:00 AM EDT Pharmacy Hepatology, [facility] [address] [place] [address] [place], Pharmacist Hepatology [address] [facility] [place] [address] 08/16/2024 11:20 AM EDT Office Visit Hepatology, [facility] [address] [place] [address] Margarita Merino DO [address] [place] [address] 10/24/2024 12:30 PM EDT Imaging Radiology, [facility] [address] [place] [address] Scheduled Orders Name Type Priority Associated Diagnoses Orde r Schedule US ABDOMEN LIMITED Medical Imaging Routine Cirrhosis of liver with ascites, unspecified hepatic cirrhosis type (HCC) Expected: 10/21/2024, Expires: 05/21/2025 CELL COUNT WITH DIFFERENTIAL, BODY FLUID Lab Routine Cirrhosis of liver with ascites, unspecified hepatic cirrhosis type (HCC) Expected: 04/28/2024, Expires: 04/21/2025 CULTURE, BODY FLUID, AEROBIC AND ANAEROBIC Lab Routine Cirrhosis of liver with ascites, unspecified hepatic cirrhosis type (HCC) Expected: 04/28/2024, Expires: 04/21/2025 PROTEIN, BODY FLUID Lab Routine Cirrhosis of liver with ascites, unspecified hepatic cirrhosis type (HCC) Expected: 04/28/2024, Expires: 04/21/2025 ALBUMIN, BODY FLUID Lab Routine Cirrhosis of liver with ascites, unspecified hepatic cirrhosis type (HCC) Expected: 04/28/2024, Expires: 04/21/2025 Health Maintenance Due Date Last Done Comments [...] Primary documented in this encounter Care Teams Jboss Developer Relationship Specialty Start Date End Date Jose Chowdhury MD [address] [address] PCP - General 11/10/99 documented as of this encounter
--- OUTSIDE RECORDS SUMMARY | 2024-04-30 12:29 | External Medical Summary | Summary of Care ---
Author Name Unknown Organization [facility] Address [address] [place] [address] Phone [phone] Care Team Providers Care Work Counselor Name Role Phone Jose Chowdhury MD Primary Care Provider +1- [phone] Encounter Details Date Type Department Care Team (Late st Contact Info) Description 04/26/2024 Documentation Hepatology, [facility] [address] [place] [address] Margarita Merino DO [address] [place] [address] Allergies No known active allergiesdocumented as of [...] 04/26/2024) Immunizations Name Administration Dates Next Due HEP [...] Description 04/29/2024 7:00 AM EDT Pharmacy Hepatology, [facility] [address] [place] [address] [place], Pharmacist Hepatology [address] [place] [address] 05/02/2024 10:20 AM EDT [facility] [place] [facility] [address] [facility] [place] [phone] Jose Chowdhury MD [address] [facility] [place] [address] 08/16/2024 11:20 AM EDT Office Visit Hepatology, [facility] [address] [place] [phone] Margarita Merino DO [address] [place] [address] 10/24/2024 12:30 PM EDT Imaging Radiology, [place] [facility] [place] [address] Health Maintenance Due Date Last Done [...] filedocumented as of this encounter Care Teams Work Counselor Relationship Specialty Start Date End Date Jose Chowdhury MD [address] [address] PCP - General 11/10/99 documented as of this encounter
--- OUTSIDE RECORDS SUMMARY | 2024-04-30 12:29 | External Medical Summary | Summary of Care ---
Author Name Unknown Organization [facility] Address [address] [place] [address] Phone [phone] Care Team Providers Care Drier Attendant Name Role Phone Jose Chowdhury MD Primary Care Provider +1- [phone] Reason for Visit * Reason Comments Dosage Adjustment Via Phone (anticoag Cl inic) Encounter Details Date Type Department Care Team (Late st Contact Info) Description 04/29/2024 7:00 AM EDT Pharmacy Hepatology, [facility] [address] [place] [address] [place], Pharmacist Hepatology [address] [place] [address] Chronic hepatitis C without hepatic coma (HCC)*; Cirrhosis of liver with ascites, unspecified hepatic cirrhosis type (HCC) Allergies No known active allergiesdocumented as of this encounter (statuses as of 04/29/2024) Medications hydrOXYzine HCl 25 MG Oral Tablet [...] as of this encounter (statuses as of 04/29/2024) Active Problems Problem Noted Date Diagnosed Date [...] as of this encounter (statuses as of 04/29/2024) Resolved Problems Problem Noted Date Diagnosed Date [...] as of this encounter (statuses as of 04/29/2024) Immunizations Name Administration Dates Next Due HEP [...] Answer Date Recorded PHQ Adult Total Score 1 04/27/2024 Hunger Vital Sign Answer Date Recorded Within the past 12 months, y ou worried that your food would run out before you got the money to buy more. Never true 04/28/19 25 Within the past 12 months, t he food you bought just didn't last and you didn't have money to get more. Never true 04/27/2024 Childcare Answer Date Recorded Do you feel overwhelmed with taking care of a child, family member or friend? No 04/27/2024 Does your family need help f inding childcare? (Household - for ages 0-17 years) Not on file 04/27/2024 Clothing Answer Date Recorded Have you been unable to get clothing when it was really needed? Yes 04/27/2024 Is your family able to get c lothes or diapers when needed? (Household - for ages 0-17 years) Not on file 04/27/2024 Personal Safety Answer Date Recorded Do you feel unsafe or have concerns for your saf ety? No 04/27/2024 Do you have concerns for you r family's safety? (Household - for ages 0-17 years) Not on file 04/27/2024 Utilities Answer Date Recorded Do you have trouble paying y our heating, water, or electric bill? Yes 04/27/2024 Is your family able to pay t he heat, water, or electric bill? (Household - for ages 0-17 years) Not on file 04/27/2024 Does your family have access to good internet? (Household - for ages 0-17 years) Not on file 04/27/2024 Employment Status Answer Date Recorded Are you unemployed or without regular income? Ye s 04/27/2024 Does the household have a re gular source of income? (Household - for ages 0-17 years) Not on file 04/27/2024 Social Connections Answer Date Recorded How often do you feel lonely or isolated from th ose around you? Never 04/27/2024 Financial Resource Strain Answer Date R ecorded Do you have any trouble payi ng for your medications, or do you think you might in the future? No 04/27/2024 Does your family have troubl e paying for medicine? (Household - for ages 0-17 years) Not on file 04/27/2024 Transportation Needs Answer Date Record ed Do you have trouble getting a ride to medical visits or work? (Adult - for ages 18 years and over) Not on file 04/27/2024 Does your family have a hard time getting a ride to doctors visits? (Household - for ages 0-17 years) Not on file 04/27/2024 Has lack of transportation k ept you from medical appointments, meetings, work, or from getting things needed for daily living? Check all that apply. Yes, it has kept me from medical appointments;Yes, it has kept me from non-medical meetings, appointments, work, or from getting things that I need 04/27/2024 Do you (or your family) have trouble finding or paying for a ride (transportation)? (Household - for ages 0-17 years) Not on file 04/27/2024 Housing Stability Answer Date Recorded Do you currently live in a s helter or have no steady place to sleep at night? No 04/27/2024 Do you think you are at risk of becoming homeless? (Adult - for ages 18 years and over) Not on file 04/27/2024 Does your family worry about paying for your home or becoming homeless? (Household - for ages 0-17 years) Not on file 0 04/27/2024 Are you homeless or worried that you might be in the future? No 04/27/2024 Are you (or your family) nayana eless [...] the money to buy more. Never true 04/28/19 25 Within the past 12 months, t he food you bought just didn't last and you didn't have money to get more. Never true 04/27/2024 Do you need food for this week? No 04/27/2024 Sex and Gender Information Value Date Recorded Sex Assigned at Male 10/07/2021 8:14 AM EDT Legal Sex Male 7:10 AM EST Gender Identity Male 10/07/2021 8:14 AM EDT Sexual Orientation Straight 10/07/2021 8: 14 AM EDT documented as of this encounter Progress Notes * Denise Liang RPh - 04/26/2024 9:41 PM EDT He is very sick and decompensating quickly and he is not going to be a transplant candidate at thistime given his active drug use but he should be monitored closely. Id like to see him in 2-4 weeks if possible. Is he still taking 120 mg of lasix and 100 mg of aldactone? Rubio. Margarita * Denise Liang RPh - 04/26/2024 10:07 AM EDT [facility] Hepatitis C Management Patient Name: Armin Ulloa History of Current Illness: Armin is a 38 year old male with chronic Hepatitis C, genotype 1a, F4, last seen in the Gastroenterology clinic at [facility] on 03/14/2024. The patient's current diuretic regimen is Lasix from 80 mg qam and 40 mg qafternoon & Aldactone 100 mg daily. He was recently admitted to [facility] on 04/20/2024 and he left [facility] on 04/23/2024. The patient's mother called to inform us of the medications he was started on at discharge: Pantoprazole 40 mg BID, Augmentin q12h, Doxycycline 100 mg q12h, and Lactulose 30 g (45 mL) daily. She confirmed he is having ~4-5 BMs daily and she stated he noted some rectal bleeding since discharge, but he has not shared any details to the color. I encouraged her to call to schedule a HD appointment with his PCP. Lab results obtained from [facility], including MELD labs at discharge and Urine Toxicology. The patient regularly receives paracentesis through [facility] every Thursday. This is a follow-up phone call to advise the patient of his appointment that has been moved to later this month. I called the home phone and spoke with the patient. He was made aware and he wrote theappointment information down. I also called his mother, Nikkie, to inform her of the appointment; sheis aware. Provider initiating work-up: Margarita Merino DO Date of clinic appointment: 05/09/2024 @1 pm Latest Reference Range & Units 10/15/21 14:13 11/19/21 08:39 05/14/22 14:05 11/06/22 15:07 05/11/23 10:23 03/14/24 11:04 04/12/24 14:59 * 04/23/24 08:15 Sodium 135 - 146 mmol/L 138 140 140 135 128 (L) 132 (L) Potassium 3.5 - 5.1 mmol/L 4.0 4.2 4.1 4.3 4.3 3.5 Chloride 98 - 107 mmol/L 106 106 106 102 97 100 CO2 22 - 32 mmol/L 26 26 27 24 26 25 BUN 6 - 20 mg/dL 11 13 14 22 (H) 28 (H) 26 (H) Creatinine 0.6 - 1.2 mg/dL 0.6 0.7 0.7 0.9 0.87 1.29 Estimated Glomerular Filtration Rate >=60 mL/min >90 >90 >90 >90 111.87 72.8 Anion Gap 7 - 15 mmol/L 6 (L) 8 7 9 5 7 Glucose 70 - 120 mg/dL 125 (H) 104 85 67 (L) 133 (H) 110 (H) Calcium 8.4 - 10.2 mg/dL 9.1 8.7 9.0 9.0 8.8 8.2 (L) *9.08 = Corrected Ca Protein 6.0 - 8.3 g/dL 6.6 6.8 6.2 7.0 6.9 6.0 Alpha-Fetoprotein Tumor Marker 0.0 - 8.3 ng/mL 7.7 5.5 6.2 INR 0.8 - 1.2 1.3 (H) 1.3 (H) 1.6 (H) 2.0 (H) Prothrombin Time 11.6 - 15.2 sec 16.0 (H) 16.03 (H) 19.6 (H) 20.1 (H) WBC 4.00 - 10.80 K/uL 3.56 (L) 3.74 (L) 3.06 (L) 7.37 5.75 5.30 HGB 14.0 - 16.8 g/dL 12.0 (L) 10.04 (L) 10.0 (L) 10.0 (L) 8.1 (L) 7.2 (L) HCT 40.0 - 48.4 % 35.6 (L) 32.4 (L) 29.3 (L) 28.6 (L) 24.1 (L) 20.9 (L) MCV 82.0 - 99.5 fL 92.0 91.5 89.3 95.7 96.0 92.9 PLT 140 - 400 K/uL 73 (L) 84 (L) 59 (L) 137 (L) 130 (L) 88 (L) Hepatitis A Ab Total Negative Positive Hepatitis B Surface Ag Negative Hepatitis B Surface Ab Negative <3.5 Negative^ <3.5 Hepatitis B Core Ab Total Negative HCV Genotype 1a HEPATITIS C RNA QUANTITATIVE 2,680,000 1,520,000 1,050,000 HIV AG & AB Negative Albumin 3.8 - 5.0 g/dL 3.7 (L) 3.3 (L) 3.2 (L) 3.3 (L) 3.6 2.9 (L) AST 10 - 50 U/L 173 (H) 144 (H) 109 (H) 127 (H) 119 (H) 153 (H) ALT 10 - 50 U/L 145 (H) 97 (H) 76 (H) 79 (H) 60 (H) 76 (H) Alkaline Phosphatase 35 - 130 U/L 153 (H) 213 (H) 138 (H) 170 (H) 128 (H) 120 (H) Bilirubin, Total <=1.2 mg/dL 0.9 1.1 0.9 3.0 (H) 3.8 (H) 5.7 (H) Bilirubin, Direct 1.5 (H) 1.7 (H) Ethanol, Medical Negative 04/20/2024 Urine Toxicology NEGATIVE: Opiate, PCP, Barbiturate, Cocaine, Benzodiazepine, Methadone, Fentanyl POSITIVE: Marijuana, Amphetamine + Methamphetamine, MDMA (Ecstasy) ^The patient completed the hepatitis A vaccination series (10/25/2021 & 04/24/2022). He also completed the hepatitis B vaccination series twice (10/30/1998, 11/28/1998, 05/01/1999 & 10/25/2021, 11/25/2021, 04/24/2022). The patient remains non-immune and after 2 full series is deemed a non-responder. No further vaccinations are warranted at this time. *See Care Everywhere #Drawn through [facility] Liver Biopsy 10/22/2021 Left liver lobe, needle [...] (stage IV). The PASD stain shows focal [id number] globules at periportal area. The iron stain [...] ruled out. Clinical correlation is recommended. Last imagin04/18/2024 US Abdomen: The liver is small in size with heterogeneous echotexture and nodular surface. No focal hepatic lesion is seen. No intrahepatic ductal dilatation is found. The common bile duct is not dilated, measuring 4 mm. Cholelithiasis is noted. There is gallbladder wall edema, likely related to ascites. No tenderness was elicited with direct compression by the transducer; no sonographic Moreno's sign identified. Visualized portions of pancreas appear unremarkable. The right kidney measures 10.6 cm in length. It demonstrates no mass, calculus, or hydronephrosis. There is moderate free fluid in the visualized abdomen with fine internal echoes within. IMPRESSION 1. Cirrhotic liver. No focal hepatic lesion is seen. 2. Moderate ascites with fine internal echoes within. Please correlate with clinical signs and symptoms to exclude superimposed infection. 3. Cholelithiasis. MTM Plan: Will follow-up after the patient is seen in clinic. Wandy StreetD, [facility] Clinical Pharmacist, Hepatology 04/29/2024 10:22 AM documented in this encounter Plan of Treatment Upcoming Encounters Date Type Department Care Team (Late st Contact Info) Description 05/02/2024 10:20 AM EDT Office Visit [facility] Savi Ragland [address] [phone] Jose Chowdhury MD [address] [address] 05/05/2024 3:10 PM EDT Home Visit [facility] [address] [place] [address] Malka Sanabria, [facility] [address] [place] [address] 05/09/2024 1:00 PM EDT Office Visit Hepatology, [facility] [address] [place] [phone] Margarita Merino DO [address] [place] [address] 05/16/2024 7:00 AM EDT Pharmacy Hepatology, [facility] [address] [place] [facility] [address] [place], Pharmacist Hepatology [address] [place] [address] 10/24/2024 12:30 PM ED[facility] [address] [place] [address] Health Maintenance Due Date Last Done Comments Pneumococcal Vaccine: Pediatrics (0 to 5 Years) and At-Risk Patients (6 to 18 Years and 19+ Years) (1 of 2 - PCV) 09/29/2002 Lipid Panel 11/08/2018 11/08/2013 COVID-19 Vaccine ( - season) 2023 Influenza Vaccine (FLU shot) (#1) 2023 Depression Monitoring 04/27/2025 04/27/2024, 024 Diabetes Screening 03/14/2027 03/14/2024, 1 04/03/2023, 01/25/2024, [...] (HCC) documented in this encounter Care Teams Drier Attendant Relationship Specialty Start Date End Date Jose Chowdhury MD [address] [facility] [place] [address] PCP - General 11/10/99 documented as of this encounter
--- OUTSIDE RECORDS SUMMARY | 2024-04-30 12:29 | External Medical Summary | Summary of Care ---
Author Name Unknown Organization [facility] Address [address] [place] [address] Phone [phone] Care Team Providers Care Director Franchise Sales Name Role Phone Jose Chowdhury MD Primary Care Provider +1- [phone] Reason for Visit * Reason Onset Date Comments Appointment 04/25/2024 HD Encounter Details Date Type Department Care Team (Late st Contact Info) Description 04/25/2024 Telephone Care Coordination and Integration [address], [place] [id number] Iliana Perez RN [address] [place] [address] Appointment (HD) Allergies No known active allergiesdocumented as of this encounter (statuses as of 04/27/2024) Medications hydrOXYzine HCl 25 MG Oral Tablet [...] as of this encounter (statuses as of 04/27/2024) Active Problems Problem Noted Date Diagnosed Date [...] as of this encounter (statuses as of 04/27/2024) Resolved Problems Problem Noted Date Diagnosed Date [...] as of this encounter (statuses as of 04/27/2024) Immunizations Name Administration Dates Next Due DTaP [...] 04/27/2024 Does the household have a re lar [...] encounter Miscellaneous Notes * Telephone Encounter - Char Maria OSA - 04/27/2024 11:39 AM EDT Done. 04/27/2024 * Telephone Encounter - Iliana Perez RN - 04/25/2024 2:43 PM EDT Spoke with mother, she is not able to schedule right now as she does not have her calendar in frontof her. She can only do appointments on Thursday's and Tuesdays. Scheduling: can you please reach out to her later today or tomorrow to schedule HD follow up? Thanks! Iliana Perez, vice president fixed income [facility] Internal Medicine/Family Practice [facility] [phone] documented in this encounter Plan of Treatment Upcoming Encounters Date Type Department Care Team (Late st Contact Info) Description 04/29/2024 7:00 AM EDT Pharmacy Hepatology, [place] [address] [place] [facility] [place] [address] [place], Pharmacist Hepatology [address] [place] [address] 05/02/2024 10:20 AM EDT Office Visit [facility] [address] [place] [phone] Jose Chowdhury MD [address] [place] [address] 08/16/2024 11:20 AM EDT Office Visit Hepatology, [facility] [address] [place] [phone] Margarita Merino DO [address] [place] [address] 10/24/2024 12:30 PM EDT Imaging Radiology, [place] [address] [place] [phone] Health Maintenance Due Date [...] filedocumented as of this encounter Care Teams Director Franchise Sales Relationship Specialty Start Date End Date Jose Chowdhury MD [address] [facility] [place] [address] PCP - General 11/10/99 documented as of this encounter
--- OUTSIDE RECORDS SUMMARY | 2024-04-30 12:29 | External Medical Summary | Summary of Care ---
Author Name Unknown Organization [facility] Address [address] [place] [address] Phone [phone] Care Team Providers Care Railroad Car Painter Name Role Phone Jose Chowdhury MD Primary Care Provider +1- [phone] Encounter Details Date Type Department Care Team (Late st Contact Info) Description 04/26/2024 Result Scan Unspecified Department Margarita Merino DO [address] [place] [address] <No scans attached> Allergies No known active [...] 04/27/2024) Immunizations Name Administration Dates Next Due HEP [...] Description 04/29/2024 7:00 AM EDT Pharmacy Hepatology, [place] [address] [place] [facility] [place] [address] [place], Pharmacist Hepatology [address] [place] [address] 05/02/2024 10:20 AM EDT Office Visit Family Practice, [place] [address] [phone] Jose Chowdhury MD [address] [address] 08/16/2024 11:20 AM EDT Office Visit Hepatology, [facility] [address] [place] [phone] Margarita Merino DO [address] [place] [address] 10/24/2024 12:30 PM EDT Imaging Radiology, [place] [address] [phone] Health Maintenance Due Date Last Done Comments [...] Procedure Name Priority Date/Time Associated Diagnosis Comments OUTSIDE LAB RESULTS 04/26/2024 RADIOLOGY SCANNED RESULT 04/26/2024 documented in this encounter Results * RADIOLOGY SCANNED RESULT (04/26/2024) 04/26/2024 us Margarita Merino DO DIAGNOSTIC RADIOLOGY S [facility] Final Result * OUTSIDE LAB RESULTS (04/26/2024) 04/26/2024 us Margarita Merino DO LABORATORY Final Result documented in this encounter Care Teams Railroad Car Painter Relationship Specialty Start Date End Date Jose Chowdhury MD [address] [address] PCP - General 11/10/99 documented as of this encounter
--- OUTSIDE RECORDS SUMMARY | 2024-04-30 12:29 | External Medical Summary | Summary of Care ---
Author Name Unknown Organization [facility] Address [address] [place] [address] Phone [phone] Care Team Providers Care Framing Inspector Name Role Phone Jose Chowdhury MD Primary Care Provider +1- [phone] Reason for Visit * Reason Onset Date Comments Appointment 04/20/2024 Encounter Details Date Type Department Care Team (Late st Contact Info) Description 04/20/2024 Telephone Hepatology, [facility] [address] [place] [address] Margarita Merino DO [address] [place] [address] Appointment Allergies No known active allergiesdocumented as [...] No 09/01/2023 Are you (or your family) anyana eless or worried that you might be [...] [place] OSA - 04/25/2024 4:41 PM EDT PT SCHEDULED 04/25/24 busy signal - sent myg * Addendum Note - Margot Proctor RN - 04/21/2024 2:06 PM EDTAddended by: MARGOT PROCTOR on: 04/21/2024 02:06 PM Modules accepted: Orders * Telephone Encounter - Margot Proctor RN - 04/21/2024 2:[address] Merino, See My G regarding constipation Faxed orders to [facility] for lab orders on peritoneal [...] coherent yesterday and pt is currently at [facility]. Mother will ask them for labs on fluid if they do a para. She is currently on her way to [facility]. Told her I would send her the message by AlesiaG/ * Telephone Encounter - Denise Liang, [facility] - 04/21/2024 9:33 AM EDT The patient's mother called stating she found the patient on the floor yesterday and he was broughtto [facility]. She stated at the time he was incoherence and glazed over. She is on her way to the hospital now where she was informed by the nurses that he's awake. I relayed Dr Merino's message regarding the US and the concern for potential infection of the fluid in his belly. I asked her to find out from the staff at [facility] if they're going to draw morefluid off and if so, it needs to be tested for infection. She also stated he currently has a urinary catheter in place, so she questioned if they can do the urine testing we need. I explained that since he's at [facility], I'm not sure what their policy is.If they are able/willing to do the urine toxicology we can send an order if needed. I also advised that the staff at the hospital can call if needed. She stated she's on the way to see him now and she will call back with more information. She also confirmed he has a paracentesis at [facility] every Thursday. After his last tap he was "shaky." Denise Liang, PharmD, [facility] Clinical Pharmacist, Hepatology 04/21/2024 9:37 AM * [...] Description 04/29/2024 7:00 AM EDT Pharmacy Hepatology, [place] [address] [place] [address] [place], Pharmacist Hepatology [address] [place] [address] 08/16/2024 11:20 AM EDT Office Visit Hepatology, [facility] [address] [facility] [place] [address] Margarita Merino DO [address] [facility] [place] [address] 10/24/2024 12:30 PM EDT Imaging Radiology, [facility] [address] [place] [phone] Scheduled Orders Name Type Priority Associated Diagnoses [...] Primary documented in this encounter Care Teams Framing Inspector Relationship Specialty Start Date End Date Jose Chowdhury MD [address] [address] PCP - General 11/10/99 documented as of this encounter
--- OUTSIDE RECORDS SUMMARY | 2024-04-30 12:29 | External Medical Summary | Summary of Care ---
Author Name Unknown Organization [facility] Address [address] [place] [address] Phone [phone] Care Team Providers Care Application Development Liaison Name Role Phone Jose Chowdhury MD Primary Care Provider +1- [phone] Reason for Visit * Reason Onset Date Comments Appointment 04/20/2024 Encounter Details Date Type Department Care Team (Late st Contact Info) Description 04/20/2024 Telephone Hepatology, [facility] [address] [place] [address] Margarita Merino DO [address] [place] [address] Appointment Allergies No known active allergiesdocumented as of this encounter (statuses as of 04/21/2024) Medications hydrOXYzine HCl 25 MG Oral Tablet [...] as of this encounter (statuses as of 04/21/2024) Active Problems Problem Noted Date Diagnosed Date [...] as of this encounter (statuses as of 04/21/2024) Resolved Problems Problem Noted Date Diagnosed Date [...] as of this encounter (statuses as of 04/21/2024) Immunizations Name Administration Dates Next Due DTaP [...] encounter Miscellaneous Notes * Telephone Encounter - Margot Jeong, RN - 04/21/2024 9:35 AM EDT Called pt mother as call was dropped on transfer when she called in. She had already talked to Marcelle Liang who told her the US results and the labs needed. Mother found pt on the floor non coherent yesterday and pt is currently at [facility]. Mother will ask them for labs on fluid if they do a para. She is currently on her way to [facility]. Told her I would send her the message by MyG/ * Telephone Encounter - Denise Liang [facility] - 04/21/2024 9:33 AM EDT The patient's mother called stating she found the patient on the floor yesterday and [facility]. She stated at the time he was incoherence and glazed over. She is on her way to the hospital now where she was informed by the nurses that he's awake. I relayed Dr Merino's message regarding the US and the concern for potential infection of the fluid in his belly. I asked her to find out from the staff at [facility] if they're going to draw morefluid off and if so, it needs to be tested for infection. She also stated he currently has a urinary catheter in place, so she questioned if they can do the urine testing we need. I explained that since he's at [facility], I'm not sure what their policy is.If they are able/willing to do the urine toxicology we can send an order if needed. I also advised that the staff at the hospital can call if needed. She stated she's on the way to see him now and she will call back with more information. She also confirmed he has a paracentesis at [facility] every Thursday. After his last tap he was "shaky." Denise Liang, PharmD, [facility] Clinical Pharmacist, Hepatology 04/21/2024 9:37 AM * [...] Care Team (Late st Contact Info) Description 08/16/2024 11:20 AM EDT Office Visit Hepatology, [facility] [address] [facility] [place] [address] Margarita Merino DO [address] [place] [address] Scheduled Orders Name Type Priority Associated Diagnoses [...] Primary documented in this encounter Care Teams Application Development Liaison Relationship Specialty Start Date End Date Jose Chowdhury MD [address] [address] PCP - General 11/10/99 documented as of this encounter
--- OUTSIDE RECORDS SUMMARY | 2024-04-30 12:29 | External Medical Summary | Summary of Care ---
Author Name Unknown Organization [facility] Address [address] [place] [address] Phone [phone] Care Team Providers Care Lab Rn Name Role Phone Jose Chowdhury MD Primary Care Provider +1- [phone] Reason for Visit * Reason Onset Date Comments Appointment 04/25/2024 HD Encounter Details Date Type Department Care Team (Late st Contact Info) Description 04/25/2024 Telephone Care Coordination and Integration [address] [place], [place] [id number] Iliana Perez RN [address] [place] [address] Appointment (HD) Allergies No known active allergiesdocumented as of this encounter (statuses as of 04/25/2024) Medications hydrOXYzine HCl 25 MG Oral Tablet [...] as of this encounter (statuses as of 04/25/2024) Active Problems Problem Noted Date Diagnosed Date [...] as of this encounter (statuses as of 04/25/2024) Resolved Problems Problem Noted Date Diagnosed Date [...] as of this encounter (statuses as of 04/25/2024) Immunizations Name Administration Dates Next Due HEP [...] encounter Miscellaneous Notes * Telephone Encounter - Iliana Perez RN - 04/25/2024 2:43 PM EDT Spoke with mother, she is not able to schedule right now as she does not have her calendar in frontof her. She can only do appointments on Thursday's and Tuesdays. Scheduling: can you please reach out to her later today or tomorrow to schedule HD follow up? Thanks! Iliana Perez RN Case Manager [facility] Internal Medicine/Family Practice [facility] Practice [phone] documented in this encounter Plan of Treatment Upcoming Encounters Date Type Department Care Team (Late st Contact Info) Description 04/29/2024 7:00 AM EDT Pharmacy Hepatology, [place] [address] [place] [address] [place] Pharmacist Hepatology [address] [place] [address] 08/16/2024 11:20 AM EDT Office Visit Hepatology, [address] [place] [address] Margarita Merino, DO [address] [place] [address] 10/24/2024 12:30 PM EDT Imaging Radiology, [facility] [address] [phone] Health Maintenance Due Date Last Done Comments [...] filedocumented as of this encounter Care Teams Lab Rn Relationship Specialty Start Date End Date Jose Chowdhury MD [address] [address] PCP - General 11/10/99 documented as of this encounter
--- OUTSIDE RECORDS SUMMARY | 2024-04-30 12:29 | External Medical Summary | Summary of Care ---
Author Name Unknown Organization [facility] Address [address] [place] [address] Phone [phone] Care Team Providers Care Mail Messenger Contractor Name Role Phone Jose Chowdhury MD Primary Care Provider +1- [phone] Reason for Visit * Reason Onset Date Comments Appointment 04/20/2024 Encounter Details Date Type Department Care Team (Late st Contact Info) Description 04/20/2024 Telephone Hepatology, [facility] [address] [place] [address] Margarita Merino DO [address] [place] [address] Appointment Allergies No known active allergiesdocumented as [...] as of this encounter Miscellaneous Notes * Addendum Note - Margot Proctor, RN - 04/21/2024 2:06 PM EDTAddended by: MARGOT PROCTOR on: 04/21/2024 02:06 PM Modules accepted: Orders * Telephone Encounter - Margot Proctor RN - 04/21/2024 2:[address] Merino, See My G regarding constipation Faxed orders to [facility] for lab orders on peritoneal fluid when [...] coherent yesterday and pt is currently at [facility]. Mother will ask them for labs on fluid if they do a para. She is currently on her way to [facility]. Told her I would send her the message by My/ * Telephone Encounter - Denise Liang, [facility] - 04/21/2024 9:33 AM EDT The patient's mother called stating she found the patient on the floor yesterday and [facility]. She stated at the time he was [...] tap he was "shaky." Denise Liang, PharmD, BCPS Clinical Pharmacist, Hepatology 04/21/2024 9:37 AM * [...] 08/16/2024 11:20 AM EDT Office Visit Hepatology, [facility] [address] [place] [address] Margarita Merino, DO [address] [place] [address] Scheduled Orders Name Type Priority Associated Diagnoses [...] Primary documented in this encounter Care Teams Mail Messenger Contractor Relationship Specialty Start Date End Date Jose Chowdhury MD [address] [facility] [place] [address] PCP - General 11/10/99 documented as of this encounter
--- OUTSIDE RECORDS SUMMARY | 2024-04-30 12:30 | External Medical Summary | Summary of Care ---
Author Name Unknown Organization [facility] Address [address] [place] [address] Phone [phone] Care Team Providers Care Business Performance Analyst Name Role Phone Jose Chowdhury MD Primary Care Provider +1- [phone] Reason for Visit * Reason Onset Date Comments Appointment 04/20/2024 Encounter Details Date Type Department Care Team (Late st Contact Info) Description 04/20/2024 Telephone Hepatology, [facility] [address] [place] [address] Margarita Merino DO [address] [place] [address] Appointment Allergies No known active allergiesdocumented as [...] coherent yesterday and pt is currently at [facility]. Mother will ask them for labs on fluid if they do a para. She is currently on her way to [facility]. Told her I would send her the message by MyG/ * Telephone Encounter - Denise Liang [facility] - 04/21/2024 9:33 AM EDT The patient's mother called stating she found the patient on the floor yesterday and he was broughtto [facility]. She stated at the time he was incoherence and glazed over. She is on her way to the hospital now where she was informed by the nurses that he's awake. I relayed Dr Merino's message regarding the US and the concern for potential infection of the fluid in his belly. I asked her to find out from the staff at [facility] if they're going to draw morefluid off and if so, it needs to be tested for infection. She also stated he currently has a urinary catheter in place, so she questioned if they can do the urine testing we need. I explained that since he's at [facility], I'm not sure what their policy is.If they are able/willing to do the urine toxicology we can send an order if needed. I also advised that the staff at the hospital can call if needed. She stated she's on the way to see him now and she will call back with more information. She also confirmed he has a paracentesis at [facility] every Thursday. After his last tap he was "shaky." Denise Liang, PharmD, [facility] Clinical Pharmacist, Hepatology 04/21/2024 9:37 [...] 08/16/2024 11:20 AM EDT Office Visit Hepatology, [facility] [address] [facility] [place] [address] Margarita Merino DO [address] [place] [address] Scheduled Orders Name Type Priority Associated Diagnoses [...] Primary documented in this encounter Care Teams Business Performance Analyst Relationship Specialty Start Date End Date Jose Chowdhury MD [address] [address] PCP - General 11/10/99 documented as of this encounter
--- OUTSIDE RECORDS SUMMARY | 2024-04-30 12:30 | External Medical Summary | Summary of Care ---
Author Name Unknown Organization [facility] Address [address] [place] [address] Phone [phone] Care Team Providers Care Oyster Washer Name Role Phone Jose Chowdhury MD Primary Care Provider +1- [phone] Reason for Visit * Reason Onset Date Comments Appointment 04/20/2024 Encounter Details Date Type Department Care Team (Late st Contact Info) Description 04/20/2024 Telephone Hepatology, [facility] [address] [place] [address] Margarita Merino DO [address] [place] [address] Appointment Allergies No known active allergiesdocumented as [...] coherent yesterday and pt is currently at [facility]. Mother will ask them for labs on fluid if they do a para. She is currently on her way to [facility]. Told her I would send her the message by MyG/ * Telephone Encounter - Denise Liang [facility] - 04/21/2024 9:33 AM EDT The patient's mother called stating she found the patient on the floor yesterday and he was broughtto [facility]. She stated at the time he was incoherence and glazed over. She is on her way to the hospital now where she was informed by the nurses that he's awake. I relayed Dr Merino's message regarding the US and the concern for potential infection of the fluid in his belly. I asked her to find out from the staff at [facility] if they're going to draw morefluid off and if so, it needs to be tested for infection. She also stated he currently has a urinary catheter in place, so she questioned if they can do the urine testing we need. I explained that since he's at [facility], I'm not sure what their policy is.If they are able/willing to do the urine toxicology we can send an order if needed. I also advised that the staff at the hospital can call if needed. She stated she's on the way to see him now and she will call back with more information. She also confirmed he has a paracentesis at [facility] every Thursday. After his last tap he was "shaky." Denise Liang, PharmD, [facility] Clinical Pharmacist, Hepatology 04/21/2024 9:37 AM [...] 11:20 AM EDT Office Visit Hepatology, [facility] [address] [facility] [place] [address] Margarita Merino DO [address] [place] [address] Scheduled Orders Name Type Priority Associated Diagnoses [...] Primary documented in this encounter Care Teams Oyster Washer Relationship Specialty Start Date End Date Jose Chowdhury MD [address] [address] PCP - General 11/10/99 documented as of this encounter
--- OUTSIDE RECORDS SUMMARY | 2024-04-30 12:30 | External Medical Summary | Summary of Care ---
Author Name Unknown Organization [facility] Address [address] [place] [address] Phone [phone] Care Team Providers Care Form Grader Operator Name Role Phone Jose Chowdhury MD Primary Care Provider [phone]- [phone] Reason for Visit * Reason Onset Date Comments Appointment 04/20/2024 Encounter Details Date Type Department Care Team (Late st Contact Info) Description 04/20/2024 Telephone Hepatology, [facility] [address] [place] [address] Margarita Merino DO [address] [place] [id number] Appointment Allergies No known active allergiesdocumented as [...] and pt is currently at [facility]. Mother will ask them for labs on fluid if they do a para. She is currently on her way to [facility]. Told her I would send her the message by MyG/ * Telephone Encounter - Denise Liang [facility] - 04/21/2024 9:33 AM EDT The patient's mother called stating she found the patient on the floor yesterday and he was broughtto [facility]. She stated at the time he was incoherence and glazed over. She is on her way to the hospital now where she was informed by the nurses that he's awake. I relayed Dr Merino's message regarding the US and the concern for potential infection of the fluid in his belly. I asked her to find out from the staff at [facility] if they're going to draw morefluid off and if so, it needs to be tested for infection. She also stated he currently has a urinary catheter in place, so she questioned if they can do the urine testing we need. I explained that since he's at [facility], I'm not sure what their policy is.If they are able/willing to do the urine toxicology we can send an order if needed. I also advised that the staff at the hospital can call if needed. She stated she's on the way to see him now and she will call back with more information. She also confirmed he has a paracentesis at [facility] every Thursday. After his last tap he was "shaky." Denise Liang, PharmD, [facility] Clinical Pharmacist, Hepatology 04/21/2024 9:37 AM * [...] AM EDT Office Visit Hepatology, [facility] [address] [facility] [place] [address] Margarita Merino DO [address] [place] [address] Scheduled Orders Name Type Priority Associated Diagnoses [...] Primary documented in this encounter Care Teams Form Grader Operator Relationship Specialty Start Date End Date Jose Chowdhury MD [address] [place] [place] [address] PCP - General 11/10/99 documented as of this encounter
--- NOTE | 2024-04-30 12:38 | Emergency Department Note ---
Impression & Plan Acute hepatic encephalopathy ADMIT ED Provider Note HPI: History obtained from EMS personnel at the bedside. The patient is a 38-year-old gentleman with history of hepatitis C, cirrhosis, history of hepatic encephalopathy, presents the emergency department with altered mental status. Patient was reportedly found down on the ground in the basement of his home. He was found by his mother who reportedly last saw him normal yesterday afternoon. Per EMS personnel he was found on the ground without any obvious signs of trauma but he was at the bottom of some steps. They did find drug paraphernalia which appeared to be heroin (per EMS) on his clothing when they picked him up. On arrival here to the ED the patient is hemodynamically stable, he is protecting his airway on nasal cannula oxygen without issue although he does appear to be obtunded otherwise. Patient does not spontaneously ambulate his extremities, no outward evidence of trauma is noted. Patient arrives in a cervical hard collar via EMS. ROS: - Per HPI Differential Diagnosis: Hepatic encephalopathy, sepsis, SBP, polysubstance use with acute intoxication, alcohol intoxication, intracranial injury to include subdural hematoma, epidural hematoma, skull fracture, cervical spine fracture, amongst other potential pathologies. *Outpatient medications and allergy history reviewed. PE: General: Obtunded HEENT: Normocephalic, trachea midline, cervical hard collar in place Eyes: Extraocular eye movement is intact, no scleral erythema, pupils are equal, dilated and minimally reactive to light bilaterally Pulmonary: Clear to auscultation bilaterally, no wheezing Cardio: Regular rate and rhythm GI: Abdomen is markedly distended, soft to palpation : No suprapubic tenderness, external genitalia appear without any lesions or drainage MSK: Cachectic with muscle wasting, otherwise no evidence of trauma or malformation of the extremities, no edema Skin: No evidence of rash, dusky in appearance Neuro: Lethargic, does not respond to commands Psychiatric: Not applicable INDEPENDENT INTERPRETATIONS: watch crystal grinder: (As interpreted by myself): - An order was placed for continuous cardiac monitoring - Patient was noted to be in sinus rhythm with a rate of 105 EKG: (As interpreted by myself): Rate: 132 Rhythm: Sinus tachycardia Intervals: Within normal limits ST changes: No ST elevation, elevated T waves in lead V2 Time: 1234 Chest x-ray: (As interpreted by myself): No focal infiltrate Interventions provided in ED: -IV fluid bolus, IV albumin, lactulose enema, albuterol breathing treatment, IV calcium gluconate, IV dextrose, IV insulin, IV ceftriaxone Medical Decision Making: IV was established and lab work obtained, patient was placed on scrap cutter. Patient was maintained in a cervical hard collar as it is unclear whether or not he had a fall. Lab work shows no leukocytosis, hemoglobin is stable at 7.3 which appears to be near the patient's baseline with his chronic anemia, platelet count is 159, venous blood gas shows pH is 7.44 with a pCO2 of 32, CMP was obtained that shows critically elevated potassium at 6.5, creatinine is elevated to 2.27 (normal baseline), BUN is 60, lactic acid is elevated at 5.5. Ammonia is also markedly elevated at 172. Bilirubin is elevated at 6.0 with a mild transaminitis. Procalcitonin is also elevated at 1.73. Urinalysis was obtained that shows trace ketones without obvious infection, urine drug screen is positive for opioids, methamphetamines, MDMA, and marijuana. Alcohol level is negative. CT imaging of the head and cervical spine were obtained that did not show any evidence of any traumatic abnormalities. Chest x-ray does not show any evidence of any acute disease, x-ray imaging of the pelvis does not show any evidence of fracture. Patient cervical spine was cleared at 1346. Patient was given hyperkalemia medications including calcium gluconate, albuterol, IV insulin and IV dextrose. He remained otherwise stable while here on the monitor. I did discuss the patient's presentation with the on-call brazing machine tender, Dr. Hernandez, he recommends administration of IV albumin and suspects that the patient's renal failure is likely associated with hepatorenal syndrome, he states the patient will require paracentesis and he will evaluate the patient here in the ED to perform a paracentesis. He does recommend at this time the patient receive prophylactic IV antibiotics for SBP and this was therefore ordered. On my reassessment the patient remained stable, he is more active and ambulates his extremities at times but remains ultimately confused and altered. Lactulose enema was ordered as I do not think he can tolerate p.o. intake. I discussed the patient's presentation with the on-call hospitalist, Dr. Whitehead, and the patient was placed for admission in guarded condition for further care. I did attempt to contact the patient's mother by phone, at the number listed in the patient's chart under emergency contact, and there was no answer. Consultants/Discussions held with other healthcare providers: -Hospitalist, Dr. Whitehead -English Teacher, Dr. Hernandez * CRITICAL CARE TIME: (60) minutes -Stabilization of patient with altered mental status and multiple comorbidities ultimately with diagnosis of hepatic encephalopathy, hyperkalemia with potassium of 6.5 with peaked T waves in lead V2 on EKG, and lactic acidosis. Interpretation of diagnostic studies, time spent at the bedside, discussion with other healthcare providers including hospitalist and intensive care and arrangement of admission. Diagnosis: 1. Hepatic encephalopathy, acute 2. Hyperkalemia, acute 3. Lactic acidosis, acute 4. Polysubstance abuse with positive UDS, acute 5. Decompensated cirrhosis with ascites, acute 6. History of hepatitis C 7. Anemia, chronic Disposition: Admission Eduard Tyson DO Emergency Medicine Past Med/Surg History Problem List (Updated 04/30/24 @ 15:21 by Eduard Tyson DO) Acute hepatic encephalopathy (Acute) Acidosis, lactic (Acute) Acute hepatic encephalopathy (Acute) Anemia (Acute) Acute alteration in mental status (Acute) MSSA bacteremia Osteomyelitis Bacteremia Anemia Esophageal varices Thrombocytopenia (Acute) Cirrhosis of liver (Acute) Hepatitis C (Acute) Mood disorder Cellulitis and abscess of left lower extremity (Acute) Medical History Encounter for pre-operative examination Chronic back pain Surgical History History of ankle surgery I&D for osteomyelitis H/O hand surgery Family History Other Diabetes Social History Smoking Status: Current every day smoker Tobacco Type: Cigarettes Second Hand Exposure: Yes; Do You Dip or Chew Tobacco: Yes; Hx Substance Use: Yes Last Used Substance: Unknown Preferred Language: Hungarian Communication Ability: Effective Multimedia Manager Required: No Beliefs That Will Affect Care: None Current Living Situation: Parent Current Living Situation Comment: lives with mother Feels Safe at Home: Yes Assistive Devices: None Allergies Allergies Allergy/AdvReac Type Severity Reaction Status Date / Time No Known Allergies Allergy Mild Verified 04/30/24 14:45 Home Meds Home Medications Medication Instructions Recorded Confirmed buspirone 15 mg tablet 15 mg PO AMHS 04/12/24 04/30/24 furosemide 40 mg tablet See Rx Instructions .Route .COMPLEX 04/12/24 04/30/24 hydroxyzine HCl 25 mg tablet 25 mg PO TID PRN Anxiety 04/12/24 04/30/24 spironolactone 100 mg tablet 200 mg PO QAM 04/12/24 04/30/24 doxycycline hyclate 100 mg tablet 100 mg PO BID 04/30/24 04/30/24 Previous Rx's Medication Instructions Recorded amoxicillin 875 mg-potassium 1 tab PO Q12H #14 tabs 04/23/24 clavulanate 125 mg tablet lactulose 10 gram/15 mL oral 30 g (45 mL) PO DAILY 30 days 04/23/24 solution #1,350 mL pantoprazole 40 mg tablet,delayed 40 mg PO BID #60 tabs 04/23/24 release Results & Data (ED) Vital Signs Vital Signs - 24 hr 04/30/24 12:32 04/30/24 13:07 04/30/24 13:30 Pulse Rate 93 H 98 H Pulse Rate [Apical] 98 H Respiratory Rate 18 16 16 Blood Pressure 123/68 117/72 Blood Pressure [Right Arm] 120/69 Blood Pressure Mean 86 91 Blood Pressure Mean [Right Arm] 86 Blood Pressure Position [Right Arm] Lying Pulse Oximetry 100 100 100 Oxygen Delivery Method Room Air Room Air Room Air Sepsis Recent Fever Within 48 Hours No Sepsis New/Unexplained Change in Mental Status No Sepsis Action Taken by Nursing No Action Required 04/30/24 13:37 04/30/24 14:00 04/30/24 14:30 Pulse Rate 105 H 98 H 99 H Pulse Rate [Apical] Respiratory Rate 16 18 Blood Pressure 115/70 119/86 Blood Pressure [Right Arm] Blood Pressure Mean 87 93 Blood Pressure Mean [Right Arm] Blood Pressure Position [Right Arm] Pulse Oximetry 100 100 Oxygen Delivery Method Room Air Room Air Sepsis Recent Fever Within 48 Hours Sepsis New/Unexplained Change in Mental Status Sepsis Action Taken by Nursing Laboratory Data 04/30/24 12:41 04/30/24 12:41 Lab Results 04/30/24 04/30/24 04/30/24 Range/Units 12:41 12:45 13:09 WBC 8.06 (4.8-10.8) K/ul RBC 2.26 L (4.70-6.10) M/uL Hgb 7.3 L (14.0-18.0) g/dl POC Hgb 8.2 L (14.0-18.0) g/dl Hct 21.1 L (42.0-52.0) % POC Hct 24 L (42-52) % MCV 93.4 (80.0-100.0) fL MCH 32.3 (25.0-34.0) pg MCHC 34.6 (32.0-36.0) g/dL RDW Std Deviation 61.6 H (36.4-46.3) fL RDW Coeff of Tim 18.3 H (11.5-14.5) % Plt Count 159 (130-400) K/uL MPV 10.0 (9.4-12.4) fL Immature Gran % (Auto) 1.0 % Neut % (Auto) 69.8 % Lymph % (Auto) 13.2 % [place] % (Auto) 14.9 % Eos % (Auto) 0.9 % Baso % (Auto) 0.2 % Neut # (Auto) 5.63 (1.40-6.50) K/uL Lymph # (Auto) 1.06 L (1.20-3.40) K/uL [place] # (Auto) 1.20 H (0.11-0.59) K/uL Eos # (Auto) 0.07 (0.00-0.50) K/uL Baso # (Auto) 0.02 (0.00-0.20) K/uL Immature Gran # (Auto) 0.08 (0.01-0.20) K/uL Polychromasia 1+ Hypochromasia Present Target Cells 2+ PT Cancelled INR Cancelled VBG pH 7.44 H (7.36-7.41) VBG pCO2 32 L (38-50) mmHg VBG pO2 31 mmHg VBG HCO3 22 mmol/L VBG O2 Saturation < 60.0 % VBG Base Excess -2.1 mEq/L POC Sodium 132 L (135-144) mmol/L Sodium 131 L (136-145) mmol/L POC Potassium 6.4 H* (3.3-5.0) mmol/L Potassium 6.5 H* (3.5-5.1) mmol/L POC Chloride 100 L (101-112) mmol/L Chloride 99 (98-107) mmol/L Carbon Dioxide 22 (21-32) mmol/L POC Total CO2 20 L (24-31) mmol/L Anion Gap 10 (3-11) POC Anion Gap 19.0 (16-25) mmol/L POC BUN 54 H (7-18) mg/dl BUN 60 H (6-23) mg/dl Creatinine 2.27 H (0.6-1.4) mg/dl POC Creatinine 2.5 H (0.6-1.3) mg/dl Est Cr Clr Drug Dosing 41.9 ml/min eGFR 36.48 BUN/Creatinine Ratio 26.4 H (10-20) Glucose 98 (70-99(Fasting)) mg/dl POC Glucose (other) 94 (70-99) mg/dl Osmolality (280-300) mOsm/kg Lactate 5.5 H* (0.4-2.0) mmol/L Calcium 9.2 (8.6-10.3) mg/dl POC Ioniz Calcium Jovany 1.11 L (1.12-1.32) mmol/l Magnesium 2.4 (1.7-2.4) mg/dl Total Bilirubin 6.0 H (0.2-1.0) mg/dl Direct Bilirubin 2.7 H (0-0.2) mg/dl AST 116 H (13-39) U/L ALT 70 H (7-52) U/L Alkaline Phosphatase 154 H (34-104) U/L Ammonia 172.0 H (18-72) umol/L Total Creatine Kinase (30-223) U/L Troponin I High Sens 9.5 (0-20) pg/ml Total Protein 6.8 (6.0-8.3) gm/dl Albumin 3.3 L (3.4-5.0) gm/dl Procalcitonin 1.73 H (0-0.5) ng/ml TSH (0.300-4.500) uIu/ml Urine Color Dark Yellow Urine Appearance Clear (Clear) Urine pH 5.5 (4.5-7.5) Ur Specific [place] 1.017 (1.000-1.030) Urine Protein Negative (Negative) Urine Glucose (UA) Negative (Negative) Urine Ketones Trace H (Negative) Urine Blood Negative (Negative) Urine Nitrite Negative (Negative) Urine Bilirubin 1+ H (Negative) Urine Urobilinogen Negative (Negative) Ur Leukocyte Esterase Trace H (Negative) Urine WBC (Auto) 0-5 (0-5) /hpf Urine RBC (Auto) 0-2 (0-2) /hpf U Hyaline Cast (Auto) 11-20 H (0-2) /lpf U Epithel Cells (Auto) 0-2 (0-2) /hpf Urine Bacteria (Auto) 1+ H (None Seen) Calcium Oxalate Crystal Present A (None Prsent) Urine Osmolality 451 L (500-800) mOsm/kg Ur Random Creatinine 112.3 mg/dl Ur Random Sodium < 10 mmol/L Ur Random Potassium 48.1 mmol/L Ur Random Chloride < 15 mmol/L Urine Opiates Screen Pos H (Neg) Ur Methadone, Qual Neg (Neg) Urine Fentanyl Screen Neg (Neg) Urine Barbiturates Neg (Neg) Ur Phencyclidine (PCP) Neg (Neg) U Amphetamin/Meth Scrn Pos H (Neg) MDMA (Ecstasy) Screen Pos H (Neg) U Benzodiazepines Scrn Neg (Neg) Ur Cocaine Metabolite Neg (Neg) U Marijuana (THC) Screen Pos H (Neg) Ethyl Alcohol mg/dL < 10.0 (<10.0) mg/dl Blood Type B Positive Antibody Screen NEGATIVE 04/30/24 04/30/24 Range/Units 14:13 14:20 WBC (4.8-10.8) K/ul RBC (4.70-6.10) M/uL Hgb (14.0-18.0) g/dl POC Hgb (14.0-18.0) g/dl Hct (42.0-52.0) % POC Hct (42-52) % MCV (80.0-100.0) fL MCH (25.0-34.0) pg MCHC (32.0-36.0) g/dL RDW Std Deviation (36.4-46.3) fL RDW Coeff of Tim (11.5-14.5) % Plt Count (130-400) K/uL MPV (9.4-12.4) fL Immature Gran % (Auto) % Neut % (Auto) % Lymph % (Auto) % [place] % (Auto) % Eos % (Auto) % Baso % (Auto) % Neut # (Auto) (1.40-6.50) K/uL Lymph # (Auto) (1.20-3.40) K/uL [place] # (Auto) (0.11-0.59) K/uL Eos # (Auto) (0.00-0.50) K/uL Baso # (Auto) (0.00-0.20) K/uL Immature Gran # (Auto) (0.01-0.20) K/uL Polychromasia Hypochromasia Target Cells PT 19.3 H INR 1.9 H VBG pH (7.36-7.41) VBG pCO2 (38-50) mmHg VBG pO2 mmHg VBG HCO3 mmol/L VBG O2 Saturation % VBG Base Excess mEq/L POC Sodium (135-144) mmol/L Sodium (136-145) mmol/L POC Potassium (3.3-5.0) mmol/L Potassium (3.5-5.1) mmol/L POC Chloride (101-112) mmol/L Chloride (98-107) mmol/L Carbon Dioxide (21-32) mmol/L POC Total CO2 (24-31) mmol/L Anion Gap (3-11) POC Anion Gap (16-25) mmol/L POC BUN (7-18) mg/dl BUN (6-23) mg/dl Creatinine (0.6-1.4) mg/dl POC Creatinine (0.6-1.3) mg/dl Est Cr Clr Drug Dosing ml/min eGFR BUN/Creatinine Ratio (10-20) Glucose (70-99(Fasting)) mg/dl POC Glucose (other) (70-99) mg/dl Osmolality 294 (280-300) mOsm/kg Lactate 4.7 H* (0.4-2.0) mmol/L Calcium (8.6-10.3) mg/dl POC Ioniz Calcium Jovany (1.12-1.32) mmol/l Magnesium (1.7-2.4) mg/dl Total Bilirubin (0.2-1.0) mg/dl Direct Bilirubin (0-0.2) mg/dl AST (13-39) U/L ALT (7-52) U/L Alkaline Phosphatase (34-104) U/L Ammonia (18-72) umol/L Total Creatine Kinase 148 (30-223) U/L Troponin I High Sens (0-20) pg/ml Total Protein (6.0-8.3) gm/dl Albumin (3.4-5.0) gm/dl Procalcitonin (0-0.5) ng/ml TSH 4.585 H (0.300-4.500) uIu/ml Urine Color Urine Appearance (Clear) Urine pH (4.5-7.5) Ur Specific [place] (1.000-1.030) Urine Protein (Negative) Urine Glucose (UA) (Negative) Urine Ketones (Negative) Urine Blood (Negative) Urine Nitrite (Negative) Urine Bilirubin (Negative) Urine Urobilinogen (Negative) Ur Leukocyte Esterase (Negative) Urine WBC (Auto) (0-5) /hpf Urine RBC (Auto) (0-2) /hpf U Hyaline Cast (Auto) (0-2) /lpf U Epithel Cells (Auto) (0-2) /hpf Urine Bacteria (Auto) (None Seen) Calcium Oxalate Crystal (None Prsent) Urine Osmolality (500-800) mOsm/kg Ur Random Creatinine mg/dl Ur Random Sodium mmol/L Ur Random Potassium mmol/L Ur Random Chloride mmol/L Urine Opiates Screen (Neg) Ur Methadone, Qual (Neg) Urine Fentanyl Screen (Neg) Urine Barbiturates (Neg) Ur Phencyclidine (PCP) (Neg) U Amphetamin/Meth Scrn (Neg) MDMA (Ecstasy) Screen (Neg) U Benzodiazepines Scrn (Neg) Ur Cocaine Metabolite (Neg) U Marijuana (THC) Screen (Neg) Ethyl Alcohol mg/dL (<10.0) mg/dl Blood Type Antibody Screen Administered Medications Discontinued Medications Albuterol (Albuterol 0.5% Neb Soln 2.5 Mg/0.5 Ml Vial) 10 mg NEB NOW STA Stop: 04/30/24 13:35 Last Admin: 04/30/24 14:04 Dose: 10 mg Documented By: QGV Dextrose (Dextrose 50% 50 Ml Syringe) 50 ml IV NOW STA Stop: 04/30/24 13:35 Last Admin: 04/30/24 14:37 Dose: 50 ml Documented By: QGV Sodium Chloride (Nss) 500 mls @ 999 mls/hr IV .Q31M ONE Stop: 04/30/24 13:31 Last Infusion: 04/30/24 14:22 Dose: Infused Documented By: Admin: 04/30/24 13:19 Dose: 999 mls/hr Documented By: QGV Calcium Gluconate () 1,000 mg in 60 mls @ 240 mls/hr IV NOW STA Stop: 04/30/24 13:48 Last Infusion: 04/30/24 14:22 Dose: Infused Documented By: Admin: 04/30/24 14:03 Dose: 240 mls/hr Documented By: QGV Insulin Human Regular 10 units (/ Syringe) 9.9 mls @ 3 mls/sec IV ONE STA Stop: 04/30/24 13:35 Last Admin: 04/30/24 14:37 Dose: 3 mls/sec Documented By: QGV Co-signed By: ARIE Albumin Human (Albumin 5%) 250 mls @ 500 mls/hr IV ONE ONE Stop: 04/30/24 14:20 Last Infusion: 04/30/24 15:02 Dose: Infused Documented By: Admin: 04/30/24 14:06 Dose: 500 mls/hr Documented By: QGV Ceftriaxone Sodium (Rocephin) 2,000 mg in 50 mls @ 100 mls/hr IV NOW STA Stop: 04/30/24 14:21 Last Infusion: 04/30/24 15:02 Dose: Infused Documented By: Admin: 04/30/24 14:20 Dose: 100 mls/hr Documented By: QGV Insulin Human Regular (Novolin-R Insulin Per Unit Charge) Confirm Administered Dose 10 units .ROUTE .STK-MED ONE Stop: 04/30/24 14:32 Last Admin: 04/30/24 14:37 Dose: Not Given Documented By: QGV Naloxone HCl (Naloxone Hcl Inj 1 Mg/Ml 2ml Syr) Confirm Administered Dose 2 mg INTNAS .STK-MED ONE Stop: 04/30/24 12:29 Last Admin: 04/30/24 13:23 Dose: Not Given Documented By: QGV Naloxone HCl (Naloxone Hcl 0.4 Mg/1 Ml Vial/Carp) 1 mg IV NOW STA Stop: 04/30/24 13:21 Last Admin: 04/30/24 13:23 Dose: 1 mg Documented By: QGV Imaging Data Radiologist's Impression: Chest X-Ray 04/30/24 12:31 XR chest 1V portable CLINICAL HISTORY: Sepsis. COMPARISON STUDY: Chest radiograph and chest CT April 20, 2024. FINDINGS: Low lung volumes are unchanged. An azygos fissure is incidentally noted. Several old left-sided rib fractures are again noted. There is no consolidation or evidence for pulmonary edema. There is no pneumothorax or pleural effusion. Cardiomediastinal silhouette is unremarkable. IMPRESSION: No acute cardiopulmonary findings. No change in appearance of the chest. ACT 112: Negative or not required by law. Electronically signed by: Suleiman Gimenez M.D. 04/30/2024 1:[address] 04/30/24 12:32 CT OF THE CERVICAL SPINE WITHOUT CONTRAST CLINICAL HISTORY: fall? COMPARISON STUDY: Cervical spine CT April 20, 2024. TECHNIQUE: Helical axial images of the cervical spine were obtained without IV contrast. Sagittal and coronal reconstructions were viewed. Automated exposure control was utilized for the study. A dose lowering technique was utilized adhering to the principles of ALARA. FINDINGS: Reversal of the cervical lordosis is noted. There is no cervical spine fracture. Facet joints are intact. Mild to moderate disc space narrowing, endplate osteophytosis and facet arthrosis within the cervical spine is present. There is no prevertebral edema. Decreased attenuation of the blood pool is noted. Visualized portions of the lung apices are unremarkable. IMPRESSION: 1. No acute cervical spine fracture or subluxation. 2. Decreased attenuation of the blood pool suggestive of anemia. ACT 112: Negative or not required by law. Electronically signed by: Suleiman Gimenez M.D. 04/30/2024 1:[address] 04/30/24 12:32 CT OF THE HEAD WITHOUT CONTRAST CLINICAL HISTORY: Altered mental status. COMPARISON STUDY: Head CT April 20, 2024. TECHNIQUE: Helical axial images of the head were obtained without IV contrast. Automated exposure control was utilized for the study. A dose lowering technique was utilized adhering to the principles of ALARA. FINDINGS: No acute intracranial hemorrhage, midline shift or mass effect is present. The ventricular system is unremarkable. The basal cisterns are patent. No extra-axial collections are present. There are no findings to suggest acute dural sinus thrombosis or acute territorial infarct. No significant calvarial abnormalities are present. There are small air-fluid levels within the bilateral maxillary sinuses. IMPRESSION: No acute intracranial findings. ACT 112: Negative or not required by law. Electronically signed by: Suleiman Gimenez M.D. 04/30/2024 1:29 PM Hip/Pelvis X-Ray 04/30/24 12:32 XR hip ALESSIO 2v w pelvis CLINICAL HISTORY: ?fall COMPARISON STUDY: CT of the abdomen and pelvis April 20, 2024. FINDINGS: Sacroiliac joints and symphysis pubis are intact. There are no fractures within the pelvis or hips. There is mild osteophytosis of both hips. There is no evidence for avascular necrosis of the femoral heads. IMPRESSION: No fractures within the pelvis or hips. ACT 112: Negative or not required by law. Electronically signed by: Suleiman Gimenez M.D. 04/30/2024 1:12 PM Discharge Plan Visit Data Chief Complaint: Unresponsive ED Provider: Eduard Tyson Discharge Problem: Acute hepatic encephalopathy Forms Stand Alone Forms: [facility] [employer] Prescriptions Prescriptions: No Action lactulose 10 gram/15 mL Solution 30 g PO DAILY 30 Days Qty: 1350 0RF pantoprazole 40 mg tablet,delayed release (DR/EC) 40 mg PO BID Qty: 60 0RF amoxicillin-pot clavulanate 875-125 mg tablet 1 tab PO Q12H Qty: 14 0RF Rx Instructions: Start Date 04/23/24 x7 day supply doxycycline hyclate 100 mg tablet 100 mg PO BID Rx Instructions: Start Date 04/23/24 x7 day supply furosemide 40 mg tablet See Rx Instructions .ROUTE .COMPLEX Rx Instructions: take Take 80mg by mouth in the morning and 40mg by mouth in the evening spironolactone 100 mg tablet 200 mg PO QAM hydroxyzine HCl 25 mg tablet 25 mg PO TID PRN (Reason: Anxiety) buspirone 15 mg tablet 15 mg PO AMHS Referrals Referrals: Jose Chowdhury MD [Primary Care Provider] -
[2024-04-30 12:52] LABS: Base Excess VBG -2.1 mEq/L; HCO3 VBG 22 mmol/L; Oxygen Saturation VBG < 60.0 %; PCO2 VBG 32 mmHg (38-50); PO2 VBG 31 mmHg; pH VBG 7.44 (7.36-7.41)
[2024-04-30 12:57] LABS: Basophils # (auto) 0.02 K/uL (0.00-0.20); Basophils % (auto) 0.2 %; Eosinophils # (auto) 0.07 K/uL (0.00-0.50); Eosinophils % (auto) 0.9 %; Hematocrit (blood only) 21.1 % (42.0-52.0); Hemoglobin 7.3 g/dl (14.0-18.0); Immature Granulocytes # (auto) 0.08 K/uL (0.01-0.20); Lymphocytes # (auto) 1.06 K/uL (1.20-3.40); Lymphocytes % (auto) 13.2 %; Mean Corpuscular Hemoglobin 32.3 pg (25.0-34.0); Mean Corpuscular Hgb Conc 34.6 g/dL (32.0-36.0); Mean Corpuscular Volume 93.4 fL (80.0-100.0); Monocytes % (auto) 14.9 %; Neutrophils # (auto) 5.63 K/uL (1.40-6.50); Neutrophils % (auto) 69.8 %; Platelet Count 159 K/uL (130-400); RDW Coefficient of Variation 18.3 % (11.5-14.5); RDW Standard Deviation 61.6 fL (36.4-46.3); Red Blood Count 2.26 M/uL (4.70-6.10); White Blood Count 8.06 K/ul (4.8-10.8)
[2024-04-30 13:12] LABS: iSTAT Creatinine 2.5 mg/dl (0.6-1.3); iSTAT Hemoglobin 8.2 g/dl (14.0-18.0); iSTAT Ionized Calcium 1.11 mmol/l (1.12-1.32); iSTAT Potassium 6.4 mmol/L (3.3-5.0)
--- NOTE | 2024-04-30 13:12 | XRay Report ---
XR chest 1V portable CLINICAL HISTORY: Sepsis. COMPARISON STUDY: Chest radiograph and chest CT April 20, 2024. FINDINGS: Low lung volumes are unchanged. An azygos fissure is incidentally noted. Several old left-s ided rib fractures are again noted. There is no consolidation or evidence for pulmonary edema. There is no pneumothorax or pleural effusion. Cardiomediastinal silhouette is unremarkable. IMPRESSION: No acute cardiopulmonary findings. No change in appearance of the chest. ACT 112: Negative or not required by law. Electronically signed by: Suleiman Gimenez M.D. 04/30/2024 1:10 PM
[2024-04-30 13:13] LABS: Hypochromasia Present; Polychromasia 1+; Target Cells 2+
--- NOTE | 2024-04-30 13:14 | XRay Report ---
XR hip ALESSIO 2v w pelvis CLINICAL HISTORY: ?fall COMPARISON STUDY: CT of the abdomen and pelvis April 20, 2024. FINDINGS: Sacroiliac joints and symphysis pubis are intact. There are no fractures within the pelvis or hips. There is mild osteophytosis of both hips. There is no evidence for avascular necrosis of the femoral heads. IMPRESSION: No fractures within the pelvis or hips. ACT 112: Negative or not required by law. Electronically signed by: Suleiman Gimenez M.D. 04/30/2024 1:12 PM
[2024-04-30] MEDS: SODIUM CHLORIDE 0.9% 500 ML IV ONE (13:19)
[2024-04-30] MEDS: NALOXONE HCL 0.4 MG/1 ML VIAL/CARP IV STA (13:23)
[2024-04-30] MEDS: NALOXONE HCL INJ 1 MG/ML 2ML SYR INTNAS ONE (13:23)
--- NOTE | 2024-04-30 13:31 | CT Scan Report ---
CT OF THE HEAD WITHOUT CONTRAST CLINICAL HISTORY: Altered mental status. COMPARISON STUDY: Head CT April 20, 2024. TECHNIQUE: Helical axial images of the head were obtained without IV contrast. Automated exposure con trol was utilized for the study. A dose lowering technique was utilized adhering to the principles o f ALARA. FINDINGS: No acute intracranial hemorrhage, midline shift or mass effect is present. The ventricular system is unremarkable. The basal cisterns are patent. No extra-axial collections are present. There are no findings to suggest acute dural sinus thrombosis or acute territorial infarct. No significant calvarial abnormalities are present. There are small air-fluid levels within the bilateral maxillary sinuses. IMPRESSION: No acute intracranial findings. ACT 112: Negative or not required by law. Electronically signed by: Suleiman Gimenez M.D. 04/30/2024 1:29 PM
[2024-04-30 13:36] LABS: Albumin Level 3.3 gm/dl (3.4-5.0); BUN Creatinine Ratio 26.4 (10-20); Bilirubin Direct 2.7 mg/dl (0-0.2); Calcium 9.2 mg/dl (8.6-10.3); Creatinine Clr Calc Pharmacy 41.9 ml/min; Magnesium 2.4 mg/dl (1.7-2.4); Potassium 6.5 mmol/L (3.5-5.1); Total Protein 6.8 gm/dl (6.0-8.3)
--- NOTE | 2024-04-30 13:37 | CT Scan Report ---
CT OF THE CERVICAL SPINE WITHOUT CONTRAST CLINICAL HISTORY: fall? COMPARISON STUDY: Cervical spine CT April 20, 2024. TECHNIQUE: Helical axial images of the cervical spine were obtained without IV contrast. Sagittal a nd coronal reconstructions were viewed. Automated exposure control was utilized for the study. A do se lowering technique was utilized adhering to the principles of ALARA. FINDINGS: Reversal of the cervical lordosis is noted. There is no cervical spine fracture. Facet join ts are intact. Mild to moderate disc space narrowing, endplate osteophytosis and facet arthrosis with in the cervical spine is present. There is no prevertebral edema. Decreased attenuation of the blood pool is noted. Visualized portions of the lung apices are unremarkable. IMPRESSION: 1. No acute cervical spine fracture or subluxation. 2. Decreased attenuation of the blood pool suggestive of anemia. ACT 112: Negative or not required by law. Electronically signed by: Suleiman Gimenez M.D. 04/30/2024 1:35 PM
[2024-04-30 13:44] LABS: Troponin I High Sensitivity 9.5 pg/ml (0-20)
[2024-04-30] MEDS ORDERED: SODIUM CHLORIDE 0.9% 1,000 ML IV ONE (13:49)
--- NOTE | 2024-04-30 13:53 | Electrocardiogram Report ---
Test Reason : Blood Pressure : */* mmHG Vent. Rate : 132 BPM Atrial Rate : 108 BPM P-R Int : 166 ms QRS Dur : 82 ms QT Int : 370 ms P-R-T Axes : 38 -27 40 degrees QTcB Int : 548 ms Sinus tachycardia Otherwise normal ECG When compared with ECG of 20-Apr-2024 19:03, No significant change Confirmed by Graham Goodson ([id number]) on 04/30/2024 1:53:13 PM Referred By: Confirmed By: Graham Goodson
--- NOTE | 2024-04-30 14:02 | History & Physical Report ---
Date of Service April 30, 2024 Assessment & Plan (1) Acute hepatic encephalopathy: (2) Decompensated cirrhosis related to hepatitis C virus (HCV): (3) Drug abuse and dependence: (4) TERESA (acute kidney injury): Plan Mr. Ulloa is a 38-year-old male with past medical history significant for chronic hepatitis C, cirrhosis of liver, pancytopenia, allergic rhinitis, attention deficit hyperactive disorder, anxiety, history of osteomyelitis, bipolar affective disorder who lives at home with his mother admitted for acute toxic metabolic encephalopathy and decompensated cirrhosis. . #Acute toxic metabolic encephalopathy, likely multifactorial #Substance use disorder, opiates #Acute hepatic encephalopathy s/p lactulose enema in ED, ammonia on admission 172 s/p narcan continue lactulose enema q 8 hours Delirium precautions, monitor for withdrawal symptoms UA postivie, history of methamphetamine/opiates Delirium precautions #Cirrhosis 2/2 HCV, decompensated #History of EV s/p EVL and ascites #HCV Follows Dr Merino, GI last visit 03/14/2024 HCV not undergone treatment, history of noncompliance - History of decompensation - MELD 3.0: 32 EGD: 09/2022- grade II EV. Banded. 11/2023- grade I varices - HRS: baseline 0.5, up to 2.27, starting albumin challenge with 25% albumin 25g q8 hours Consult Nephrology for HRS management, hyperkalemia - PSE: active on exam, will continue with lactulose (titrated to 3-4BM / day) - Ascites: Compressor Repairer to perform bedside paracentesis Last paracentesis on 04/26 - SBP: continue CTX q 24 hours, follow up fluid studies from pickling machine operator - EV: octreotide started - Start PPI IV BID - Daily CMP + INR to calculate MELD; low Na diet with FR 1.5L when able - GI consult for further optimization follow up cultures consider palliative care come Thursday #Sanguineous Ascites #Acute on chronic anemia hemoglobin 8.6, down to 7.3 Trend cbc Surgical consultation: CT ab/p performed, no active peritoneal or retroperitoneal hemorrhage. DNR/DNI per discussion with mother and sister at bedside DVT hold for now Admit to ICU for management of encephalopathy and decompensated cirrhosis Admission and Anticipated Discharge Date Admission Date: Critical Care Time spent evaluating patient, direct bedside care, chart review, placing orders, interpretation of diagnostic studies, discussion with consultants, patient, and family members, as well as other required patient management activities is 80 minutes. History of Present Illness Chief Complaint: unresponsive Primary Care Provider: Jose Chowdhury MD Mr. Ulloa is a 38-year-old male with past medical history significant for chronic hepatitis C, cirrhosis of liver, pancytopenia, allergic rhinitis, attention deficit hyperactive disorder, anxiety, history of osteomyelitis, bipolar affective disorder who lives at home with his mother presented to [facility] ED due to being found unresponsive. Patient was last well known yesterday by his mother. Mother was unaware of any drug use. Mother was unable to provide much history, noting that she is not aware of the gravity of the patient's medical condition. Patient was noted to have drug paraphernalia reported on person during presentation to ED. No other history was obtained. In the ED, vitals were notable for BP of 90s-120s, HR of 100s and O2 sat of 90s on room air Imaging revealed CT with large volume ascites, no active peritoneal or retroperitoneal hemorrhage EKG sinus tachycardia s/p paracentesis by pickling machine operator, IV PPI, lactulose enema Consultants: ICU Patient to be admitted to ICU for further evaluation and management of acute hepatic encephalopathy and decompensated cirrhosis Allergies Allergy/AdvReac Type Severity Reaction Status Date / Time No Known Allergies Allergy Mild Verified 04/30/24 14:45 Home Medications Medication Instructions Recorded Confirmed Type buspirone 15 mg tablet 15 mg PO AMHS 04/12/24 04/30/24 History furosemide 40 mg tablet See Rx Instructions .Route .COMPLEX 04/12/24 04/30/24 History hydroxyzine HCl 25 mg tablet 25 mg PO TID PRN Anxiety 04/12/24 04/30/24 History spironolactone 100 mg tablet 200 mg PO QAM 04/12/24 04/30/24 History amoxicillin 875 mg-potassium 1 tab PO Q12H #14 tabs 04/23/24 04/30/24 Rx clavulanate 125 mg tablet lactulose 10 gram/15 mL oral 30 g (45 mL) PO DAILY 30 days 04/23/24 04/30/24 Rx solution #1,350 mL pantoprazole 40 mg tablet,delayed 40 mg PO BID #60 tabs 04/23/24 04/30/24 Rx release doxycycline hyclate 100 mg tablet 100 mg PO BID 04/30/24 04/30/24 History Past Med/Surg History Problem List (Updated 04/30/24 @ 21:09 by Alize Whitehead MD) Decompensated cirrhosis related to hepatitis C virus (HCV) Hyperkalemia TERESA (acute kidney injury) Drug abuse and dependence Abdominal ascites Acute hepatic encephalopathy (Acute) Acidosis, lactic (Acute) Acute hepatic encephalopathy (Acute) Anemia (Acute) Acute alteration in mental status (Acute) MSSA bacteremia Osteomyelitis Bacteremia Anemia Esophageal varices Thrombocytopenia (Acute) Cirrhosis of liver (Acute) Hepatitis C (Acute) Mood disorder Cellulitis and abscess of left lower extremity (Acute) Medical History Encounter for pre-operative examination Chronic back pain Surgical History History of ankle surgery I&D for osteomyelitis H/O hand surgery Family History Other Diabetes Social History Smoking Status: Current every day smoker Tobacco Type: Cigarettes Second Hand Exposure: Yes; Do You Dip or Chew Tobacco: Yes; Preferred Language: Egyptian Communication Ability: Effective 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 Head: (-) headache, (-) dizziness. Eye: (-) blurring of vision, (-) double vision, (-) redness. Ear: (-) hearing loss, (-) discharge, (-) vertigo Nose: (-) discharge, (-) bleeding, (-) congestion, (-) post nasal drip. Throat: (-) sore throat, (-) hoarseness of voice, (-) odynophagia. Cardiovascular: (-) chest pain, (-) palpitations, (-) syncope, (-) orthopnea, (- ) PND, (-) leg swelling. Respiratory: (-) shortness of breath, (-) cough, (-) wheezing, (-) hemoptysis. Neuro: (-) weakness in extremities, (-) numbness, (-) tingling, (-) tremor. Gastrointestinal: (-) belly pain, (-) belly distension, (-) nausea, (-) vomiting, (-) diarrhea, (-) constipation, (-) na, (-) hematemesis, (-) hematochezia, (-) bowel incontinence Genitourinary: (-) hematuria, (-) dysuria, (-) polyuria, (-) hesitancy, (-) frequency, (-) urinary incontinence. Musculoskeletal: (-) myalgia, (-) arthralgia. Skin: (-) rashes. Endocrine: (-) heat/cold intolerance. Psychiatry: (-) depression, (-) hallucination. Physical Exam Physical Exam: GENERAL APPEARANCE: solmnolent, awake but unresponsive groaning HEENT: NC, AT. MMM. EOMI, scleral icterus, oropharynx clear. HEART: CLARY+ LUNGS: CTAB, moving air well. No crackles or wheezes are heard. ABDOMEN: protuberant, large abdomen BACK: No CVAT, no obvious deformity. EXTREMITIES: BLE edema NEUROLOGICAL: Grossly nonfocal moving all 4 extremities. CN not formally tested but appear grossly intact. Skin: jaundice Results & Data Results & Data Vital Signs (Past 12 Hours) Vital Signs Pulse Pulse Resp BP BP Pulse Ox O2 Del Method 04/30/24 13:37 105 H 04/30/24 13:07 98 H 16 120/69 100 Room Air 04/30/24 12:32 93 H 18 123/68 100 Room Air Laboratory Results Short CBC 04/30/24 Range/Units 12:41 WBC 8.06 (4.8-10.8) K/ul Hgb 7.3 L (14.0-18.0) g/dl Hct 21.1 L (42.0-52.0) % Plt Count 159 (130-400) K/uL BMP 04/30/24 12:41 Sodium 131 L Potassium 6.5 H* Chloride 99 Carbon Dioxide 22 BUN 60 H Creatinine 2.27 H Glucose 98 Calcium 9.2 Cardiac Enzymes 04/30/24 Range/Units 14:13 Total Creatine Kinase 148 (30-223) U/L Liver Function 04/30/24 Range/Units 12:41 Total Bilirubin 6.0 H (0.2-1.0) mg/dl Direct Bilirubin 2.7 H (0-0.2) mg/dl AST 116 H (13-39) U/L ALT 70 H (7-52) U/L Alkaline Phosphatase 154 H (34-104) U/L Albumin 3.3 L (3.4-5.0) gm/dl Urine 04/30/24 Range/Units 13:09 Urine Color Dark Yellow Urine Appearance Clear (Clear) Urine pH 5.5 (4.5-7.5) Ur Specific Kipling 1.017 (1.000-1.030) Urine Protein Negative (Negative) Urine Glucose (UA) Negative (Negative) Medications Administered Home Medications Medication Instructions Recorded Confirmed Last Taken buspirone 15 mg tablet 15 mg PO AMHS 04/12/24 04/30/24 Unknown furosemide 40 mg tablet See Rx Instructions .Route .COMPLEX 04/12/24 04/30/24 Unknown hydroxyzine HCl 25 mg tablet 25 mg PO TID PRN Anxiety 04/12/24 04/30/24 Unknown spironolactone 100 mg tablet 200 mg PO QAM 04/12/24 04/30/24 Unknown amoxicillin 875 mg-potassium 1 tab PO Q12H #14 tabs 04/23/24 04/30/24 Unknown clavulanate 125 mg tablet lactulose 10 gram/15 mL oral 30 g (45 mL) PO DAILY 30 days 04/23/24 04/30/24 Unknown solution #1,350 mL pantoprazole 40 mg tablet,delayed 40 mg PO BID #60 tabs 04/23/24 04/30/24 Unknown release doxycycline hyclate 100 mg tablet 100 mg PO BID 04/30/24 04/30/24 Unknown Active Medications Generic Name Dose Route Start Last Admin Trade Name Aneudyq PRN Reason Stop Dose Admin Albumin Human 25 gm in 100 mls @ 50 mls/hr 04/30/24 14:15 04/30/24 15:29 Albumin 25% IV 05/03/24 14:14 50 mls/hr Q8H TRENA Administration
[2024-04-30] MEDS: CALCIUM GLUCONATE 1,000 MG/60 ML BAG IV STA (14:03)
[2024-04-30] MEDS: ALBUTEROL 0.5% NEB SOLN 2.5 MG/0.5 ML VIAL NEB STA (14:04)
[2024-04-30] MEDS: ALBUMIN 5% 250 ML IV ONE (14:06)
[2024-04-30] MEDS: cefTRIAXone SODIUM 2,000 MG/50 ML BAG IV STA (14:20)
--- NOTE | 2024-04-30 14:24 | Critical Care Consultation ---
Date of Consultation April 30, 2024 Assessment & Plan (1) Acute hepatic encephalopathy: (2) Acidosis, lactic: (3) Anemia: (4) Cirrhosis of liver: (5) Hepatitis C: (6) Mood disorder: (7) Abdominal ascites: (8) Transaminitis: (9) Drug abuse and dependence: (10) TERESA (acute kidney injury): (11) Hyperkalemia: Plan Reason Critically Ill: 38-year-old male was brought to the hospital by parents because he was found altered and falling down at home Past medical history: Hepatitis C cirrhosis, ADHD, bipolar disorder ICU consulted for altered mental status and TERESA with hyperkalemia Neuro - [facility] ICU: Unable to assess --Metabolic encephalopathy Likely secondary to hyperammonia Ammonia level 172 U tox was positive for opioids amphetamine, ecstasy as well as marijuana --History of bipolar disorder Cardiac - -- Sinus tachycardia Continue to monitor EKG 04/30/2024 12:34 PM: Sinus tachycardia, left axis deviation, hyperacute T waves appreciated in leads V2 and V3, no ST changes Respiratory - -- Saturating well on room air GI - -- Chronic transaminitis with hyperbilirubinemia Likely from chronic hepatitis C liver cirrhosis Continue to monitor On spironolactone 200 mg, Lasix 80 in the morning and 40 in the evening at home --Abdominal ascites Paracentesis 04/30/2024: 6.2 L, sanguinous fluid was removed EGD: 09/2022: grade II EV. Banded. 11/2023- grade I varices Continue with empiric Rocephin -- Ascites Last paracentesis was 04/26/2024 RENAL/LYTES - -- TERESA Follow-up urine lites Monitor BUN/creatinine Avoid nephrotoxic medications Strict ins and outs --Possible hepatorenal syndrome Recommend 20-40 g of albumin daily for at least 3 days but can be extended to 14 days Octreotide ENDO - -- ICU hypoglycemia protocol HEME - -- Normocytic anemia Monitor H&H ID - --Treat empirically with Rocephin for possible SBP Procalcitonin 1.73 --Prophylaxis VTE: IPC GI: Pantoprazole Lines: Peripheral Diet: N.p.o. Plan: Strict in and out Follow-up urine lites Plasma-Lyte at 100 mL an hour. Given the sanguinous peritoneal fluids, would recommend repeating H&H as well as BMP later today If the hemoglobin is less than 7 then transfuse. If there is any respiratory compromise moving forward then intubation will be thought of Overall prognosis is poor Patient has been admitted multiple times in the last couple of months for metabolic encephalopathy. Goals of care discussion would be important Case was discussed with primary team I have personally spent 60 minutes of critical care time in the direct management of this patient. This is a life/limb threatening event. This includes time spent evaluating patient, direct bedside care, chart review, placing orders, interpretation of diagnostic studies, discussion with consultants, patient, and family members, as well as other required patient management activities. This time is exclusive of all separately billable procedures, and teaching time and separate from and in addition to any other critical care service time. History of Present Illness History of Present Illness 38-year-old male was brought to the hospital by parents because he was found altered and falling down at home Past medical history: Hepatitis C cirrhosis, ADHD, bipolar disorder ICU consulted for altered mental status and TERESA with hyperkalemia Patient recently had paracentesis done of 10 L fluid removed on 04/26/2024 At the time of examination patient was saturating 99-100% on room air Respirate was in the mid to high teens. Heart rate was in the low 100s. Systolic blood pressure in the 120s with MAP in the high 70s to low 80s Patient was unfortunate not following any commands He was just moaning. He did get Narcan in the ER but did not respond significantly to it Skin did not show any signs of trauma CT head as well as CT of the neck was negative History was obtained from previous chart Allergies Allergy/AdvReac Type Severity Reaction Status Date / Time No Known Allergies Allergy Mild Verified 04/30/24 14:45 Home Medications Medication Instructions Recorded Confirmed Type buspirone 15 mg tablet 15 mg PO AMHS 04/12/24 04/30/24 History furosemide 40 mg tablet See Rx Instructions .Route .COMPLEX 04/12/24 04/30/24 History hydroxyzine HCl 25 mg tablet 25 mg PO TID PRN Anxiety 04/12/24 04/30/24 History spironolactone 100 mg tablet 200 mg PO QAM 04/12/24 04/30/24 History amoxicillin 875 mg-potassium 1 tab PO Q12H #14 tabs 04/23/24 04/30/24 Rx clavulanate 125 mg tablet lactulose 10 gram/15 mL oral 30 g (45 mL) PO DAILY 30 days 04/23/24 04/30/24 Rx solution #1,350 mL pantoprazole 40 mg tablet,delayed 40 mg PO BID #60 tabs 04/23/24 04/30/24 Rx release doxycycline hyclate 100 mg tablet 100 mg PO BID 04/30/24 04/30/24 History Patient History Medical History Encounter for pre-operative examination Chronic back pain Surgical History History of ankle surgery I&D for osteomyelitis H/O hand surgery Family History Other Diabetes Social History Smoking Status: Current every day smoker Tobacco Type: Cigarettes Second Hand Exposure: Yes; Do You Dip or Chew Tobacco: Yes; Hx Substance Use: Yes Last Used Substance: Unknown Preferred Language: Ukrainian Communication Ability: Effective Collarette Separator Required: No Beliefs That Will Affect Care: None Current Living Situation: Parent Current Living Situation Comment: lives with mother Feels Safe at Home: Yes Assistive Devices: None Review of Systems 2 Review of Systems: Unobtainable due to mental health condition Physical Exam 2 Physical Exam: Constitutional: No acute distress HEENT: Pupils dilated but responding to light bilaterally Respiratory system: Good air entry bilaterally, no wheeze, no rhonchi, no crackles CVS: S1-S2 positive, no murmurs or gallops Abdomen: Soft, decreased bowel sounds x4, distended, nontender Extremities: +2 pulses bilaterally radialis/ dorsalis pedis, no cyanosis, no edema Neuro: Somnolent, moaning but not following any commands Psych: Unable to assess G/U: Positive Ghosh Skin: no rashes, warm and dry Lymphatic: no cervical or axillary lymphadenopathy Results & Data Results & Data Vital Signs (Past 12 Hours) Vital Signs Pulse Pulse Resp BP BP Pulse Ox O2 Del Method 04/30/24 13:37 105 H 04/30/24 13:07 98 H 16 120/69 100 Room Air 04/30/24 12:32 93 H 18 123/68 100 Room Air Laboratory Results 04/30/24 12:41 04/30/24 12:41 Coding Level of Care Code 96740 CRITICAL CARE 1ST 30-74M Diagnoses Acute hepatic encephalopathy K76.82 Acidosis, lactic E87.20 Anemia D64.9 Cirrhosis of liver K74.60 Hepatitis C B19.20 Hepatic coma status: without hepatic coma Viral hepatitis chronicity: unspecified Mood disorder F39 Abdominal ascites R18.8 Transaminitis R74.01 Drug abuse and dependence F19.20 TERESA (acute kidney injury) N17.9 Hyperkalemia E87.5 (5) Hepatitis C Hepatic coma status: without hepatic coma Viral hepatitis chronicity: u nspecified Qualified Code(s): B19.20 - Unspecified viral hepatitis C without hepatic coma
[2024-04-30 14:33] LABS: Amphetamines+Metham, Urine Pos (Neg); Barbiturates, Urine Neg (Neg); Benzodiazepine, Urine Neg (Neg); Cocaine, Urine Neg (Neg); Fentanyl, Urine Neg (Neg); MDMA (Ecstacy), Urine Pos (Neg); Marijuana, Urine Pos (Neg); Methadone, Urine Neg (Neg); Opiate, Urine Pos (Neg); Phencyclidine, Urine Neg (Neg)
[2024-04-30 14:34] LABS: Appearance Urine Clear (Clear); Bilirubin Urine 1+ (Negative); Blood Urine Negative (Negative); Color Urine Dark Yellow; Epithelial Cell Urine Auto 0-2 /hpf (0-2); Glucose Urine UA Negative (Negative); Ketones Urine Trace (Negative); Leukocyte Esterase Urine Trace (Negative); Nitrite Urine Negative (Negative); Protein Urine Negative (Negative); Specific Gravity Urine 1.017 (1.000-1.030); Urobilinogen Urine Negative (Negative); pH Urine 5.5 (4.5-7.5)
[2024-04-30 14:37] LABS: Bacteria Urine Automated 1+ (None Seen); RBC Urine Automated 0-2 /hpf (0-2)
[2024-04-30] MEDS: INSULIN HUMAN REGULAR PER UNIT 10 UNITS in SYRINGE 9.9 ML IV STA (14:37)
[2024-04-30] MEDS: NovoLIN-R INSULIN PER UNIT CHARGE ONE (14:37)
[2024-04-30] MEDS: DEXTROSE 50% 50 ML SYRINGE IV STA ×2 (14:37→17:02)
[2024-04-30 14:38] LABS: Calcium Oxalate Crystals Urine Present (None Prsent); WBC Urine Automated 0-5 /hpf (0-5)
[2024-04-30 14:47] LABS: INR 1.9 (0.9-1.1); Prothrombin Time 19.3 Seconds (9.0-12.0)
[2024-04-30 14:55] LABS: Chloride Random Urine < 15 mmol/L; Creatinine Urine Random 112.3 mg/dl; Potassium Random Urine 48.1 mmol/L; Sodium Random Urine < 10 mmol/L
[2024-04-30 15:04] LABS: Thyroid Stimulating Hormone 4.585 uIu/ml (0.300-4.500)
[2024-04-30] MEDS: ALBUMIN 25% 25 GM/100 ML VIAL IV SCH (15:29)
[2024-04-30] MEDS: PANTOprazole 40 MG/10 ML SYR IV STA (15:32)
[2024-04-30 15:40] LABS: T4 Free Thyroxine 0.88 ng/dl (0.61-1.60)
[2024-04-30] MEDS: LACTULOSE 200GM/700ML WTR ENEMA PR STA (15:47)
--- NOTE | 2024-04-30 15:50 | Procedure Note ---
Procedure Note Date of Service April 30, 2024 Procedure: Diagnostic therapeutic ultrasound-guided catheter paracentesis Family Consumer Scientist: Dr. Boyd Hernandez Indication: Ascites to rule out SBP Consent: Emergent consent was applied Anesthesia: 1% lidocaine without epinephrine local. Procedure: Consent was verified and timeout performed. Appropriate imaging studies were reviewed prior to the procedure. Patient was placed in a supine position and limited abdominal ultrasound was performed. See separate imaging. Appropriate site for paracentesis was selected in the right lower quadrant. The skin was prepped and draped in normal sterile fashion. Lidocaine was used for local analgesia. Fluid was aspirated via the finder needle. A small skin larry was made with the scalpel and the catheter over the needle apparatus was advanced via Z technique. Using the syringe one-way valve system, a total of 6.2 L mL's of sanguinous fluid was removed. The catheter was removed and observed to be intact. A sterile dressing was applied. Fluid was sent for labs, culture and cytology. The patient tolerated the procedure without obvious complication Blood loss: Less than 2 cc [facility] [place] Codes (Charges) Abdomen Abdominal: 01838 Abdominal Paracentesis (diagnostic or therapeutic); W/O imaging Tubes, Drains, and Vasc Access Procedure 1: Tubes, Drains, and Vasc Access: [id number] Ultrasound Guidance For Vascular Coding CPT Codes Abdomen - Abdominal: 31493 Abdominal Paracentesis (diagnostic or therapeutic); W/O imaging ([id number]) Tubes, Drains, and Vasc Access - Tubes, Drains, and Vasc Access: [id number] Ultrasound Guidance For Vascular ([id number]) Additional Codes Date of Service ([email or web address])
[2024-04-30 16:54] LABS: Appearance Peritoneal Fluid Turbid; Color Peritoneal Fluid Red; RBC Peritoneal Fluid Auto 147000 /uL; WBC Peritoneal Fluid Auto 386 /ul (0-300)
[2024-04-30] MEDS: ICU Protocol for HYPERglycemia SCH (17:19)
[2024-04-30 17:20] LABS: Albumin Peritoneal Fluid < 1.5 gm/dl; Total Protein Peritoneal Fluid < 3.0 gm/dl
[2024-04-30] MEDS: PLASMA-LYTE A 1,000 ML IV SCH (17:22)
[2024-04-30] MEDS: D5W AND NSS 1,000 ML IV SCH (17:22)
[2024-04-30] MEDS: DEXTROSE 50% 50 ML SYRINGE IV ONE (17:24)
[2024-04-30 17:53] LABS: BUN Creatinine Ratio 28.4 (10-20); Calcium 9.2 mg/dl (8.6-10.3); Creatinine Clr Calc Pharmacy 45.7 ml/min; Potassium 5.2 mmol/L (3.5-5.1)
--- NOTE | 2024-04-30 18:40 | Communication Note ---
Date of Service: April 30, 2024 Spoke to patient's mother and sister at bedside They report not understanding the gravity of patient's medical conditions Discussed code status in depth--noting that patient's overall prognosis is very poor at this time, and if an acute cardiac/respiratory event were to occur the chances of recovery are minimal. Family agrees to DNR/DNI at this time All questions answered
[2024-04-30 18:57] LABS: Hematocrit (blood only) 16.9 % (42.0-52.0); Hemoglobin 5.9 g/dl (14.0-18.0)
[2024-04-30] MEDS ORDERED: SODIUM CHLORIDE 0.9% 100 ML IV PRN (18:59)
--- NOTE | 2024-04-30 19:00 | Communication Note ---
Date of Service: April 30, 2024 Family at bedside, we did discuss his code status as also has been done throughout the admission. At this time in the event of CARDIAC ARREST- HE IS DNR/DNI - If he would require intubation for protecting his airway, respiratory failure, or needing sedation and ability to maintain ventilation/oxygenation.- Then Intubation and mechanical ventilation will be OK CODE STATUS remains same as it refers to CARDIAC ARREST Bruce KELLOGG (ACNP-)
--- NOTE | 2024-04-30 19:24 | Communication Note ---
Date of Service: April 30, 2024 Patient evaluated at change of shift and following discussion with twister frame tender. Patient is noted with right hip bruising that extends minimally posterior to buttocks and just above the iliac crest. He also had a 2 point drop in his hemoglobin level from 12:41 this afternoon. He is minimally tachycardic at this time and BP is stable. - Patient has been consented for blood and will receive 2 units PRBC - Following consent for blood- I did discuss my concerns for acute occult bleeding into his leg or his abd pelvis- We discussed him getting a IV contrasted study and the risks of making his kidney injury worse. That it may effect his renal function and clearance and if his renal function worsens without ability to overcome or manage electrolytes then he may need dialysis at that time. As risk vs. benefit for occult bleeding vs. non con that may be difficult to ascertain with amount of ascites he has and regards to further injury to kidneys, the family feels that undergoing contrasted study at this time would be beneficial and understands the risks. Imaging will be obtained and official surgical consultation undertaken- pending imaging. They are aware that images are pending for review. - Vitamin K 10mg IV x1 - PRBC x2 units - Follow blood counts and renal function - Continue supportive care for likely SBP vasopressors if required, abx continued, octreotide infusion. - CT A/P and CT hip- negative for acute hemorrhage, which is reassuring- appreciate surgery evaluation for supportive care if required. Bruce KELLOGG (ACNP_BC)
[2024-04-30] MEDS: OPTIRAY 320 125ml IV ONE (19:30)
--- NOTE | 2024-04-30 20:10 | CT Scan Report ---
EXAMINATION: CT angiogram of the abdomen and pelvis performed after the administration of IV contrast TECHNIQUE: Helical CT images from the lung bases through the symphysis pubis were obtained with contrast. Arterial phase and delayed images were performed. Coronal and sagittal reformatted images were generated at a workstation for further assessment. Dose reduction techniques were achieved by using automatic exposure control and/or adjustment of mA and/or kV according to patient size and/or use of iterative reconstruction technique. COMPARISON: April 20, 2024 HISTORY: Bloody peritoneal fluid FINDINGS: Lower chest: No consolidation. No pleural effusion or pneumothorax. Chronic left-sided rib deformities. Liver: Shrunken and nodular contour of the liver compatible with cirrhosis. No suspicious liver lesions. Portal veins appear patent. There are numerous splenorenal shunts. Extensive periesophageal varices. Gallbladder: There are a few, small calcified gallstones. No evidence of acute cholecystitis. Spleen: Enlarged spleen measuring 13.6 cm Pancreas: No suspicious pancreatic lesions. The pancreatic duct is not dilated. Adrenal glands: No adrenal nodules. Kidneys: No hydronephrosis or obstructing renal stones. Bladder / Pelvic organs: Ghosh catheter in place. The urinary bladder is incompletely distended.. Bowel: No bowel obstruction. There is thickening of the wall of the cecum which may be seen with portal colopathy, versus nonspecific colitis. The appendix is unremarkable. A moderate to large colonic stool burden is present suggesting constipation. Lymph nodes: No retroperitoneal, mesenteric, or pelvic lymphadenopathy. Peritoneum / Retroperitoneum: Large volume of ascites. No visualized contrast blush in the peritoneum or retroperitoneal region. Vessels: No infrarenal aortic aneurysm. Bones and soft tissues: No suspicious lesion in the bones. IMPRESSION: Large volume ascites. No evidence for active peritoneal or retroperitoneal hemorrhage. Cirrhotic morphology of the liver with evidence of portal hypertension, including splenomegaly, as well as numerous splenorenal and periesophageal varices. Cholelithiasis. Nonspecific wall thickening of the cecum, which may be seen with portal colopathy versus colitis. Electronically signed by Lennox Pablo 04-30-2024 8:09 PM
[2024-04-30] MEDS: PHYTONADIONE 10 MG in DEXTROSE 5% 50 ML IV ONE (20:14)
--- NOTE | 2024-04-30 20:16 | Surgery Consultation ---
Date of Consultation April 30, 2024 Assessment & Plan (1) Acute hepatic encephalopathy: I evaluated the patient in room 107 at the request of the intensive care unit staff As noted there is concern the patient has had a drop of his hemoglobin and hematocrit particular due to the findings on his recent paracentesis After discussion with the clay pigeon loader staff is determined the patient would benefit from a CT scan of the abdomen pelvis and this was performed. This scan showed the patient had a large volume of ascites but no evidence for active peritoneal or retroperitoneal hemorrhage. There is evidence of portal hypertension including splenomegaly as well as splenorenal and paraesophageal varices noted. Patient also underwent a CT scan of the hip with reads pending at this time I had a lengthy discussion with patient's mother and sister who are present at bedside. I did discuss with them that due to the patient's underlying encephalopathy and cirrhosis that any surgical intervention would be extremely high risk would not be to be performed at this hospital if felt to be necessary. At the present time feel the best course of action is to correct the patient's blood counts as well as correct his underlying coagulopathy continue supportive care. The above plan was discussed with the clay pigeon loader service. (2) Anemia: Supervising Physician Co-Signing Physician Notes pnt d/w KYLE, labs and imaging reviewed. consulted for potential bleeding or abd source for pnt found down earlier today. mult med problems, cirrhosis, substance abuse. CT personally reviewed, no evidence of bleeding or surgical pathology. IF patient were to need surgery, due to cirrhosis and significant comorbidities would recommend transfer to tertiary facility. History of Present Illness Reason for Consultation: Anemia Attending Physician: Alize Whitehead MD History of Present Illness This is a 38-year-old male with an underlying history of hepatitis C as well as cirrhosis and history of hepatic encephalopathy. This patient was brought to the hospital as his family was noted him to have altered mental status and they found him lying on the ground without any signs of trauma. Currently they did find drug paraphernalia in close proximity to the patient. At the time of my encounter with the patient he was noted to be encephalopathic and could not provide any meaningful history. I did obtain all the history from review of patient's chart as well as discussion with his family who was at bedside as well as with the intensive care unit staff. Since arrival to the hospital the patient had labs and imaging were chest x-ray showed no evidence of pneumonia. A CT scan of the cervical spine showed no fractures and a CT scan of the head showed no acute new cranial fractures. The patient had an x-ray of his hip and pelvis which showed no fractures of the hips or pelvis. Labs included a CBC were white blood cell count was normal. His hemoglobin and hematocrit were noted to be 7.3 and 21.1. The patient's platelet count is 159,000. INR is 1.9. Chemistry profile showed sodium 132 with a potassium of 5.2. His BUN and creatinine were 59 and 2.0. Lactic acid level was elevated at 5.5. Patient was noted to have a total elevated total bilirubin of 6.0 with a direct bilirubin of 2.7. AST and ALT were 116 and 70 respectively. Alkaline phosphatase was 154 and his ammonia level was elevated at 172. Since arrival to the emergency department the patient did have a paracentesis performed by the intensive care unit staff the patient had approximately 6.2 L of sanguinous fluid was removed. The patient subsequently had repeat labs performed where his hemoglobin and hematocrit had dropped to 5.9 and 16.9 respectively. General surgery was consulted by the intensive care unit staff due to his drop in hemoglobin and the sanguinous fluid noted on the time of paracentesis. It is nowhere the mention that the patient did have a bruise noted on his right hip. At the time of my interview the patient was lying in bed and as noted was enceph alopathic but did not appear to be in any distress Allergies Allergy/AdvReac Type Severity Reaction Status Date / Time No Known Allergies Allergy Mild Verified 04/30/24 14:45 Home Medications Medication Instructions Recorded Confirmed Type buspirone 15 mg tablet 15 mg PO AMHS 04/12/24 04/30/24 History furosemide 40 mg tablet See Rx Instructions .Route .COMPLEX 04/12/24 04/30/24 History hydroxyzine HCl 25 mg tablet 25 mg PO TID PRN Anxiety 04/12/24 04/30/24 History spironolactone 100 mg tablet 200 mg PO QAM 04/12/24 04/30/24 History amoxicillin 875 mg-potassium 1 tab PO Q12H #14 tabs 04/23/24 04/30/24 Rx clavulanate 125 mg tablet lactulose 10 gram/15 mL oral 30 g (45 mL) PO DAILY 30 days 04/23/24 04/30/24 Rx solution #1,350 mL pantoprazole 40 mg tablet,delayed 40 mg PO BID #60 tabs 04/23/24 04/30/24 Rx release doxycycline hyclate 100 mg tablet 100 mg PO BID 04/30/24 04/30/24 History Patient History Medical History Encounter for pre-operative examination Chronic back pain Surgical History History of ankle surgery I&D for osteomyelitis H/O hand surgery Family History Other Diabetes Social History Smoking Status: Current every day smoker Tobacco Type: Cigarettes Second Hand Exposure: Yes; Do You Dip or Chew Tobacco: Yes; Preferred Language: [place] Communication Ability: Effective Wool Hanker Required: No Beliefs That Will Affect Care: None Current Living Situation: Parent Current Living Situation Comment: lives with mother Feels Safe at Home: Yes Assistive Devices: None Review of Systems Review of Systems: Unobtainable due to cognitive status Physical Exam Constitutional: no acute distress Eyes: Scleral jaundice noted ENMT: Ears: no external ear abnormality Neck: trachea midline Respiratory: normal respiratory effort; no respiratory distress and no labored breathing Breath sounds are present bilaterally Cardiovascular: Rate/Rhythm: regular rate and regular rhythm Vessels: dorsalis pedis pulses present and radial pulses present Gastrointestinal (Abdomen): Abdomen is soft but he is noted to have a significant mount of fluid/ascites noted on physical exam. Palpation did not appear to elicit a painful response Musculoskeletal: Patient is noted to have a bruise over his right hip. There is no tenderness areas of muscle compartments noted of the right lower extremity Skin: no rashes Neurologic: Unable to obtain neurologic exam due to encephalopathy Genitourinary: Ghosh catheter is in place draining yellow urine Results & Data Vital Signs (Past 12 Hours) Vital Signs Temp Pulse Pulse Resp BP BP Pulse Ox 04/30/24 17:00 101 H 15 115/60 100 04/30/24 16:46 04/30/24 16:40 04/30/24 16:36 36.4 C L 101 H 14 121/65 100 04/30/24 16:36 121/65 04/30/24 16:36 102 H 14 121/65 100 04/30/24 16:06 104 H 15 100 04/30/24 16:04 109/64 04/30/24 15:30 102 H 16 124/70 100 04/30/24 15:18 104 H 16 115/70 100 04/30/24 15:00 99 H 18 125/72 100 04/30/24 14:30 99 H 18 119/86 100 04/30/24 14:00 98 H 16 115/70 100 04/30/24 13:37 105 H 04/30/24 13:30 98 H 16 117/72 100 04/30/24 13:07 98 H 16 120/69 100 04/30/24 12:32 93 H 18 123/68 100 O2 Del Method 04/30/24 17:00 Room Air 04/30/24 16:46 Room Air 04/30/24 16:40 Room Air 04/30/24 16:36 Room Air 04/30/24 16:36 04/30/24 16:36 Room Air 04/30/24 16:06 Room Air 04/30/24 16:04 04/30/24 15:30 Room Air 04/30/24 15:18 Room Air 04/30/24 15:00 Room Air 04/30/24 14:30 Room Air 04/30/24 14:00 Room Air 04/30/24 13:37 04/30/24 13:30 Room Air 04/30/24 13:07 Room Air 04/30/24 12:32 Room Air PG Care Time/CCT Total # of Minutes Spent Total Time Spent with Patient: Total time spent is greater than 50% in coordination of care (as documented) at patient's floor/unit and/or counseling patient: Coding Level of Care Code 22492 IN/OBS CONSULT LVL 5,80M Diagnoses Acute hepatic encephalopathy K76.82 Anemia D64.9
[2024-04-30] MEDS ORDERED: STAT IV/IM STA (20:32)
--- NOTE | 2024-04-30 20:37 | CT Scan Report ---
EXAM: CT hip RT wo con CLINICAL HISTORY: Eval for fracture. TECHNIQUE: Multiple, contiguous, nonenhanced CT scan of the right hip joint in axial plane with multiplanar reconstructions. One of the following dose reduction techniques was utilized for this exam: Automated exposure control, adjustment of the mA and/or kV according to patient size, and use of iterative reconstruction. DLP: 3344.96 mGy-cm, CTDI: 110.6 mGy. COMPARISON: [id number] dated 04/20/2024 /[id number].[id number].5.1.2 06/19/2022./OBX.5.1.2/OBX.5.1 FINDINGS: Bones: Normal alignment of the femoral head, neck, and acetabula. No fractures, or dislocation. Tiny sclerotic focus is seen at the femoral head likely bone island. No evidence of avascular necrosis of the femoral head. Small loose body is seen as related to the medial aspect of the greater trochanter. (seen in previous studies) likely degenerative. Joints: Normal joint space of the hip. No evidence of joint effusions or intra-articular loose bodies. No significant degenerative changes or osteophyte formation. Soft Tissues: Subcutaneous edema and fat smudging surrounding the right hip region. IMPRESSION: 1. No evidence of fractures, degenerative changes, or significant abnormalities. 2. Subcutaneous edema and fat smudging surrounding the right hip region. 3. No interval changes. Electronically signed by Todd Dong 04-30-2024 8:37 PM
[2024-04-30] MEDS: PANTOprazole 40 MG/10 ML SYR IV SCH (20:39)
[2024-04-30] MEDS ORDERED: STAT IV Infusion **Titration per Protocol STA (20:40)
[2024-04-30] MEDS: OCTREOTIDE ACETATE 500 MCG in SODIUM CHLORIDE 0.9% 100 ML IV SCH (21:03)
[2024-04-30] MEDS: PYRIDOXINE HCL 100 MG in SYRINGE 10 ML IV ONE (21:05)
[2024-04-30] MEDS: LACTULOSE 200GM/700ML WTR ENEMA PR SCH (21:51)
[2024-04-30 23:15] LABS: BUN Creatinine Ratio 29.9 (10-20); Creatinine Clr Calc Pharmacy 48.2 ml/min; Potassium 5.2 mmol/L (3.5-5.1)
[2024-05-01] MEDS: LORazepam 2 MG/1 ML VIAL IV STA ×2 (01:49→02:36)
[2024-05-01 04:49] LABS: Albumin Level 3.7 gm/dl (3.4-5.0); BUN Creatinine Ratio 28.4 (10-20); Bilirubin Direct 2.8 mg/dl (0-0.2); Calcium 9.7 mg/dl (8.6-10.3); Magnesium 2.5 mg/dl (1.7-2.4); Potassium 5.4 mmol/L (3.5-5.1); Total Protein 6.4 gm/dl (6.0-8.3)
[2024-05-01 05:37] LABS: Prothrombin Time 20.1 Seconds (9.0-12.0)
[2024-05-01 05:46] LABS: Fibrinogen 68 mg/dl (184-400)
[2024-05-01 07:02] LABS: Lymphocytes, Fluid 35 %; Mono,Macrophage,Mesothelial 26 %; Neutrophils, Fluid 39 %
[2024-05-01] MEDS: KETAMINE HCL INJ 50 MG/ML 10 ML VIAL ONE (08:29)
[2024-05-01] MEDS: KETAMINE HCL 10MG/ML SYR IV STA (08:34)
[2024-05-01 08:40] LABS: Basophils # (auto) 0.05 K/uL (0.00-0.20); Basophils % (auto) 0.4 %; Eosinophils # (auto) 0.12 K/uL (0.00-0.50); Hematocrit (blood only) 22.9 % (42.0-52.0); Immature Granulocytes % (auto) 0.9 %; Lymphocytes # (auto) 0.91 K/uL (1.20-3.40); Lymphocytes % (auto) 7.9 %; Mean Corpuscular Hemoglobin 31.1 pg (25.0-34.0); Mean Corpuscular Hgb Conc 34.9 g/dL (32.0-36.0); Mean Corpuscular Volume 89.1 fL (80.0-100.0); Mean Platelet Volume 9.8 fL (9.4-12.4); Monocytes % (auto) 16.4 %; Neutrophils # (auto) 8.49 K/uL (1.40-6.50); Neutrophils % (auto) 73.4 %; Platelet Count 125 K/uL (130-400); RDW Coefficient of Variation 19.5 % (11.5-14.5); RDW Standard Deviation 59.7 fL (36.4-46.3); Red Blood Count 2.57 M/uL (4.70-6.10); White Blood Count 11.57 K/ul (4.8-10.8)
--- NOTE | 2024-05-01 09:11 | Gastrointestinal Consultation ---
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 Direct Bilirubin (0-0.2) mg/dl AST (13-39) U/L ALT (7-52) U/L Alkaline Phosphatase (34-104) U/L Ammonia (18-72) umol/L Total Creatine Kinase 148 (30-223) U/L Troponin I High Sens (0-20) pg/ml Total Protein (6.0-8.3) gm/dl Albumin (3.4-5.0) gm/dl Procalcitonin (0-0.5) ng/ml TSH 4.585 H (0.300-4.500) uIu/ml Free T4 0.88 (0.61-1.60) ng/dl Urine Color Dark Yellow Urine Appearance Clear (Clear) Urine pH 5.5 (4.5-7.5) Ur Specific Carl[place] 1.017 (1.000-1.030) Urine Protein Negative (Negative) Urine Glucose (UA) Negative (Negative) Urine Ketones Trace H (Negative) Urine Blood Negative (Negative) Urine Nitrite Negative (Negative) Urine Bilirubin 1+ H (Negative) Urine Urobilinogen Negative (Negative) Ur Leukocyte Esterase Trace H (Negative) Urine WBC (Auto) 0-5 (0-5) /hpf Urine RBC (Auto) 0-2 (0-2) /hpf U Hyaline Cast (Auto) 11-20 H (0-2) /lpf U Epithel Cells (Auto) 0-2 (0-2) /hpf Urine Bacteria (Auto) 1+ H (None Seen) Calcium Oxalate Crystal Present A (None Prsent) Urine Osmolality 451 L (500-800) mOsm/kg Ur Random Creatinine 112.3 mg/dl Ur Random Sodium < 10 mmol/L Ur Random Potassium 48.1 mmol/L Ur Random Chloride < 15 mmol/L Fluid Neutrophils % % Fluid Lymphocytes % % Fluid Meso/Macro/Victoria % % Fluid Comment Peritoneal Color Peritoneal Appearance Peritoneal WBC (Auto) (0-300) /ul Peritoneal RBC (Auto) /uL Peritoneal Tot Protein gm/dl Peritoneal Albumin gm/dl Nasal Screen MRSA (PCR) (Negative) Urine Opiates Screen Pos H (Neg) U Codeine Confrm GC/MS Pending Ur Morphine (GC/MS) Pending Ur Hydrocodone (GC/MS) Pending Ur Norhydrocodone Pending Ur Noroxycodone Pending Urine Oxycodone (GC/MS) Pending U Oxymorphone GC/MS Pending Ur Methadone, Qual Neg (Neg) Ur Hydromorphone (GC/MS) Pending Urine Fentanyl Screen Neg (Neg) Urine Barbiturates Neg (Neg) Ur Phencyclidine (PCP) Neg (Neg) U Amphetamines Confirm Pending U Amphetamin/Meth Scrn Pos H (Neg) U Methamphetamin Confrm Pending Urine MDEA Pending MDMA (Ecstasy) Screen Pos H (Neg) MDMA Pending Urine MDMA Pending U Benzodiazepines Scrn Neg (Neg) Ur Cocaine Metabolite Neg (Neg) U Marijuana (THC) Screen Pos H (Neg) U Marijuana THC Carboxy Pending Drug Screen Comment Pending Ethyl Alcohol mg/dL (<10.0) mg/dl Blood Type Antibody Screen Crossmatch 04/30/24 04/30/24 Range/Units 12:45 12:41 WBC 8.06 (4.8-10.8) K/ul RBC 2.26 L (4.70-6.10) M/uL Hgb 7.3 L (14.0-18.0) g/dl POC Hgb 8.2 L (14.0-18.0) g/dl Hct 21.1 L (42.0-52.0) % POC Hct 24 L (42-52) % MCV 93.4 (80.0-100.0) fL MCH 32.3 (25.0-34.0) pg MCHC 34.6 (32.0-36.0) g/dL RDW Std Deviation 61.6 H (36.4-46.3) fL RDW Coeff of Tim 18.3 H (11.5-14.5) % Plt Count 159 (130-400) K/uL MPV 10.0 (9.4-12.4) fL Immature Gran % (Auto) 1.0 % Neut % (Auto) 69.8 % Lymph % (Auto) 13.2 % Victoria % (Auto) 14.9 % Eos % (Auto) 0.9 % Baso % (Auto) 0.2 % Neut # (Auto) 5.63 (1.40-6.50) K/uL Lymph # (Auto) 1.06 L (1.20-3.40) K/uL Victoria # (Auto) 1.20 H (0.11-0.59) K/uL Eos # (Auto) 0.07 (0.00-0.50) K/uL Baso # (Auto) 0.02 (0.00-0.20) K/uL Immature Gran # (Auto) 0.08 (0.01-0.20) K/uL Polychromasia 1+ Hypochromasia Present Target Cells 2+ PT Cancelled INR Cancelled Fibrinogen (184-400) mg/dl VBG pH 7.44 H (7.36-7.41) VBG pCO2 32 L (38-50) mmHg VBG pO2 31 mmHg VBG HCO3 22 mmol/L VBG O2 Saturation < 60.0 % VBG Base Excess -2.1 mEq/L POC Sodium 132 L (135-144) mmol/L Sodium 131 L (136-145) mmol/L POC Potassium 6.4 H* (3.3-5.0) mmol/L Potassium 6.5 H* (3.5-5.1) mmol/L POC Chloride 100 L (101-112) mmol/L Chloride 99 (98-107) mmol/L Carbon Dioxide 22 (21-32) mmol/L POC Total CO2 20 L (24-31) mmol/L Anion Gap 10 (3-11) POC Anion Gap 19.0 (16-25) mmol/L POC BUN 54 H (7-18) mg/dl BUN 60 H (6-23) mg/dl Creatinine 2.27 H (0.6-1.4) mg/dl POC Creatinine 2.5 H (0.6-1.3) mg/dl Est Cr Clr Drug Dosing 41.9 ml/min eGFR 36.48 BUN/Creatinine Ratio 26.4 H (10-20) Glucose 98 (70-99(Fasting)) mg/dl POC Glucose (70-99) mg/dl POC Glucose (other) 94 (70-99) mg/dl Osmolality (280-300) mOsm/kg Lactate 5.5 H* (0.4-2.0) mmol/L Calcium 9.2 (8.6-10.3) mg/dl POC Ioniz Calcium Jovany 1.11 L (1.12-1.32) mmol/l Magnesium 2.4 (1.7-2.4) mg/dl Total Bilirubin 6.0 H (0.2-1.0) mg/dl Direct Bilirubin 2.7 H (0-0.2) mg/dl AST 116 H (13-39) U/L ALT 70 H (7-52) U/L Alkaline Phosphatase 154 H (34-104) U/L Ammonia 172.0 H (18-72) umol/L Total Creatine Kinase (30-223) U/L Troponin I High Sens 9.5 (0-20) pg/ml Total Protein 6.8 (6.0-8.3) gm/dl Albumin 3.3 L (3.4-5.0) gm/dl Procalcitonin 1.73 H (0-0.5) ng/ml TSH (0.300-4.500) uIu/ml Free T4 (0.61-1.60) ng/dl Urine Color Urine Appearance (Clear) Urine pH (4.5-7.5) Ur Specific [place] (1.000-1.030) Urine Protein (Negative) Urine Glucose (UA) (Negative) Urine Ketones (Negative) Urine Blood (Negative) Urine Nitrite (Negative) Urine Bilirubin (Negative) Urine Urobilinogen (Negative) Ur Leukocyte Esterase (Negative) Urine WBC (Auto) (0-5) /hpf Urine RBC (Auto) (0-2) /hpf U Hyaline Cast (Auto) (0-2) /lpf U Epithel Cells (Auto) (0-2) /hpf Urine Bacteria (Auto) (None Seen) Calcium Oxalate Crystal (None Prsent) Urine Osmolality (500-800) mOsm/kg Ur Random Creatinine mg/dl Ur Random Sodium mmol/L Ur Random Potassium mmol/L Ur Random Chloride mmol/L Fluid Neutrophils % % Fluid Lymphocytes % % Fluid Meso/Macro/Victoria % % Fluid Comment Peritoneal Color Peritoneal Appearance Peritoneal WBC (Auto) (0-300) /ul Peritoneal RBC (Auto) /uL Peritoneal Tot Protein gm/dl Peritoneal Albumin gm/dl Nasal Screen MRSA (PCR) (Negative) Urine Opiates Screen (Neg) U Codeine Confrm GC/MS Ur Morphine (GC/MS) Ur Hydrocodone (GC/MS) Ur Norhydrocodone Ur Noroxycodone Urine Oxycodone (GC/MS) U Oxymorphone GC/MS Ur Methadone, Qual (Neg) Ur Hydromorphone (GC/MS) Urine Fentanyl Screen (Neg) Urine Barbiturates (Neg) Ur Phencyclidine (PCP) (Neg) U Amphetamines Confirm U Amphetamin/Meth Scrn (Neg) U Methamphetamin Confrm Urine MDEA MDMA (Ecstasy) Screen (Neg) MDMA Urine MDMA U Benzodiazepines Scrn (Neg) Ur Cocaine Metabolite (Neg) U Marijuana (THC) Screen (Neg) U Marijuana THC Carboxy Drug Screen Comment Ethyl Alcohol mg/dL < 10.0 (<10.0) mg/dl Blood Type B Positive Antibody Screen NEGATIVE Crossmatch See Detail Diagnostic Findings Chest X-Ray 04/30/24 12:31 XR chest 1V portable CLINICAL HISTORY: Sepsis. COMPARISON STUDY: Chest radiograph and chest CT April 20, 2024. FINDINGS: Low lung volumes are unchanged. An azygos fissure is incidentally noted. Several old left-sided rib fractures are again noted. There is no consolidation or evidence for pulmonary edema. There is no pneumothorax or p leural effusion. Cardiomediastinal silhouette is unremarkable. IMPRESSION: No acute cardiopulmonary findings. No change in appearance of the chest. ACT 112: Negative or not required by law. Electronically signed by: Suleiman Gimenez M.D. 04/30/2024 1:[address] 04/30/24 12:32 CT OF THE CERVICAL SPINE WITHOUT CONTRAST CLINICAL HISTORY: fall? COMPARISON STUDY: Cervical spine CT April 20, 2024. TECHNIQUE: Helical axial images of the cervical spine were obtained without IV contrast. Sagittal and coronal reconstructions were viewed. Automated exposure control was utilized for the study. A dose lowering technique was utilized adhering to the principles of ALARA. FINDINGS: Reversal of the cervical lordosis is noted. There is no cervical spine fracture. Facet joints are intact. Mild to moderate disc space narrowing, endplate osteophytosis and facet arthrosis within the cervical spine is present. There is no prevertebral edema. Decreased attenuation of the blood pool is noted. Visualized portions of the lung apices are unremarkable. IMPRESSION: 1. No acute cervical spine fracture or subluxation. 2. Decreased attenuation of the blood pool suggestive of anemia. ACT 112: Negative or not required by law. Electronically signed by: Suleiman Gimenez M.D. 04/30/2024 1:[address] 04/30/24 12:32 CT OF THE HEAD WITHOUT CONTRAST CLINICAL HISTORY: Altered mental status. COMPARISON STUDY: Head CT April 20, 2024. TECHNIQUE: Helical axial images of the head were obtained without IV contrast. Automated exposure control was utilized for the study. A dose lowering technique was utilized adhering to the principles of ALARA. FINDINGS: No acute intracranial hemorrhage, midline shift or mass effect is present. The ventricular system is unremarkable. The basal cisterns are patent. No extra-axial collections are present. There are no findings to suggest acute dural sinus thrombosis or acute territorial infarct. No significant calvarial abnormalities are present. There are small air-fluid levels within the bilateral maxillary sinuses. IMPRESSION: No acute intracranial findings. ACT 112: Negative or not required by law. Electronically signed by: Suleiman Gimenez M.D. 04/30/2024 1:29 PM Hip/Pelvis X-Ray 04/30/24 12:32 XR hip ALESSIO 2v w pelvis CLINICAL HISTORY: ?fall COMPARISON STUDY: CT of the abdomen and pelvis April 20, 2024. FINDINGS: Sacroiliac joints and symphysis pubis are intact. There are no fractures within the pelvis or hips. There is mild osteophytosis of both hips. There is no evidence for avascular necrosis of the femoral heads. IMPRESSION: No fractures within the pelvis or hips. ACT 112: Negative or not required by law. Electronically signed by: Suleiman Gimenez M.D. 04/30/2024 1:[address] 04/30/24 18:29 EXAM: CT hip RT wo con CLINICAL HISTORY: Eval for fracture. TECHNIQUE: Multiple, contiguous, nonenhanced CT scan of the right hip joint in axial plane with multiplanar reconstructions. One of the following dose reduction techniques was utilized for this exam: Automated exposure control, adjustment of the mA and/or kV according to patient size, and use of iterative reconstruction. DLP: 3344.96 mGy-cm, CTDI: 110.6 mGy. COMPARISON: [id number] dated 04/20/2024 /[id number].5.1.2 06/19/2022./OBX.5.1.2/OBX.5.1 FINDINGS: Bones: Normal alignment of the femoral head, neck, and acetabula. No fractures, or dislocation. Tiny sclerotic focus is seen at the femoral head likely bone island. No evidence of avascular necrosis of the femoral head. Small loose body is seen as related to the medial aspect of the greater trochanter. (seen in previous studies) likely degenerative. Joints: Normal joint space of the hip. No evidence of joint effusions or intra-articular loose bodies. No significant degenerative changes or osteophyte formation. Soft Tissues: Subcutaneous edema and fat smudging surrounding the right hip region. IMPRESSION: 1. No evidence of fractures, degenerative changes, or significant abnormalities. 2. Subcutaneous edema and fat smudging surrounding the right hip region. 3. No interval changes. Electronically signed by Todd Dong 04-30-2024 8:37 PM Abdomen/Pelvis CTA 04/30/24 19:02 EXAMINATION: CT angiogram of the abdomen and pelvis performed after the administration of IV contrast TECHNIQUE: Helical CT images from the lung bases through the symphysis pubis were obtained with contrast. Arterial phase and delayed images were performed. Coronal and sagittal reformatted images were generated at a workstation for further assessment. Dose reduction techniques were achieved by using automatic exposure control and/or adjustment of mA and/or kV according to patient size and/or use of iterative reconstruction technique. COMPARISON: April 20, 2024 HISTORY: Bloody peritoneal fluid FINDINGS: Lower chest: No consolidation. No pleural effusion or pneumothorax. Chronic left-sided rib deformities. Liver: Shrunken and nodular contour of the liver compatible with cirrhosis. No suspicious liver lesions. Portal veins appear patent. There are numerous splenorenal shunts. Extensive periesophageal varices. Gallbladder: There are a few, small calcified gallstones. No evidence of acute cholecystitis. Spleen: Enlarged spleen measuring 13.6 cm Pancreas: No suspicious pancreatic lesions. The pancreatic duct is not dilated. Adrenal glands: No adrenal nodules. Kidneys: No hydronephrosis or obstructing renal stones. Bladder / Pelvic organs: Ghosh catheter in place. The urinary bladder is incompletely distended.. Bowel: No bowel obstruction. There is thickening of the wall of the cecum which may be seen with portal colopathy, versus nonspecific colitis. The appendix is unremarkable. A moderate to large colonic stool burden is present suggesting constipation. Lymph nodes: No retroperitoneal, mesenteric, or pelvic lymphadenopathy. Peritoneum / Retroperitoneum: Large volume of ascites. No visualized contrast blush in the peritoneum or retroperitoneal region. Vessels: No infrarenal aortic aneurysm. Bones and soft tissues: No suspicious lesion in the bones. IMPRESSION: Large volume ascites. No evidence for active peritoneal or retroperitoneal hemorrhage. Cirrhotic morphology of the liver with evidence of portal hypertension, including splenomegaly, as well as numerous splenorenal and periesophageal varices. Cholelithiasis. Nonspecific wall thickening of the cecum, which may be seen with portal colopathy versus colitis. Electronically signed by Lennox Pablo 04-30-2024 8:09 PM
--- NOTE | 2024-05-01 10:26 | Nephrology Consultation ---
Date of Consultation May 01, 2024 Assessment & Plan (1) TREESA (acute kidney injury): Liver cirrhosis patient with TERESA. baseline creat about 1 and on Adx was 2.27 but now downtrending to 1.97 with Albumin and Octreotide and Levophed and some D5NS. urine Na was < 10 that goes with Both Simple volume Depletion as well as HRS. Either way creat is trending down and We can continue current Treatment with the presumption that this is HRS. So continue albumin and d5ns and Octreotide. will follow. BP seems good at 130 + so no need of midodrine. stop d5ns once low glucose issue resolved. No need for Lasix and Aldactone at this time. Already had ascites tap and 6.2 liter removed. 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 Plan Case complexity high. reviewed ICU, gen Surg and GI note. Discussed plan with Primary service. 62 mins spent in total. History of Present Illness Reason for Consultation: TERESA in Liver Cirrhosis Attending Physician: Dion Burgess MD History of Present Illness 38/M with chronic hepatitis C, Advanced cirrhosis of liver, pancytopenia, ADHD, history of osteomyelitis, bipolar disorder who lives at home with his mother presented to [facility] ED due to being found unresponsive. Patient was last well known 04/29/24 by his mother. Mother was unaware of any recent drug use. Patient was noted to have drug posession as per H and P. In the ED, vitals were notable for BP of 90s-120s, HR of 100s and O2 sat of 90s on room air Imaging revealed CT with large volume ascites, no active peritoneal or retroperitoneal hemorrhage s/p paracentesis by direct care supervisor---6.2 liters removed with Serosanguious Discharge. gen Surg and GIhas seen the patient too. IV PPI, lactulose enema. Low glucose so also getting d5ns. Was Discharged just a week ago on 04/23/24--That time had creat about 1 on averag e. this time Creat was 2.27 and now trending down a bit to 1.97. Making lot of urine--83925 ml in less than 24 hrs already. Currently getting 25% albumin as well as Octreotide and also levophed. On lasix and Aldactone at home but Likely not taking it. ROS--Pt not answering. Opens eyes briefly but not answering any questions. Exam: Physical Exam Physical Exam: GENERAL APPEARANCE: somnolent, awake but unresponsive groaning . Looks very sick Chronically, Cachectic HEENT: MM dry. Jaundice + HEART: RRR, Sys murmur + LUNGS: Poor insp effort. Clear b/l ABDOMEN: massive ascites BACK: No CVAT, no obvious deformity. EXTREMITIES: BLE edema NEUROLOGICAL: Grossly nonfocal moving all 4 extremities. CN not formally tested but appear grossly intact. Skin: jaundice Allergies Allergy/AdvReac Type Severity Reaction Status Date / Time No Known Allergies Allergy Mild Verified 04/30/24 14:45 Home Medications Medication Instructions Recorded Confirmed Type buspirone 15 mg tablet 15 mg PO AMHS 04/12/24 04/30/24 History furosemide 40 mg tablet See Rx Instructions .Route .COMPLEX 04/12/24 04/30/24 History hydroxyzine HCl 25 mg tablet 25 mg PO TID PRN Anxiety 04/12/24 04/30/24 History spironolactone 100 mg tablet 200 mg PO QAM 04/12/24 04/30/24 History amoxicillin 875 mg-potassium 1 tab PO Q12H #14 tabs 04/23/24 04/30/24 Rx clavulanate 125 mg tablet lactulose 10 gram/15 mL oral 30 g (45 mL) PO DAILY 30 days 04/23/24 04/30/24 Rx solution #1,350 mL pantoprazole 40 mg tablet,delayed 40 mg PO BID #60 tabs 04/23/24 04/30/24 Rx release doxycycline hyclate 100 mg tablet 100 mg PO BID 04/30/24 04/30/24 History Patient History Medical History Encounter for pre-operative examination Chronic back pain Surgical History History of ankle surgery I&D for osteomyelitis H/O hand surgery Family History Other Diabetes Social History Smoking Status: Current every day smoker Tobacco Type: Cigarettes Second Hand Exposure: Yes; Do You Dip or Chew Tobacco: Yes; Preferred Language: Polish Communication Ability: Effective Timber Selector Required: No Beliefs That Will Affect Care: None Current Living Situation: Parent Current Living Situation Comment: lives with mother Feels Safe at Home: Yes Assistive Devices: None Results & Data Vital Signs (Past 12 Hours) Vital Signs Temp Pulse Resp BP Pulse Ox O2 Del Method 05/01/24 09:15 109 H 14 131/92 100 Room Air 05/01/24 09:03 112 H 14 142/86 H 99 Room Air 05/01/24 08:46 112 H 14 143/76 H 99 Room Air 05/01/24 08:30 112 H 15 127/105 H 100 Room Air 05/01/24 08:15 108 H 14 136/87 100 Room Air 05/01/24 08:08 36.5 C 107 H 18 162/90 H 100 05/01/24 08:00 107 H 13 148/94 H 100 Room Air 05/01/24 08:00 36.6 C 107 H 15 148/94 H 98 05/01/24 07:51 112 H 20 118/86 100 Room Air 05/01/24 07:45 36.6 C 104 H 17 118/86 98 05/01/24 07:09 110 H 16 144/90 H 100 Room Air 05/01/24 06:01 135/80 05/01/24 06:01 135/80 05/01/24 05:54 107 H 05/01/24 05:30 107 H 19 100 05/01/24 05:09 106 H 100 05/01/24 05:00 115/81 05/01/24 05:00 115/81 05/01/24 04:39 100 H 99 05/01/24 04:30 121/87 05/01/24 04:30 121/87 05/01/24 04:30 121/87 05/01/24 04:30 121/05/01/24 04:30 121/05/01/24 04:30 121/05/01/24 04:30 121/05/01/24 04:30 121/87 05/01/24 04:30 121/87 05/01/24 04:30 121/87 05/01/24 04:30 121/87 05/01/24 04:30 103 H 96 05/01/24 04:15 139/69 05/01/24 04:15 139/69 05/01/24 04:15 139/69 05/01/24 04:15 139/69 05/01/24 04:15 139/69 05/01/24 04:15 139/69 05/01/24 04:12 98 H 98 05/01/24 04:00 100 H 97 05/01/24 04:00 134/64 05/01/24 04:00 134/64 05/01/24 04:00 134/64 05/01/24 04:00 134/64 05/01/24 04:00 36.6 C 05/01/24 03:45 98 H 99 05/01/24 03:45 127/65 05/01/24 03:45 127/65 05/01/24 03:45 127/65 05/01/24 03:30 128/70 05/01/24 03:30 128/70 05/01/24 03:21 99 H 98 05/01/24 03:15 121/63 05/01/24 03:15 121/63 05/01/24 03:15 121/63 05/01/24 03:15 121/63 05/01/24 03:15 121/63 05/01/24 03:03 99 H 98 05/01/24 03:00 126/71 05/01/24 03:00 126/71 05/01/24 03:00 126/71 05/01/24 03:00 126/71 05/01/24 02:57 101 H 98 05/01/24 02:45 133/66 05/01/24 02:45 133/66 05/01/24 02:45 133/66 05/01/24 02:45 133/66 05/01/24 02:45 133/66 05/01/24 02:45 133/66 05/01/24 02:39 97 H 99 05/01/24 02:30 123/65 05/01/24 02:30 123/65 05/01/24 02:30 123/65 05/01/24 02:27 96 H 100 05/01/24 02:17 36.5 C 98 H 17 123/65 99 05/01/24 02:15 94 H 100 05/01/24 02:15 118/77 05/01/24 02:15 118/77 05/01/24 02:15 118/05/01/24 02:15 118/05/01/24 02:15 118/05/01/24 02:15 118/05/01/24 02:15 118/77 05/01/24 02:15 118/05/01/24 02:03 111 H 100 05/01/24 02:00 [id number] 05/01/24 02:00 10405/01/24 02:00 05/01/24 02:00 [id number] 05/01/24 02:00 05/01/24 02:00 104/63 05/01/24 02:00 /05/01/24 02:00 05/01/24 01:51 100 05/01/24 01:45 128/103 H 05/01/24 01:45 128/103 H 05/01/24 01:45 128/103 H 05/01/24 01:45 128/103 H 05/01/24 01:45 128/103 H 05/01/24 01:45 128/103 H 05/01/24 01:42 104 H 100 05/01/24 01:30 129/69 05/01/24 01:30 129/69 05/01/24 01:30 129/69 05/01/24 01:30 129/69 05/01/24 01:30 129/69 05/01/24 01:30 129/69 05/01/24 01:21 98 H 17 05/01/24 01:21 36.5 C 100 H 17 127/75 99 05/01/24 01:17 36.5 C 100 H 17 127/75 99 05/01/24 01:15 122/75 05/01/24 01:15 122/75 05/01/24 01:15 122/75 05/01/24 01:15 122/75 05/01/24 01:15 122/75 05/01/24 01:15 36.5 C 100 H 17 127/75 99 05/01/24 01:12 96 H 05/01/24 01:03 97 H 100 05/01/24 01:00 127/73 05/01/24 01:00 127/73 05/01/24 00:51 36.5 C 98 H 15 127/73 100 05/01/24 00:36 36.4 C L 92 H 15 114/66 98 05/01/24 00:19 36.5 C 93 H 15 124/58 L 99 05/01/24 00:16 36.5 C 92 H 15 124/58 L 99 05/01/24 00:08 36.5 C 94 H 15 124/58 L 99 04/30/24 23:32 113/82 04/30/24 23:32 113/82 04/30/24 23:32 113/82 04/30/24 23:32 113/82 04/30/24 23:32 113/82 04/30/24 23:32 113/82 04/30/24 23:32 113/82 04/30/24 23:32 113/82 04/30/24 23:32 113/82 04/30/24 23:32 113/82 04/30/24 23:32 113/82 04/30/24 23:30 101 H 99 04/30/24 23:26 36.6 C 04/30/24 23:25 100 H 04/30/24 23:22 36.6 C 99 H 15 133/74 99 04/30/24 23:00 133/74 04/30/24 23:00 100 H 12 100 04/30/24 23:00 133/74 04/30/24 23:00 133/74 04/30/24 23:00 133/74 04/30/24 23:00 133/74 04/30/24 23:00 133/74 04/30/24 23:00 133/74 04/30/24 23:00 133/74 04/30/24 23:00 133/74 04/30/24 23:00 133/74 04/30/24 22:45 102 H 14 100 04/30/24 22:30 126/84 04/30/24 22:30 126/84 04/30/24 22:30 126/84 04/30/24 22:30 126/84 04/30/24 22:27 104 H 14 100 Laboratory Results CBC renal panel, Imaging. urine tests
[2024-05-01] MEDS: THIAMINE HCL 100 MG in SYRINGE 9 ML IV SCH (11:18)
[2024-05-01 12:25] VITALS: TEMP 97.9
--- NOTE | 2024-05-01 12:33 | Critical Care Progress Note ---
Date of Service May 01, 2024 Assessment & Plan (1) Acute hepatic encephalopathy: (2) Acidosis, lactic: (3) Anemia: (4) Cirrhosis of liver: (5) Hepatitis C: (6) Mood disorder: (7) Abdominal ascites: (8) Drug abuse and dependence: (9) TERESA (acute kidney injury): (10) Hyperkalemia: Plan Reason Critically Ill: 38-year-old male with decompensated cirrhosis Neuro - --Metabolic encephalopathy Likely secondary to hyperammonia Ammonia level 172 down to 47; however, no significant clinical movement -Patient not allergic to take oral lactulose, had been receiving rectal enemas however patient combative -Holding additional enema at this time as may be contributing to agitation -Required 2 doses of IV ketamine 25 mg -QTc 540: Holding antipsychotics based on prolonged QT by EKG -Difficult balancing needs for patient and staff safety versus oversedation versus contributing to ongoing encephalopathy Ongoing substance abuse/dependence U tox was positive for opioids amphetamine, ecstasy as well as marijuana --History of bipolar disorder Cardiac - -- Sinus tachycardia: Likely compensatory may benefit from propranolol versus nadolol -Patient unable to take p.o. however Prolonged QTc -Attempt to obtain EKG this is difficult as patient is combative Respiratory - -- Saturating well on room air -End-tidal CO2 to monitor for apnea GI - -- Chronic transaminitis with hyperbilirubinemia Likely from chronic hepatitis C liver cirrhosis -Discussed with gastroenterology: Decompensated cirrhosis and end-stage disease process -Could consider outpatient TIPS but this would worsen predisposition to encephalopathy --Abdominal ascites Paracentesis 04/30/2024: 6.2 L, sanguinous fluid was removed EGD: 09/2022: grade II EV. Banded. 11/2023- grade I varices Continue with empiric Rocephin MELD upon discharge on 04/23/2024; today's MELD 28: This has been uptrending -- Ascites Last paracentesis was 04/26/2024 RENAL/LYTES - -- TERESA Reviewed nephrology notes -- Probable hepatorenal syndrome Recommend 20-40 g of albumin daily for at least 3 days but can be extended to 14 days Octreotide ENDO - -- ICU hypoglycemia protocol HEME - -- Normocytic anemia Monitor H&H ID - --Treat empirically with Rocephin for possible SBP -- Possible coronavirus via 04/21/24 PCR Procalcitonin 1.73 --Prophylaxis VTE: IPC GI: Pantoprazole Lines: Peripheral -Patient not a good candidate for central venous access, self discontinuing lines -I do not believe that intubation would be helpful to assist in control of encephalopathy and patient care: Required sedatives will likely worsen encephalopathy and make it difficult to interpret patient's baseline as well any improvement. Diet: N.p.o. Attempted to contact the patient's mother who is the next of kin, left message for her to contact ICU. Discussed with hospitalist medicine services and prior treating physicians patient has longstanding history of medical noncompliance despite numerous engagements with healthcare system, his hospitalizations are increasing in frequency as well as duration. His MELD score continues to increase. He is not a candidate for liver transplantation. He has declined chemical dependency treatment on multiple occasions. We believe the patient is an end-stage medical condition, will consult palliative care/hospice to further elucidate goals of care. If patient is able to regain significant cognitive status and capacity patient is extremely high risk for reoccurrence especially in the setting of noncompliance and or activities contrary to medical advice. Admission and Anticipated Discharge Date Admission Date: April 30, 2024 Supervising Physician Co-Signing Physician Notes I have personally spent 70 minutes of critical care time in the direct management of this patient. This is a life/limb threatening event. This includes time spent evaluating patient, direct bedside care, chart review, placing orders, interpretation of diagnostic studies, discussion with consultants, patient, and/or family members regarding treatment decisions, as well as other required patient management activities. This time is exclusive of all separately billable procedures, and teaching time and separate from and in addition to any other critical care service time. Subjective Patient having bouts of agitation, combative kicking and biting at staff, not redirectable. Physical Exam Physical Exam: General: Combative, not following commands. frail in appearance. Eyes: Mild scleral icterus Skin: Warm, Head: Atraumatic Ears, nose, mouth and throat: airway patent Cardiovascular: Normal peripheral perfusion Respiratory: no respiratory distress Gastrointestinal: Mild distention, nontender, positive fluid wave consistent with ascites Musculoskeletal: No deformity Results & Data Results & Data Vital Signs (Past 12 Hours) Vital Signs Temp Pulse Resp BP Pulse Ox O2 Del Method 05/01/24 12:00 36.6 C 05/01/24 12:00 109 H 14 145/82 H 97 05/01/24 10:57 111 H 15 155/72 H 98 Room Air 05/01/24 10:00 110 H 20 139/67 98 Room Air 05/01/24 09:15 109 H 16 131/92 99 Room Air 05/01/24 09:15 109 H 14 131/92 100 Room Air 05/01/24 09:03 112 H 14 142/86 H 99 Room Air 05/01/24 08:46 112 H 14 143/76 H 99 Room Air 05/01/24 08:30 112 H 15 127/105 H 100 Room Air 05/01/24 08:15 108 H 14 136/87 100 Room Air 05/01/24 08:08 36.5 C 107 H 18 162/90 H 100 05/01/24 08:00 107 H 13 148/94 H 100 Room Air 05/01/24 08:00 36.6 C 107 H 15 148/94 H 98 05/01/24 07:51 112 H 20 118/86 100 Room Air 05/01/24 07:45 36.6 C 104 H 17 118/86 98 05/01/24 07:09 110 H 16 144/90 H 100 Room Air 05/01/24 06:01 135/80 05/01/24 06:01 135/80 05/01/24 05:54 107 H 05/01/24 05:30 107 H 19 100 05/01/24 05:09 106 H 100 05/01/24 05:00 115/81 05/01/24 05:00 115/81 05/01/24 04:39 100 H 99 05/01/24 04:30 121/05/01/24 04:30 121/05/01/24 04:30 121/05/01/24 04:30 121/05/01/24 04:30 121/05/01/24 04:30 121/05/01/24 04:30 121/05/01/24 04:30 121/05/01/24 04:30 121/05/01/24 04:30 121/87 05/01/24 04:30 121/05/01/24 04:30 103 H 96 05/01/24 04:15 139/69 05/01/24 04:15 139/69 05/01/24 04:15 139/69 05/01/24 04:15 139/69 05/01/24 04:15 139/69 05/01/24 04:15 139/69 05/01/24 04:12 98 H 98 05/01/24 04:00 100 H 97 05/01/24 04:00 134/64 05/01/24 04:00 134/64 05/01/24 04:00 134/64 05/01/24 04:00 134/64 05/01/24 04:00 36.6 C 05/01/24 03:45 98 H 99 05/01/24 03:45 127/65 05/01/24 03:45 127/65 05/01/24 03:45 127/65 05/01/24 03:30 128/70 05/01/24 03:30 128/70 05/01/24 03:21 99 H 98 05/01/24 03:15 121/63 05/01/24 03:15 121/63 05/01/24 03:15 121/63 05/01/24 03:15 121/63 05/01/24 03:15 121/63 05/01/24 03:03 99 H 98 05/01/24 03:00 126/71 05/01/24 03:00 126/71 05/01/24 03:00 126/71 05/01/24 03:00 126/71 05/01/24 02:57 101 H 98 05/01/24 02:45 133/66 05/01/24 02:45 133/66 05/01/24 02:45 133/66 05/01/24 02:45 133/66 05/01/24 02:45 133/66 05/01/24 02:45 133/66 05/01/24 02:39 97 H 99 05/01/24 02:30 123/65 05/01/24 02:30 123/65 05/01/24 02:30 123/65 05/01/24 02:27 96 H 100 05/01/24 02:17 36.5 C 98 H 17 123/65 99 05/01/24 02:15 94 H 100 05/01/24 02:15 118/77 05/01/24 02:15 118/77 05/01/24 02:15 118/77 05/01/24 02:15 118/77 05/01/24 02:15 118/05/01/24 02:15 118/77 05/01/24 02:15 118/77 05/01/24 02:15 118/77 05/01/24 02:03 111 H 100 05/01/24 02:00 104/63 05/01/24 02:00 104/63 05/01/24 02:00 [id number] 05/01/24 02:00 104/63 05/01/24 02:00 104/63 05/01/24 02:00 104/63 05/01/24 02:00 104/63 05/01/24 02:00 63 05/01/24 01:51 100 05/01/24 01:45 128/103 H 05/01/24 01:45 128/103 H 05/01/24 01:45 128/103 H 05/01/24 01:45 128/103 H 05/01/24 01:45 128/103 H 05/01/24 01:45 128/103 H 05/01/24 01:42 104 H 100 05/01/24 01:30 129/69 05/01/24 01:30 129/69 05/01/24 01:30 129/69 05/01/24 01:30 129/69 05/01/24 01:30 129/69 05/01/24 01:30 129/69 05/01/24 01:21 98 H 17 05/01/24 01:21 36.5 C 100 H 17 127/75 99 05/01/24 01:17 36.5 C 100 H 17 127/75 99 05/01/24 01:15 122/75 05/01/24 01:15 122/75 05/01/24 01:15 122/75 05/01/24 01:15 122/75 05/01/24 01:15 122/75 05/01/24 01:15 36.5 C 100 H 17 127/75 99 05/01/24 01:12 96 H 05/01/24 01:03 97 H 100 05/01/24 01:00 127/73 05/01/24 01:00 127/73 05/01/24 00:51 36.5 C 98 H 15 127/73 100 05/01/24 00:36 36.4 C L 92 H 15 114/66 98 Critical Care Results & Data Vital Signs (Past 12 Hours) Vital Signs Temp Pulse Resp BP Pulse Ox O2 Del Method 05/01/24 12:00 36.6 C 05/01/24 12:00 109 H 14 145/82 H 97 05/01/24 10:57 111 H 15 155/72 H 98 Room Air 05/01/24 10:00 110 H 20 139/67 98 Room Air 05/01/24 09:15 109 H 16 131/92 99 Room Air 05/01/24 09:15 109 H 14 131/92 100 Room Air 05/01/24 09:03 112 H 14 142/86 H 99 Room Air 05/01/24 08:46 112 H 14 143/76 H 99 Room Air 05/01/24 08:30 112 H 15 127/105 H 100 Room Air 05/01/24 08:15 108 H 14 136/87 100 Room Air 05/01/24 08:08 36.5 C 107 H 18 162/90 H 100 05/01/24 08:00 107 H 13 148/94 H 100 Room Air 05/01/24 08:00 36.6 C 107 H 15 148/94 H 98 05/01/24 07:51 112 H 20 118/86 100 Room Air 05/01/24 07:45 36.6 C 104 H 17 118/86 98 05/01/24 07:09 110 H 16 144/90 H 100 Room Air 05/01/24 06:01 135/80 05/01/24 06:01 135/80 05/01/24 05:54 107 H 05/01/24 05:30 107 H 19 100 05/01/24 05:09 106 H 100 05/01/24 05:00 115/81 05/01/24 05:00 115/81 05/01/24 04:39 100 H 99 05/01/24 04:30 121/87 05/01/24 04:30 121/87 05/01/24 04:30 121/87 05/01/24 04:30 121/87 05/01/24 04:30 121/05/01/24 04:30 121/05/01/24 04:30 121/87 05/01/24 04:30 121/87 05/01/24 04:30 121/87 05/01/24 04:30 121/87 05/01/24 04:30 121/87 05/01/24 04:30 103 H 96 05/01/24 04:15 139/69 05/01/24 04:15 139/69 05/01/24 04:15 139/69 05/01/24 04:15 139/69 05/01/24 04:15 139/69 05/01/24 04:15 139/69 05/01/24 04:12 98 H 98 05/01/24 04:00 100 H 97 05/01/24 04:00 134/64 05/01/24 04:00 134/64 05/01/24 04:00 134/64 05/01/24 04:00 134/64 05/01/24 04:00 36.6 C 05/01/24 03:45 98 H 99 05/01/24 03:45 127/65 05/01/24 03:45 127/65 05/01/24 03:45 127/65 05/01/24 03:30 128/70 05/01/24 03:30 128/70 05/01/24 03:21 99 H 98 05/01/24 03:15 121/63 05/01/24 03:15 121/63 05/01/24 03:15 121/63 05/01/24 03:15 121/63 05/01/24 03:15 121/63 05/01/24 03:03 99 H 98 05/01/24 03:00 126/71 05/01/24 03:00 126/71 05/01/24 03:00 126/71 05/01/24 03:00 126/71 05/01/24 02:57 101 H 98 05/01/24 02:45 133/66 05/01/24 02:45 133/66 05/01/24 02:45 133/66 05/01/24 02:45 133/66 05/01/24 02:45 133/66 05/01/24 02:45 133/66 05/01/24 02:39 97 H 99 05/01/24 02:30 123/65 05/01/24 02:30 123/65 05/01/24 02:30 123/65 03/23/25 02:27 96 H 100 05/01/24 02:17 36.5 C 98 H 17 123/65 99 05/01/24 02:15 94 H 100 05/01/24 02:15 118/77 05/01/24 02:15 118/77 05/01/24 02:15 118/77 05/01/24 02:15 11805/01/24 02:15 11805/01/24 02:15 11805/01/24 02:15 118/77 05/01/24 02:15 118/77 05/01/24 02:03 111 H 100 05/01/24 02:00 10405/01/24 02:00 05/01/24 02:00 10405/01/24 02:00 05/01/24 02:00 05/01/24 02:00 05/01/24 02:00 05/01/24 02:00 10405/01/24 01:51 100 05/01/24 01:45 128/103 H 05/01/24 01:45 128/103 H 05/01/24 01:45 128/103 H 05/01/24 01:45 128/103 H 05/01/24 01:45 128/103 H 05/01/24 01:45 128/103 H 05/01/24 01:42 104 H 100 05/01/24 01:30 129/69 05/01/24 01:30 129/69 05/01/24 01:30 129/69 05/01/24 01:30 129/69 05/01/24 01:30 129/69 05/01/24 01:30 129/69 05/01/24 01:21 98 H 17 05/01/24 01:21 36.5 C 100 H 17 127/75 99 05/01/24 01:17 36.5 C 100 H 17 127/75 99 05/01/24 01:15 122/75 05/01/24 01:15 122/75 05/01/24 01:15 122/75 05/01/24 01:15 122/75 05/01/24 01:15 122/75 05/01/24 01:15 36.5 C 100 H 17 127/75 99 05/01/24 01:12 96 H 05/01/24 01:03 97 H 100 Lab & Micro Results (Past 24 Hours) RBC 2.57 M/uL (4.70-6.10) L 05/01/24 WBC 11.57 K/ul (4.8-10.8) H 05/01/24 Hgb 8.0 g/dl (14.0-18.0) L 05/01/24 Hct 22.9 % (42.0-52.0) L 05/01/24 MCV 89.1 fL (80.0-100.0) 05/01/24 MCH 31.1 pg (25.0-34.0) 05/01/24 MCHC 34.9 g/dL (32.0-36.0) 05/01/24 RDW Standard Deviation 59.7 fL (36.4-46.3) H 05/01/24 RDW Coefficient of Variation 19.5 % (11.5-14.5) H 05/01/24 Plt Count 125 K/uL (130-400) L 05/01/24 MPV 9.8 fL (9.4-12.4) 05/01/24 Neutrophils (%) (Auto) 73.4 % 05/01/24 Lymphocytes (%) (Auto) 7.9 % 05/01/24 Monocytes # (Auto) 1.90 K/uL (0.11-0.59) H 05/01/24 Eosinophils # (Auto) 0.12 K/uL (0.00-0.50) 05/01/24 Immature Granulocyte % (Auto) 0.9 % 05/01/24 Neutrophils # (Auto) 8.49 K/uL (1.40-6.50) H 05/01/24 Lymphocytes # (Auto) 0.91 K/uL (1.20-3.40) L 05/01/24 Monocytes # (Auto) 1.90 K/uL (0.11-0.59) H 05/01/24 Eosinophils # (Auto) 0.12 K/uL (0.00-0.50) 05/01/24 Basophils # (Auto) 0.05 K/uL (0.00-0.20) 05/01/24 Immature Granulocyte # (Auto) 0.10 K/uL (0.01-0.20) 5 Na 139 mmol/L (136-145) 05/01/24 K 5.4 mmol/L (3.5-5.1) H 05/01/24 Cl 106 mmol/L (98-107) 05/01/24 CO2 23 mmol/L (21-32) 05/01/24 Anion Gap 10 (3-11) 05/01/24 BUN 55 mg/dl (6-23) H 05/01/24 Creatinine 1.94 mg/dl (0.6-1.4) H 05/01/24 BUN/Creatinine Ratio 28.4 (10-20) H 05/01/24 Glu 120 mg/dl (70-99(Fasting)) H 05/01/24 Ca 9.7 mg/dl (8.6-10.3) 05/01/24 Total Bilirubin 7.0 mg/dl (0.2-1.0) H 05/01/24 Direct Bilirubin 2.8 mg/dl (0-0.2) H 05/01/24 AST 91 U/L (13-39) H 05/01/24 ALT 56 U/L (7-52) H 05/01/24 Alkaline Phosphatase 113 U/L (34-104) H 05/01/24 TP 6.4 gm/dl (6.0-8.3) 05/01/24 Albumin 3.7 gm/dl (3.4-5.0) 05/01/24 Mg 2.5 mg/dl (1.7-2.4) H 05/01/24 04:20 Calcium Level 9.7 mg/dl (8.6-10.3) 05/01/24 04:20 Prothromb Time International Ratio 2.0 (0.9-1.1) H 05/01/24 04 :20 Microbiology 04/30/24 14:46 Gram Stain - Final Abdomen Aerobic and Anaerobic Culture - Preliminary No growth to date. 04/30/24 13:09 Urine Culture - Preliminary Urine,Clean Catch No growth - Less than 1,000 colonies/mL, Final report to follow. Diagnostic Findings (Past 24 Hours) Chest X-Ray 04/30/24 12:31 XR chest 1V portable CLINICAL HISTORY: Sepsis. COMPARISON STUDY: Chest radiograph and chest CT April 20, 2024. FINDINGS: Low lung volumes are unchanged. An azygos fissure is incidentally noted. Several old left-sided rib fractures are again noted. There is no consolidation or evidence for pulmonary edema. There is no pneumothorax or pleural effusion. Cardiomediastinal silhouette is unremarkable. IMPRESSION: No acute cardiopulmonary findings. No change in appearance of the chest. ACT 112: Negative or not required by law. Electronically signed by: Suleiman Gimenez M.D. 04/30/2024 1:[address] 04/30/24 12:32 CT OF THE CERVICAL SPINE WITHOUT CONTRAST CLINICAL HISTORY: fall? COMPARISON STUDY: Cervical spine CT April 20, 2024. TECHNIQUE: Helical axial images of the cervical spine were obtained without IV contrast. Sagittal and coronal reconstructions were viewed. Automated exposure control was utilized for the study. A dose lowering technique was utilized adhering to the principles of ALARA. FINDINGS: Reversal of the cervical lordosis is noted. There is no cervical spine fracture. Facet joints are intact. Mild to moderate disc space narrowing, endplate osteophytosis and facet arthrosis within the cervical spine is present. There is no prevertebral edema. Decreased attenuation of the blood pool is noted. Visualized portions of the lung apices are unremarkable. IMPRESSION: 1. No acute cervical spine fracture or subluxation. 2. Decreased attenuation of the blood pool suggestive of anemia. ACT 112: Negative or not required by law. Electronically signed by: Suleiman Gimenez M.D. 04/30/2024 1:[address] 04/30/24 12:32 CT OF THE HEAD WITHOUT CONTRAST CLINICAL HISTORY: Altered mental status. COMPARISON STUDY: Head CT April 20, 2024. TECHNIQUE: Helical axial images of the head were obtained without IV contrast. Automated exposure control was utilized for the study. A dose lowering technique was utilized adhering to the principles of ALARA. FINDINGS: No acute intracranial hemorrhage, midline shift or mass effect is present. The ventricular system is unremarkable. The basal cisterns are patent. No extra-axial collections are present. There are no findings to suggest acute dural sinus thrombosis or acute territorial infarct. No significant calvarial abnormalities are present. There are small air-fluid levels within the bilateral maxillary sinuses. IMPRESSION: No acute intracranial findings. ACT 112: Negative or not required by law. Electronically signed by: Suleiman Gimenez M.D. 04/30/2024 1:29 PM Hip/Pelvis X-Ray 04/30/24 12:32 XR hip ALESSIO 2v w pelvis CLINICAL HISTORY: ?fall COMPARISON STUDY: CT of the abdomen and pelvis April 20, 2024. FINDINGS: Sacroiliac joints and symphysis pubis are intact. There are no fractures within the pelvis or hips. There is mild osteophytosis of both hips. There is no evidence for avascular necrosis of the femoral heads. IMPRESSION: No fractures within the pelvis or hips. ACT 112: Negative or not required by law. Electronically signed by: Suleiman Gimenez M.D. 04/30/2024 1:[address] 04/30/24 18:29 EXAM: CT hip RT wo con CLINICAL HISTORY: Eval for fracture. TECHNIQUE: Multiple, contiguous, nonenhanced CT scan of the right hip joint in axial plane with multiplanar reconstructions. One of the following dose reduction techniques was utilized for this exam: Automated exposure control, adjustment of the mA and/or kV according to patient size, and use of iterative reconstruction. DLP: 3344.96 mGy-cm, CTDI: 110.6 mGy. COMPARISON: [id number] dated 04/20/2024 /[id number].[id number].5.1.2 06/19/2022./OBX.5.1.2/OBX.5.1 FINDINGS: Bones: Normal alignment of the femoral head, neck, and acetabula. No fractures, or dislocation. Tiny sclerotic focus is seen at the femoral head likely bone island. No evidence of avascular necrosis of the femoral head. Small loose body is seen as related to the medial aspect of the greater trochanter. (seen in previous studies) likely degenerative. Joints: Normal joint space of the hip. No evidence of joint effusions or intra-articular loose bodies. No significant degenerative changes or osteophyte formation. Soft Tissues: Subcutaneous edema and fat smudging surrounding the right hip region. IMPRESSION: 1. No evidence of fractures, degenerative changes, or significant abnormalities. 2. Subcutaneous edema and fat smudging surrounding the right hip region. 3. No interval changes. Electronically signed by Todd Dong 04-30-2024 8:37 PM Abdomen/Pelvis CTA 04/30/24 19:02 EXAMINATION: CT angiogram of the abdomen and pelvis performed after the administration of IV contrast TECHNIQUE: Helical CT images from the lung bases through the symphysis pubis were obtained with contrast. Arterial phase and delayed images were performed. Coronal and sagittal reformatted images were generated at a workstation for further assessment. Dose reduction techniques were achieved by using automatic exposure control and/or adjustment of mA and/or kV according to patient size and/or use of iterative reconstruction technique. COMPARISON: April 20, 2024 HISTORY: Bloody peritoneal fluid FINDINGS: Lower chest: No consolidation. No pleural effusion or pneumothorax. Chronic left-sided rib deformities. Liver: Shrunken and nodular contour of the liver compatible with cirrhosis. No suspicious liver lesions. Portal veins appear patent. There are numerous splenorenal shunts. Extensive periesophageal varices. Gallbladder: There are a few, small calcified gallstones. No evidence of acute cholecystitis. Spleen: Enlarged spleen measuring 13.6 cm Pancreas: No suspicious pancreatic lesions. The pancreatic duct is not dilated. Adrenal glands: No adrenal nodules. Kidneys: No hydronephrosis or obstructing renal stones. Bladder / Pelvic organs: Ghosh catheter in place. The urinary bladder is incompletely distended.. Bowel: No bowel obstruction. There is thickening of the wall of the cecum which may be seen with portal colopathy, versus nonspecific colitis. The appendix is unremarkable. A moderate to large colonic stool burden is present suggesting constipation. Lymph nodes: No retroperitoneal, mesenteric, or pelvic lymphadenopathy. Peritoneum / Retroperitoneum: Large volume of ascites. No visualized contrast blush in the peritoneum or retroperitoneal region. Vessels: No infrarenal aortic aneurysm. Bones and soft tissues: No suspicious lesion in the bones. IMPRESSION: Large volume ascites. No evidence for active peritoneal or retroperitoneal hemorrhage. Cirrhotic morphology of the liver with evidence of portal hypertension, including splenomegaly, as well as numerous splenorenal and periesophageal varices. Cholelithiasis. Nonspecific wall thickening of the cecum, which may be seen with portal colopathy versus colitis. Electronically signed by Lennox Pablo 04-30-2024 8:09 PM I & O Totals 24 Hours 04/30/24 05/01/24 05/02/24 06:59 06:59 06:59 Intake Total 2865.820 / 2865.820 178 / 178 Output Total 1852 / 1852 425 / 425 Balance 1013.820 / 1013.820 -247 / -247 Cumulative 04/30/24 12:16 thru 05/01/24 11:19 Intake Total 3043.820 Output Total 2277 Balance 766.820 RT Ventilator Mngmt (Last Documented) Ventilator Ordered Settings Respiratory Rate 14 05/01/24 1 2:00 Ventilator - PT Measurements Respiratory Rate 14 End-Tidal CO2 26 Coding Level of Care Code 01573 CRITICAL CARE 1ST 30-74M Diagnoses Acute hepatic encephalopathy K76.82 Acidosis, lactic E87.20 Anemia D64.9 Cirrhosis of liver K74.60 Hepatitis C B19.20 Hepatic coma status: without hepatic coma Viral hepatitis chronicity: unspecified Mood disorder F39 Abdominal ascites R18.8 Drug abuse and dependence F19.20 TERESA (acute kidney injury) N17.9 Hyperkalemia E87.5 (5) Hepatitis C Hepatic coma status: without hepatic coma Viral hepatitis chronicity: unspecified Qualified Code(s): B19.20 - Unspecified viral hepatitis C without hepatic coma
[2024-05-01] MEDS: cefTRIAXone SODIUM 2,000 MG/50 ML BAG IV SCH (12:47)
[2024-05-01] MEDS ORDERED: MoRPHine SULFATE 10 MG/0.5 ML UDP PO PRN (14:05)
[2024-05-01] MEDS ORDERED: MoRPHine SULFATE 2 MG/ML CARP IV PRN (14:05)
[2024-05-01] MEDS ORDERED: ONDANSETRON INJ 2 MG/ML 2 ML VIAL IV PRN (14:05)
[2024-05-01] MEDS: MoRPHine SULFATE 10 MG/ML CARP/VIAL IV STA (14:13)
--- NOTE | 2024-05-01 14:13 | Communication Note ---
Date of Service: May 01, 2024 Patient's mother who is next of kin and surrogate decision maker presented to bedside. Discussed findings, mother well aware of high probability of mortality as well as likely reoccurrence of liver decompensation if he were to improve. Patient mildly combative in bed, mother understands gravity of situation and would like to transition to palliative/hospice care and focus strictly on the patient's comfort. I have discussed this with the hospital medicine team and feel this is both compassionate and appropriate given severity of illness. Will be starting sedatives. Accordingly patient would be stable for downgrade out of ICU with expectant management. Coding Level of Care Code None
[2024-05-01] MEDS: MoRPHine SULFATE 10 MG/ML CARP/VIAL ONE (14:14)
[2024-05-01] MEDS: LORazepam 2 MG/1 ML VIAL IV PRN ×2 (14:18→16:17)
--- NOTE | 2024-05-01 14:23 | Hospitalist Progress Note ---
Date of Service May 01, 2024 Assessment & Plan (1) Acute hepatic encephalopathy: (2) Decompensated cirrhosis related to hepatitis C virus (HCV): (3) Drug abuse and dependence: (4) TERESA (acute kidney injury): Plan Mr. Ulloa is a 38-year-old male with past medical history significant for chronic hepatitis C, cirrhosis of liver, pancytopenia, allergic rhinitis, attention deficit hyperactive disorder, anxiety, history of osteomyelitis, bipolar affective disorder who lives at home with his mother admitted for acute toxic metabolic encephalopathy and decompensated cirrhosis. . Acute toxic metabolic encephalopathy, likely multifactorial--secondary to decompensated end-stage liver disease, drug abuse Substance use disorder, opiates Acute hepatic encephalopathy --CT head: No acute intracranial findings. --Neck CT: No acute cervical spine fracture or subluxation. s/p lactulose enema in ED, ammonia on admission 172>>47 s/p Narcan continue lactulose enema q 8 hours Delirium precautions, monitor for withdrawal symptoms UA positive, history of methamphetamine/opiates Delirium precautions Mental status did not improve despite aggressive management Cirrhosis 2/2 HCV, decompensated History of EV s/p EVL and ascites HCV Follows Dr Merino, GI last visit 03/14/2024 HCV not undergone treatment, history of noncompliance - History of decompensation - MELD 3.0: 32 --CT ABD:Large volume ascites. No evidence for active peritoneal or retroperitoneal hemorrhage. Cirrhotic morphology of the liver with evidence of portal hypertension, including splenomegaly, as well as numerous splenorenal and periesophageal varices. Cholelithiasis. Nonspecific wall thickening of the cecum, which may be seen with portal colopathy versus colitis. --EGD: 09/2022- grade II EV. Banded. 11/2023- grade I varices - HRS: baseline 0.5, up to 2.27, starting albumin challenge with 25% albumin 25g q8 hours Consult Nephrology for HRS management, hyperkalemia - Ascites: [place] to perform bedside paracentesis Last paracentesis on 04/26 - SBP: continue CTX q 24 hours, follow up fluid studies from film washer - EV: octreotide started - Start PPI IV BID - Daily CMP + INR to calculate MELD; low Na diet with FR 1.5L when able -Appreciate GI, surgery input Appreciate critical care input Follow-up cultures Patient is deemed to be not a candidate for transplant Very poor prognosis GI recommended palliative care Discussed with patient's mother in detail on 05/01/2024. Given his poor prognosis patient's mother preferred him to be transition to comfort measures only Patient is transition to comfort measures only We will downgrade to MedSurg unit Acute kidney injury Appreciate nephrology input Avoid nephrotoxic agents as able Sanguineous Ascites Acute on chronic anemia hemoglobin 8.6, down to 7.3 Monitor CBC CODE STATUS DNR/DNI per discussion with family DVT Px: SCDs for now Admission and Anticipated Discharge Date Admission Date: April 30, 2024 Subjective Patient is seen and examined at bedside Obtunded and unable to obtain any history Discussed with critical care team Also discussed with patient's family at bedside Review of Systems Review of Systems: Unobtainable due to reduced consciousness Physical Exam Physical Exam: Physical Exam: Vitals signs as noted above General Appearance: Ill-appearing, agitated, frail, mild distress Head: normocephalic, Atraumatic Eyes: normal inspection, icteric Neck: supple, Trachea midline Respiratory/Chest: Normal breath sounds, No accessory muscle use Cardiovascular: S1, S2, No murmur, tachycardia Abdomen/GI:Soft, distended, non tender, Bowel sounds present,+ ascites Extremities/Musculoskeletal:normal inspection, + edema Neurologic/Psych: Obtunded, unable to perform complete neurological exam. Moves all extremities Skin: normal color, warm Results & Data Results & Data Vital Signs (Past 12 Hours) Vital Signs Temp Pulse Resp BP Pulse Ox O2 Del Method 05/01/24 13:00 108 H 14 125/81 100 Room Air 05/01/24 12:00 36.6 C 05/01/24 12:00 109 H 14 145/82 H 97 05/01/24 10:57 111 H 15 155/72 H 98 Room Air 05/01/24 10:00 110 H 20 139/67 98 Room Air 05/01/24 09:15 109 H 16 131/92 99 Room Air 05/01/24 09:15 109 H 14 131/92 100 Room Air 05/01/24 09:03 112 H 14 142/86 H 99 Room Air 05/01/24 08:46 112 H 14 143/76 H 99 Room Air 05/01/24 08:30 112 H 15 127/105 H 100 Room Air 05/01/24 08:15 108 H 14 136/87 100 Room Air 05/01/24 08:08 36.5 C 107 H 18 162/90 H 100 05/01/24 08:00 107 H 13 148/94 H 100 Room Air 05/01/24 08:00 36.6 C 107 H 15 148/94 H 98 05/01/24 07:51 112 H 20 118/86 100 Room Air 05/01/24 07:45 36.6 C 104 H 17 118/86 98 05/01/24 07:09 110 H 16 144/90 H 100 Room Air 05/01/24 06:01 135/80 05/01/24 06:01 135/80 05/01/24 05:54 107 H 05/01/24 05:30 107 H 19 100 05/01/24 05:09 106 H 100 05/01/24 05:00 115/81 05/01/24 05:00 115/81 05/01/24 04:39 100 H 99 05/01/24 04:30 121/87 05/01/24 04:30 121/87 05/01/24 04:30 121/87 05/01/24 04:30 121/87 05/01/24 04:30 121/87 05/01/24 04:30 121/87 05/01/24 04:30 121/87 05/01/24 04:30 121/87 05/01/24 04:30 121/87 05/01/24 04:30 121/87 05/01/24 04:30 121/87 05/01/24 04:30 103 H 96 05/01/24 04:15 139/69 05/01/24 04:15 139/69 05/01/24 04:15 139/69 05/01/24 04:15 139/69 05/01/24 04:15 139/69 05/01/24 04:15 139/69 05/01/24 04:12 98 H 98 05/01/24 04:00 100 H 97 05/01/24 04:00 134/64 05/01/24 04:00 134/64 05/01/24 04:00 134/64 05/01/24 04:00 134/64 05/01/24 04:00 36.6 C 05/01/24 03:45 98 H 99 05/01/24 03:45 127/65 03/23/25 03:45 127/65 05/01/24 03:45 127/65 05/01/24 03:30 128/70 05/01/24 03:30 128/70 05/01/24 03:21 99 H 98 05/01/24 03:15 121/63 05/01/24 03:15 121/63 05/01/24 03:15 121/63 05/01/24 03:15 121/63 05/01/24 03:15 121/63 05/01/24 03:03 99 H 98 05/01/24 03:00 126/71 05/01/24 03:00 126/71 05/01/24 03:00 126/71 05/01/24 03:00 126/71 05/01/24 02:57 101 H 98 05/01/24 02:45 133/66 05/01/24 02:45 133/66 05/01/24 02:45 133/66 05/01/24 02:45 133/66 05/01/24 02:45 133/66 05/01/24 02:45 133/66 05/01/24 02:39 97 H 99 05/01/24 02:30 123/65 05/01/24 02:30 123/65 05/01/24 02:30 123/65 05/01/24 02:27 96 H 100 Laboratory Results Short CBC 04/30/24 05/01/24 Range/Units 17:19 08:19 WBC 11.57 H (4.8-10.8) K/ul Hgb 5.9 L* 8.0 L (14.0-18.0) g/dl Hct 16.9 L* 22.9 L (42.0-52.0) % Plt Count 125 L (130-400) K/uL BMP 04/30/24 04/30/24 05/01/24 17:15 22:34 04:20 Sodium 132 L 134 L 139 Potassium 5.2 H 5.2 H 5.4 H Chloride 101 103 106 Carbon Dioxide 22 21 23 BUN 59 H 59 H 55 H Creatinine 2.08 H 1.97 H 1.94 H Glucose 125 H 102 H 120 H Calcium 9.2 9.0 9.7 Cardiac Enzymes 04/30/24 Range/Units 17:15 Total Creatine Kinase 134 (30-223) U/L Liver Function / Range/Units 04:20 Total Bilirubin 7.0 H (0.2-1.0) mg/dl Direct Bilirubin 2.8 H (0-0.2) mg/dl AST 91 H (13-39) U/L ALT 56 H (7-52) U/L Alkaline Phosphatase 113 H (34-104) U/L Albumin 3.7 (3.4-5.0) gm/dl
[2024-05-01] MEDS ORDERED: ACETAMINOPHEN 325 MG TAB PO PRN (14:30)
[2024-05-01] MEDS ORDERED: GLYCOPYRROLATE 0.2 MG/ML VIAL IV PRN (14:30)
[2024-05-01] MEDS: NOREPINEPHRINE/D5W 4 MG/250 ML PLCT IV SCH (14:31)
[2024-05-01 14:45] VITALS: BP 129/66; PULSE 116; RESP 17; O2SAT 96
[2024-05-01] MEDS: MoRPHine SULFATE 2 MG/ML CARP IV PRN (16:18)
--- NOTE | 2024-05-02 10:10 | Communication Note ---
Date of Service: May 02, 2024 Patient is a 38 yo male with decompensated Hep C cirrhosis. Patient's mother and hospitalist team have settled on a transition to comfort measures only. GI will sign off, but should the plan change, please re-engage our team.
[2024-05-02] MEDS: MoRPHine SULFATE 2 MG/ML CARP IV PRN (11:25)
--- NOTE | 2024-05-02 15:37 | Hospitalist Progress Note ---
Date of Service May 02, 2024 Assessment & Plan (1) Acute hepatic encephalopathy: (2) Decompensated cirrhosis related to hepatitis C virus (HCV): (3) Drug abuse and dependence: (4) TERESA (acute kidney injury): Plan Mr. Ulloa is a 38-year-old male with past medical history significant for chronic hepatitis C, cirrhosis of liver, pancytopenia, allergic rhinitis, attention deficit hyperactive disorder, anxiety, history of osteomyelitis, bipolar affective disorder who lives at home with his mother admitted for acute toxic metabolic encephalopathy and decompensated cirrhosis. . Acute toxic metabolic encephalopathy, likely multifactorial--secondary to decompensated end-stage liver disease, drug abuse Substance use disorder, opiates Acute hepatic encephalopathy --CT head: No acute intracranial findings. --Neck CT: No acute cervical spine fracture or subluxation. s/p lactulose enema in ED, ammonia on admission 172>>47 s/p Narcan continue lactulose enema q 8 hours Delirium precautions, monitor for withdrawal symptoms UA positive, history of methamphetamine/opiates Delirium precautions Mental status did not improve despite aggressive management Currently on comfort measures only Cirrhosis 2/2 HCV, decompensated History of EV s/p EVL and ascites HCV Follows Dr Merino, GI last visit 03/14/2024 HCV not undergone treatment, history of noncompliance - History of decompensation - MELD 3.0: 32 --CT ABD:Large volume ascites. No evidence for active peritoneal or retroperitoneal hemorrhage. Cirrhotic morphology of the liver with evidence of portal hypertension, including splenomegaly, as well as numerous splenorenal and periesophageal varices. Cholelithiasis. Nonspecific wall thickening of the cecum, which may be seen with portal colopathy versus colitis. --EGD: 09/2022- grade II EV. Banded. 11/2023- grade I varices - HRS: baseline 0.5, up to 2.27, starting albumin challenge with 25% albumin 25g q8 hours Consult Nephrology for HRS management, hyperkalemia - Ascites: Landscape Management Technician to perform bedside paracentesis Last paracentesis on 04/26 - SBP: continue CTX q 24 hours, follow up fluid studies from professor of management - EV: octreotide started - Start PPI IV BID - Daily CMP + INR to calculate MELD; low Na diet with FR 1.5L when able -Appreciate GI, surgery input Appreciate critical care input Follow-up cultures Patient is deemed to be not a candidate for transplant Very poor prognosis GI recommended palliative care Discussed with patient's mother in detail on 05/01/2024. Given his poor prognosis patient's mother preferred him to be transition to comfort measures only Continue comfort measures Acute kidney injury Appreciate nephrology input Avoid nephrotoxic agents as able Sanguineous Ascites Acute on chronic anemia hemoglobin 8.6, down to 7.3 Monitor CBC CODE STATUS DNR/DNI per discussion with family DVT Px: SCDs for now Admission and Anticipated Discharge Date Admission Date: April 30, 2024 Subjective Patient is seen and examined at bedside Remains obtunded Discussed with patient's family at bedside Currently on comfort measures only No distress on exam Review of Systems Review of Systems: Unobtainable due to reduced consciousness Physical Exam Physical Exam: Physical Exam: Vitals signs as noted above General Appearance: Ill-appearing, agitated, frail, mild distress Head: normocephalic, Atraumatic Eyes: normal inspection, icteric Neck: supple, Trachea midline Respiratory/Chest: Normal breath sounds, No accessory muscle use Cardiovascular: S1, S2, No murmur, tachycardia Abdomen/GI:Soft, distended, non tender, Bowel sounds present,+ ascites Extremities/Musculoskeletal:normal inspection, + edema Neurologic/Psych: Obtunded, unable to perform complete neurological exam. Moves all extremities Skin: normal color, warm
--- NOTE | 2024-05-02 16:26 | Palliative Care Progress Note ---
Date of Service May 02, 2024 Assessment & Plan (1) Palliative care by specialist: Plan: Palliative care will continue to follow for ongoing EOL pt care and family support. (2) Comfort measures only status: Plan: Patient was transitioned to [employer] MECH[employer] DESIGN[employer] on 04/03/24. He is only requiring occasional PRN medications for comfort and does not currently meet criteria for GIP and may require SNF placement. Reinforced prior discussion of hospice care and levels of care with pt's mother. Discussed hospice benefit: an interdisciplinary program offered by nurses, nurses aides, social workers, chaplains and a medical administrator for patients with a terminal condition and a life expectancy of less than 6 months. This is covered by Medicare at 100%/no out of pocket expense to patient and all meds/supplies needed by patient for the reason they are on hospice are paid for/covered by hospice. The goal is assure quality of life of the patient in their home setting (home, assisted, inpatient hospice setting) by providing symptoms management, psychosocial and spiritual support. However, they cannot offer 24 hours care and if the family is unable to provide that care, they will have to consider personal care with out of pocket cost vs. assisted placement. We discussed the goals of hospice as a patient service and the goals of care; we discussed EOL trajectories and transitions rosalva the emotional impact of realizing mortality as a concrete reality from prior abstract considerations. Pt was reassured that no matter where they are along this trajectory, they are not alone - their medical team will remain by their side through their journey. Discussed the pros/cons of accepting help when especially weakened and distressed by pain-which would also help provide relief/decrease caregiver burden/strain. (3) Need for comfort care: Plan: EOL Symptom manamgement: Pain/dyspnea/tachypnea morphine 2mg IVP PRN [id number] Consider titratable morphine drip if pt requires >3 PRN doses in under two consecutive hours. Nausea/vomitting zofran 4mg IVP q4h PRN Agitation ativan 1mg IVP q4h PRN Hyperactive delirium haldol 5mg IVP q6h PRN Secretions - if repositioning not effective robinul 0.4mg IV q4h PRN atropine SL 3 drops Q1h PRN Nursing care: Discontinue all medications not directed towards comfort. Detether pt from IV tubing, monitor cables, and check vitals once per shift. Please continue HFNC and titrate down as able for patient comfort. Use medications abov e PRN for dyspnea/tachypnea and do not increase oxygen once titrated down. Assess q1h for pain/dyspnea and treat accordingly. Plan as above Admission and Anticipated Discharge Date Admission Date: April 30, 2024 Subjective Assessed pt at bedside, He was transitioned to [employer]CH[employer] DESIGNER on 04/03/24. Pt is unresponsive to verbal and gentle tactile stimuli, did not attempt to awaken in concert with comfort directed care. He appears comfortable, had just rec'd pain medication 30 minutes prior. Respiratory effort normal rate 18/min with coarse lung sounds. Mother and uncle at bedside. Review of Systems Review of Systems: Unobtainable due to reduced consciousness Physical Exam Physical Exam: General Appearance: Ill-appearing, frail NAD Head: normocephalic, Atraumatic Eyes: normal inspection, icteric Neck: supple, Trachea midline Respiratory/Chest: coarse breath sounds, No accessory muscle use Cardiovascular: S1, S2, No murmur, tachycardia Abdomen/GI:Soft, distended, non tender, Bowel sounds present,+ ascites Extremities/Musculoskeletal:normal inspection, + edema Neurologic/Psych: Obtunded, unable to perform complete neurological exam. Moves all extremities Skin: normal color, warm Results & Data Vital Signs (Past 12 Hours) Vital Signs Temp 36.6 C 05/01/24 12:00 Pulse 116 H 05/01/24 14:00 Resp 17 05/01/24 14:00 BP 129/66 05/01/24 14:00 Pulse Ox 96 05/01/24 14:00 O2 Del Method Room Air 05/01/24 14:00 Intake & Output 05/01/24 05/02/24 05/02/24 18:59 06:59 18:59 Intake Total 1341.384 / 1341.384 Output Total 925 / 1775 850 / 1775 350 / 350 Balance 416.384 / -433.616 -850 / -433.616 -350 / -350 Intake: IV 1263.384 / 1263.384 Albumin 25% 25 gm In 100 ml @ 124.167 / 124.167 50 mls/hr IV Q8H [facility] Rx#: [id number] D5w and Nss 1,000 ml @ 50 mls/ 1000 / 1000 hr IV .Q20H [facility] Rx#:[id number] Octreotide Acetate 500 mcg In 89.217 / 89.217 Sodium Chloride 0.9% 100 ml @ 50 MCG/HR 10.05 mls/hr IV .Q10H [facility] Rx#:[id number] [id number] SODIUM 2,000 mg In 50 / 50 50 ml @ 100 mls/hr IV Q24H [facility] Rx#:[id number] Intake (Blood Product) Amt Cryoprecipitate Unit [id number] Output: Urine Amount (Catheter) 925 / 1775 850 / 1775 350 / 350 Ghosh/Indwelling 925 / 1775 850 / 1775 350 / 350 Laboratory Results No further labs or diagnostics in concert with comfort directed care. Diagnostic Findings No further labs or diagnostics in concert with comfort directed care. Medications Administered Current Inpatient Medications Acetaminophen (Acetaminophen 325 Mg Tab) 650 mg PO Q6H PRN PRN Reason: Fever 37.8C or Above Stop: 05/31/24 14:29 Glycopyrrolate (Glycopyrrolate 0.2 Mg/Ml Vial) 0.4 mg IV Q4H PRN PRN Reason: Rattling Secretions or Pulm Congestion Stop: 05/31/24 14:29 Lorazepam (Lorazepam 2 Mg/1 Ml Vial) 1 mg IV Q2H PRN PRN Reason: Anxiety/Agitation Stop: 05/31/24 14:04 Last Admin: 05/02/24 05:07 Dose: 1 mg Morphine Sulfate (Morphine Sulfate 10 Mg/0.5 Ml Udp) 5 mg PO Q3H PRN PRN Reason: Pain or Respiratory Distress Stop: 05/15/24 14:04 Morphine Sulfate (Morphine Sulfate 2 Mg/Ml Carp) 2 mg IV Q30M PRN PRN Reason: Pain or Respiratory Distress Stop: 05/15/24 16:04 Last Admin: 05/02/24 16:26 Dose: 2 mg Ondansetron HCl (Ondansetron Inj 2 Mg/Ml 2 Ml Vial) 4 mg IV Q4H PRN PRN Reason: Nausea &/or Vomiting Stop: 05/31/24 14:04 PG Care Time/CCT Total # of Minutes Spent Total Time Spent with Patient: Total time spent is greater than 50% in coordination of care (as documented) at patient's floor/unit and/or counseling patient: Coding [place] [address] SUB INP/OBS CARE 2/35MIN Patient Type Established History Problem Focused Exam Problem Focused Medical Decision Making Low Complexity Diagnoses Palliative care by specialist Z51.5 Comfort measures only status Z51.5 Need for comfort care
[2024-05-02] MEDS ORDERED: STAT IV Infusion **Titration per Protocol STA (20:45)
--- NOTE | 2024-05-02 20:45 | Communication Note ---
Date of Service: May 02, 2024 Patient mother requested for morphine infusion to be initiated to keep son comfortable.
[2024-05-02] MEDS: MoRPHine SULF 100 MG/100 ML BAG IV SCH (21:33)
[2024-05-03] MEDS: MoRPHine BOLUS from BAG IV PRN (02:35)
[2024-05-03] MEDS ORDERED: ALBUMIN IV ONE (15:30)
--- NOTE | 2024-05-03 15:51 | Hospitalist Progress Note ---
Date of Service May 03, 2024 Assessment & Plan (1) Acute hepatic encephalopathy: (2) Decompensated cirrhosis related to hepatitis C virus (HCV): (3) Drug abuse and dependence: (4) TERESA (acute kidney injury): Plan Mr. Ulloa is a 38-year-old male with past medical history significant for chronic hepatitis C, cirrhosis of liver, pancytopenia, allergic rhinitis, attention deficit hyperactive disorder, anxiety, history of osteomyelitis, bipolar affective disorder who lives at home with his mother admitted for acute toxic metabolic encephalopathy and decompensated cirrhosis. . Acute toxic metabolic encephalopathy, likely multifactorial--secondary to decompensated end-stage liver disease, drug abuse Substance use disorder, opiates Acute hepatic encephalopathy --CT head: No acute intracranial findings. --Neck CT: No acute cervical spine fracture or subluxation. s/p lactulose enema in ED, ammonia on admission 172>>47 s/p Narcan continue lactulose enema q 8 hours Delirium precautions, monitor for withdrawal symptoms UA positive, history of methamphetamine/opiates Delirium precautions Mental status did not improve despite aggressive management Currently on comfort measures only Plan to discharge home with home hospice when arranged Cirrhosis 2/2 HCV, decompensated History of EV s/p EVL and ascites HCV Follows Dr Merino, GI last visit 03/14/2024 HCV not undergone treatment, history of noncompliance - History of decompensation - MELD 3.0: 32 --CT ABD:Large volume ascites. No evidence for active peritoneal or retroperitoneal hemorrhage. Cirrhotic morphology of the liver with evidence of p ortal hypertension, including splenomegaly, as well as numerous splenorenal and periesophageal varices. Cholelithiasis. Nonspecific wall thickening of the cecum, which may be seen with portal colopathy versus colitis. --EGD: 09/2022- grade II EV. Banded. 11/2023- grade I varices - HRS: baseline 0.5, up to 2.27, starting albumin challenge with 25% albumin 25g q8 hours Consult Nephrology for HRS management, hyperkalemia - Ascites: [employer] F[employer] Developer to perform bedside paracentesis Last paracentesis on 04/26 - SBP: continue CTX q 24 hours, follow up fluid studies from supervisor policy change clerks - EV: octreotide started - Start PPI IV BID - Daily CMP + INR to calculate MELD; low Na diet with FR 1.5L when able -Appreciate GI, surgery input Appreciate critical care input Follow-up cultures Patient is deemed to be not a candidate for transplant Very poor prognosis GI recommended palliative care Discussed with patient's mother in detail on 05/01/2024. Given his poor prognosis patient's mother preferred him to be transition to comfort measures only Continue comfort measures Acute kidney injury Appreciate nephrology input Avoid nephrotoxic agents as able Sanguineous Ascites Acute on chronic anemia hemoglobin 8.6, down to 7.3 Monitor CBC CODE STATUS DNR/DNI per discussion with family DVT Px: SCDs for now Disposition Home with home hospice Case management to help with discharge planning Admission and Anticipated Discharge Date Admission Date: April 30, 2024 Subjective Patient is seen and examined at bedside Remains obtunded No distress while on morphine drip Family at bedside during my encounter Review of Systems Review of Systems: Unobtainable due to reduced consciousness Physical Exam Physical Exam: Physical Exam: Vitals signs as noted above General Appearance: Ill-appearing, agitated, frail, mild distress Head: normocephalic, Atraumatic Eyes: normal inspection, icteric Neck: supple, Trachea midline Respiratory/Chest: Normal breath sounds, No accessory muscle use Cardiovascular: S1, S2, No murmur, tachycardia Abdomen/GI:Soft, distended, non tender, Bowel sounds present,+ ascites Extremities/Musculoskeletal:normal inspection, + edema Neurologic/Psych: Obtunded, unable to perform complete neurological exam. Moves all extremities Skin: normal color, warm
[2024-05-03] MEDS ORDERED: ALBUMIN 25% 12.5 GM/50 ML VIAL IV SCH (16:30)
--- NOTE | 2024-05-03 21:29 | Palliative Care Progress Note ---
Date of Service May 03, 2024 Assessment & Plan (1) Palliative care by specialist: Plan: Palliative care will continue to follow for ongoing EOL pt care and family support. 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 He is currently on morphine drip and appears comfortable (3) Need for comfort care: Plan: EOL Symptom management: Pain/dyspnea/tachypnea morphine 2mg IVP PRN [id number] for BTP Continue titratable morphine drip for comfort Nausea/vomitting zofran 4mg IVP q4h PRN Agitation ativan 1mg IVP q4h PRN Hyperactive delirium haldol 5mg IVP q6h PRN Secretions - if repositioning not effective robinul 0.4mg IV q4h PRN atropine SL 3 drops Q1h PRN Nursing care: Discontinue all medications not directed towards comfort. Detether pt from IV tubing, monitor cables, and check vitals once per shift. Please continue HFNC and titrate down as able for patient comfort. Use medications above PRN for dyspnea/tachypnea and do not increase oxygen once titrated down. Assess q1h for pain/dyspnea and treat accordingly. Plan Pt to be discharged home with [facility] hospice tomorrow. 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 Pt is unresponsive to verbal and gentle tactile stimuli, did not attempt to awaken in concert with comfort directed care. He appears comfortable, has been started on morphine infusion overnightr. Respiratory effort normal rate 18/min with coarse lung sounds. Mother at bedside. Review of Systems Review of Systems: Unobtainable due to reduced consciousness Physical Exam Physical Exam: General Appearance: Ill-appearing, frail NAD Head: normocephalic, Atraumatic Eyes: normal inspection, icteric Neck: supple, Trachea midline Respiratory/Chest: coarse breath sounds, No accessory muscle use Cardiovascular: S1, S2, No murmur, tachycardia Abdomen/GI:Soft, distended, non tender, Bowel sounds present,+ ascites Extremities/Musculoskeletal:normal inspection, + edema Neurologic/Psych: Obtunded, unable to perform complete neurological exam. Moves all extremities Skin: normal color, warm Results & Data Vital Signs (Past 12 Hours) Vital Signs Temp 36.6 C 05/01/24 12:00 Pulse 116 H 05/01/24 14:00 Resp 17 05/01/24 14:00 BP 129/66 05/01/24 14:00 Pulse Ox 96 05/01/24 14:00 O2 Del Method Room Air 05/03/24 08:00 Intake & Output 05/03/24 05/03/24 05/04/24 06:59 18:59 06:59 Intake Total 9.817 / 9.817 Output Total 600 / 950 825 / 825 Balance -600 / -950 -815.183 / -815.183 Intake: IV 9.817 / 9.817 MoRPHine SULF 100 mg In 100 ml 9.817 / 9.817 @ 1 MG/HR 1 mls/hr IV .Q96H [facility] Rx#:[id number] Output: Urine Amount (Catheter) 600 / 950 825 / 825 Ghosh/Indwelling 600 / 950 825 / 825 Laboratory Results No further labs or diagnostics in concert with comfort directed care. Diagnostic Findings No further labs or diagnostics in concert with comfort directed care. Medications Administered Current Inpatient Medications Acetaminophen (Acetaminophen 325 Mg Tab) 650 mg PO Q6H PRN PRN Reason: Fever 37.8C or Above Stop: 05/31/24 14:29 Glycopyrrolate (Glycopyrrolate 0.2 Mg/Ml Vial) 0.4 mg IV Q4H PRN PRN Reason: Rattling Secretions or Pulm Congestion Stop: 05/31/24 14:29 Morphine Sulfate (Morphine Sulf) 100 mg in 100 mls @ 1 mls/hr IV .Q96H [facility]; Protocol Stop: 05/16/24 20:44 Last Titration: 05/03/24 07:22 Dose: 1 mg/hr, 1 mls/hr Lorazepam (Lorazepam 2 Mg/1 Ml Vial) 1 mg IV Q2H PRN PRN Reason: Anxiety/Agitation Stop: 05/31/24 14:04 Last Admin: 05/03/24 19:38 Dose: 1 mg Morphine Sulfate (Morphine Bolus From Bag) 1 mg IV Q15M PRN PRN Reason: Comfort Care Parameters Stop: 05/16/24 20:44 Last Admin: 05/03/24 19:41 Dose: 1 mg Ondansetron HCl (Ondansetron Inj 2 Mg/Ml 2 Ml Vial) 4 mg IV Q4H PRN PRN Reason: Nausea &/or Vomiting Stop: 05/31/24 14:04 PG Care Time/CCT Total # of Minutes Spent Total Time Spent with Patient: Total time spent is greater than 50% in coordination of care (as documented) at patient's floor/unit and/or counseling patient: Coding [place] [address] SUB INP/OBS CARE 03/05MIN Patient Type Established History Problem Focused Exam Problem Focused Medical Decision Making Low Complexity Diagnoses Palliative care by specialist Z51.5 Comfort measures only status Z51.5 Need for comfort care
--- NOTE | 2024-05-04 12:14 | Hospitalist Progress Note ---
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 Awaiting transition home with hospice services through [facility] - hoping this will occur tomorrow following nurse visit today per case management. Code Status: DNR/DNI PCP: Jose Chowdhury MD Disposition: Planning for transition to home with home hospice services through [facility] - hopefully tomorrow. Patient seen in collaboration with Dr. Sampson. Please see addendum. I spent a total of 20 minutes coordinating, documenting, and providing care for this patient excluding time spent in the performance of separately billed services or time spent by another provider/QHP. This included personally reviewing all current laboratories and imaging studies, medical reconciliation, outpatient chart review and discussion with specialists. This chart was completed in part utilizing Speech Voice Recognition Software. Grammatical errors, random word insertions, pronoun errors, and incomplete sentences are an occasional consequence of this system due to software limitations, ambient noise, and hardware issues. Any formal questions or concerns about the content, text, or information contained within the body of this dictation should be directly addressed to the provider for clarification. Admission and Anticipated Discharge Date Admission Date: April 30, 2024 Supervising Physician Co-Signing Physician Notes Pt seen and examined by me care coordinated w/ PA, pls refer to her note above for further detail. Pt admitted with hepatic encephalopathy and decompensated liver cirrhosis, hx of hep C, hx of drug use. Currently pt on comfort measures, on IV morphine, Pt's mother present at the bedside. Pt seen by palliative medicine. Currently lying in bed in NAD, not responding to voice or tactile stimuli. clear to auscultation and respirations not labored. Plan for Home hospice. CM involved. MD Adrián Subjective Patient seen and examined at bedside in room W362-1. Per discussion with family at bedside, including the patient's mother and aunt, patient seemed quite restless at times overnight and mumbling words. Seems to be more relaxed this morning after initiation of PRN IV morphine boluses. He is obtunded and not in any distress at the time that I saw him. No obvious distress on IV morphine drip. Review of Systems Review of Systems: Unable to obtain due to patient's reduced consciousness. Physical Exam Physical Exam: General: Frail, ill-appearing. Skin with jaundiced discoloration. Obtunded. Family present at bedside. Respiratory: Normal respiratory effort. Lungs clear to auscultation bilaterally. No accessory muscle use. Cardiovascular: Tachycardic rate, regular rhythm. No murmur. + BLE edema. Abdomen/GI: Bowel sounds present. Soft, nontender to palpation in all quadrants. + abdominal ascites. Extremities/MSK: Normal inspection of all extremities. Unable to test strength or mobility. Results & Data Results & Data Vital Signs (Past 12 Hours) Vital Signs O2 Del Method 05/04/24 08:00 Room Air 05/03/24 20:00 Room Air Intake and Output 05/03/24 05/04/24 05/04/24 22:59 06:59 14:59 Intake Total 23.833 / 23.833 Output Total 350 / 1825 650 / 1825 Balance -350 / -1815.183 -650 / -1815.183 23.833 / 23.833 Intake: IV 23.833 / 23.833 MoRPHine SULF 100 mg In 100 ml 23.833 / 23.833 @ 1 MG/HR 1 mls/hr IV .Q96H [facility] Rx#:[id number] Output: Urine Amount (Catheter) 350 / 1825 650 / 1825 Ghosh/Indwelling 350 / 1825 650 / 1825 Medications Administered Current Inpatient Medications Acetaminophen (Acetaminophen 325 Mg Tab) 650 mg PO Q6H PRN PRN Reason: Fever 37.8C or Above Stop: 05/31/24 14:29 Glycopyrrolate (Glycopyrrolate 0.2 Mg/Ml Vial) 0.4 mg IV Q4H PRN PRN Reason: Rattling Secretions or Pulm Congestion Stop: 05/31/24 14:29 Morphine Sulfate (Morphine Sulf) 100 mg in 100 mls @ 1 mls/hr IV .Q96H [facility]; Protocol Stop: 05/16/24 20:44 Last Titration: 05/04/24 07:12 Dose: 1 mg/hr, 1 mls/hr Lorazepam (Lorazepam 2 Mg/1 Ml Vial) 1 mg IV Q2H PRN PRN Reason: Anxiety/Agitation Stop: 05/31/24 14:04 Last Admin: 05/04/24 13:14 Dose: 1 mg Morphine Sulfate (Morphine Bolus From Bag) 1 mg IV Q15M PRN PRN Reason: Comfort Care Parameters Stop: 05/16/24 20:44 Last Admin: 05/04/24 01:02 Dose: 1 mg Ondansetron HCl (Ondansetron Inj 2 Mg/Ml 2 Ml Vial) 4 mg IV Q4H PRN PRN Reason: Nausea &/or Vomiting Stop: 05/31/24 14:04
[2024-05-04 18:39] LABS: Amphetamine Urine, Confirm 641 ng/mL (<250); Codeine Urine NEGATIVE ng/mL (<50); Hydrocodone Urine NEGATIVE ng/mL (<50); Hydromor Urine NEGATIVE ng/mL (<50); MDA negative; MDEA negative; MDMA (Ecstasy) Urine, Confirm negative; Marijuana Quant, GCMS Urine 21 ng/mL (<5); Methamphetamine, Ur Confirm 14909 ng/mL (<250); Morphine Urine NEGATIVE ng/mL (<50); Norhydrocodone Conf Ur NEGATIVE ng/mL (<50); Noroxycodone Urine 718 ng/mL (<50); Oxycodone Urine 2770 ng/mL (<50); Oxymorph Urine 325 ng/mL (<50)
--- NOTE | 2024-05-05 12:36 | Discharge Summary ---
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 UA positive, history of methamphetamine/opiates. Mental status did not improve despite aggressive management. Initial CT abd/pelvis with large volume ascites. No evidence for active peritoneal or retroperitoneal hemorrhage. Cirrhotic morphology of the liver with evidence of portal hypertension, including splenomegaly, as well as numerous splenorenal and periesophageal varices. Cholelithiasis. Nonspecific wall thickening of the cecum, which may be seen with portal colopathy versus colitis. Neonatal Doctor performed bedside paracentesis. MELD score 32. GI evaluated - poor prognosis, not a good candidate for transplant given ongoing drug use. Recommended palliative discussion. Per extensive discussion with family and care teams, patient was transitioned to comfort measures only on 05/01/24. Patient comfortable with morphine drip and has required PRN ativan for agitation. Care coordinated with [facility] hospice for discharge home. Case mgmt coordinating with Dr. Rg for morphine pump orders. Continue PRN haldol for agitation and Levsin for secretions until comfort pack arrives. Discontinued long-term medications for chronic conditions. Medications to be managed by hospice after discharge. Discussed transition with mother at bedside. 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 Continue IV morphine as coordinated by hospice. PRN Haldol for agitation and Levsin PRN for secretions. Admission HPI Per Admitting Provider Mr. Ulloa is a 38-year-old male with past medical history significant for chronic hepatitis C, cirrhosis of liver, pancytopenia, allergic rhinitis, attention deficit hyperactive disorder, anxiety, history of osteomyelitis, bipolar affective disorder who lives at home with his mother presented to [facility] ED due to being found unresponsive. Patient was last well known yesterday by his mother. Mother was unaware of any drug use. Mother was unable to provide much history, noting that she is not aware of the gravity of the patient's medical condition. Patient was noted to have drug paraphernalia reported on person during presentation to ED. No other history was obtained. In the ED, vitals were notable for BP of 90s-120s, HR of 100s and O2 sat of 90s on room air Imaging revealed CT with large volume ascites, no active peritoneal or retroperitoneal hemorrhage EKG sinus tachycardia s/p paracentesis by claim professional, IV PPI, lactulose enema Consultants: ICU Patient to be admitted to ICU for further evaluation and management of acute hepatic encephalopathy and decompensated cirrhosis Admission Exam Per Admitting Provider GENERAL APPEARANCE: solmnolent, awake but unresponsive groaning HEENT: NC, AT. MMM. EOMI, scleral icterus, oropharynx clear. HEART: CLARY+ LUNGS: CTAB, moving air well. No crackles or wheezes are heard. ABDOMEN: protuberant, large abdomen BACK: No CVAT, no obvious deformity. EXTREMITIES: BLE edema NEUROLOGICAL: Grossly nonfocal moving all 4 extremities. CN not formally tested but appear grossly intact. Skin: jaundice Discharge Exam Gen: obtunded, frail-appearing, jaundiced male, mother at bedside Lung: Clear to Auscultation bilaterally Heart: tachycardic rate Abdomen: Soft, nontender, + abdominal ascites Updated Medication List Medication Instructions Recorded Confirmed Type MoRPHine BOLUS FROM BAG 1 mg IV Q15M PRN ##0 05/05/24 Rx haloperidol lactate 2 mg/mL oral 0.5 mg (0.25 mL) PO Q4H PRN 05/05/24 Rx concentrate agitation #15 mL hyoscyamine sulfate 0.125 mg 0.125 mg PO Q4H PRN dyspepsia #7 05/05/24 Rx sublingual tablet (Levsin/SL) tabs Hospital Stay Data Consultations 04/30/24 13:53 Consult Neonatal Doctor Routine 04/30/24 14:07 Consult Nephrology Routine ED Decision to Admit Stat 04/30/24 14:08 Consult Gastroenterology Routine 04/30/24 19:55 Consult General Surgery Stat 05/01/24 13:43 Consult Palliative Care Routine Diagnostic Imagining Performed 04/30/24 12:32 CT cervical spine wo con Stat CT head/brain wo con Stat 04/30/24 18:29 CT hip RT wo con Stat 04/30/24 19:02 CT angio abdomen pelvis w con Stat Pending Results Patient Have Any Pending Studies at Discharge: No Discharge Instructions Given to Patient (Per Discharging Provider) Patient admitted for acute toxic metabolic encephalopathy in the setting of end- stage decompensated cirrhosis. Transitioned to comfort care status after extensive conversation with care providers and family on 04/30/24. Services coordinated with [facility] hospice - discharging home today. MEDICATION CHANGES: joint terminal attack controller medications for chronic conditions discontinued. Continue IV morphine as coordinated by hospice. PRN Haldol for agitation and Levsin PRN for secretions. Please call if you have any questions or problems. You can reach a [facility] hospitalist on duty at [facility] 24 hours a day by calling [phone]. Total Time Total Time Spent Total Time Spent (In Minutes): 50 Supervising Physician Co-Signing Physician Notes Pt seen and examined by me , care coordinated w/ COLLEEN Zhu, pls refer to her note above for further detail. Pt admitted with hepatic encephalopathy and decompensated liver cirrhosis, hx of hep C, hx of drug use. Currently pt on comfort measures, on IV morphine, with plan to transition to home hospice with [facility]. Currently pt is lying in bed in NAD, not responding to voice or tactile stimuli. clear to auscultation and respirations not labored. Pt's mother present at the bedside. MD Adrián
== END 2024-05-05 13:43 | disposition hospice, home (50) | DRG 432 ==
LOC: ED 12:22 → SUATTDRO 14:21 → 1E 14:21 → 3W 05-01 18:37